=== PATIENT | female | born 1950 | race Caucasian/White ===

== ENCOUNTER → 2018-01-15 | Outpatient (CLI) | payer OTHER ==
[~2018-01-15] MED LIST: ADVIN25050 INH; ASPCH81X PO; CITA20TA9 PO; CONJ0.453 PO; DICY20TA35 PO; IMD2X PO; KLN/5 PO; OXYC5TAB PO; PANT40TA PO; PREG150C PO; PRM625 PO
--- NOTE | 2018-01-16 05:52 | PAP/PSG TECHNICIAN REPORT ---
[facility] [employer] Machine [employer] Helper Polysomnogram Report Study name: None Report date: 01/16/2018 Study date: 01/15/2018 Referring Physician: Dr. Violet Marquez M.D. Name: SAMUEL GARRISON Interpreting Physician: Violet Marquez M.D. 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 Sex: Female Age: 68 StudyType: PSG Weight: 148 lbs Height: 68 years, Height 5' 2" Neck Circum: 13 inches BMI: 27.07 Medications: Advair Diskus, Albuterol 108 (90 Base), Dicylomine 20 mg, Diphenoxylate-Atropine 2.5-0.025 mg, Doxepin, Dulexetine 30 mg, Fluticasone 50 MCG/ACT, Gualfenesin-Codeine 100-10, Loperamide2 mg, Loratadine 10 mg, Montelukast 10 mg, Ondansetron 8 mg, Pantoprazole 40 mg, Prednisone 10 mg, Pregabalin 150 mg, Premarin, Probiotic Patient History 68 yr. old female here for a diagnostic sleep study in room 5 Patient complains of EDS and insomnia. ESS 08/25 Parameters Monitored NPSG: E1-M2, E2-M1, Fp1-M2, Fp2-M1, F3-M2, F4-M2, F4-M1, C3-M2, C4-M2, C4-M1, O1-M2, O2-M2, O2-M1, T3-M2, T4-M1, P3-M2, P4-M1, CHIN1, CHIN2, HR, EKG, Legs, PFLOW, SNOR, FLOW, CFLOW, Tidal Volume, THOR, ABDO, SpO2, PLTH, CPRESS, ETCO2 Wave, ETCO2, pH Sleep Architecture Sleep Stages Time at Lights Off 10:20:36 PM STAGES Time (min.) TST (%) Time at Lights On 5:31:36 AM Wake 85.0 -- Total Recording Time (TRT) 431.50 min. N1 15.0 4 Total Sleep Period (TSP) 395.0 min. N2 162.0 47 Total Sleep Time (TST) 346.0min. N3 89.5 26 Awake Time 85.0 min. REM 79.5 23 Wake after Sleep Onset 49.0 min. Sleep Efficiency (SE) 80 % Sleep Onset Latency (SELMA) 36.0 min. Number of Stage 1 Shifts None Awakenings 11 Stage Changes 48 Number of REM periods 4 REM 79.5 23 REM Latency 211.5 min. NREM 266.5 77 Body Position Analysis Supine Right Left Side Prone Vertical Total Sleep Time (min.) 249.2 150.0 0.0 149.97 0.0 3.0 Total Sleep Time (%) 57% 43% 0% 43 0% N/A% Total Sleep Time REM (min.) 36.0 43.5 0.0 None 0.0 0.0 Total Sleep Time NREM (min.) 160.0 106.5 0.0 None 0.0 0.0 Intermittent Wake (min.) 53.1 3.0 25.9 None 0.0 3.0 Total Sleep Period (%) 61% None None None None None Arousals Myoclonus (PLM) * Events Count Index Events Count Index Spontaneous 3 1 Events Awake (PLMW) 125 88.2 Respiratory 0 0.0 Events Asleep w/ Arousal (PLMA) 14 2.4 PLM 13 2 Events Asleep w/o Arousal (PLMS) 309 53.6 Snoring 5 1 Total Asleep 323 56.0 Total 20 3 Total 448 62 Respiratory Analysis * CA OA MA CH H RERA Total Count 1 32 1 0 47 0 81 Index 0.2 5.5 0.2 0 8.2 0 14.0 Mean Duration 14.7 27.9 16.7 0.00 22.6 0.0 24.5 Longest Duration 14.7 43.9 16.7 0.00 16.7 0.0 65.4 Respiratory Event Summary Total Supine ~Supine Right Left Prone REM NREM Apneas Count 34 34 0 0 N/A N/A 27 7 Index 5.9 10 0 0.0 N/A N/A 20 2 Hypopneas (4% Desat) Count 47 25 22 22 N/A N/A 31 16 Index 8.2 7.7 9 8.8 N/A N/A 23.4 3.6 Apneas & All Hypopneas Count 81 59 22 22 N/A N/A 58 23 Index 14.0 18 9 9 N/A N/A 43.8 5.2 Respiratory Events (Computer Aided Design Designer+All Hyp+RERA) Count 81 59 22 22 N/A N/A 58 23 Index 14.0 18 9 8.8 N/A N/A 43.8 5.2 Respiratory Related Arousal Count 0 59 0 0 N/A N/A 0 0 Index 0.0 0 0 0 N/A N/A 0 0 Snoring Analysis Supine Right Left Prone REM NREM Total Snore duration 127.6 min Snores count 1,615 1,560 N/A N/A 535 2,640 3,175 Snore mean duration 2.4 Sec Snores index 494 624 N/A N/A 403.8 594.4 550.6 TST with snoring (%) 36.9% SpO2 Analysis Total REM NREM Awake <50% 0.0 min. 0.0 min. 0.0 min. 0.0 min. 51 - 60% 0.0 min. 0.0 min. 0.0 min. 0.0 min. 61 - 70% 0.0 min. 0.0 min. 0.0 min. 0.0 min. 71 - 80% 0.9 min. 0.9 min. 0.0 min. 0.0 min. 81 - 90% 273.1 min. 34.4 min. 201.4 min. 37.3 min. 91 - 100% 139.6 min. 44.2 min. 65.1 min. 30.3 min. Average 90 90 89 90 Minimum SpO2 79 79 81 82 Desaturation Event Index 11.4 37.7 3.8 10.6 # Desat. 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 Garrison slept in the right, left, and supine positions. No cardiac arrhythmia. Frequent PLMs noted. No bruxism noted. Snoring was noted and scored as a 4 on a scale of 0 through 5. (0=no snoring, 5=snoring loud enough to be heard through a closed door or down the [address] way) Mrs. Garrison awoke to use the restroom two times during the night. Mrs. Garrison stated, "(Example) I did not sleep as well as I do when I am in my own bed. The final report will be interpreted and signed by a sleep physician. The completed physician report will then be placed in the patient medical record. Therapy (cm H2O) 0 TIB (min.) 431.0 TST (min.) 346.0 Sleep Onset (min.) 36.0 REM Onset From Sleep (min.) 211.5 Sleep Efficiency % 80 Wakefulness (%) 20 Wakefulness (min.) 85.0 NREM 1 (%) 4 NREM 1 (min.) 15.0 NREM 2 (%) 47 NREM 2 (min.) 162.0 NREM 3 (%) 26 NREM 3 (min.) 89.5 REM (%) 23 REM (min.) 79.5 # Arousals 20 Arousal Index 3 # Snore 3,175 Snore Index 550.6 AHI 14.0 AHI Supine 18 AHI Non-Supine 9 NREM AHI 5.2 REM AHI 43.8 RDI 14.0 # Obstructive Apnea 32 # Central Apnea 1 # Mixed Apnea 1 # Hypopneas 47 RERAs 0 Total Respiratory Events 82 Time Below SpO2 89% (min.) 97.6 Mean NREM SpO2 (%) 89 Mean REM SpO2 (%) 90 Mean Sleep SpO2 (%) 90 Min NREM SpO2 (%) 81 Min REM SpO2 (%) 79 Position Supine (min.) 249.2 Position Non-supine (min.) 150.0 LM Index Sleep 56.0 LM Index NREM 68.0 LM Index REM 15.8 Mean Heart Rate (bpm) 86 Min Heart Rate (bpm) 70
--- NOTE | 2018-01-31 14:36 | Sleep Study ---
Sleep Study Report Date of Service: 01/31/18 Sleep Study Report [facility] Diagnostic Polysomnogram Interp Report Study name: None Report date: 01/31/2018 Study date: 01/15/2018 Referring Physician: Dr. Violet Marquez M.D. Name: SAMUEL GARRISON Interpreting Physician: Violet Marquez M.D. Date of : 1950 Geriatric Personal Care Aide: Becka Rivera [facility]. Sex: Female Age: 68 Study Type: PSG Weight: 148 lbs Height: 68 years, Height 5' 2" BMI: 27.07 DIAGNOSTIC POLYSOMNOGRAPHY REPORT This patient was referred by Dr. Violet Marquez M.D. SAMUEL GARRISON, tested at 7:22:36 PM on 01/15/2018, is a 68 year old female, date of 1950 who is 5' 2" and 148 lbs, with a BMI of 27.07, which is elevated. This patient has an [place] Sleepiness Score of 2, which is normal. Study scored by: Violet Marquez M.D. IMPRESSION: 1-Mild obstructive sleep apnea syndrome exacerbated to the severe degree during REM sleep. These respiratory events were associated with oxygen desaturations ( darius of 79 %). 2-Abnormal sleep architecture likely due to respiratory events and first night effect. RECOMMENDATIONS: 1-CPAP titration study. 2-Avoidance of alcohol and sedatives. Past medical history: Insomnia Medications: Advair Diskus, Albuterol Dicylomine, Diphenoxylate-Atropine, Doxepin, Dulexetine , Fluticasone, Gualfenesin-Codeine, Loperamide, Loratadine, Montelukast, Ondansetron, Pantoprazole, Prednisone, Pregabalin, Premarin, Probiotic Sleep Study Summary Procedure: The study was attended continuously by a electrophysiology technologist. The monitored parameters included: left (E1-M2) and right (E2-M1) EOG, frontal (F3- M2 & F4-M1), central (C3-M2 & C4-M1) and occipital (O1-M2 & O2-M1) EEG, mental and submental EMG, left and right anterior tibialis EMG, left and right extensor digitorum EMG, single ECG waveform, snoring, continuous airflow with thermistor and nasal pressure transducer, chest and abdominal effort, oxygen saturation, EtCO2, and body position via video monitoring. Hypopnea definition: The nasal pressure signal excursions (or those of the alternative hypopnea sensor) drop by 30% of baseline. The duration of this drop occurs for a period lasting at least 10 seconds. There is a 4% desaturation from pre-event baseline or the event is associated with an arousal. At least 90 % of the event's duration must meet the amplitude reduction criteria for hypopnea. Sleep Data: This patient displayed normal latency to sleep onset of 36.0 min., with disrupted sleep architecture with sleep stage percentages of 4% N1, 41% N2, 23% N3, and 20% REM, with normal sleep efficiency of 80% and with Total Sleep Time of 346.0 minutes. Respiratory Data: 81 respiratory events were observed. The apnea-hypopnea index was 14.0 which is mild. The amounts of apneas/hypopneas are not evenly distributed throughout the study, with a non-REM RDI of 5.2 and a REM RDI of 43.8. Respiratory events were more frequent in the supine position. The longest respiratory event duration was 65.4 sec. Minimum NREM oxygen saturation was 81%; minimum REM oxygen saturation was 79%. Time spent below SaO2 of 90% was 3.2 min. The time spent with SaO2 of 80-89% was 97 min. Snoring was noted to be present. Limb Movement: 323 limb movements were observed for an index of 56.0. Arousal: 20 arousals were observed, with a total index of 3. There were 3 spontaneous arousals, 0 respiratory arousals (respiratory arousal index of 0.0) , and 13 limb movement arousals (limb movement arousal index of 2). Cardiac: The average heart rate during sleep was 86 beats per minute, with a range of 70 to 107. During wake, the heart rate ranged from 73 to 106 beats per minute. There were no arrhythmias noted. Pierce-Vasquez breathing was absent. EEG: There were no epileptic form features reported. Behavioral Observation: The patient reported that their sleep for this study was shorter in duration and of poorer quality than usual. The patient did not display unusual behaviors. Thank you for the courtesy of this referral. Dr Violet Marquez Board Certified in Internal/ Sleep Medicine
== END | disposition home or self-care (01) ==
LOC: C.NEUR 21:00
PROVIDERS: ATTEND Internal Medicine
DX: G47.33 Obstructive sleep apnea (adult) (pediatric) (principal)

== ENCOUNTER 2020-10-11 11:38 | Observation (INO) ==
--- OUTSIDE RECORDS SUMMARY | 2020-10-11 11:41 | External Medical Summary | Continuity of Care Document ---
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) Sudden hearing loss (388.2) (H91.20) Carpal tunnel syndrome (354.0) (G56.00) Neck pain (723.1) (M54.2) Arm pain (729.5) (M79.603) Allergies and Adverse Reactions No Known Allergies (Allergy) Medications Lyrica 75 MG Oral Capsule Refills: 0 CeleXA 10 MG Oral Tablet; TAKE 3 TABLETS DAILY Refills: 0 Prempro 0.625-2.5 MG Oral Tablet Refills: 0 KlonoPIN 0.5 MG Oral Tablet Refills: 0 Protonix 40 MG Oral Packet Refills: 0 Procedures History of Hysterectomy Status: Complete d History of Tonsillectomy With Adenoidectomy Status: Completed Immunizations Immunizations not documented Family History Father Family history of diabetes mellitus (V18.0) (Z83.3) Status: Active Family history of cardiovascular disease (V17.49) (Z82.49) S tatus: Active Sister FHx: cancer (V16.9) (Z80.9) Status: Active Brother Family history of cardiovascular disease (V17.49) (Z82.49) S tatus: Active Social History - Smoking Status Smokes tobacco daily Plan of Treatment Planned Observations Planned Goals not documented Results No Known Results Results not documented
[2020-10-11] MEDS ORDERED: KETOROLAC TROMETHAMINE 15 MG/ML VIAL IV ONE (12:40)
[2020-10-11] MEDS ORDERED: ONDANSETRON INJ 2 MG/ML 2 ML VIAL IV STA (12:40)
[2020-10-11] MEDS ORDERED: HYDROmorphone INJ 0.5 MG/0.5 ML SYR IV STA (12:40)
[2020-10-11] MEDS ORDERED: SODIUM CHLORIDE 0.9% 1000ML 1,000 ML IV ONE (12:40)
--- NOTE | 2020-10-11 12:44 | Emergency Department Note ---
Impression & Plan Acute leg pain, Acute hip pain, Back pain ED Provider Note NAME: SAMUEL GARRISON AGE: 70 SEX: F : 1950 ARRIVES VIA: Walk-In INFORMANT: Patient ED PROVIDER(S): Mason Ulloa DO CHIEF COMPLAINT: Right hip and back pain HPI: Patient is a 70-year-old female who presents the ER for initially right hip pain which started a week ago. Patient was moving 10 pound bags and started having severe pain. And now radiates from the right lower back down the right leg. Over the past 3 to 4 days she has been having trouble moving the leg as it is significantly painful. The pain runs down the leg. Patient denies any headache or change in vision. No chest pain or shortness of breath. No belly pain. Denies any dysuria, urgency, or frequency. No other exacerbating or remitting factors. Pain is a 10 out of 10 with movement. Denies any tingling or numbness. ROS: See above HPI for pertinent positives & negatives. A total of 10 systems reviewed and were otherwise negative. PAST MEDICAL HISTORY:See Below PAST SURGICAL HISTORY:See Below FAMILY HISTORY:See Below SOCIAL HISTORY:See Below HOME MEDICATIONS:See Below ALLERGIES:See Below VITALS:See Below PHYSICAL EXAMINATION: GENERAL: Sitting up in bed, alert, well appearing, well nourished, no distress, non-toxic EYE EXAM: normal conjunctiva. OROPHARYNX: no exudate, no erythema, lips, buccal mucosa, and tongue normal and mucous membranes are moist NECK: supple, no nuchal rigidity, no adenopathy, non-tender LUNGS: Clear to auscultation. Normal chest wall mechanics HEART: no murmurs, S1 normal and S2 normal ABDOMEN: abdomen soft, non-tender, normo-active bowel sounds, no masses, no rebound or guarding. BACK: Back is symmetrical on inspection and there is no deformity, no midline tenderness, no CVA tenderness. SKIN: no rashes and no bruising UPPER EXTREMITIES: upper extremities are grossly normal. LOWER EXTREMITIES: Flexion and extension of the hips, knees, ankles, and EHL 5/5 on the left. Flexion extension of the ankle and EHL 5 out of 5 on the right. Severe pain with any movement of the right hip. Flexion of the right hip about 5 degrees and supports against resistance. Gross sensation is intact. DPs are 2/4 bilateral. Patellar and Achilles reflexes are 2/4 bilateral NEURO EXAM: Normal sensorium, cranial nerves II-XII grossly intact, normal speech, no gross weakness of arms. MEDICAL DECISION MAKING: Patient is a 70-year-old female who presents the ER for severe right leg pain in the hip radiating down the leg with pain in the back. She notes that she is having trouble walking and cannot walk secondary to the pain. Denies any trauma falls or fevers. Able to urinate move her bowels. No numbness in the legs. IV was established blood work was obtained. Labs show leukocytosis of 10,000. No significant anemia. BMP with LFTs bilirubin and lipase was unremarkable. MR of the lumbar spine was performed initially secondary to severe pain and showed no culprit lesion. CT head was performed as well this ultrasound leg which was unremarkable. Patient was given IV morphine following which she did desat. and note she is having difficulty and can get around at home. Unable to place secondary to insurance. Discussed with patient and will observe overnight. She remained on oxygen while in the ER after the morphine. She was not hypoxic prior to this. Triage Nursing notes reviewed. Limited review of prior medical records performed Vital Signs: reviewed and remarkable for tachy and hypotensive Differential diagnosis: Fracture, subluxation, dislocation, contusion, ligamentous injury, neurovascular, compartment syndrome, rhabdomyolysis, as well as other pathologie s. ER treatment provided: See below Diagnostics interpreted by me: ECG: none Cardiac Monitoring: An order was placed for continuous cardiac monitoring. The monitor shows a rate of 74 with sinus rhythm. Laboratory studies: As stated above and show below. Imaging studies: MR as discussed above Duplex of the right lower extremity was negative CT head was negative Consultation(s): Discussed with the hospitalist for further evaluation Procedures: none Critical Care: None Past Med/Surg History Medical History (Updated 10/11/20 @ 17:17 by Marii Sloan PA-C) Anxiety Asthma COPD (chronic obstructive pulmonary disease) Depression GERD (gastroesophageal reflux disease) History of left heart catheterization IBS (irritable bowel syndrome) VIRGIL (obstructive sleep apnea) Restless leg syndrome Tobacco abuse Surgical History (Updated 10/11/20 @ 17:17 by Marii Sloan PA-C) H/O abdominoplasty "03/08/07" H/O: hysterectomy History of carpal tunnel surgery of right wrist History of cervical spinal arthrodesis Family History (Updated 10/11/20 @ 17:18 by Marii Sloan PA-C) Sister Breast cancer Father Diabetes Brother Prostate cancer Mother Kidney disease Social History (System 12/31/19 @ 12:36 by Ngozi Jaeger) Smoking Status: Current every day smoker Preferred Language: Azeri Feels Safe at Home: Yes Allergies Allergies Allergy/AdvReac Type Severity Reaction Status Date / Time morphine Allergy Mild rash Unverified 10/11/20 14:41 cat dander Allergy Unknown Unknown Verified 10/11/20 14:41 strawberry Allergy Unknown Unknown Verified 10/11/20 14:41 Home Meds Home Medications Medication Instructions Recorded Confirmed albuterol sulfate 2 puff INHALATION Q4H PRN 10/11/20 10/11/20 aspirin [Aspir-81] 81 mg PO DAILY 10/11/20 10/11/20 atorvastatin 20 mg PO DAILY 10/11/20 10/11/20 bupropion HCl 150 mg PO DAILY 10/11/20 10/11/20 duloxetine 60 mg PO DAILY 10/11/20 10/11/20 fluticasone propionate 2 spray INTRANASAL BID 10/11/20 10/11/20 meclizine 25 mg PO TID PRN 10/11/20 10/11/20 meloxicam 7.5 mg PO DAILY 10/11/20 10/11/20 pantoprazole 40 mg PO DAILY 10/11/20 10/11/20 pregabalin 75 mg PO BID 10/11/20 10/11/20 pregabalin 150 mg PO HS 10/11/20 10/11/20 solifenacin 5 mg PO DAILY 10/11/20 10/11/20 trazodone 150 mg PO HS 10/11/20 10/11/20 umeclidinium [Incruse Ellipta] 1 inh INHALATION DAILY 10/11/20 10/11/20 Results & Data (ED) Vital Signs Vital Signs - 24 hr 10/11/20 11:46 10/11/20 14:00 10/11/20 14:07 Temperature 37.3 C Temperature Source Temporal Artery Scan Pulse Rate 110 H Pulse Rate [Finger] 90 Pulse Rate from SpO2 Sensor Pulse Rhythm [Finger] Regular Respiratory Rate 20 16 Respiratory Effort / Characteristics Non-Labored Spontaneous Non-Labored Spontaneous Respiratory Depth Normal Normal Respiratory Pattern Regular Blood Pressure 91/55 L Blood Pressure [Left Arm] 101/49 L Blood Pressure Mean 67 Blood Pressure Mean [Left Arm] 66 Blood Pressure Position [Left Arm] Sitting Pulse Oximetry 98 91 91 Oxygen Delivery Method Room Air Room Air Room Air Oxygen Flow Rate Sepsis Recent Fever Within 48 Hours No Sepsis New/Unexplained Change in Mental Status N/A Sepsis Action Taken by Nursing No Action Required 10/11/20 15:00 10/11/20 16:21 10/11/20 16:24 Temperature Temperature Source Pulse Rate 88 Pulse Rate [Finger] 78 Pulse Rate from SpO2 Sensor 83 Pulse Rhythm [Finger] Respiratory Rate 25 H 20 Respiratory Effort / Characteristics Respiratory Depth Respiratory Pattern Blood Pressure 96/49 L 90/50 L Blood Pressure [Left Arm] 90/50 L Blood Pressure Mean 64 63 Blood Pressure Mean [Left Arm] 63 Blood Pressure Position [Left Arm] Pulse Oximetry 88 L 93 93 Oxygen Delivery Method Room Air Nasal Cannula Oxygen Flow Rate 2 2 Sepsis Recent Fever Within 48 Hours Sepsis New/Unexplained Change in Mental Status Sepsis Action Taken by Nursing 10/11/20 16:30 10/11/20 17:00 10/11/20 17:30 Temperature Temperature Source Pulse Rate Pulse Rate [Finger] Pulse Rate from SpO2 Sensor 77 78 80 Pulse Rhythm [Finger] Respiratory Rate Respiratory Effort / Characteristics Respiratory Depth Respiratory Pattern Blood Pressure 96/55 L 95/47 L 102/56 L Blood Pressure [Left Arm] Blood Pressure Mean 68 63 71 Blood Pressure Mean [Left Arm] Blood Pressure Position [Left Arm] Pulse Oximetry 96 87 L 92 Oxygen Delivery Method Room Air Oxygen Flow Rate 2 2 Sepsis Recent Fever Within 48 Hours Sepsis New/Unexplained Change in Mental Status Sepsis Action Taken by Nursing Laboratory Data Result diagrams: 10/11/20 13:25 10/11/20 13:25 Lab Results 10/11/20 10/11/20 10/11/20 Range/Units 13:25 13:25 17:37 WBC 10.00 (4.8-10.8) K/uL RBC 4.51 (4.2-5.4) M/uL Hgb 13.8 (12.0-16.0) g/dL Hct 40.7 (37-47) % MCV 90.2 (80-100) fL MCH 30.6 (25-34) pg MCHC 33.9 (32-36) g/dL RDW Std Deviation 46.7 H (36.4-46.3) fL RDW Coeff of Ira 13.9 (11.5-14.5) % Plt Count 287 (130-400) K/uL MPV 9.0 (7.4-10.4) fL Immature Gran % (Auto) 0.1 % Neut % (Auto) 75.8 % Lymph % (Auto) 15.1 % [place] % (Auto) 6.5 % Eos % (Auto) 2.1 % Baso % (Auto) 0.4 % Neut # (Auto) 7.58 H (1.4-6.5) K/uL Lymph # (Auto) 1.51 (1.2-3.4) K/uL [place] # (Auto) 0.65 H (0.11-0.59) K/uL Eos # (Auto) 0.21 (0-0.5) K/uL Baso # (Auto) 0.04 (0-0.2) K/uL Immature Gran # (Auto) 0.01 (0.00-0.02) K/uL Sodium 137 (136-145) mmol/L Potassium 4.4 (3.5-5.1) mmol/L Chloride 103 (98-107) mmol/L Carbon Dioxide 29 (21-32) mmol/L Anion Gap 5.0 (3-11) BUN 13 (7-18) mg/dl Creatinine 0.77 (0.6-1.2) mg/dl Est Cr Clr Drug Dosing 55.3 ml/min Est GFR ( Amer) 92.0 Est GFR (Non-Af Amer) 79.3 BUN/Creatinine Ratio 16.8 (10-20) Glucose 89 (70-99) mg/dl Calcium 9.5 (8.5-10.1) mg/dl Total Bilirubin 0.7 (0.2-1) mg/dl AST 8 L (15-37) U/L ALT 13 (12-78) U/L Alkaline Phosphatase 115 (45-117) U/L Total Protein 6.9 (6.4-8.2) gm/dl Albumin 3.2 L (3.4-5.0) gm/dl Globulin 3.7 (2.5-4.0) gm/dl Albumin/Globulin Ratio 0.9 (0.9-2) Lipase 45 L (73-393) U/L COVID-19 Eval Order CovFluRsv at [facility] Administered Medications Discontinued Medications Hydromorphone HCl (Hydromorphone Inj 0.5 Mg/0.5 Ml Syr) 0.25 mg IV NOW STA Stop: 10/11/20 12:41 Last Admin: 10/11/20 14:04 Dose: 0.25 mg Documented by: [id number] Sodium Chloride (Nss 1000ml) 1,000 mls @ 999 mls/hr IV .Q1H1M ONE Stop: 10/11/20 13:40 Last Infusion: 10/11/20 14:32 Dose: 0 mls/hr Documented by: [id number] Admin: 10/11/20 13:31 Dose: 999 mls/hr Documented by: [id number] Ketorolac Tromethamine (Ketorolac Tromethamine 15 Mg/Ml Vial) 10 mg IV NOW ONE Stop: 10/11/20 12:41 Last Admin: 10/11/20 14:03 Dose: 10 mg Documented by: [id number] Ondansetron HCl (Ondansetron Inj 2 Mg/Ml 2 Ml Vial) 4 mg IV NOW STA Stop: 10/11/20 12:41 Last Admin: 10/11/20 14:03 Dose: 4 mg Documented by: [id number] Imaging Data Radiologist's Impression: Hip/Pelvis X-Ray 10/11/20 12:40 XR hip RT 2V w pelvis CLINICAL HISTORY: Right hip pain. COMPARISON STUDY: Pelvis 08/25/2018. FINDINGS: No fracture or dislocation within the pelvis or hips. The sacrum is intact. Soft tissues are unremarkable. There is mild osteoarthritis within the bilateral hips, unchanged. There is also mild chondrocalcinosis within the hips. IMPRESSION: 1. No fracture or dislocation within the pelvis or hips. 2. No change in the mild osteoarthritis and chondrocalcinosis of the hips. ACT 112: Negative or not required by law. Electronically signed by: Anshul Cardona M.D. 10/11/2020 2:03 PM Lumbar Spine MRI 10/11/20 12:40 MRI OF LUMBAR SPINE WITHOUT IV CONTRAST CLINICAL HISTORY: Right lower extremity weakness. Low back pain. COMPARISON STUDY: Abdominal CT dated 12/29/2015. TECHNIQUE: MRI of the lumbar spine is performed utilizing various T1 and T2- weighted sequences in the axial and sagittal planes. IV contrast was not administered for this examination. FINDINGS: Lumbar spine: Marrow signal intensity is heterogeneous. Vertebral body height and alignment are maintained throughout the lumbar spine. Small anterior osteophytes are seen throughout. A large Schmorl's node is present within the superior endplate of T12. The transverse and spinous processes appear intact. There is no evidence of spondylolysis. Mild chronic degenerative endplate change is seen at all lumbar levels from L2 to L3 through L4-L5. No significant endpl ate edema is identified in the lumbar region. Minimal endplate edema is seen at T10-T11. Intervertebral discs: Degenerative disc desiccation is seen throughout the lumbar spine. There is only minimal loss of height. Spinal cord: The visualized spinal cord is normal in morphology and signal intensity. The conus medullaris terminates at the level of L1. The nerve roots of the cauda equina are normal in morphology and signal intensity. L1-L2: Unremarkable. L2-L3: Unremarkable. L3-L4: Bilateral disc bulge causes mild bilateral subarticular stenosis. The central canal is clear. There is mild bilateral neural foraminal narrowing. L4-L5: There is mild bilateral disc bulge. There is left greater than right- sided subarticular stenosis. This may impinge on the exiting left L4 nerve root. The central canal is clear. In conjunction with facet arthropathy, there is moderate to severe left and moderate right neural foraminal stenosis. L5-S1: There is broad-based posterior disc bulge with annular fissure. This causes bilateral subarticular stenosis and may abut the exiting bilateral L5 nerve roots. In conjunction with facet arthropathy there is mild bilateral neural foraminal narrowing. Bilateral facet joint effusions are noted. Sacrum: The visualized sacrum is normal in morphology and signal intensity. Tarlov cysts measure up to 1.5 cm. Soft tissues: There is mild fatty atrophy of the paraspinous musculature. The retroperitoneal structures are grossly unremarkable but incompletely evaluated. IMPRESSION: 1. Mild multilevel spondylosis as above. See discussion for detailed level by level analysis. 2. There is no central canal stenosis. 3. No destructive bony process is identified. Dictated: 10/11/2020 3:52 PM Transcribed: 10/11/2020 4:25 PM [facility] [id number] Electronically signed by: Chip Lam M.D. 10/11/2020 4:[address] 10/11/20 14:49 CT SCAN OF THE BRAIN WITHOUT IV CONTRAST CLINICAL HISTORY: Left lower extremity weakness. COMPARISON STUDY: CT of the brain dated 11/23/2015. TECHNIQUE: Unenhanced axial CT scan of the brain is performed from the vertex to the skull base. A dose lowering technique was utilized adhering to the principles of ALARA. CT DOSE: 638.56 mGycm FINDINGS: Brain parenchyma: There are age-related involutional changes noting minimal m icroangiopathic change. There is no hemorrhage, mass effect, or evidence of acute territorial ischemia by CT criteria. Bowles-white matter differentiation is preserved. No extra-axial fluid collection is seen. Ventricles, sulci, cisterns: Prominent secondary to involutional change. Intracranial vasculature: There is atherosclerotic calcification of the cavernous carotid arteries. Calvarium: Unremarkable. Sinuses and mastoids: There is mild mucosal thickening in the right maxillary antrum. Trace mucosal thickening is noted in the ethmoid sinuses. The mastoid air cells are well pneumatized. Orbits: The bony orbits are grossly intact. IMPRESSION: There is no hemorrhage, mass effect, or evidence of acute territorial ischemia by CT criteria. ACT 112: Negative or not required by law. Electronically signed by: Chip Lam M.D. 10/11/2020 4:14 PM Venous Doppler Study 10/11/20 16:31 ULTRASOUND RIGHT LOWER EXTREMITY VENOUS CLINICAL HISTORY: Right leg pain. COMPARISON STUDY: Bilateral lower extremity venous ultrasound dated 03/20/2007. TECHNIQUE: Real-time, grayscale, and color Doppler sonography of the deep veins of the right lower extremity was performed from the inguinal crease to the calf. Compression and augmentation were utilized. FINDINGS: There is no sonographic evidence of deep venous thrombosis identified in the right lower extremity. The common femoral, superficial femoral, and popliteal veins are patent and normally compressible. The greater saphenous vein and the profunda femoris vein at the junction with the common femoral vein are clear. The visualized calf veins are patent. IMPRESSION: There is no sonographic evidence of deep venous thrombosis identified in the right lower extremity. ACT 112: Negative or not required by law. Electronically signed by: Chip Lam M.D. 10/11/2020 4:54 PM Discharge Plan Visit Data Chief Complaint: Hip Pain Stated Complaint: PAIN RT HIP/LEG ED Provider: Mason Ulloa Discharge Problem: Acute leg pain, Acute hip pain, Back pain Discharge Instructions Krames/Other Patient Handouts: ED Back Sprain/Strain, ED Hip Strain, ED Sciatica Activity Restrictions/Additional Instructions: Please follow up with your primary care doctor with in the next 24 hours. Any worsening of your symptoms, please return to the ED immediately. This includes any fevers greater than 100.4, worsening pain, chest pain, shortness breath, persistent nausea, vomiting, unable to eat or drink, weakness or numbness in the legs, numbness in the groin, unable to ambulate, or any other concerning signs or symptoms from your standpoint. You were given medications during this visit that will inhibit your ability to drive, operate machinery and work. Please do NOT drive, operate machinery, drink alcohol or work for the next 12hrs. Please do not take your Ultram/tramadol or any other narcotics or benzodiazepines in combination with oxycodone. Please take Tylenol or Motrin as needed for pain in combination with this as well. Please follow-up with one of the orthopedic groups as listed below within the next 48 hours ORTHOPEDIC INSTRUCTIONS: DO NOT drive, drink alcohol, operate machinery, or perform dangerous activities today. You were given medications in the ER that can affect your ability to safely function or operate a vehicle. Oxycodone (OxyIR) 5mg: Take 1-2 pills every four hours as needed for breakt hrough pain. Avoid alcohol, operating machinery or dangerous equipment, working on ladders or roofs, DRIVING, or situations where being under the influence may be dangerous. It is recommended to use an efrb-ncn-mtrrtuk stool softener such as Colace, 100mg twice daily while taking this medication to avoid constipation. Rest and elevate your injury. Return to the ER immediately for any numbness, tingling, severe pain, extreme swelling in the extremity or as needed. Call [facility], [phone], [] to arrange follow up for your injury. Call [facility], [phone], [] to arrange follow up for your injury. Call [facility], [phone], [] to arrange follow up for your injury. Follow-up with your primary care physician in 2 to 3 days for a recheck of your current condition. Forms Stand Alone Forms: [facility] Prescriptions Prescriptions: No Action atorvastatin 20 mg tablet 20 mg PO DAILY RF: 0 meloxicam 7.5 mg tablet 7.5 mg PO DAILY RF: 0 trazodone 100 mg tablet 150 mg PO HS RF: 0 meclizine 25 mg tablet 25 mg PO TID PRN (Reason: Dizziness) RF: 0 pantoprazole 40 mg tablet,delayed release (DR/EC) 40 mg PO DAILY RF: 0 albuterol sulfate 90 mcg/actuation HFA aerosol inhaler 2 puff INHALATION Q4H PRN (Reason: Shortness Of Breath) RF: 0 fluticasone propionate 50 mcg/actuation spray,suspension 2 spray INTRANASAL BID RF: 0 bupropion HCl 150 mg tablet extended release 24 hr 150 mg PO DAILY RF: 0 duloxetine 60 mg capsule,delayed release(DR/EC) 60 mg PO DAILY RF: 0 solifenacin 5 mg tablet 5 mg PO DAILY RF: 0 pregabalin 75 mg capsule 75 mg PO BID RF: 0 pregabalin 150 mg capsule 150 mg PO HS RF: 0 Incruse Ellipta 62.5 mcg/actuation blister with device 1 inh INHALATION DAILY RF: 0 aspirin [Aspir-81] 81 mg Tablet,Delayed Release (Dr/Ec) 81 mg PO DAILY RF: 0 Referrals Referrals: Nataly Kelly, [Primary Care Provider] - Discharge Problem: Acute leg pain Qualifiers: Laterality: right Qualified Code(s): M79.604 - Pain in right leg Acute hip pain Qualifiers: Laterality: right Qualified Code(s): M25.551 - Pain in right hip Back pain Qualifiers: Back pain location: low back pain Chronicity: acute Back pain laterality: unsp ecified Sciatica presence: with sciatica Sciatica laterality: sciatica of right side Qualified Code(s): M54.41 - Lumbago with sciatica, right side
[2020-10-11 13:42] LABS: Basophils # (auto) 0.04 K/uL (0-0.2); Basophils % (auto) 0.4 %; Eosinophils # (auto) 0.21 K/uL (0-0.5); Eosinophils % (auto) 2.1 %; Hematocrit (blood only) 40.7 % (37-47); Hemoglobin 13.8 g/dL (12.0-16.0); Immature Granulocytes # (auto) 0.01 K/uL (0.00-0.02); Immature Granulocytes % (auto) 0.1 %; Lymphocytes # (auto) 1.51 K/uL (1.2-3.4); Lymphocytes % (auto) 15.1 %; Mean Corpuscular Hemoglobin 30.6 pg (25-34); Mean Corpuscular Hgb Conc 33.9 g/dL (32-36); Mean Corpuscular Volume 90.2 fL (80-100); Monocytes # (auto) 0.65 K/uL (0.11-0.59); Monocytes % (auto) 6.5 %; Neutrophils # (auto) 7.58 K/uL (1.4-6.5); Neutrophils % (auto) 75.8 %; Platelet Count 287 K/uL (130-400); RDW Coefficient of Variation 13.9 % (11.5-14.5); RDW Standard Deviation 46.7 fL (36.4-46.3); Red Blood Count 4.51 M/uL (4.2-5.4)
[2020-10-11 14:00] LABS: Albumin Level 3.2 gm/dl (3.4-5.0); BUN Creatinine Ratio 16.8 (10-20); Calcium 9.5 mg/dl (8.5-10.1); Creatinine Clr Calc Pharmacy 55.3 ml/min; Est GFR (Non-African American) 79.3; Potassium 4.4 mmol/L (3.5-5.1)
[2020-10-11 14:03] LABS: Albumin Globulin Ratio 0.9 (0.9-2); Bilirubin,Total 0.7 mg/dl (0.2-1); Globulin 3.7 gm/dl (2.5-4.0); Total Protein 6.9 gm/dl (6.4-8.2)
--- NOTE | 2020-10-11 14:04 | XRay Report ---
XR hip RT 2V w pelvis CLINICAL HISTORY: Right hip pain. COMPARISON STUDY: Pelvis 08/25/2018. FINDINGS: No fracture or dislocation within the pelvis or hips. The sacrum is intact. Soft tissues ar e unremarkable. There is mild osteoarthritis within the bilateral hips, unchanged. There is also mild chondrocalcinosis within the hips. IMPRESSION: 1. No fracture or dislocation within the pelvis or hips. 2. No change in the mild osteoarthritis and chondrocalcinosis of the hips. ACT 112: Negative or not required by law. Electronically signed by: Anshul Cardona M.D. 10/11/2020 2:03 PM
--- NOTE | 2020-10-11 16:15 | CT Scan Report ---
CT SCAN OF THE BRAIN WITHOUT IV CONTRAST CLINICAL HISTORY: Left lower extremity weakness. COMPARISON STUDY: CT of the brain dated 11/23/2015. TECHNIQUE: Unenhanced axial CT scan of the brain is performed from the vertex to the skull base. A do se lowering technique was utilized adhering to the principles of ALARA. CT DOSE: 638.56 mGycm FINDINGS: Brain parenchyma: There are age-related involutional changes noting minimal microangiopathic change. There is no hemorrhage, mass effect, or evidence of acute territorial ischemia by CT criteria. Bowles- white matter differentiation is preserved. No extra-axial fluid collection is seen. Ventricles, sulci, cisterns: Prominent secondary to involutional change. Intracranial vasculature: There is atherosclerotic calcification of the cavernous carotid arteries. Calvarium: Unremarkable. Sinuses and mastoids: There is mild mucosal thickening in the right maxillary antrum. Trace mucosal t hickening is noted in the ethmoid sinuses. The mastoid air cells are well pneumatized. Orbits: The bony orbits are grossly intact. IMPRESSION: There is no hemorrhage, mass effect, or evidence of acute territorial ischemia by CT ovidio mondragon. ACT 112: Negative or not required by law. Electronically signed by: Chip Lam M.D. 10/11/2020 4:14 PM
--- NOTE | 2020-10-11 16:28 | Magnetic Resonance Report ---
MRI OF LUMBAR SPINE WITHOUT IV CONTRAST CLINICAL HISTORY: Right lower extremity weakness. Low back pain. COMPARISON STUDY: Abdominal CT dated 12/29/2015. TECHNIQUE: MRI of the lumbar spine is performed utilizing various T1 and T2-weighted sequences in the axial and sagittal planes. IV contrast was not administered for this examination. FINDINGS: Lumbar spine: Marrow signal intensity is heterogeneous. Vertebral body height and alignment are maint ained throughout the lumbar spine. Small anterior osteophytes are seen throughout. A large Schmorl's node is present within the superior endplate of T12. The transverse and spinous processes appear inta ct. There is no evidence of spondylolysis. Mild chronic degenerative endplate change is seen at all l umbar levels from L2 to L3 through L4-L5. No significant endplate edema is identified in the lumbar r egion. Minimal endplate edema is seen at T10-T11. Intervertebral discs: Degenerative disc desiccation is seen throughout the lumbar spine. There is onl y minimal loss of height. Spinal cord: The visualized spinal cord is normal in morphology and signal intensity. The conus medul yvonne terminates at the level of L1. The nerve roots of the cauda equina are normal in morphology and signal intensity. L1-L2: Unremarkable. L2-L3: Unremarkable. L3-L4: Bilateral disc bulge causes mild bilateral subarticular stenosis. The central canal is clear. There is mild bilateral neural foraminal narrowing. L4-L5: There is mild bilateral disc bulge. There is left greater than right-sided subarticular stenos is. This may impinge on the exiting left L4 nerve root. The central canal is clear. In conjunction wi th facet arthropathy, there is moderate to severe left and moderate right neural foraminal stenosis. L5-S1: There is broad-based posterior disc bulge with annular fissure. This causes bilateral subartic ular stenosis and may abut the exiting bilateral L5 nerve roots. In conjunction with facet arthropath y there is mild bilateral neural foraminal narrowing. Bilateral facet joint effusions are noted. Sacrum: The visualized sacrum is normal in morphology and signal intensity. Tarlov cysts measure up t o 1.5 cm. Soft tissues: There is mild fatty atrophy of the paraspinous musculature. The retroperitoneal structu res are grossly unremarkable but incompletely evaluated. IMPRESSION: 1. Mild multilevel spondylosis as above. See discussion for detailed level by level analysis. 2. There is no central canal stenosis. 3. No destructive bony process is identified. Dictated: 10/11/2020 3:52 PM Transcribed: 10/11/2020 4:25 PM [place] [id number] ROBERT_Maurone Electronically signed by: Chip Lam M.D. 10/11/2020 4:27 PM
--- NOTE | 2020-10-11 16:55 | Ultrasound Report ---
ULTRASOUND RIGHT LOWER EXTREMITY VENOUS CLINICAL HISTORY: Right leg pain. COMPARISON STUDY: Bilateral lower extremity venous ultrasound dated 03/20/2007. TECHNIQUE: Real-time, grayscale, and color Doppler sonography of the deep veins of the right lower ex tremity was performed from the inguinal crease to the calf. Compression and augmentation were utilize d. FINDINGS: There is no sonographic evidence of deep venous thrombosis identified in the right lower ex tremity. The common femoral, superficial femoral, and popliteal veins are patent and normally tomasz sible. The greater saphenous vein and the profunda femoris vein at the junction with the common femor al vein are clear. The visualized calf veins are patent. IMPRESSION: There is no sonographic evidence of deep venous thrombosis identified in the right lower extremity. ACT 112: Negative or not required by law. Electronically signed by: Chip Lam M.D. 10/11/2020 4:54 PM
--- NOTE | 2020-10-11 17:35 | Pharmacy Report ---
ED Pharmacist Progress Note - ED Pharmacist Progress Note Date of Service:: October 11, 2020 Notes:: Contacted [facility] [place] to have Rx's for oxycodone and prednisone cancelled per the request of Dr Ulloa.
[2020-10-11 18:49] LABS: Influenza A virus by PCR Negative (Neg); Influenza B virus by PCR Negative (Neg); RSV by PCR Negative (Neg); SARS CoV2 RNA(COVID-19) InHosp NEGATIVE (Negative)
--- NOTE | 2020-10-11 18:54 | History and Physical Report ---
DATE OF ADMISSION: 10/11/2020 CHIEF COMPLAINT: Back pain. HISTORY OF PRESENT ILLNESS: This is a 70-year-old female with past medical history significant for COPD, history of lung nodules, history of obstructive sleep apnea, irritable bowel syndrome, GERD, urge incontinence of urine, history of carpal tunnel syndrome, radiculomyelopathy who lives with her , comes with severe back pain, hip pain on the right side, radiating to the right lower leg. The patient is hard of hearing. The patient has back pain for some time, but in the last couple of weeks, it got worse. She recently saw her cardiology and because of a question of peripheral vascular disease, an arterial ultrasound was done, which was unremarkable. The patient says in the last few days, she could not even put weight on the right leg and she could not ambulate, so she came to the ER. The pain is more in the right back and right hip region radiating down the right leg. MRI scan done in the ER was showing mild multilevel spondylosis. The patient is somewhat constipated. She says she moves bowels every once in a couple of weeks that is normal for her. Denies any blood in the stool or black stools. Normal bladder movements. No hematuria or black stools or blood in the stools, no abdominal pain, no chest pain, no shortness of breath. She is not ambulating much. She is coughing a little bit in the nighttime. Denies any fever or chills, no headache, no blurred vision, no runny nose, no sore throat, no dysphagia. Appetite is okay. She had her first COVID shot done and second COVID shot is on 10/27. Currently resting comfortably and hemodynamically stable, says the pain medication given in the ER worked for her. ALLERGIES: MORPHINE, CAT DANDER, STRAWBERRY. PAST MEDICAL HISTORY: As mentioned above. PAST SURGICAL HISTORY: Carpal tunnel surgery, colonoscopies, EGDs, excision of excessive skin of the abdomen, cervical spine surgery, total abdominal hysterectomy with removal of tubes. MEDICATIONS: The patient is on albuterol 2 puffs q.4 hours p.r.n., aspirin 81 mg p.o. daily, atorvastatin 20 mg p.o. daily, bupropion 150 mg p.o. daily, duloxetine 60 mg p.o. daily, Flonase 2 sprays intranasally b.i.d., meclizine 25 mg p.o. t.i.d. p.r.n., meloxicam 7.5 mg p.o. daily, Protonix 40 mg p.o. daily, pregabalin 75 mg p.o. b.i.d., pregabalin 150 mg at bedtime, solifenacin 5 mg p.o. daily, trazodone 150 mg p.o. at bedtime, Incruse Ellipta 1 inhalation daily. FAMILY HISTORY: Significant for sister has breast cancer, rectum and pelvic cancer. Brother has cancer. Father has diabetes and heart disorder. Mother has Paget disease, kidney disease. SOCIAL HISTORY: . Smokes on an average 1 pack a day for 48 years. No alcohol use, no drug use. REVIEW OF SYMPTOMS: As per HPI. Rest of the review of systems is negative. PHYSICAL EXAMINATION: GENERAL: The patient is of moderate build, not in acute distress. VITAL SIGNS: Temperature 37.3, pulse 72, respiratory rate 20, blood pressure 102/56, oxygen 92% on room air. HEENT: Pupils equal, round, reactive to light. Oral mucosa moist. NECK: No JVD. No neck masses seen. CARDIOVASCULAR: S1, S2 heard, regular rate and rhythm, no murmur, no gallop. RESPIRATORY SYSTEM: Normal AP diameter. No accessory muscle use. No wheezing, no crackles. ABDOMEN: Soft, bowel sounds present, nontender. No distention. CENTRAL NERVOUS SYSTEM: Cranial nerves II-XII grossly intact, nonfocal. EXTREMITIES: No edema, no erythema seen. MUSCULOSKELETAL: No spinal tenderness present. Right straight leg test positive. LABORATORY DATA: WBC 10, hemoglobin 13.8, hematocrit 40.7, platelets 287. Sodium 137, potassium 4.4, chloride 103, bicarbonate 29, BUN 13, creatinine 0.7, serum glucose 89, calcium 9.5, total bilirubin 0.7, AST 8, ALT 13, alkaline phosphatase 115. Lipase 48. Venous Doppler study negative for DVT in the right lower extremity. CT of the head; no acute findings. Lumbar spine MRI; mild multilevel spondylosis. No central canal stenosis. No destructive bony process identified. Hip and pelvic x-ray; no fracture or dislocation within the pelvis or hips. No change in the mild osteoarthritis and chondrocalcinosis of the hips. ASSESSMENT AND PLAN: This is a 70-year-old female who presents with severe back pain. 1. Severe back pain and also right hip pain radiating down the right leg, getting worse since last 2 weeks. Currently not able to ambulate, not able to put weight on the leg. Outpatient right lower extremity arterial ultrasound is unremarkable. In ER MRI showing mild spondylosis. We will observe in medical/surgical. Pain control with Dilaudid p.r.n., oxycodone p.r.n. Consult orthopedics. Physical therapy/occupational therapy when stable. Observe in medical floor. 2. History of chronic obstructive pulmonary disease. Continue home inhalers, currently stable. 3. History of obstructive sleep apnea, currently seems to not be on CPAP. 4. Gastroesophageal reflux disease, on Protonix. 5. History of urge incontinence, on VESIcare. 6. History of depression, on bupropion and duloxetine. 7. Hyperlipidemia, on statin. 8. Deep vein thrombosis prophylaxis, Lovenox. DISPOSITION: Observe in the medical floor. Expect to discharge home and follow up with family doctor. Level 1 full code. MTDD
[2020-10-11] MEDS ORDERED: ALUMINUM/MAGNESIUM SUSP 30 ML UDC PO PRN (21:02)
[2020-10-11] MEDS ORDERED: ACETAMINOPHEN 325 MG TAB PO PRN (21:02)
[2020-10-11] MEDS ORDERED: ALBUTEROL HFA 8 GM INHALER INH PRN (21:02)
[2020-10-11] MEDS ORDERED: ONDANSETRON INJ 2 MG/ML 2 ML VIAL IV PRN (21:02)
[2020-10-11] MEDS ORDERED: HYDROmorphone INJ 0.5 MG/0.5 ML SYR IV PRN (21:02)
[2020-10-11] MEDS ORDERED: POLYETHYLENE (MIRALAX) 17 GM PACK PO PRN (21:02)
[2020-10-11] MEDS ORDERED: MAGNESIUM HYDROXIDE SUSP 30 ML UDC PO PRN (21:02)
[2020-10-11] MEDS ORDERED: MECLIZINE HCL 25 MG TAB PO PRN (21:06)
[2020-10-11] MEDS: PREGABALIN 75 MG CAP PO SCH (22:29)
[2020-10-11] MEDS: traZODone HCL 50 MG TAB PO SCH (22:29)
[2020-10-11] MEDS: ENOXAPARIN INJ 40 MG/0.4 ML SYR SQ SCH (22:29)
[2020-10-11] MEDS: FLUTICASONE PROPIONATE NA SPR 16 GM BTL SCH (22:29)
[2020-10-11] MEDS: PREGABALIN 150 MG CAP PO SCH (22:29)
[2020-10-11 22:56] LABS: Appearance Urine Clear (Clear); Bilirubin Urine Negative (Negative); Blood Urine Negative (Negative); Color Urine Yellow; Glucose Urine UA Negative (Negative); Ketones Urine Negative (Negative); Leukocyte Esterase Urine Negative (Negative); Nitrite Urine Negative (Negative); Protein Urine Negative (Negative); Specific Gravity Urine 1.013 (1.000-1.030); Urobilinogen Urine Negative (Negative)
[2020-10-12] MEDS: oxyCODONE HCL IR 5 MG TAB (IMMEDIATE RELEASE) PO PRN ×3 (00:52→20:42)
[2020-10-12 06:30] LABS: Basophils # (auto) 0.03 K/uL (0-0.2); Basophils % (auto) 0.4 %; Eosinophils # (auto) 0.39 K/uL (0-0.5); Eosinophils % (auto) 5.6 %; Hematocrit (blood only) 36.7 % (37-47); Lymphocytes # (auto) 2.46 K/uL (1.2-3.4); Lymphocytes % (auto) 35.5 %; Mean Corpuscular Hemoglobin 29.9 pg (25-34); Mean Corpuscular Hgb Conc 32.7 g/dL (32-36); Mean Corpuscular Volume 91.5 fL (80-100); Mean Platelet Volume 9.3 fL (7.4-10.4); Monocytes # (auto) 0.74 K/uL (0.11-0.59); Monocytes % (auto) 10.7 %; Neutrophils # (auto) 3.31 K/uL (1.4-6.5); Neutrophils % (auto) 47.8 %; Platelet Count 264 K/uL (130-400); RDW Coefficient of Variation 13.5 % (11.5-14.5); RDW Standard Deviation 45.3 fL (36.4-46.3); Red Blood Count 4.01 M/uL (4.2-5.4); White Blood Count 6.93 K/uL (4.8-10.8)
[2020-10-12 07:05] LABS: BUN Creatinine Ratio 17.3 (10-20); Calcium 8.8 mg/dl (8.5-10.1); Creatinine Clr Calc Pharmacy 60.3 ml/min; Est GFR (Non-African American) 79.3; Magnesium 2.1 mg/dl (1.8-2.4); Potassium 4.8 mmol/L (3.5-5.1)
[2020-10-12] MEDS: ASPIRIN 81 MG ECTAB PO SCH (08:18)
[2020-10-12] MEDS: ATORVASTATIN 20 MG TAB PO SCH (08:19)
[2020-10-12] MEDS: buPROPion XL 150 MG TABCR PO SCH (08:19)
[2020-10-12] MEDS: PANTOprazole 40 MG TAB PO SCH (08:20)
[2020-10-12] MEDS: FLUTICASONE PROPIONATE NA SPR 16 GM BTL SCH ×2 (08:20→20:43)
[2020-10-12] MEDS: DULoxetine HCL 60 MG CAP PO SCH (08:20)
[2020-10-12] MEDS: UMECLIDINIUM BROMIDE 62.5MCG/BLISTER 7 PUFFS/INHALER INH SCH (08:21)
--- NOTE | 2020-10-12 08:54 | Orthopedic Consultation ---
Date of Consultation October 12, 2020 Assessment & Plan (1) Spinal stenosis of lumbar region with radiculopathy: In review of her MRI I suspect she has evidence of facet cyst at L5-S1 on the right with neuroforaminal encroachment affecting the exiting L5 nerve root. I like to obtain standing flexion-extension views lumbar spine to rule out further instability at the L5-S1 level. Pending these results we may consider consultation with interventional pain management for a transforaminal injection. Ultimately if she fails to improve she may require surgical decompression. Present on Admission?: Yes History of Present Illness Reason for Consultation: Right leg pain Attending Physician: Val Hardy MD History of Present Illness This is a very pleasant 62-year-old female who presents with 3 weeks of severe right-sided leg pain. Describes as involving the right hip buttock posterior thigh extending to the dorsum of her foot. Is markedly exacerbated with weightbearing. Left lower extremity is essentially asymptomatic. She denies any specific trauma fall or event. She does find this to be incapacitating in nature and associated to the hospital for work-up. Allergies Allergy/AdvReac Type Severity Reaction Status Date / Time morphine Allergy Mild rash Unverified 10/11/20 14:41 cat dander Allergy Unknown Unknown Verified 10/11/20 14:41 strawberry Allergy Unknown Unknown Verified 10/11/20 14:41 Home Medications Medication Instructions Recorded Confirmed Type albuterol sulfate 2 puff INHALATION Q4H PRN 10/11/20 10/11/20 History aspirin [Aspir-81] 81 mg PO DAILY 10/11/20 10/11/20 History atorvastatin 20 mg PO DAILY 10/11/20 10/11/20 History bupropion HCl 150 mg PO DAILY 10/11/20 10/11/20 History duloxetine 60 mg PO DAILY 10/11/20 10/11/20 History fluticasone propionate 2 spray INTRANASAL BID 10/11/20 10/11/20 History meclizine 25 mg PO TID PRN 10/11/20 10/11/20 History meloxicam 7.5 mg PO DAILY 10/11/20 10/11/20 History pantoprazole 40 mg PO DAILY 10/11/20 10/11/20 History pregabalin 75 mg PO BID 10/11/20 10/11/20 History pregabalin 150 mg PO HS 10/11/20 10/11/20 History solifenacin 5 mg PO DAILY 10/11/20 10/11/20 History trazodone 150 mg PO HS 10/11/20 10/11/20 History umeclidinium [Incruse Ellipta] 1 inh INHALATION DAILY 10/11/20 10/11/20 History Patient History Medical History (Updated 10/12/20 @ 08:54 by Evens Fine DO) Anxiety Asthma COPD (chronic obstructive pulmonary disease) Depression GERD (gastroesophageal reflux disease) History of left heart catheterization IBS (irritable bowel syndrome) VIRGIL (obstructive sleep apnea) Restless leg syndrome Tobacco abuse Surgical History (Updated 10/11/20 @ 17:17 by Marii Sloan PA-C) H/O abdominoplasty "03/08/07" H/O: hysterectomy History of carpal tunnel surgery of right wrist History of cervical spinal arthrodesis Family History (Updated 10/11/20 @ 17:18 by Marii Sloan PA-C) Sister Breast cancer Father Diabetes Brother Prostate cancer Mother Kidney disease Social History (System 12/31/19 @ 12:36 by Ngozi Jaeger) Smoking Status: Current every day smoker Cigarettes Per Day: 2 cigarettes/ a day; Second Hand Exposure: No; Do You Dip or Chew Tobacco: No; Tobacco Cessation Education Requested by Patient: No Hx Alcohol Use: No Hx Substance Use: No Preferred Language: [place] Communication Ability: Impaired Communication Ability Comment: hears And readsd lips Head Butler Required: No Beliefs That Will Affect Care: None Current Living Situation: Spouse Other Information That Helps Us Care for You: No Feels Safe at Home: Yes Safety Concerns: Feels Safe At This Time Assistive Devices: Oxygen - Continuous and Walker Physical Exam Physical Exam: On exam she is in bed. She exhibits reasonable +5 or 5 plantar flexion dorsiflexion centralizes longus bilaterally. Negative logroll. Sensory intact. Results & Data ([facility]) Vital Signs (Past 12 Hours) Vital Signs Temp Pulse Resp BP Pulse Ox 10/12/20 08:08 36.8 C 78 16 87/47 L 92 10/12/20 00:54 93 10/11/20 22:19 36.8 C 82 18 94/55 L 93 10/11/20 21:42 36.6 C 85 20 106/57 L 93
--- NOTE | 2020-10-12 10:20 | XRay Report ---
XR lumbar spine flex/ext only CLINICAL HISTORY: standing films COMPARISON STUDY: Lumbar spine MRI October 11, 2020. FINDINGS: Vertebral body heights are maintained. There is slight anterolisthesis of L5 on S1 which do es not significantly change with flexion or extension. Severe facet arthrosis is noted at the L5-S1 l evel with moderate to severe facet arthrosis at the L4-L5 level. There is slight disc space narrowing at L5-S1. IMPRESSION: 1. Slight anterolisthesis of L5 on S1 which does not significantly change during flexion or extension . 2. Severe lower lumbar spine facet arthrosis. ACT 112: Negative or not required by law. Electronically signed by: Terry Holcomb M.D. 10/12/2020 10:19 AM
[2020-10-12] MEDS: PREGABALIN 75 MG CAP PO SCH ×2 (11:03→20:47)
--- NOTE | 2020-10-12 18:17 | Hospitalist Progress Note ---
Date of Service October 12, 2020 Assessment & Plan (1) Spinal stenosis of lumbar region with radiculopathy: Present on admission with worsening back pain associated with ambulatory dysfunction Lumbar MRI showed mild bilateral disc bulge. There is left greater than right- sided subarticular stenosis. This may impinge on the exiting left L4 nerve root. Lumbar spine flex/ext showed Slight anterolisthesis of L5 on S1 which does not significantly change during flexion or extension. Severe lower lumbar spine facet arthrosis. Doppler of LE showed slight anterolisthesis of L5 on S1 which does not significantly change during flexion or extension. Continue pain control ortho on board Will consult interventional pain management for possible transforaminal injection. If no improve she may require surgical decompression as per ortho Will consult PT/OT fall precaution Hypotension BP in the low side might be contributed due to narcotic will start on gentle hydration Continue monitor BP Chronic obstructive pulmonary disease. Continue home inhalers She was placed on oxygen early today, but I believe it was because the oximetry did not sense it due to the long nails currently stable. Constipation will add Miralax prn GERD Continue on Protonix. History of urge incontinence on VESIcare. Depression continue bupropion and duloxetine. stable Hyperlipidemia Continue statin. DVT px on Lovenox Admission and Anticipated Discharge Date Admission Date: October 11, 2020 Subjective Pt was seen and examined for follow up low back pain radiating to right LE. Lying in bed with no distress Pt said that she continues to have alot of pain in the RLE. She said that the pain med help She was placed on oxygen early, but she denies any SOB. I think her long nails cause the oximetry could not get her oxygen level Denies any chest pain, palpitation, dizziness and SOB Review of Systems Review of Systems: All systems reviewed & are unremarkable except as noted in Subjective Physical Exam Physical Exam: General- No acute distress Head- atraumatic Eyes- PERRL, EOMI, ENT- oropharynx clear Neck- supple, no JVD Lungs- clear to auscultation Heart- regular rhythm; no murmur Abdomen- normal bowel sounds, soft, nontender Extremities- no calf tenderness, +RLE pain movement, +unable to elevate RLE due to the pain Neuro- alert, oriented x 3; PERRL, EOMI; no facial palsy; no dysarthria Skin- warm & dry Results & Data Results & Data ([facility]) Vital Signs (Past 12 Hours) Vital Signs Temp Pulse Resp BP Pulse Ox 10/12/20 17:34 72 89/51 L 10/12/20 17:29 37.1 C 73 16 83/44 L 92 10/12/20 12:37 92 10/12/20 08:58 83 18 90/48 L 89 L 10/12/20 08:08 36.8 C 78 16 87/47 L 92
[2020-10-12] MEDS ORDERED: POLYETHYLENE (MIRALAX) 17 GM PACK PO PRN (18:21)
[2020-10-12] MEDS ORDERED: SODIUM CHLORIDE 0.9% 1000ML 1,000 ML IV SCH (18:30)
[2020-10-12] MEDS: traZODone HCL 50 MG TAB PO SCH (20:48)
[2020-10-12] MEDS: PREGABALIN 150 MG CAP PO SCH (20:49)
[2020-10-12] MEDS: ENOXAPARIN INJ 40 MG/0.4 ML SYR SQ SCH (20:50)
--- NOTE | 2020-10-13 08:30 | Orthopedic Progress Note ---
Date of Service October 13, 2020 Assessment & Plan (1) Spinal stenosis of lumbar region with radiculopathy: Admission and Anticipated Discharge Date Admission Date: October 11, 2020 X-rays lumbar spine confirm spondylolisthesis L5-S1. I suspect she has severe neuroforaminal stenosis contributing to L5 radiculopathy on the right. She is going undergoing assessment from interventional pain management. If this fails to provide any significant relief she may be a surgical candidate. Subjective Patient continues to have right leg radiculopathy in an L5 pattern. Physical Exam Physical Exam: On exam she is in bed. Is was instructed testing. Results & Data ([facility]) Vital Signs (Past 12 Hours) Vital Signs Temp Pulse Resp BP BP Pulse Ox 10/13/20 07:44 36.8 C 72 16 85/52 L 91 10/12/20 22:56 37.1 C 83 18 95/59 L 90
[2020-10-13] MEDS ORDERED: SODIUM CHLORIDE 0.9% 1000ML 500 ML IV ONE (08:32)
[2020-10-13] MEDS ORDERED: methylPREDNISolone 4 MG TAB, 6 DAY TAPER PO SCH (09:00)
--- NOTE | 2020-10-13 09:03 | Pain Management Consultation ---
Date of Consultation October 13, 2020 Assessment & Plan (1) Lumbar radiculopathy, acute: * Patient will be initiated on Medrol Dose Tyler * Will plan for outpatient epidural steroid injection on 10/18/20 * Recommend PT/OT * Continue Cymbalta 60mg daily, Lyrica 75mg BID, Lyrica 150mg HS, Oxycodone 5mg x 6 hrs. * We did discuss limiting the use of IV Dilaudid in preparation for discharge. History of Present Illness Attending Physician: Haider Gomez MD History of Present Illness Mrs. Ryan is a 70 year old female that has been seen at the [facility] for acute back pain. Two weeks ago the pain started in the low back and hips. After a few days the pain settled in the low back and right hip. There is an aching pain along the right leg in an L5 distribution to the ankle. The pain has significantly worsened over the past several day to where she is requiring the use of a walker to help with ambulation. She is currently Ordered Oxycodone PO and Dilaudid IV which is controlling the pain. No bowel/bladder incontinence, saddle anesthesia, foot drop, leg weakness, or falls. Case discussed with Dr. More Andrade Allergies Allergy/AdvReac Type Severity Reaction Status Date / Time morphine Allergy Mild rash Unverified 10/11/20 14:41 cat dander Allergy Unknown Unknown Verified 10/11/20 14:41 strawberry Allergy Unknown Unknown Verified 10/11/20 14:41 Home Medications Medication Instructions Recorded Confirmed Type albuterol sulfate 2 puff INHALATION Q4H PRN 10/11/20 10/11/20 History aspirin [Aspir-81] 81 mg PO DAILY 10/11/20 10/11/20 History atorvastatin 20 mg PO DAILY 10/11/20 10/11/20 History bupropion HCl 150 mg PO DAILY 10/11/20 10/11/20 History duloxetine 60 mg PO DAILY 10/11/20 10/11/20 History fluticasone propionate 2 spray INTRANASAL BID 10/11/20 10/11/20 History meclizine 25 mg PO TID PRN 10/11/20 10/11/20 History meloxicam 7.5 mg PO DAILY 10/11/20 10/11/20 History pantoprazole 40 mg PO DAILY 10/11/20 10/11/20 History pregabalin 75 mg PO BID 10/11/20 10/11/20 History pregabalin 150 mg PO HS 10/11/20 10/11/20 History solifenacin 5 mg PO DAILY 10/11/20 10/11/20 History trazodone 150 mg PO HS 10/11/20 10/11/20 History umeclidinium [Incruse Ellipta] 1 inh INHALATION DAILY 10/11/20 10/11/20 History Pain History Pain Location Full Body Front + Back: 1. 2. Patient History Medical History Anxiety Asthma COPD (chronic obstructive pulmonary disease) Depression GERD (gastroesophageal reflux disease) History of left heart catheterization IBS (irritable bowel syndrome) VIRGIL (obstructive sleep apnea) Restless leg syndrome Tobacco abuse Surgical History H/O abdominoplasty "03/08/07" H/O: hysterectomy History of carpal tunnel surgery of right wrist History of cervical spinal arthrodesis Family History Sister Breast cancer Father Diabetes Brother Prostate cancer Mother Kidney disease Social History Smoking Status: Current every day smoker Cigarettes Per Day: 2 cigarettes/ a day; Second Hand Exposure: No; Do You Dip or Chew Tobacco: No; Tobacco Cessation Education Requested by Patient: No Hx Alcohol Use: No Hx Substance Use: No Preferred Language: Nigerian Communication Ability: Effective Communication Ability Comment: hears And readsd lips Administrative Secretary Required: No Beliefs That Will Affect Care: None Current Living Situation: Spouse Other Information That Helps Us Care for You: No Feels Safe at Home: Yes Safety Concerns: Feels Safe At This Time Assistive Devices: Denture - Upper, Denture - Lower, Glasses and Hearing Aid - Left Physical Exam Physical Exam: GENERAL: This is a 70 year old female. In moderate pain when going from supine to sitting position. HEAD/FACE: Normocephalic and atraumatic. EYES: No drainage or conjunctival injection. ENT: Nose without bleeding or discharge. Oral mucosa moist. NECK: Full ROM without apparent pain. No swelling or masses noted. RESPIRATORY: Patient with unlabored breathing. No signs of respiratory distress. CHEST/AXILLA: Chest movement symmetrical. No deformities noted. ABDOMEN/GI: No distension BACK: Moves with moderate difficulty. Mild diffuse lumbosacral tenderness. Moderate spasm along the right superior gluteus without trigger point. SKIN: [place], warm and dry. No rash noted. MS/EXTREMITY: No swelling, no deformities. Positive SLR on the right, negative on the left. No tenderness of the greater trochanteric bursa. NEURO: Alert and appears oriented. Speech is fluent. Cranial Nerves are grossly intact. PSYCH: Alert, pleasant, affect is calm Results (Pain [facility]) Diagnostic Review MRI Findings: MRI OF LUMBAR SPINE WITHOUT IV CONTRAST CLINICAL HISTORY: Right lower extremity weakness. Low back pain. COMPARISON STUDY: Abdominal CT dated 12/29/2015. TECHNIQUE: MRI of the lumbar spine is performed utilizing various T1 and T2- weighted sequences in the axial and sagittal planes. IV contrast was not administered for this examination. FINDINGS: Lumbar spine: Marrow signal intensity is heterogeneous. Vertebral body height and alignment are maintained throughout the lumbar spine. Small anterior osteophytes are seen throughout. A large Schmorl's node is present within the superior endplate of T12. The transverse and spinous processes appear intact. There is no evidence of spondylolysis. Mild chronic degenerative endplate change is seen at all lumbar levels from L2 to L3 through L4-L5. No significant endplate edema is identified in the lumbar region. Minimal endplate edema is seen at T10-T11. Intervertebral discs: Degenerative disc desiccation is seen throughout the lum bar spine. There is only minimal loss of height. Spinal cord: The visualized spinal cord is normal in morphology and signal intensity. The conus medullaris terminates at the level of L1. The nerve roots of the cauda equina are normal in morphology and signal intensity. L1-L2: Unremarkable. L2-L3: Unremarkable. L3-L4: Bilateral disc bulge causes mild bilateral subarticular stenosis. The central canal is clear. There is mild bilateral neural foraminal narrowing. L4-L5: There is mild bilateral disc bulge. There is left greater than right- sided subarticular stenosis. This may impinge on the exiting left L4 nerve root. The central canal is clear. In conjunction with facet arthropathy, there is moderate to severe left and moderate right neural foraminal stenosis. L5-S1: There is broad-based posterior disc bulge with annular fissure. This causes bilateral subarticular stenosis and may abut the exiting bilateral L5 nerve roots. In conjunction with facet arthropathy there is mild bilateral neural foraminal narrowing. Bilateral facet joint effusions are noted. Sacrum: The visualized sacrum is normal in morphology and signal intensity. Tarlov cysts measure up to 1.5 cm. Soft tissues: There is mild fatty atrophy of the paraspinous musculature. The retroperitoneal structures are grossly unremarkable but incompletely evaluated. IMPRESSION: 1. Mild multilevel spondylosis as above. See discussion for detailed level by level analysis. 2. There is no central canal stenosis. 3. No destructive bony process is identified. Dictated: 10/11/2020 3:52 PM Transcribed: 10/11/2020 4:25 PM [place] [id number] [email or web address] Electronically signed by: Chip Lam M.D. 10/11/2020 4:27 PM Radiology Findings: XR lumbar spine flex/ext only CLINICAL HISTORY: standing films COMPARISON STUDY: Lumbar spine MRI October 11, 2020. FINDINGS: Vertebral body heights are maintained. There is slight anterolisthesis of L5 on S1 which does not significantly change with flexion or extension. Severe facet arthrosis is noted at the L5-S1 level with moderate to severe facet arthrosis at the L4-L5 level. There is slight disc space narrowing at L5-S1. IMPRESSION: 1. Slight anterolisthesis of L5 on S1 which does not significantly change during flexion or extension. 2. Severe lower lumbar spine facet arthrosis. ACT 112: Negative or not required by law. Electronically signed by: Terry Holcomb M.D. 10/12/2020 10:19 AM
[2020-10-13] MEDS: buPROPion XL 150 MG TABCR PO SCH (09:05)
[2020-10-13] MEDS: DULoxetine HCL 60 MG CAP PO SCH (09:05)
[2020-10-13] MEDS: ASPIRIN 81 MG ECTAB PO SCH (09:05)
[2020-10-13] MEDS: ATORVASTATIN 20 MG TAB PO SCH (09:05)
[2020-10-13] MEDS: PANTOprazole 40 MG TAB PO SCH (09:05)
[2020-10-13] MEDS: PREGABALIN 75 MG CAP PO SCH ×3 (09:05→23:12)
[2020-10-13] MEDS: FLUTICASONE PROPIONATE NA SPR 16 GM BTL SCH ×2 (09:06→21:37)
[2020-10-13] MEDS: UMECLIDINIUM BROMIDE 62.5MCG/BLISTER 7 PUFFS/INHALER INH SCH (09:06)
--- NOTE | 2020-10-13 10:21 | Hospitalist Progress Note ---
Date of Service October 13, 2020 Assessment & Plan (1) Spinal stenosis of lumbar region with radiculopathy: AchesPresent on admission with worsening back pain associated with ambulatory dysfunction Lumbar MRI showed mild bilateral disc bulge. There is left greater than right- sided subarticular stenosis. This may impinge on the exiting left L4 nerve root. Lumbar spine flex/ext showed Slight anterolisthesis of L5 on S1 which does not significantly change during flexion or extension. Severe lower lumbar spine facet arthrosis. Doppler of LE negative for DVT Continue pain control Ortho on board Interventional pain management for possible transforaminal injection. Plan for injection as outpt 10/18/20. Started on Medrol dose pack now. Recommend PT/OT Continue Cymbalta 60mg daily, Lyrica 75mg BID, Lyrica 150mg HS, Oxycodone 5mg x 6 hrs. We did discuss limiting the use of IV Dilaudid in preparation for discharge. If no improve she may require surgical decompression as per ortho Will consult PT/OT fall precaution Hypotension BP in the low side might be contributed due to narcotic will start on gentle hydration Continue monitor BP Chronic obstructive pulmonary disease. Continue home inhalers Constipation will add Miralax and senna Reports she takes stool softeners daily, however does not remember which ones GERD Continue on Protonix. History of urge incontinence on VESIcare. Depression continue bupropion and duloxetine. stable Hyperlipidemia Continue statin. DVT px on Lovenox Admission and Anticipated Discharge Date Admission Date: October 11, 2020 Subjective Patient seen in follow-up of back pain, radiating to right leg Pt see by pain management today, started on medrol pack. Currently she sitting on commode, says that she has history of constipation PT OT ordered Patient did not seem to be clear on the plan, says that she is still in pain for her to leave and go home Was not aware about outpatient plan with pain management Review of Systems Review of Systems: All systems reviewed & are unremarkable except as noted in HPI & below Constitutional: no fever and no chills Respiratory: no cough and no dyspnea Cardiovascular: no chest pain and no palpitations Gastrointestinal: + constipation; no abdominal pain, no nausea and no vomiting Musculoskeletal: + back pain (radiating to R leg) Physical Exam Physical Exam: General- No acute distress Head- normocephalic, atraumatic Eyes- PERRL, EOMI, ENT- oropharynx clear Neck- supple, no JVD Lungs- clear to auscultation, no wheezing Heart- regular rhythm; no murmur Abdomen- normal bowel sounds, soft, nontender Extremities- no calf tenderness, +RLE pain movement, +unable to elevate RLE due to the pain Neuro- alert, oriented x 3; PERRL, EOMI; no facial palsy; no dysarthria Skin- warm & dry Results & Data Results & Data ([facility]) Vital Signs (Past 12 Hours) Vital Signs Temp Pulse Resp BP BP Pulse Ox 10/13/20 07:44 36.8 C 72 16 85/52 L 91 10/12/20 22:56 37.1 C 83 18 95/59 L 90 Medications Administered Current Inpatient Medications Acetaminophen (Acetaminophen 325 Mg Tab) 650 mg PO Q4H PRN PRN Reason: pain/fever Stop: 11/10/20 21:01 Al Hydrox/Mg Hydrox/Simethicone (Aluminum/Magnesium Susp 30 Ml Udc) 30 ml PO Q6H PRN PRN Reason: Dyspepsia Stop: 11/10/20 21:01 Albuterol (Albuterol Hfa 8 Gm Inhaler) 2 puffs INH Q4R PRN PRN Reason: Shortness Of Breath Stop: 11/10/20 21:01 Aspirin (Aspirin 81 Mg Ectab) 81 mg PO DAILY [facility] Stop: 11/11/20 08:59 Last Admin: 10/13/20 09:05 Dose: 81 mg Documented by: Atorvastatin Calcium (Atorvastatin 20 Mg Tab) 20 mg PO DAILY [facility] Stop: 11/11/20 08:59 Last Admin: 10/13/20 09:05 Dose: 20 mg Documented by: Bupropion HCl (Bupropion Xl 150 Mg Tabcr) 150 mg PO DAILY [facility] Stop: 11/11/20 08:59 Last Admin: 10/13/20 09:05 Dose: 150 mg Documented by: Duloxetine HCl (Duloxetine Hcl 60 Mg Cap) 60 mg PO DAILY [facility] Stop: 11/11/20 08:59 Last Admin: 10/13/20 09:05 Dose: 60 mg Documented by: Enoxaparin Sodium (Enoxaparin Inj 40 Mg/0.4 Ml Syr) 40 mg SQ Q24H [facility] Stop: 11/10/20 21:59 Last Admin: 10/12/20 20:50 Dose: 40 mg Documented by: Fluticasone Propionate (Fluticasone Propionate Na Spr 16 Gm Btl) 2 sprays NA BID [facility] Stop: 11/10/20 21:29 Last Admin: 10/13/20 09:06 Dose: 2 sprays Documented by: Hydromorphone HCl (Hydromorphone Inj 0.5 Mg/0.5 Ml Syr) 0.5 mg IV Q4H PRN PRN Reason: Pain Stop: 10/25/20 21:01 Magnesium Hydroxide (Magnesium Hydroxide Susp 30 Ml Udc) 30 ml PO Q6H PRN PRN Reason: Constipation Stop: 11/10/20 21:01 Last Admin: 10/12/20 18:44 Dose: 30 ml Documented by: Meclizine HCl (Meclizine Hcl 25 Mg Tab) 25 mg PO TID PRN PRN Reason: Dizziness Stop: 11/10/20 21:05 Methylprednisolone (Methylprednisolone 4 Mg Tab) 8 mg PO 0700,2100 [facility] Stop: 10/13/20 21:01 Methylprednisolone (Methylprednisolone 4 Mg Tab) 4 mg PO 1300,1800 [facility] Stop: 10/13/20 18:01 Methylprednisolone (Methylprednisolone 4 Mg Tab) 4 mg PO 0700,1300,1800 [facility] Stop: 10/14/20 18:01 Methylprednisolone (Methylprednisolone 4 Mg Tab) 8 mg PO HS [facility] Stop: 10/14/20 21:01 Methylprednisolone (Methylprednisolone 4 Mg Tab) 4 mg PO 0700,1300,1800,2100 [facility] Stop: 10/15/20 21:01 Methylprednisolone (Methylprednisolone 4 Mg Tab) 4 mg PO 0700,1300,2100 [facility] Stop: 10/16/20 21:01 Methylprednisolone (Methylprednisolone 4 Mg Tab) 4 mg PO 0700,2100 [facility] Stop: 10/17/20 21:01 Methylprednisolone (Methylprednisolone 4 Mg Tab) 4 mg PO 0700 [facility] Stop: 10/18/20 07:01 Miscellaneous (*Vesicare*Order Awaiting Action) 1 ea N/A QS [facility] Stop: 11/11/20 00:00 Last Admin: 10/13/20 07:21 Dose: Not Given Documented by: Ondansetron HCl (Ondansetron Inj 2 Mg/Ml 2 Ml Vial) 4 mg IV Q6H PRN PRN Reason: Nausea Stop: 11/10/20 21:01 Oxycodone HCl (Oxycodone Hcl Ir 5 Mg Tab (Immediate Release)) 5 mg PO Q6H PRN PRN Reason: Pain Stop: 10/25/20 21:01 Last Admin: 10/12/20 20:42 Dose: 5 mg Documented by: Pantoprazole Sodium (Pantoprazole 40 Mg Tab) 40 mg PO DAILY [facility] Stop: 11/11/20 08:59 Last Admin: 10/13/20 09:05 Dose: 40 mg Documented by: Polyethylene Glycol (Polyethylene (Miralax) 17 Gm Pack) 17 gm PO DAILY PRN PRN Reason: Constipation Stop: 11/10/20 21:01 Polyethylene Glycol (Polyethylene (Miralax) 17 Gm Pack) 17 gm PO DAILY PRN PRN Reason: Constipation Stop: 11/11/20 18:20 Pregabalin (Pregabalin 75 Mg Cap) 75 mg PO BID [facility] Stop: 11/10/20 21:14 Last Admin: 10/13/20 09:05 Dose: 75 mg Documented by: Pregabalin (Pregabalin 150 Mg Cap) 150 mg PO HS [facility] Stop: 11/10/20 21:14 Last Admin: 10/12/20 20:49 Dose: 150 mg Documented by: Trazodone HCl (Trazodone Hcl 50 Mg Tab) 150 mg PO HS [facility] Stop: 11/10/20 21:14 Last Admin: 10/12/20 20:48 Dose: 150 mg Documented by: Umeclidinium [place] (Umeclidinium [place] 62.5mcg/Blister 7 Puffs/Inhaler) 1 puffs INH DAILY [facility] Stop: 11/11/20 08:59 Last Admin: 10/13/20 09:06 Dose: 1 puffs Documented by:
[2020-10-13] MEDS: methylPREDNISolone 4 MG TAB PO SCH ×4 (10:46→21:37)
[2020-10-13] MEDS: POLYETHYLENE (MIRALAX) 17 GM PACK PO SCH (12:31)
[2020-10-13] MEDS: oxyCODONE HCL IR 5 MG TAB (IMMEDIATE RELEASE) PO PRN (13:51)
[2020-10-13] MEDS: ENOXAPARIN INJ 40 MG/0.4 ML SYR SQ SCH (21:35)
[2020-10-13] MEDS: SENNA 8.6 MG TAB PO SCH (21:37)
[2020-10-13] MEDS: traZODone HCL 50 MG TAB PO SCH (21:37)
[2020-10-13] MEDS: PREGABALIN 150 MG CAP PO SCH (21:37)
[2020-10-14] MEDS: methylPREDNISolone 4 MG TAB PO SCH ×3 (06:21→17:44)
[2020-10-14 07:05] LABS: BUN Creatinine Ratio 15.1 (10-20); Calcium 9.1 mg/dl (8.5-10.1); Creatinine Clr Calc Pharmacy 77.3 ml/min; Est GFR (African American) 108.5; Est GFR (Non-African American) 93.7; Magnesium 2.3 mg/dl (1.8-2.4); Potassium 4.4 mmol/L (3.5-5.1)
[2020-10-14] MEDS: ASPIRIN 81 MG ECTAB PO SCH (08:11)
[2020-10-14] MEDS: DULoxetine HCL 60 MG CAP PO SCH (08:11)
[2020-10-14] MEDS: FLUTICASONE PROPIONATE NA SPR 16 GM BTL SCH ×2 (08:11→20:41)
[2020-10-14] MEDS: UMECLIDINIUM BROMIDE 62.5MCG/BLISTER 7 PUFFS/INHALER INH SCH (08:12)
[2020-10-14] MEDS: ATORVASTATIN 20 MG TAB PO SCH (08:12)
[2020-10-14] MEDS: POLYETHYLENE (MIRALAX) 17 GM PACK PO SCH (08:13)
[2020-10-14] MEDS: PANTOprazole 40 MG TAB PO SCH (08:14)
[2020-10-14] MEDS: buPROPion XL 150 MG TABCR PO SCH (08:14)
[2020-10-14] MEDS: SENNA 8.6 MG TAB PO SCH ×2 (08:14→20:43)
--- NOTE | 2020-10-14 08:54 | Pain Management Progress Note ---
Date of Service October 14, 2020 Assessment & Plan (1) Lumbar radiculopathy, acute: Patient reports a resolution of pain this morning. She will continue Medrol Dose Tyler. Recommend that she come into the office as a new patient to be established with our office should the pain recur. Injection will be cancelled. She is due for her second COVID vaccine on 10/19 and we do recommend steroid injections at least two weeks out from vaccines due to immunosuppression. Admission and Anticipated Discharge Date Admission Date: October 13, 2020 Norberto May reports a resolution of pain. She denies any back or right leg pain since she was initiated on a Medrol Dose [place]. Pain is 0/10 currently. She has been out of bed and walking around without difficulty. She has not required any Oxycodone since yesterday afternoon. No constitutional complaints or neurological symptoms. Case discussed with Dr. More Andrade Physical Exam Physical Exam: GENERAL: This is a 70 year old female that does not appear in acute distress. HEAD/FACE: Normocephalic and atraumatic. EYES: No drainage or conjunctival injection. ENT: Nose without bleeding or discharge. Oral mucosa moist. NECK: Full ROM without apparent pain. RESPIRATORY: Patient with unlabored breathing. No signs of respiratory distress. CHEST/AXILLA: Chest movement symmetrical. No deformities noted. ABDOMEN/GI: No distension BACK: Moves without difficulty SKIN: [place], warm and dry. No rash noted. MS/EXTREMITY: No swelling, no deformities. Moving extremities appropriately. NEURO: Alert and appears oriented. Speech is fluent. Cranial Nerves are grossly intact. PSYCH: Alert, pleasant, affect is calm
[2020-10-14] MEDS: PREGABALIN 75 MG CAP PO SCH ×2 (09:17→20:41)
--- NOTE | 2020-10-14 10:02 | Hospitalist Progress Note ---
Date of Service October 14, 2020 Assessment & Plan (1) Spinal stenosis of lumbar region with radiculopathy: Present on admission with worsening back pain associated with ambulatory dysfunction Lumbar MRI showed mild bilateral disc bulge. There is left greater than right- sided subarticular stenosis. This may impinge on the exiting left L4 nerve root. Lumbar spine flex/ext showed Slight anterolisthesis of L5 on S1 which does not significantly change during flexion or extension. Severe lower lumbar spine facet arthrosis. Doppler of LE negative for DVT Continue pain control Ortho on board Interventional pain management for possible transforaminal injection. Plan for injection as outpt 10/18/20. Started on Medrol dose pack now. Patient may need to postpone her outpatient injection as she also plans for Covid vaccine. For now continue Medrol pack. Recommend PT/OT Continue Cymbalta 60mg daily, Lyrica 75mg BID, Lyrica 150mg HS, Oxycodone 5mg x 6 hrs. We did discuss limiting the use of IV Dilaudid in preparation for discharge. If no improve she may require surgical decompression as per ortho Will consult PT/OT fall precaution Hypotension BP in the low side might be contributed due to narcotic will start on gentle hydration Continue monitor BP Chronic obstructive pulmonary disease. Continue home inhalers Constipation will add Miralax and senna Reports she takes stool softeners daily, however does not remember which ones GERD Continue on Protonix. History of urge incontinence on VESIcare. Depression continue bupropion and duloxetine. stable Hyperlipidemia Continue statin. DVT px on Lovenox Admission and Anticipated Discharge Date Admission Date: October 13, 2020 Subjective Patient seen in follow-up of back pain, radiating to right leg Pt see by pain management, started on Medrol pack yesterday Currently working w/ PT Says her pain is better but still bothering her and when I talk to her about going home she says she is not ready yet She may need home PT, will further discuss with CM Review of Systems Review of Systems: All systems reviewed & are unremarkable except as noted in HPI & below Constitutional: no fever and no chills Respiratory: no cough and no dyspnea Cardiovascular: no chest pain and no palpitations Gastrointestinal: no abdominal pain, no nausea and no vomiting Musculoskeletal: + back pain (radiating to R leg) Physical Exam Physical Exam: General- No acute distress Head- normocephalic, atraumatic Eyes- PERRL, EOMI, ENT- oropharynx clear Neck- supple, no JVD Lungs- clear to auscultation, no wheezing Heart- regular rhythm; no murmur Abdomen- normal bowel sounds, soft, nontender Extremities- no calf tenderness, +RLE pain movement, +unable to elevate RLE due to the pain Neuro- alert, oriented x 3; PERRL, EOMI; no facial palsy; no dysarthria Skin- warm & dry Results & Data Results & Data ([facility]) Vital Signs (Past 12 Hours) Vital Signs Temp Pulse Resp BP Pulse Ox 10/14/20 08:01 36.8 C 80 16 115/68 92 10/13/20 22:34 36.7 C 69 18 103/58 L 90 Laboratory Results 10/14/20 Range/Units 06:15 Sodium 142 (136-145) mmol/L Potassium 4.4 (3.5-5.1) mmol/L Chloride 111 H (98-107) mmol/L Carbon Dioxide 29 (21-32) mmol/L Anion Gap 2.0 L (3-11) BUN 9 (7-18) mg/dl Creatinine 0.60 (0.6-1.2) mg/dl Est Cr Clr Drug Dosing 77.3 ml/min Est GFR ( Amer) 108.5 Est GFR (Non-Af Amer) 93.7 BUN/Creatinine Ratio 15.1 (10-20) Glucose 113 H (70-99) mg/dl Calcium 9.1 (8.5-10.1) mg/dl Magnesium 2.3 (1.8-2.4) mg/dl Medications Administered Current Inpatient Medications Acetaminophen (Acetaminophen 325 Mg Tab) 650 mg PO Q4H PRN PRN Reason: pain/fever Stop: 11/10/20 21:01 Last Admin: 10/13/20 13:51 Dose: 650 mg Documented by: Al Hydrox/Mg Hydrox/Simethicone (Aluminum/Magnesium Susp 30 Ml Udc) 30 ml PO Q6H PRN PRN Reason: Dyspepsia Stop: 11/10/20 21:01 Albuterol (Albuterol Hfa 8 Gm Inhaler) 2 puffs INH Q4R PRN PRN Reason: Shortness Of Breath Stop: 11/10/20 21:01 Aspirin (Aspirin 81 Mg Ectab) 81 mg PO DAILY MAYE Stop: 11/11/20 08:59 Last Admin: 10/14/20 08:11 Dose: 81 mg Documented by: Atorvastatin Calcium (Atorvastatin 20 Mg Tab) 20 mg PO DAILY MAYE Stop: 11/11/20 08:59 Last Admin: 10/14/20 08:12 Dose: 20 mg Documented by: Bupropion HCl (Bupropion Xl 150 Mg Tabcr) 150 mg PO DAILY MAYE Stop: 11/11/20 08:59 Last Admin: 10/14/20 08:14 Dose: 150 mg Documented by: Duloxetine HCl (Duloxetine Hcl 60 Mg Cap) 60 mg PO DAILY MAYE Stop: 11/11/20 08:59 Last Admin: 10/14/20 08:11 Dose: 60 mg Documented by: Enoxaparin Sodium (Enoxaparin Inj 40 Mg/0.4 Ml Syr) 40 mg SQ Q24H MAYE Stop: 11/10/20 21:59 Last Admin: 10/13/20 21:35 Dose: 40 mg Documented by: Fluticasone Propionate (Fluticasone Propionate Na Spr 16 Gm Btl) 2 sprays NA BID MAYE Stop: 11/10/20 21:29 Last Admin: 10/14/20 08:11 Dose: 2 sprays Documented by: Hydromorphone HCl (Hydromorphone Inj 0.5 Mg/0.5 Ml Syr) 0.5 mg IV Q4H PRN PRN Reason: Pain Stop: 10/25/20 21:01 Magnesium Hydroxide (Magnesium Hydroxide Susp 30 Ml Udc) 30 ml PO Q6H PRN PRN Reason: Constipation Stop: 11/10/20 21:01 Last Admin: 10/12/20 18:44 Dose: 30 ml Documented by: Meclizine HCl (Meclizine Hcl 25 Mg Tab) 25 mg PO TID PRN PRN Reason: Dizziness Stop: 11/10/20 21:05 Methylprednisolone (Methylprednisolone 4 Mg Tab) 4 mg PO 0700,1300,1800 MAYE Stop: 10/14/20 18:01 Last Admin: 10/14/20 06:21 Dose: 4 mg Documented by: Methylprednisolone (Methylprednisolone 4 Mg Tab) 8 mg PO HS MAYE Stop: 10/14/20 21:01 Methylprednisolone (Methylprednisolone 4 Mg Tab) 4 mg PO 0700,1300,1800,2100 MAYE Stop: 10/15/20 21:01 Methylprednisolone (Methylprednisolone 4 Mg Tab) 4 mg PO 0700,1300,2100 [facility] Stop: 10/16/20 21:01 Methylprednisolone (Methylprednisolone 4 Mg Tab) 4 mg PO 0700,2100 [facility] Stop: 10/17/20 21:01 Methylprednisolone (Methylprednisolone 4 Mg Tab) 4 mg PO 0700 [facility] Stop: 10/18/20 07:01 Miscellaneous (*Vesicare*Order Awaiting Action) 1 ea N/A QS [facility] Stop: 11/11/20 00:00 Last Admin: 10/14/20 08:10 Dose: Not Given Documented by: Ondansetron HCl (Ondansetron Inj 2 Mg/Ml 2 Ml Vial) 4 mg IV Q6H PRN PRN Reason: Nausea Stop: 11/10/20 21:01 Oxycodone HCl (Oxycodone Hcl Ir 5 Mg Tab (Immediate Release)) 5 mg PO Q6H PRN PRN Reason: Pain Stop: 10/25/20 21:01 Last Admin: 10/13/20 13:51 Dose: 5 mg Documented by: Pantoprazole Sodium (Pantoprazole 40 Mg Tab) 40 mg PO DAILY MAYE Stop: 11/11/20 08:59 Last Admin: 10/14/20 08:14 Dose: 40 mg Documented by: Polyethylene Glycol (Polyethylene (Miralax) 17 Gm Pack) 17 gm PO DAILY PRN PRN Reason: Constipation Stop: 11/11/20 18:20 Last Admin: 10/13/20 20:14 Dose: 17 gm Documented by: Polyethylene Glycol (Polyethylene (Miralax) 17 Gm Pack) 17 gm PO DAILY [facility] Stop: 11/12/20 11:29 Last Admin: 10/14/20 08:13 Dose: 17 gm Documented by: Pregabalin (Pregabalin 75 Mg Cap) 75 mg PO BID [facility] Stop: 11/10/20 21:14 Last Admin: 10/14/20 09:17 Dose: 75 mg Documented by: Pregabalin (Pregabalin 150 Mg Cap) 150 mg PO HS [facility] Stop: 11/10/20 21:14 Last Admin: 10/13/20 21:37 Dose: 150 mg Documented by: Sennosides (Senna 8.6 Mg Tab) 8.6 mg PO BID [facility] Stop: 11/12/20 20:59 Last Admin: 10/14/20 08:14 Dose: 8.6 mg Documented by: Trazodone HCl (Trazodone Hcl 50 Mg Tab) 150 mg PO [facility] Stop: 11/10/20 21:14 Last Admin: 10/13/20 21:37 Dose: 150 mg Documented by: Umeclidinium [place] (Umeclidinium [place] 62.5mcg/Blister 7 Puffs/Inhaler) 1 puffs INH DAILY [facility] Stop: 11/11/20 08:59 Last Admin: 10/14/20 08:12 Dose: 1 puffs Documented by:
[2020-10-14] MEDS: PREGABALIN 150 MG CAP PO SCH (20:41)
[2020-10-14] MEDS: traZODone HCL 50 MG TAB PO SCH (20:45)
[2020-10-14] MEDS: ENOXAPARIN INJ 40 MG/0.4 ML SYR SQ SCH (20:45)
[2020-10-14] MEDS ORDERED: methylPREDNISolone 4 MG TAB PO SCH (21:00)
[2020-10-15] MEDS ORDERED: methylPREDNISolone 4 MG TAB PO SCH (07:00)
[2020-10-15] MEDS: ASPIRIN 81 MG ECTAB PO SCH (09:09)
[2020-10-15] MEDS: FLUTICASONE PROPIONATE NA SPR 16 GM BTL SCH (09:09)
[2020-10-15] MEDS: DULoxetine HCL 60 MG CAP PO SCH (09:09)
[2020-10-15] MEDS: ATORVASTATIN 20 MG TAB PO SCH (09:10)
[2020-10-15] MEDS: UMECLIDINIUM BROMIDE 62.5MCG/BLISTER 7 PUFFS/INHALER INH SCH (09:11)
[2020-10-15] MEDS: SENNA 8.6 MG TAB PO SCH ×2 (09:11→09:15)
[2020-10-15] MEDS: PANTOprazole 40 MG TAB PO SCH (09:11)
[2020-10-15] MEDS: POLYETHYLENE (MIRALAX) 17 GM PACK PO SCH ×2 (09:11→09:15)
[2020-10-15] MEDS: buPROPion XL 150 MG TABCR PO SCH (09:12)
--- NOTE | 2020-10-15 09:13 | Hospitalist Progress Note ---
Date of Service October 15, 2020 Assessment & Plan (1) Spinal stenosis of lumbar region with radiculopathy: Present on admission with worsening back pain associated with ambulatory dysfunction Lumbar MRI showed mild bilateral disc bulge. There is left greater than right- sided subarticular stenosis. This may impinge on the exiting left L4 nerve root. Lumbar spine flex/ext showed Slight anterolisthesis of L5 on S1 which does not significantly change during flexion or extension. Severe lower lumbar spine facet arthrosis. Doppler of LE negative for DVT Continue pain control Ortho on board Interventional pain management for possible transforaminal injection. Plan for injection as outpt 10/18/20. Started on Medrol dose pack now. Patient may need to postpone her outpatient injection as she also plans for Covid vaccine. For now continue Medrol pack. Recommend PT/OT Continue Cymbalta 60mg daily, Lyrica 75mg BID, Lyrica 150mg HS Home PT If no improve she may require surgical decompression as per ortho fall precaution Hypotension BP in the low side might be contributed due to narcotic gentle hydration BP at goal now Chronic obstructive pulmonary disease. Continue home inhalers Constipation will add Miralax and senna Reports she takes stool softeners daily, however does not remember which ones GERD Continue on Protonix. History of urge incontinence on VESIcare. Depression continue bupropion and duloxetine. stable Hyperlipidemia Continue statin. DVT px on Lovenox Admission and Anticipated Discharge Date Admission Date: October 13, 2020 Subjective Patient seen in follow-up of back pain, radiating to right leg Pt see by pain management, started on Medrol pack Pain is now better controlled, there is also plan for injection with pain management on Sunday in place Home health/home PT Review of Systems Review of Systems: All systems reviewed & are unremarkable except as noted in HPI & below Constitutional: no fever and no chills Respiratory: no cough and no dyspnea Cardiovascular: no chest pain and no palpitations Gastrointestinal: no abdominal pain, no nausea and no vomiting Musculoskeletal: + back pain (radiating to R leg) Physical Exam Physical Exam: General- No acute distress Head- normocephalic, atraumatic Eyes- PERRL, EOMI, ENT- oropharynx clear Neck- supple, no JVD Lungs- clear to auscultation, no wheezing Heart- regular rhythm; no murmur Abdomen- normal bowel sounds, soft, nontender Extremities- no calf tenderness, +RLE pain movement (improved) Neuro- alert, oriented x 3; PERRL, EOMI; no facial palsy; no dysarthria Skin- warm & dry Results & Data Results & Data ([facility]) Vital Signs (Past 12 Hours) Vital Signs Temp Pulse Resp BP BP Pulse Ox 10/15/20 07:36 36.7 C 74 16 108/70 95 10/14/20 22:50 36.8 C 70 18 116/67 93 Medications Administered Current Inpatient Medications Acetaminophen (Acetaminophen 325 Mg Tab) 650 mg PO Q4H PRN PRN Reason: pain/fever Stop: 11/10/20 21:01 Last Admin: 10/13/20 13:51 Dose: 650 mg Documented by: Al Hydrox/Mg Hydrox/Simethicone (Aluminum/Magnesium Susp 30 Ml Udc) 30 ml PO Q6H PRN PRN Reason: Dyspepsia Stop: 11/10/20 21:01 Albuterol (Albuterol Hfa 8 Gm Inhaler) 2 puffs INH Q4R PRN PRN Reason: Shortness Of Breath Stop: 11/10/20 21:01 Aspirin (Aspirin 81 Mg Ectab) 81 mg PO DAILY MAYE Stop: 11/11/20 08:59 Last Admin: 10/14/20 08:11 Dose: 81 mg Documented by: Atorvastatin Calcium (Atorvastatin 20 Mg Tab) 20 mg PO DAILY MAYE Stop: 11/11/20 08:59 Last Admin: 10/14/20 08:12 Dose: 20 mg Documented by: Bupropion HCl (Bupropion Xl 150 Mg Tabcr) 150 mg PO DAILY MAYE Stop: 11/11/20 08:59 Last Admin: 10/14/20 08:14 Dose: 150 mg Documented by: Duloxetine HCl (Duloxetine Hcl 60 Mg Cap) 60 mg PO DAILY MAYE Stop: 11/11/20 08:59 Last Admin: 10/14/20 08:11 Dose: 60 mg Documented by: Enoxaparin Sodium (Enoxaparin Inj 40 Mg/0.4 Ml Syr) 40 mg SQ Q24H MAYE Stop: 11/10/20 21:59 Last Admin: 10/14/20 20:45 Dose: 40 mg Documented by: Fluticasone Propionate (Fluticasone Propionate Na Spr 16 Gm Btl) 2 sprays NA BID MAYE Stop: 11/10/20 21:29 Last Admin: 10/14/20 20:41 Dose: 2 sprays Documented by: Hydromorphone HCl (Hydromorphone Inj 0.5 Mg/0.5 Ml Syr) 0.5 mg IV Q4H PRN PRN Reason: Pain Stop: 10/25/20 21:01 Magnesium Hydroxide (Magnesium Hydroxide Susp 30 Ml Udc) 30 ml PO Q6H PRN PRN Reason: Constipation Stop: 11/10/20 21:01 Last Admin: 10/12/20 18:44 Dose: 30 ml Documented by: Meclizine HCl (Meclizine Hcl 25 Mg Tab) 25 mg PO TID PRN PRN Reason: Dizziness Stop: 11/10/20 21:05 Last Admin: 10/14/20 20:43 Dose: 25 mg Documented by: Methylprednisolone (Methylprednisolone 4 Mg Tab) 4 mg PO 0700,1300,1800,2100 [facility] Stop: 10/15/20 21:01 Last Admin: 10/15/20 08:04 Dose: 4 mg Documented by: Methylprednisolone (Methylprednisolone 4 Mg Tab) 4 mg PO 0700,1300,2100 [facility] Stop: 10/16/20 21:01 Methylprednisolone (Methylprednisolone 4 Mg Tab) 4 mg PO 0700,2100 [facility] Stop: 10/17/20 21:01 Methylprednisolone (Methylprednisolone 4 Mg Tab) 4 mg PO 0700 [facility] Stop: 10/18/20 07:01 Miscellaneous (*[facility]*Order Awaiting Action) 1 ea N/A QS [facility] Stop: 11/11/20 00:00 Last Admin: 10/15/20 08:05 Dose: Not Given Documented by: Ondansetron HCl (Ondansetron Inj 2 Mg/Ml 2 Ml Vial) 4 mg IV Q6H PRN PRN Reason: Nausea Stop: 11/10/20 21:01 Oxycodone HCl (Oxycodone Hcl Ir 5 Mg Tab (Immediate Release)) 5 mg PO Q6H PRN PRN Reason: Pain Stop: 10/25/20 21:01 Last Admin: 10/13/20 13:51 Dose: 5 mg Documented by: Pantoprazole Sodium (Pantoprazole 40 Mg Tab) 40 mg PO DAILY [facility] Stop: 11/11/20 08:59 Last Admin: 10/14/20 08:14 Dose: 40 mg Documented by: Polyethylene Glycol (Polyethylene (Miralax) 17 Gm Pack) 17 gm PO DAILY PRN PRN Reason: Constipation Stop: 11/11/20 18:20 Last Admin: 10/13/20 20:14 Dose: 17 gm Documented by: Polyethylene Glycol (Polyethylene (Miralax) 17 Gm Pack) 17 gm PO DAILY MAYE Stop: 11/12/20 11:29 Last Admin: 10/14/20 08:13 Dose: 17 gm Documented by: Pregabalin (Pregabalin 75 Mg Cap) 75 mg PO BID MAYE Stop: 11/10/20 21:14 Last Admin: 10/14/20 20:41 Dose: 75 mg Documented by: Pregabalin (Pregabalin 150 Mg Cap) 150 mg PO HS [facility] Stop: 11/10/20 21:14 Last Admin: 10/14/20 20:41 Dose: 150 mg Documented by: Sennosides (Senna 8.6 Mg Tab) 8.6 mg PO BID MAYE Stop: 11/12/20 20:59 Last Admin: 10/14/20 20:43 Dose: 8.6 mg Documented by: Trazodone HCl (Trazodone Hcl 50 Mg Tab) 150 mg PO HS [facility]YE Stop: 11/10/20 21:14 Last Admin: 10/14/20 20:45 Dose: 150 mg Documented by: Umeclidinium [place] (Umeclidinium [place] 62.5mcg/Blister 7 Puffs/Inhaler) 1 puffs INH DAILY MAYE Stop: 11/11/20 08:59 Last Admin: 10/14/20 08:12 Dose: 1 puffs Documented by:
[2020-10-15] MEDS: PREGABALIN 75 MG CAP PO SCH (09:17)
--- NOTE | 2020-10-15 09:50 | Discharge Summary ---
Date of Service October 15, 2020 Admission HPI Per Admitting Provider This is a 70-year-old female with past medical history significant for COPD, history of lung nodules, history of obstructive sleep apnea, irritable bowel syndrome, GERD, urge incontinence of urine, history of carpal tunnel syndrome, radiculomyelopathy who lives with her , comes with severe back pain, hip pain on the right side, radiating to the right lower leg. The patient is hard of hearing. The patient has back pain for some time, but in the last couple of weeks, it got worse. She recently saw her cardiology and because of a question of peripheral vascular disease, an arterial ultrasound was done, which was unremarkable. The patient says in the last few days, she could not even put weight on the right leg and she could not ambulate, so she came to the ER. The pain is more in the right back and right hip region radiating down the right leg. MRI scan done in the ER was showing mild multilevel spondylosis. The patient is somewhat constipated. She says she moves bowels every once in a couple of weeks that is normal for her. Denies any blood in the stool or black stools. Normal bladder movements. No hematuria or black stools or blood in the stools, no abdominal pain, no chest pain, no shortness of breath. She is not ambulating much. She is coughing a little bit in the nighttime. Denies any fever or chills, no headache, no blurred vision, no runny nose, no sore throat, no dysphagia. Appetite is okay. She had her first COVID shot done and second COVID shot is on 10/27. Currently resting comfortably and hemodynamically stable, says the pain medication given in the ER worked for her. Admission Exam Per Admitting Provider GENERAL: The patient is of moderate build, not in acute distress. VITAL SIGNS: Temperature 37.3, pulse 72, respiratory rate 20, blood pressure 102/56, oxygen 92% on room air. HEENT: Pupils equal, round, reactive to light. Oral mucosa moist. NECK: No JVD. No neck masses seen. CARDIOVASCULAR: S1, S2 heard, regular rate and rhythm, no murmur, no gallop. RESPIRATORY SYSTEM: Normal AP diameter. No accessory muscle use. No wheezing, no crackles. ABDOMEN: Soft, bowel sounds present, nontender. No distention. CENTRAL NERVOUS SYSTEM: Cranial nerves II-XII grossly intact, nonfocal. EXTREMITIES: No edema, no erythema seen. MUSCULOSKELETAL: No spinal tenderness present. Right straight leg test positive. Principal Diagnosis Spinal stenosis of lumbar region with radiculopathy Discharge Exam General- No acute distress Head- normocephalic, atraumatic Eyes- PERRL, EOMI, ENT- oropharynx clear Neck- supple, no JVD Lungs- clear to auscultation, no wheezing Heart- regular rhythm; no murmur Abdomen- normal bowel sounds, soft, nontender Extremities- no calf tenderness, +RLE pain movement (improved) Neuro- alert, oriented x 3; PERRL, EOMI; no facial palsy; no dysarthria Skin- warm & dry Discharge Data Allergies Allergy/AdvReac Type Severity Reaction Status Date / Time morphine Allergy Mild rash Unverified 10/11/20 14:41 cat dander Allergy Unknown Unknown Verified 10/11/20 14:41 strawberry Allergy Unknown Unknown Verified 10/11/20 14:41 Consultations 10/11/20 17:09 ED Decision to Admit Stat 10/11/20 21:02 Consult Orthopedic Surgery Routine 10/12/20 18:17 Consult Pain Management Routine Ordered Studies 10/11/20 12:40 MR lumbar spine wo con Stat IMPRESSION: 1. Mild multilevel spondylosis as above. See discussion for detailed level by level analysis. 2. There is no central canal stenosis. 3. No destructive bony process is identified. ADDENDUM ADDENDUM: In addition to the above findings, there is a 5 mm synovial cyst arising from the right facet at L5-S1. This is best seen on axial T2-weighted image #26. This may impinge on the exiting right L5 nerve root. There may be additional punctate facet joint cyst at this level on the left seen on the same image. Additional findings are unchanged. XR lumbar spine flex/ext only CLINICAL HISTORY: standing films COMPARISON STUDY: Lumbar spine MRI October 11, 2020. FINDINGS: Vertebral body heights are maintained. There is slight anterolisthesis of L5 on S1 which does not significantly change with flexion or extension. Severe facet arthrosis is noted at the L5-S1 level with moderate to severe facet arthrosis at the L4-L5 level. There is slight disc space narrowing at L5-S1. IMPRESSION: 1. Slight anterolisthesis of L5 on S1 which does not significantly change during flexion or extension. 2. Severe lower lumbar spine facet arthrosis. 10/11/20 14:49 CT head/brain wo con Stat IMPRESSION: There is no hemorrhage, mass effect, or evidence of acute territorial ischemia by CT criteria. 10/11/20 16:31 US venous doppler LE RT Stat IMPRESSION: There is no sonographic evidence of deep venous thrombosis identified in the right lower extremity. Hospital Course (1) Spinal stenosis of lumbar region with radiculopathy: Present on admission with worsening back pain associated with ambulatory dysfunction Lumbar MRI showed mild bilateral disc bulge. There is left greater than right- sided subarticular stenosis. This may impinge on the exiting left L4 nerve root. Lumbar spine flex/ext showed Slight anterolisthesis of L5 on S1 which does not significantly change during flexion or extension. Severe lower lumbar spine facet arthrosis. Doppler of LE negative for DVT Continue pain control Ortho on board Interventional pain management for possible transforaminal injection. Plan for injection as outpt 10/18/20. Started on Medrol dose pack now. Patient may need to postpone her outpatient injection as she also plans for Covid vaccine. For now continue Medrol pack. Recommend PT/OT Continue Cymbalta 60mg daily, Lyrica 75mg BID, Lyrica 150mg HS Home PT If no improve she may require surgical decompression as per ortho fall precaution Hypotension BP in the low side might be contributed due to narcotic gentle hydration BP at goal now Chronic obstructive pulmonary disease. Continue home inhalers Constipation will add Miralax and senna Reports she takes stool softeners daily, however does not remember which ones GERD Continue on Protonix. History of urge incontinence on VESIcare. Depression continue bupropion and duloxetine. stable Hyperlipidemia Continue statin. DVT px on Lovenox Disposition : home with home health/ home PT ([facility]) Total Time Total Time Spent Total Time Spent (In Minutes): 35 Total Time Includes: Examination of the Patient, Discharge Planning, Medication Reconciliation and Communication With Other Providers Discharge Plan Discharge Items Patient Disposition: Home - Home Health Services Reason For Visit: r hip pain, back pain Discharge Diagnosis: Spinal stenosis of lumbar region with radiculopathy Activity: Per Instructions section Non-emergency contact: Primary Care Provider and Specialist Call non-emergency contact if: you have any medication questions and your symptoms worsen Follow-up/Referrals: Nataly Kelly DO [Primary Care Provider] - (Date & Time 10/19/2020 3:00 PM Provider Nataly Kelly DO Department [facility] ) Diet: Regular Addtl Attending Provider Instructions: You have appointment scheduled with pain management, on Sunday, October 18. In the meantime continue Medrol pack - take 4 mg of methylprednisolone today for next 3 doses, tomorrow for 3 doses, then next day for 2 doses, and 1 dose on October 18. This will be your last dose. Continue your home duloxetine and Lyrica. Follow-up with your primary care doctor, the appointment was scheduled for you for October 19. Pending Studies at Discharge: No Stand-Alone Forms: My [facility] [place], Smoking Cessation Medications and DC Order Prescriptions: New methylprednisolone 4 mg Tablet 4 mg PO UD Qty: 9 RF: 0 Continued atorvastatin 20 mg tablet 20 mg PO DAILY RF: 0 meloxicam 7.5 mg tablet 7.5 mg PO DAILY RF: 0 trazodone 100 mg tablet 150 mg PO HS RF: 0 meclizine 25 mg tablet 25 mg PO TID PRN (Reason: Dizziness) RF: 0 pantoprazole 40 mg tablet,delayed release (DR/EC) 40 mg PO DAILY RF: 0 albuterol sulfate 90 mcg/actuation HFA aerosol inhaler 2 puff INHALATION Q4H PRN (Reason: Shortness Of Breath) RF: 0 fluticasone propionate 50 mcg/actuation spray,suspension 2 spray INTRANASAL BID RF: 0 bupropion HCl 150 mg tablet extended release 24 hr 150 mg PO DAILY RF: 0 duloxetine 60 mg capsule,delayed release(DR/EC) 60 mg PO DAILY RF: 0 solifenacin 5 mg tablet 5 mg PO DAILY RF: 0 pregabalin 75 mg capsule 75 mg PO BID RF: 0 pregabalin 150 mg capsule 150 mg PO HS RF: 0 Incruse Ellipta 62.5 mcg/actuation blister with device 1 inh INHALATION DAILY RF: 0 aspirin [Aspir-81] 81 mg Tablet,Delayed Release (Dr/Ec) 81 mg PO DAILY RF: 0 Discharge Orders: Discharge Order (Routine); Ordered 10/15/20 Ordered By: Haider Gomez Admission Data Admit Date/Time: 10/13/20 11:45 Attending Provider: Haider Gomez Admit Provider: Nolan Justice Primary Care Provider: Nataly Kelly Other Providers: Nolan Justice ; Evens Fine ; Val Hardy ; James Ludwig ; [facility]
[2020-10-16] MEDS ORDERED: methylPREDNISolone 4 MG TAB PO SCH (07:00)
[2020-10-17] MEDS ORDERED: methylPREDNISolone 4 MG TAB PO SCH (07:00)
[2020-10-18] MEDS ORDERED: methylPREDNISolone 4 MG TAB PO SCH (07:00)
== END 2020-10-15 12:02 | disposition home health service (06) ==
LOC: ED 11:38 → 3W 11:38 → SUATTDRO 17:23 → 3W 20:37

== ENCOUNTER 2022-12-29 15:58 | Inpatient (IN) ==
[2022-12-29] MEDS ORDERED: ALBUT/IPRATROP 3MG/0.5MG NEB 3 ML VIAL NEB STA (16:29)
[2022-12-29] MEDS ORDERED: methylPREDNISolone 125 MG/2 ML VIAL IV STA (16:29)
[2022-12-29] MEDS ORDERED: ALBUT/IPRATROP 3MG/0.5MG NEB 3 ML VIAL NEB ONE (16:29)
[2022-12-29] MEDS ORDERED: ALBUT/IPRATROP 3MG/0.5MG NEB 3 ML VIAL ONE (16:30)
[2022-12-29 16:47] LABS: Anion Gap 3 (3-11); BUN Creatinine Ratio 11.9 (10-20); Blood Urea Nitrogen 10 mg/dl (6-23); Calcium 9.1 mg/dl (8.6-10.3); Carbon Dioxide 30 mmol/L (21-32); Chloride 105 mmol/L (98-107); Est GFR (African American) 81.6 ml/min; Est GFR (Non-African American) 70.4 ml/min; Glucose 88 mg/dl (70-99(Fasting)); Potassium 4.2 mmol/L (3.5-5.1); Sodium 138 mmol/L (136-145)
[2022-12-29 16:50] LABS: Basophils # (auto) 0.05 K/uL (0-0.2); Basophils % (auto) 0.6 %; Eosinophils # (auto) 0.61 K/uL (0-0.50); Hematocrit (blood only) 38.5 % (37.0-47.0); Hemoglobin 12.6 g/dl (12.0-16.0); Immature Granulocytes # (auto) 0.03 K/uL (0.01-0.20); Immature Granulocytes % (auto) 0.3 %; Lymphocytes % (auto) 20.7 %; Mean Corpuscular Hgb Conc 32.7 g/dL (32.0-36.0); Mean Corpuscular Volume 91.7 fL (80.0-100.0); Mean Platelet Volume 9.4 fL (9.4-12.4); Monocytes # (auto) 0.72 K/uL (0.11-0.59); Monocytes % (auto) 8.3 %; Neutrophils % (auto) 63.1 %; Platelet Count 323 K/uL (130-400); RDW Coefficient of Variation 14.6 % (11.5-14.5); RDW Standard Deviation 49.1 fL (36.4-46.3); White Blood Count 8.71 K/ul (4.8-10.8)
[2022-12-29 16:53] LABS: Troponin I High Sensitivity < 2.3 pg/ml (0-14)
--- NOTE | 2022-12-29 17:02 | Emergency Department Note ---
Impression & Plan Hypoxia, SOB (shortness of breath), Bilateral wheezing ED Provider Note INFORMANT: Patient ED PROVIDER(S): Go Feng MD CHIEF COMPLAINT: Shortness of breath PLAN: Disposition: Admitted Condition: Guarded Outpatient prescription management: none Referral: None MEDICAL DECISION MAKING: Patient presented with acute shortness of breath. She was wheezing significantly. Patient was requiring supplemental oxygen. She was given a nebulizer treatment and an hour-long treatment ordered. She was given IV steroids. Patient underwent a work-up and chest x-ray was negative. Patient had a nonischemic ECG. Patient's CBC and chemistry panels were unremarkable. BNP and troponin negative. Patient was reassessed and was starting to feel somewhat better but still requiring supplemental oxygen. Bio fire testing was performed and negative. Blood cultures performed. Patient will need further management in the hospital. She does have a history of COPD and this seems to be an exacerbation. PatientP feels comfortable. Consultation was made with the [facility] service. Case was discussed and diagnostics were reviewed with Dr Duncan. He did asked for an ABG to be ordered and this was done. Patient was evaluated in the ER admitted for further management Discussed with manufacturing operations manager After review of the information above and other included data, I feel the patient requires admission. Triage Nursing notes reviewed and agree them. Vital Signs: reviewed and remarkable for hypoxia Prior /Outside records reviewed: none Differential diagnosis: Reactive airway disease, pneumonia, pneumothorax, COPD, CHF, infections, cardiac ischemia, pulmonary embolism, musculoskeletal, gastrointestinal, as well as other pathologies. Diagnostics, as interpreted by me: ECG: Twelve-lead ECG reveals normal sinus rhythm at 94 bpm. There is a nonspecific ST abnormality. No ST elevation. Cardiac Monitoring: Cardiac monitoring ordered by me: The patient was placed on continuous cardiac monitoring and observed. It revealed a normal sinus rhythm at 81 beats per minute without ectopy or evidence of dysrhythmia. Medical decision rules: none Imaging studies: Chest x-ray. Findings: A chest x-ray was performed and revealed no pneumothorax, effusion, infiltrate, pulmonary edema, free air under the diap hragm, or wide mediastinum. Impression: No acute disease. HPI: The patient is a 72 year old for who presents to the Emergency Room with complaints of shortness of breath. This started about a week ago and is worsening. The patient also notes the following associated symptoms, productive cough, hoarse voice, feeling feverish. The patient has tried an inhaler and was given a DuoNeb at urgent care for relieving factors. Current pain is rated as 0/10. Patient has a history of COPD. Former smoker. Pt denies LOC, headache, fevers, chills, diaphoresis, visual changes, neck pain, chest pain, nausea, vomiting, abdominal pain, back pain, numbness, weakness, lymphade nopathy, rash, or other complaints. PAST MEDICAL HISTORY: See Below, COPD PAST SURGICAL HISTORY: See Below, SOCIAL HISTORY: See Below, former smoker HOME MEDICATIONS: See Below ALLERGIES: See Below VITALS: See Below PHYSICAL EXAMINATION: GENERAL: Awake, alert, well-appearing, in no distress HENT: Normocephalic, atraumatic. Oropharynx unremarkable. EYES: Normal conjunctiva. Sclera non-icteric. NECK: Inspection normal. Non-tender. Supple. No nuchal rigidity. FROM. No masses. RESPIRATORY: Clear to auscultation. No wheezes. No rales. Normal respiratory effort. CARDIAC: Normal rate. Normal rhythm. No murmurs. No rubs. Extremities warm and well perfused. Pulses equal. No JVD. GI: Soft, non-distended. No tenderness to palpation. No rebound or guarding. No masses. RECTAL: Deferred. MUSCULOSKELETAL: Atraumatic. Chest examination reveals no tenderness. The back is symmetrical on inspection without obvious abnormality. There is no CVA tenderness to palpation. No joint edema. LOWER EXTREMITIES: Calves are equal size bilaterally and non-tender. No edema. No discoloration. NEURO: Normal sensorium. No sensory or motor deficits noted. SKIN: No rash or jaundice noted. CRITICAL CARE: I have personally spent greater than 35 minutes of critical care time in the direct management of this patient. This includes bedside care, interpretation of diagnostic studies, and testing, discussion with consultants, patient, and family members, and other required patient management activities. These minutes are in excess of all separately billable procedures. Past Med/Surg History Medical History Anxiety Asthma COPD (chronic obstructive pulmonary disease) Depression GERD (gastroesophageal reflux disease) History of left heart catheterization IBS (irritable bowel syndrome) VIRGIL (obstructive sleep apnea) Restless leg syndrome Tobacco abuse Surgical History H/O abdominoplasty "03/08/07" H/O: hysterectomy History of carpal tunnel surgery of right wrist History of cervical spinal arthrodesis Family History Sister Breast cancer Father Diabetes Brother Prostate cancer Mother Kidney disease Social History Smoking Status: Former smoker Cigarettes Per Day: 2 cigarettes/ a day; Second Hand Exposure: No; Do You Dip or Chew Tobacco: No; Hx Alcohol Use: No Hx Substance Use: No Preferred Language: Maori Communication Ability: Effective Communication Ability Comment: hears And readsd lips Kiln Maintenance Required: No Beliefs That Will Affect Care: None Current Living Situation: Spouse Feels Safe at Home: Yes Safety Concerns: Feels Safe At This Time Assistive Devices: Denture - Upper, Denture - Lower, Glasses and Hearing Aid - Right Allergies Allergies Allergy/AdvReac Type Severity Reaction Status Date / Time morphine Allergy Intermediate rash Verified 12/29/22 18:09 strawberry Allergy Intermediate Hives Verified 12/29/22 18:09 Home Meds Home Medications Medication Instructions Recorded Confirmed albuterol sulfate 90 mcg/actuation 2 puff inhalation Q4H PRN 10/11/20 12/29/22 aerosol inhaler Shortness Of Breath aspirin 81 mg tablet,delayed 81 mg PO DAILY 10/11/20 12/29/22 release atorvastatin 20 mg tablet 20 mg PO DAILY 10/11/20 12/29/22 bupropion HCl 150 mg 24 hr tablet, 150 mg PO DAILY 10/11/20 12/29/22 extended release duloxetine 60 mg capsule,delayed 60 mg PO DAILY 10/11/20 12/29/22 release fluticasone propionate 50 2 spray intranasal BID 10/11/20 12/29/22 mcg/actuation nasal spray,suspension meclizine 25 mg tablet 25 mg PO TID PRN Dizziness 10/11/20 12/29/22 meloxicam 7.5 mg tablet 7.5 mg PO DAILY 10/11/20 12/29/22 pantoprazole 40 mg tablet,delayed 40 mg PO DAILY 10/11/20 12/29/22 release pregabalin 150 mg capsule 150 mg PO HS 10/11/20 12/29/22 pregabalin 75 mg capsule 75 mg PO BID 10/11/20 12/29/22 solifenacin 5 mg tablet 5 mg PO DAILY 10/11/20 12/29/22 trazodone 100 mg tablet 150 mg PO HS 10/11/20 12/29/22 umeclidinium 62.5 mcg/actuation 1 inh inhalation DAILY 10/11/20 12/29/22 blister powder for inhalation (Incruse Ellipta) Results & Data (ED) Vital Signs Vital Signs - 24 hr 12/29/22 16:15 12/29/22 16:00 12/29/22 16:00 Temperature 36.8 C 36.8 C Temperature Source Oral Oral Pulse Rate 99 H 94 H Pulse Rate [Apical] Pulse Rate from SpO2 Sensor Pulse Rhythm Regular Pulse Strength Normal Respiratory Rate 26 H 26 H Respiratory Effort / Characteristics Labored Labored Respiratory Depth Retractive Retractive Blood Pressure 113/64 Blood Pressure [Right Arm] 113/64 Blood Pressure Mean 80 Blood Pressure Mean [Right Arm] 80 Blood Pressure Position Semi-fowlers Blood Pressure Position [Right Arm] Semi-fowlers Pulse Oximetry 95 95 Oxygen Delivery Method Nasal Cannula Nasal Cannula Oxygen Flow Rate 2 2 Sepsis Recent Fever Within 48 Hours Yes Sepsis New/Unexplained Change in Mental Status No Sepsis Action Taken by Nursing No Action Required Oxygen Flow Rate - Titration Pulse Oximetry Post Tiitration 12/29/22 16:00 12/29/22 16:00 12/29/22 16:00 Temperature Temperature Source Pulse Rate Pulse Rate [Apical] Pulse Rate from SpO2 Sensor Pulse Rhythm Pulse Strength Respiratory Rate Respiratory Effort / Characteristics Labored Respiratory Depth Blood Pressure Blood Pressure [Right Arm] Blood Pressure Mean Blood Pressure Mean [Right Arm] Blood Pressure Position Blood Pressure Position [Right Arm] Pulse Oximetry 95 82 L Oxygen Delivery Method Nasal Cannula Nasal Cannula Room Air Oxygen Flow Rate 2 2 0 Sepsis Recent Fever Within 48 Hours Sepsis New/Unexplained Change in Mental Status Sepsis Action Taken by Nursing Oxygen Flow Rate - Titration 2 Pulse Oximetry Post Tiitration 93 12/29/22 16:45 12/29/22 16:11 12/29/22 16:30 Temperature Temperature Source Pulse Rate 91 H 103 H Pulse Rate [Apical] 91 H Pulse Rate from SpO2 Sensor 91 H 101 H Pulse Rhythm Pulse Strength Respiratory Rate 26 H 21 29 H Respiratory Effort / Characteristics Spontaneous Short of Breath Respiratory Depth Blood Pressure Blood Pressure [Right Arm] Blood Pressure Mean Blood Pressure Mean [Right Arm] Blood Pressure Position Blood Pressure Position [Right Arm] Pulse Oximetry 96 96 93 Oxygen Delivery Method Nasal Cannula Oxygen Flow Rate Sepsis Recent Fever Within 48 Hours Sepsis New/Unexplained Change in Mental Status Sepsis Action Taken by Nursing Oxygen Flow Rate - Titration Pulse Oximetry Post Tiitration 12/29/22 17:00 12/29/22 17:30 12/29/22 18:00 Temperature Temperature Source Pulse Rate 95 H 90 93 H Pulse Rate [Apical] Pulse Rate from SpO2 Sensor 90 93 H Pulse Rhythm Pulse Strength Respiratory Rate 24 22 21 Respiratory Effort / Characteristics Respiratory Depth Blood Pressure Blood Pressure [Right Arm] Blood Pressure Mean Blood Pressure Mean [Right Arm] Blood Pressure Position Blood Pressure Position [Right Arm] Pulse Oximetry 100 95 Oxygen Delivery Method Oxygen Flow Rate Sepsis Recent Fever Within 48 Hours Sepsis New/Unexplained Change in Mental Status Sepsis Action Taken by Nursing Oxygen Flow Rate - Titration Pulse Oximetry Post Tiitration Laboratory Data 12/29/22 16:10 12/29/22 16:10 Lab Results 12/29/22 12/29/22 12/29/22 Range/Units 16:10 16:10 16:10 WBC 8.71 (4.8-10.8) K/ul RBC 4.20 (4.20-5.40) M/uL Hgb 12.6 (12.0-16.0) g/dl Hct 38.5 (37.0-47.0) % MCV 91.7 (80.0-100.0) fL MCH 30.0 (25.0-34.0) pg MCHC 32.7 (32.0-36.0) g/dL RDW Std Deviation 49.1 H (36.4-46.3) fL RDW Coeff of Ira 14.6 H (11.5-14.5) % Plt Count 323 (130-400) K/uL MPV 9.4 (9.4-12.4) fL Immature Gran % (Auto) 0.3 % Neut % (Auto) 63.1 % Lymph % (Auto) 20.7 % Rabun % (Auto) 8.3 % Eos % (Auto) 7.0 % Baso % (Auto) 0.6 % Neut # (Auto) 5.50 (1.40-6.50) K/uL Lymph # (Auto) 1.80 (1.2-3.4) K/uL Rabun # (Auto) 0.72 H (0.11-0.59) K/uL Eos # (Auto) 0.61 H (0-0.50) K/uL Baso # (Auto) 0.05 (0-0.2) K/uL Immature Gran # (Auto) 0.03 (0.01-0.20) K/uL Sodium 138 (136-145) mmol/L Potassium 4.2 (3.5-5.1) mmol/L Chloride 105 (98-107) mmol/L Carbon Dioxide 30 (21-32) mmol/L Anion Gap 3 (3-11) BUN 10 (6-23) mg/dl Creatinine 0.84 (0.6-1.2) mg/dl Est Cr Clr Drug Dosing Not Reportable Est GFR ( Amer) 81.6 ml/min Est GFR (Non-Af Amer) 70.4 ml/min BUN/Creatinine Ratio 11.9 (10-20) Glucose 88 (70-99(Fasting)) mg/dl Lactate (0.4-2.0) mmol/L Calcium 9.1 (8.6-10.3) mg/dl Magnesium 2.0 (1.7-2.4) mg/dl Total Bilirubin 0.4 (0.2-1.0) mg/dl AST 9 L (13-39) U/L ALT < 3 L (7-52) U/L Alkaline Phosphatase 84 (34-104) U/L Troponin I High Sens < 2.3 (0-14) pg/ml B-Natriuretic Peptide 18 (0-100) pg/ml Total Protein 6.7 (6.0-8.3) gm/dl Albumin 3.9 (3.4-5.0) gm/dl Globulin 2.8 (2.5-4.0) gm/dl Albumin/Globulin Ratio 1.4 (0.9-2) Adenovirus (PCR) (NotDetected) B. pertussis DNA (PCR) (NotDetected) B.parapertussis DNA PCR (NotDetected) C. pneumoniae DNA (PCR) (NotDetected) Coronavirus OC43 (PCR) (NotDetected) Coronavirus HKU1 (PCR) (NotDetected) Coronavirus 229E (PCR) (NotDetected) SARS-CoV-2 (PCR) (NotDetected) Coronavirus NL63 (PCR) (NotDetected) Human Metapneumovir PCR (NotDetected) Influenza Type A (PCR) (NotDetected) Influenza Type B (PCR) (NotDetected) M. pneumoniae (PCR) (NotDetected) Parainfluenza 1 (PCR) (NotDetected) Parainfluenza 2 (PCR) (NotDetected) Parainfluenza 3 (PCR) (NotDetected) Parainfluenza 4 (PCR) (NotDetected) RSV (PCR) (NotDetected) Entero/Rhino (PCR) (NotDetected) 12/29/22 12/29/22 Range/Units 16:10 16:39 WBC (4.8-10.8) K/ul RBC (4.20-5.40) M/uL Hgb (12.0-16.0) g/dl Hct (37.0-47.0) % MCV (80.0-100.0) fL MCH (25.0-34.0) pg MCHC (32.0-36.0) g/dL RDW Std Deviation (36.4-46.3) fL RDW Coeff of Ira (11.5-14.5) % Plt Count (130-400) K/uL MPV (9.4-12.4) fL Immature Gran % (Auto) % Neut % (Auto) % Lymph % (Auto) % Rabun % (Auto) % Eos % (Auto) % Baso % (Auto) % Neut # (Auto) (1.40-6.50) K/uL Lymph # (Auto) (1.2-3.4) K/uL Rabun # (Auto) (0.11-0.59) K/uL Eos # (Auto) (0-0.50) K/uL Baso # (Auto) (0-0.2) K/uL Immature Gran # (Auto) (0.01-0.20) K/uL Sodium (136-145) mmol/L Potassium (3.5-5.1) mmol/L Chloride (98-107) mmol/L Carbon Dioxide (21-32) mmol/L Anion Gap (3-11) BUN (6-23) mg/dl Creatinine (0.6-1.2) mg/dl Est Cr Clr Drug Dosing Est GFR ( Amer) ml/min Est GFR (Non-Af Amer) ml/min BUN/Creatinine Ratio (10-20) Glucose (70-99(Fasting)) mg/dl Lactate 0.6 (0.4-2.0) mmol/L Calcium (8.6-10.3) mg/dl Magnesium (1.7-2.4) mg/dl Total Bilirubin (0.2-1.0) mg/dl AST (13-39) U/L ALT (7-52) U/L Alkaline Phosphatase (34-104) U/L Troponin I High Sens (0-14) pg/ml B-Natriuretic Peptide (0-100) pg/ml Total Protein (6.0-8.3) gm/dl Albumin (3.4-5.0) gm/dl Globulin (2.5-4.0) gm/dl Albumin/Globulin Ratio (0.9-2) Adenovirus (PCR) Not Detected (NotDetected) B. pertussis DNA (PCR) Not Detected (NotDetected) B.parapertussis DNA PCR Not Detected (NotDetected) C. pneumoniae DNA (PCR) Not Detected (NotDetected) Coronavirus OC43 (PCR) Not Detected (NotDetected) Coronavirus HKU1 (PCR) Not Detected (NotDetected) Coronavirus 229E (PCR) Not Detected (NotDetected) SARS-CoV-2 (PCR) Not Detected (NotDetected) Coronavirus NL63 (PCR) Not Detected (NotDetected) Human Metapneumovir PCR Not Detected (NotDetected) Influenza Type A (PCR) Not Detected (NotDetected) Influenza Type B (PCR) Not Detected (NotDetected) M. pneumoniae (PCR) Not Detected (NotDetected) Parainfluenza 1 (PCR) Not Detected (NotDetected) Parainfluenza 2 (PCR) Not Detected (NotDetected) Parainfluenza 3 (PCR) Not Detected (NotDetected) Parainfluenza 4 (PCR) Not Detected (NotDetected) RSV (PCR) Not Detected (NotDetected) Entero/Rhino (PCR) Not Detected (NotDetected) Administered Medications Fluticasone Propionate (Fluticasone Propionate Na Spr 16 Gm Btl) 2 sprays NA BID MAYE Stop: 01/28/23 20:59 Last Admin: 12/29/22 21:49 Dose: 2 sprays Documented By: TRACE Doxycycline Hyclate 100 mg/ (Dextrose) 110 mls @ 50 mls/hr IV Q12H MAYE Stop: 01/05/23 20:59 Last Infusion: 12/30/22 00:03 Dose: 0 mls/hr Documented By: Admin: 12/29/22 21:51 Dose: 50 mls/hr Documented By: TRACE Methylprednisolone 40 mg/ (Syringe) 0.64 mls @ 1.5 mls/min IV Q6H MAYE Stop: 01/28/23 21:59 Last Admin: 12/29/22 21:50 Dose: 1.5 mls/min Documented By: TRACE Ipratropium [place] (Ipratropium [place] Neb Soln 0.02% 2.5 Ml Vial) 0.5 mg INH Q6R MAYE Stop: 01/28/23 19:49 Last Admin: 12/30/22 00:07 Dose: 0.5 mg Documented By: Admin: 12/29/22 20:58 Dose: 0.5 mg Documented By: ETHEL Levalbuterol HCl (Levalbuterol 1.25 Mg/3 Ml Neb) 1.25 mg NEB Q6R MAYE Stop: 01/28/23 19:49 Last Admin: 12/30/22 00:07 Dose: 1.25 mg Documented By: Admin: 12/29/22 20:58 Dose: 1.25 mg Documented By: ETHEL Menthol (Cough Drop (Sugar Free) Jesse 24 Jesse/1 Box) 1 jesse BUCCAL UD PRN PRN Reason: Sore Throat Stop: 01/28/23 22:10 Last Admin: 12/29/22 22:58 Dose: 1 jesse Documented By: TRACE Pregabalin (Pregabalin 150 Mg Cap) 150 mg PO HS MAYE Stop: 01/28/23 20:59 Last Admin: 12/29/22 21:50 Dose: 150 mg Documented By: TRACE Trazodone HCl (Trazodone Hcl 50 Mg Tab) 150 mg PO HS MAYE Stop: 01/28/23 20:59 Last Admin: 12/29/22 21:50 Dose: 150 mg Documented By: TRACE Discontinued Medications Albuterol (Albut/Ipratrop 3mg/0.5mg Neb 3 Ml Vial) 3 ml NEB NOW STA; Protocol Stop: 12/29/22 16:30 Last Admin: 12/29/22 16:36 Dose: 3 ml Documented By: Albuterol (Albut/Ipratrop 3mg/0.5mg Neb 3 Ml Vial) Confirm Administered Dose 3 ml .ROUTE .STK-MED ONE Stop: 12/29/22 16:31 Last Admin: 12/29/22 18:13 Dose: Not Given Documented By: Albuterol (Albut/Ipratrop 3mg/0.5mg Neb 3 Ml Vial) 12 ml NEB ONE ONE; Protocol Stop: 12/29/22 16:30 Last Admin: 12/29/22 16:42 Dose: 12 ml Documented By: MAREK Methylprednisolone (Methylprednisolone 125 Mg/2 Ml Vial) 125 mg IV NOW STA Stop: 12/29/22 16:30 Last Admin: 12/29/22 17:54 Dose: 125 mg Documented By: Imaging Data Radiologist's Impression: Chest X-Ray 12/29/22 16:06 XR chest 1V portable CLINICAL HISTORY: Dyspnea TECHNIQUE: Single frontal radiograph of the chest was obtained. Comparison: Comparison is made to chest radiograph 08/25/2018 FINDINGS: ACDF is seen. The cardiomediastinal silhouette is normal. The lungs are clear. No evidence of pleural effusion or pneumothorax. IMPRESSION: No acute chest disease. ACT 112: Negative or not required by law. Electronically signed by: Lyle Colby M.D. 12/29/2022 5:17 PM Discharge Plan Visit Data Chief Complaint: Shortness of Breath/Dyspnea ED Provider: Go Feng Discharge Problem: Hypoxia, SOB (shortness of breath), Bilateral wheezing Patient Disposition: Admitted As Inpatient Discharge Instructions Interventions: ED Discharge Assessment Last Done: 12/29/22 20:08
[2022-12-29 17:05] LABS: Alanine Aminotransferase < 3 U/L (7-52); Albumin Globulin Ratio 1.4 (0.9-2); Albumin Level 3.9 gm/dl (3.4-5.0); Alkaline Phosphatase 84 U/L (34-104); Aspartate Aminotransferase 9 U/L (13-39); Bilirubin,Total 0.4 mg/dl (0.2-1.0); Globulin 2.8 gm/dl (2.5-4.0); Total Protein 6.7 gm/dl (6.0-8.3)
--- NOTE | 2022-12-29 17:18 | XRay Report ---
XR chest 1V portable CLINICAL HISTORY: Dyspnea TECHNIQUE: Single frontal radiograph of the chest was obtained. Comparison: Comparison is made to chest radiograph 08/25/2018 FINDINGS: ACDF is seen. The cardiomediastinal silhouette is normal. The lungs are clear. No evidence of pleural effusion or pneumothorax. IMPRESSION: No acute chest disease. ACT 112: Negative or not required by law. Electronically signed by: Lyle Colby M.D. 12/29/2022 5:17 PM
[2022-12-29 17:47] LABS: Adenovirus PCR Not Detected (NotDetected); Bordetella parapertussis PCR Not Detected (NotDetected); Bordetella pertussis PCR Not Detected (NotDetected); Chlamydia pneumoniae PCR Not Detected (NotDetected); Coronavirus 229E PCR Not Detected (NotDetected); Coronavirus CoV-2 (COVID19)PCR Not Detected (NotDetected); Coronavirus HKU1 PCR Not Detected (NotDetected); Coronavirus NL63 PCR Not Detected (NotDetected); Coronavirus OC43PCR Not Detected (NotDetected); Human Metapneumovirus PCR Not Detected (NotDetected); Influenza A PCR Not Detected (NotDetected); Influenza B PCR Not Detected (NotDetected); Mycoplasma pneumoniae PCR Not Detected (NotDetected); Parainfluenza Virus 1 PCR Not Detected (NotDetected); Parainfluenza Virus 2 PCR Not Detected (NotDetected); Parainfluenza Virus 3 PCR Not Detected (NotDetected); Parainfluenza Virus 4 PCR Not Detected (NotDetected); Respiratory Syncytial VirusPCR Not Detected (NotDetected); Rhinovirus/Enterovirus PCR Not Detected (NotDetected)
--- NOTE | 2022-12-29 18:46 | History & Physical Report ---
Date of Service December 29, 2022 Assessment & Plan (1) COPD exacerbation: Plan: Likely secondary to acute bronchitis Chest x-ray: No pneumonia BioFire: Negative Solu-Medrol 40 mg every 6 hours Doxycycline 1 mg IV every 12 hours Xopenex/Atrovent every 6 hours Mucinex, hypertonic saline every 12 hours, flutter valve, desat spirometry Continue usual Incruse Ellipta Obstructive sleep apnea Spinal stenosis Continue Lyrica Major depressive disorder Continue Cymbalta, trazodone, bupropion DVT prophylaxis Lovenox subcutaneous daily History of Present Illness Primary Care Provider: Nataly Kelly DO Patient is a 72-year-old female with history of COPD, obstructive sleep apnea, GERD, spinal stenosis, major depression, presenting with progressive cough and shortness of breath x1 week. Patient reports starting to have productive cough, subjective fevers and mild sore throat since last week. Symptoms worsening despite use of inhaler at home. She presented to urgent care and was given DuoNeb treatment with no improvement Patient then presented to the ER for further evaluation management. At the ER, patient was noted to be hypoxic in the mid 80s. She was also noted to have bilateral wheezing, and was given hour-long DuoNeb and Solu-Medrol 125 mg IV Hospital service consulted for admission Allergies Allergy/AdvReac Type Severity Reaction Status Date / Time morphine Allergy Intermediate rash Verified 12/29/22 18:09 strawberry Allergy Intermediate Hives Verified 12/29/22 18:09 Home Medications Medication Instructions Recorded Confirmed Type albuterol sulfate 90 mcg/actuation 2 puff inhalation Q4H PRN 10/11/20 12/29/22 History aerosol inhaler Shortness Of Breath aspirin 81 mg tablet,delayed 81 mg PO DAILY 10/11/20 12/29/22 History release atorvastatin 20 mg tablet 20 mg PO DAILY 10/11/20 12/29/22 History bupropion HCl 150 mg 24 hr tablet, 150 mg PO DAILY 10/11/20 12/29/22 History extended release duloxetine 60 mg capsule,delayed 60 mg PO DAILY 10/11/20 12/29/22 History release fluticasone propionate 50 2 spray intranasal BID 10/11/20 12/29/22 History mcg/actuation nasal spray,suspension meclizine 25 mg tablet 25 mg PO TID PRN Dizziness 10/11/20 12/29/22 History meloxicam 7.5 mg tablet 7.5 mg PO DAILY 10/11/20 12/29/22 History pantoprazole 40 mg tablet,delayed 40 mg PO DAILY 10/11/20 12/29/22 History release pregabalin 150 mg capsule 150 mg PO HS 10/11/20 12/29/22 History pregabalin 75 mg capsule 75 mg PO BID 10/11/20 12/29/22 History solifenacin 5 mg tablet 5 mg PO DAILY 10/11/20 12/29/22 History trazodone 100 mg tablet 150 mg PO HS 10/11/20 12/29/22 History umeclidinium 62.5 mcg/actuation 1 inh inhalation DAILY 10/11/20 12/29/22 History blister powder for inhalation (Incruse Ellipta) Past Med/Surg History Medical History Anxiety Asthma COPD (chronic obstructive pulmonary disease) Depression GERD (gastroesophageal reflux disease) History of left heart catheterization IBS (irritable bowel syndrome) VIRGIL (obstructive sleep apnea) Restless leg syndrome Tobacco abuse Surgical History H/O abdominoplasty "03/08/07" H/O: hysterectomy History of carpal tunnel surgery of right wrist History of cervical spinal arthrodesis Family History Sister Breast cancer Father Diabetes Brother Prostate cancer Mother Kidney disease Social History Smoking Status: Former smoker Cigarettes Per Day: 2 cigarettes/ a day; Second Hand Exposure: No; Do You Dip or Chew Tobacco: No; Hx Alcohol Use: No Hx Substance Use: No Preferred Language: [place] Communication Ability: Effective Communication Ability Comment: hears And readsd lips Lead Slot Technician Required: No Beliefs That Will Affect Care: None Current Living Situation: Spouse Feels Safe at Home: Yes Safety Concerns: Feels Safe At This Time Assistive Devices: Denture - Upper, Denture - Lower, Glasses and Hearing Aid - Right Review of Systems Review of Systems: all noted and negative except for above Physical Exam Physical Exam: General- oriented x 3, not in distress, speaks in sentences with no effort or accessory muscle use Head- atraumatic Eyes- PERRL, EOMI, anicteric ENT- oropharynx clear Neck- supple, no JVD, no adenopathy, no thyromegaly; carotids +2/2, no bruits appreciated Lungs-positive scattered wheezing bilaterally Heart- normal rate, regular rhythm; no murmur, no gallop, no rub appreciated Abdomen- normal bowel sounds, nondistended, soft, nontender, no masses or hepatosplenomegaly Extremities- no pretibial edema, no calf tenderness; peripheral pulses intact Neuro- alert, oriented x 3; CN 2-12 grossly intact; motor 5/5 bilaterally;sensation 100% on all extremities; no other gross focal neurologic deficits Skin- warm & dry Results & Data Results & Data Vital Signs (Past 12 Hours) Vital Signs Temp Pulse Pulse Resp BP BP Pulse Ox 12/29/22 18:00 93 H 21 95 12/29/22 17:30 90 22 100 12/29/22 17:00 95 H 24 12/29/22 16:30 103 H 29 H 93 12/29/22 16:11 91 H 21 96 12/29/22 16:45 91 H 26 H 96 12/29/22 16:00 82 L 12/29/22 16:00 12/29/22 16:00 95 12/29/22 16:00 36.8 C 26 H 113/64 95 12/29/22 16:00 36.8 C 94 H 26 H 113/64 95 12/29/22 16:15 99 H O2 Del Method O2 Flow Rate 12/29/22 18:00 12/29/22 17:30 12/29/22 17:00 12/29/22 16:30 12/29/22 16:11 12/29/22 16:45 Nasal Cannula 12/29/22 16:00 Room Air 0 12/29/22 16:00 Nasal Cannula 2 12/29/22 16:00 Nasal Cannula 2 12/29/22 16:00 Nasal Cannula 2 12/29/22 16:00 Nasal Cannula 2 12/29/22 16:15 all noted and reviewed including below Code Status & VTE Plan VTE Prophylaxis Plan VTE Prophylaxis will be ordered: Yes
[2022-12-29 19:06] LABS: Base Excess ABG -0.4 mEq/L (-9-1.8); HCO3 ABG 26 mmol/L (19-24); Oxygen Saturation ABG 95.2 % (90-95); PCO2 ABG 48 mmHg (35-46); PO2 ABG 74 mmHg (80-95); pH ABG 7.34 (7.35-7.45)
[2022-12-29 19:09] LABS: Allen Test Pos (Pos)
[2022-12-29] MEDS ORDERED: ACETAMINOPHEN 325 MG TAB PO PRN (19:50)
[2022-12-29] MEDS ORDERED: MECLIZINE HCL 25 MG TAB PO PRN (19:50)
[2022-12-29] MEDS: IPRATROPIUM BROMIDE NEB SOLN 0.02% 2.5 ML VIAL INH SCH (20:58)
[2022-12-29] MEDS: LEVALBUTEROL 1.25 MG/3 ML NEB NEB SCH (20:58)
[2022-12-29] MEDS ORDERED: XOPENEX/ATROVENT 1.25mg/0.5MG NEB COMBO NEB SCH (21:00)
[2022-12-29] MEDS: FLUTICASONE PROPIONATE NA SPR 16 GM BTL SCH (21:49)
[2022-12-29] MEDS: methylPREDNISolone 40 MG in SYRINGE 0 ML IV SCH (21:50)
[2022-12-29] MEDS: PREGABALIN 150 MG CAP PO SCH (21:50)
[2022-12-29] MEDS: traZODone HCL 50 MG TAB PO SCH (21:50)
[2022-12-29] MEDS: DOXYCYCLINE HYCLATE 100 MG in DEXTROSE 5% 100 ML IV SCH (21:51)
[2022-12-29] MEDS ORDERED: COUGH DROP (SUGAR FREE) LOZ 24 LOZ/1 BOX BUCCAL PRN (22:11)
[2022-12-29 22:59] LABS: Base Excess ABG -1.3 mEq/L (-9-1.8); HCO3 ABG 24 mmol/L (19-24); Oxygen Saturation ABG 97.7 % (90-95); PCO2 ABG 40 mmHg (35-46); PO2 ABG 76 mmHg (80-95); pH ABG 7.38 (7.35-7.45)
[2022-12-29 23:11] LABS: Allen Test Pos (Pos)
[2022-12-30] MEDS: IPRATROPIUM BROMIDE NEB SOLN 0.02% 2.5 ML VIAL INH SCH ×4 (00:07→19:33)
[2022-12-30] MEDS: LEVALBUTEROL 1.25 MG/3 ML NEB NEB SCH ×4 (00:07→19:33)
[2022-12-30] MEDS: methylPREDNISolone 40 MG in SYRINGE 0 ML IV SCH ×4 (04:39→22:10)
[2022-12-30 07:58] LABS: Hematocrit (blood only) 37.2 % (37.0-47.0); Hemoglobin 12.2 g/dl (12.0-16.0); Mean Corpuscular Hgb Conc 32.8 g/dL (32.0-36.0); Mean Corpuscular Volume 91.4 fL (80.0-100.0); Mean Platelet Volume 9.1 fL (9.4-12.4); Platelet Count 319 K/uL (130-400); RDW Coefficient of Variation 14.8 % (11.5-14.5); RDW Standard Deviation 49.8 fL (36.4-46.3); Red Blood Count 4.07 M/uL (4.20-5.40); White Blood Count 7.46 K/ul (4.8-10.8)
[2022-12-30 08:07] LABS: BUN Creatinine Ratio 13.4 (10-20); Calcium 9.5 mg/dl (8.6-10.3); Creatinine Clr Calc Pharmacy 56.1 ml/min; Est GFR (African American) 103.2 ml/min; Est GFR (Non-African American) 89.1 ml/min; Potassium 4.4 mmol/L (3.5-5.1)
[2022-12-30 08:26] LABS: Basophils # (auto) 0.02 K/uL (0-0.2); Basophils % (auto) 0.3 %; Immature Granulocytes # (auto) 0.04 K/uL (0.01-0.20); Immature Granulocytes % (auto) 0.5 %; Lymphocytes # (auto) 0.53 K/uL (1.2-3.4); Lymphocytes % (auto) 7.1 %; Monocytes # (auto) 0.08 K/uL (0.11-0.59); Monocytes % (auto) 1.1 %; Neutrophils # (auto) 6.79 K/uL (1.40-6.50)
[2022-12-30] MEDS: OXYBUTYNIN CHLORIDE XL 5 MG TABCR PO SCH (09:44)
[2022-12-30] MEDS: DULoxetine HCL 60 MG CAP PO SCH (09:44)
[2022-12-30] MEDS: PREGABALIN 75 MG CAP PO SCH ×2 (09:44→15:36)
[2022-12-30] MEDS: buPROPion XL 150 MG TABCR PO SCH (09:44)
[2022-12-30] MEDS: PANTOprazole 40 MG TAB PO SCH (09:45)
[2022-12-30] MEDS: UMECLIDINIUM BROMIDE 62.5MCG/BLISTER 7 PUFFS/INHALER INH SCH (09:45)
[2022-12-30] MEDS: FLUTICASONE PROPIONATE NA SPR 16 GM BTL SCH ×2 (09:45→21:24)
[2022-12-30] MEDS: ATORVASTATIN 20 MG TAB PO SCH (09:45)
[2022-12-30] MEDS: DOXYCYCLINE HYCLATE 100 MG in DEXTROSE 5% 100 ML IV SCH ×2 (09:48→21:24)
--- NOTE | 2022-12-30 15:57 | Hospitalist Progress Note ---
Date of Service December 30, 2022 Assessment & Plan (1) COPD exacerbation: Plan: 1) COPD exacerbation: Plan: Likely secondary to acute bronchitis Chest x-ray: No pneumonia BioFire: Negative Gradually improving Hypercapnia resolved Solu-Medrol 40 mg every 6 hours Doxycycline 1 mg IV every 12 hours Xopenex/Atrovent every 6 hours Mucinex, hypertonic saline every 12 hours, flutter valve, desat spirometry Continue usual Incruse Ellipta Obstructive sleep apnea Does not use BiPAP at home Spinal stenosis Continue Lyrica Major depressive disorder Continue Cymbalta, trazodone, bupropion DVT prophylaxis Lovenox subcutaneous daily Admission and Anticipated Discharge Date Admission Date: December 29, 2022 Subjective Follow-up for COPD, etc. Seen resting in bed, sleeping but easily awakened Not in distress On 2 L States she feels somewhat improved compared to yesterday Breathing is easier today Less cough No fever chills chills No chest pain no other symptoms Review of Systems Review of Systems: all noted and negative except for above Physical Exam Physical Exam: General- oriented x 3, not in distress, speaks in sentences with no effort or accessory muscle use Eyes- anicteric Neck- no JVD Lungs-mild scattered wheezing bilaterally Heart- normal rate, regular rhythm; no murmurs Abdomen- normal bowel sounds, nondistended, soft, nontender Extremities- no pretibial edema, no calf tenderness Neuro- alert, oriented x 3; no gross focal neurologic deficits Skin- warm & dry Results & Data Results & Data Vital Signs (Past 12 Hours) Vital Signs Temp Pulse Pulse Resp BP Pulse Ox O2 Del Method 12/30/22 15:07 84 16 98 Nasal Cannula 12/30/22 14:52 36.7 C 84 21 122/55 L 93 Nasal Cannula 12/30/22 12:01 36.7 C 87 20 112/66 97 Nasal Cannula 12/30/22 11:32 79 12/30/22 11:32 Nasal Cannula 12/30/22 07:57 36.5 C 84 17 100/57 L 94 Room Air 12/30/22 07:26 84 14 91 Nasal Cannula O2 Flow Rate 12/30/22 15:07 2 12/30/22 14:52 1.5 12/30/22 12:01 1.5 12/30/22 11:32 12/30/22 11:32 2 12/30/22 07:57 12/30/22 07:26 2 all noted and reviewed including below
[2022-12-30 21:15] LABS: Appearance Urine Clear (Clear); Bilirubin Urine Negative (Negative); Blood Urine Negative (Negative); Color Urine Yellow; Glucose Urine UA Negative (Negative); Ketones Urine Negative (Negative); Leukocyte Esterase Urine Negative (Negative); Nitrite Urine Negative (Negative); Protein Urine Negative (Negative); Specific Gravity Urine 1.011 (1.000-1.030); Urobilinogen Urine Negative (Negative)
[2022-12-30] MEDS: PREGABALIN 150 MG CAP PO SCH (21:24)
[2022-12-30] MEDS: traZODone HCL 50 MG TAB PO SCH (21:24)
[2022-12-31] MEDS: IPRATROPIUM BROMIDE NEB SOLN 0.02% 2.5 ML VIAL INH SCH ×4 (00:07→19:38)
[2022-12-31] MEDS: LEVALBUTEROL 1.25 MG/3 ML NEB NEB SCH ×4 (00:07→19:38)
[2022-12-31] MEDS: methylPREDNISolone 40 MG in SYRINGE 0 ML IV SCH ×3 (05:04→20:50)
[2022-12-31] MEDS: buPROPion XL 150 MG TABCR PO SCH (09:11)
[2022-12-31] MEDS: OXYBUTYNIN CHLORIDE XL 5 MG TABCR PO SCH (09:11)
[2022-12-31] MEDS: DULoxetine HCL 60 MG CAP PO SCH (09:11)
[2022-12-31] MEDS: PANTOprazole 40 MG TAB PO SCH (09:11)
[2022-12-31] MEDS: ATORVASTATIN 20 MG TAB PO SCH (09:11)
[2022-12-31] MEDS: UMECLIDINIUM BROMIDE 62.5MCG/BLISTER 7 PUFFS/INHALER INH SCH (09:12)
[2022-12-31] MEDS: FLUTICASONE PROPIONATE NA SPR 16 GM BTL SCH ×2 (09:12→20:51)
[2022-12-31] MEDS: DOXYCYCLINE HYCLATE 100 MG in DEXTROSE 5% 100 ML IV SCH ×2 (09:18→21:07)
[2022-12-31] MEDS: PREGABALIN 75 MG CAP PO SCH ×2 (09:18→15:42)
[2022-12-31] MEDS: BENZONATATE 100 MG CAPSULE PO PRN ×2 (09:46→21:00)
--- NOTE | 2022-12-31 15:34 | Hospitalist Progress Note ---
Date of Service December 31, 2022 Assessment & Plan (1) COPD exacerbation: Plan: 1) COPD exacerbation: Plan: Likely secondary to acute bronchitis Chest x-ray: No pneumonia BioFire: Negative Patient continues to improve gradually Hypercapnia resolved Solu-Medrol 40 mg taper to 8 hours Doxycycline 100 mg IV every 12 hours Xopenex/Atrovent every 6 hours Mucinex, hypertonic saline every 12 hours, flutter valve, incentive spirometry Continue usual Incruse Ellipta Obstructive sleep apnea Does not use BiPAP at home Spinal stenosis Continue Lyrica Major depressive disorder Continue Cymbalta, trazodone, bupropion DVT prophylaxis Lovenox subcutaneous daily Disposition Lives at home Anticipate discharge to home medically stable Admission and Anticipated Discharge Date Admission Date: December 29, 2022 Subjective Follow-up for CPE exacerbation, acute bronchitis, etc. Seen resting in bed, not in distress, on 2 L of oxygen States she feels somewhat improved compared to yesterday Still having episodes of cough, occasional dyspnea Denies chest pain, palpitations, dizziness No other new symptom Review of Systems Review of Systems: all noted and negative except for above Physical Exam Physical Exam: General- oriented x 3, not in distress, speaks in sentences with no effort or accessory muscle use Eyes- anicteric Neck- no JVD Lungs-positive faint bilateral wheezing No crackles Heart- normal rate, regular rhythm; no murmurs Abdomen- normal bowel sounds, nondistended, soft, no tenderness Extremities- no pretibial edema, no calf tenderness Neuro- alert, oriented x 3; no gross focal neurologic deficits Skin- warm & dry Results & Data Results & Data Vital Signs (Past 12 Hours) Vital Signs Temp Pulse Pulse Resp BP Pulse Ox O2 Del Method 12/31/22 14:59 36.7 C 89 19 116/63 95 Nasal Cannula 12/31/22 13:33 91 H 15 96 Nasal Cannula 12/31/22 09:30 82 12/31/22 09:30 Nasal Cannula 12/31/22 12:13 36.4 C L 90 21 102/56 L 91 Nasal Cannula 12/31/22 07:34 36.7 C 85 19 111/64 96 Nasal Cannula 12/31/22 07:18 74 14 90 Nasal Cannula O2 Flow Rate 12/31/22 14:59 2.0 12/31/22 13:33 2 12/31/22 09:30 12/31/22 09:30 2 12/31/22 12:13 2.0 12/31/22 07:34 1.5 12/31/22 07:18 2 all noted and reviewed including below
[2022-12-31] MEDS: traZODone HCL 50 MG TAB PO SCH (20:51)
[2022-12-31] MEDS: PREGABALIN 150 MG CAP PO SCH (21:00)
[2022-12-31] MEDS ORDERED: rOPINIRole HCL 0.25 MG TABLET PO STA (23:50)
[2023-01-01] MEDS: LEVALBUTEROL 1.25 MG/3 ML NEB NEB SCH ×4 (00:23→19:53)
[2023-01-01] MEDS: IPRATROPIUM BROMIDE NEB SOLN 0.02% 2.5 ML VIAL INH SCH ×4 (00:24→19:52)
[2023-01-01] MEDS: methylPREDNISolone 40 MG in SYRINGE 0 ML IV SCH ×3 (04:36→20:11)
--- NOTE | 2023-01-01 05:39 | Electrocardiogram Report ---
Test Reason : Blood Pressure : / mmHG Vent. Rate : 094 BPM Atrial Rate : 094 BPM P-R Int : 132 ms QRS Dur : 076 ms QT Int : 350 ms P-R-T Axes : 083 011 053 degrees QTc Int : 437 ms Normal sinus rhythm RSR' or QR pattern in V1 suggests right ventricular conduction delay Nonspecific ST and T wave abnormality Abnormal ECG When compared with ECG of 23-NOV-2015 14:00, No significant change was found Confirmed by Zhang Fields ([id number]) on 01/01/2023 5:39:15 AM Referred By: REFERRED SELF Confirmed By:Zhang Fields
[2023-01-01] MEDS: PREGABALIN 75 MG CAP PO SCH ×2 (09:44→14:23)
[2023-01-01] MEDS: DOXYCYCLINE HYCLATE 100 MG in DEXTROSE 5% 100 ML IV SCH ×2 (09:44→21:32)
[2023-01-01] MEDS: OXYBUTYNIN CHLORIDE XL 5 MG TABCR PO SCH (09:45)
[2023-01-01] MEDS: PANTOprazole 40 MG TAB PO SCH (09:45)
[2023-01-01] MEDS: UMECLIDINIUM BROMIDE 62.5MCG/BLISTER 7 PUFFS/INHALER INH SCH (09:45)
[2023-01-01] MEDS: DULoxetine HCL 60 MG CAP PO SCH (09:46)
[2023-01-01] MEDS: ATORVASTATIN 20 MG TAB PO SCH (09:46)
[2023-01-01] MEDS: FLUTICASONE PROPIONATE NA SPR 16 GM BTL SCH ×2 (09:46→20:11)
[2023-01-01] MEDS: buPROPion XL 150 MG TABCR PO SCH (09:46)
[2023-01-01] MEDS: BENZONATATE 100 MG CAPSULE PO PRN (13:38)
--- NOTE | 2023-01-01 16:32 | Hospitalist Progress Note ---
Date of Service January 01, 2023 Assessment & Plan (1) COPD exacerbation: Plan: 1) COPD exacerbation: Plan: Likely secondary to acute bronchitis Acute hypoxic respiratory failure Chest x-ray: No pneumonia BioFire: Negative Improving gradually Still on oxygen supplement, having productive cough Solu-Medrol 40 mg taper to every 12 hours Doxycycline 100 mg IV every 12 hours Xopenex/Atrovent every 6 hours Mucinex, hypertonic saline every 12 hours, flutter valve, incentive spirometry Continue usual Incruse Ellipta will consult pulmonary service Obstructive sleep apnea Does not use BiPAP at home Spinal stenosis Continue Lyrica Major depressive disorder Continue Cymbalta, trazodone, bupropion Restless legs IV steroids likely contributing Requip 0.25 mg at bedtime neck DVT prophylaxis Lovenox subcutaneous daily Disposition Lives at home Anticipate discharge to home medically stable Admission and Anticipated Discharge Date Admission Date: December 29, 2022 Subjective Follow-up for COPD exacerbation, etc. Seen resting in bed, comfortable, not in distress On 2 L of oxygen States she feels improving gradually every day Still having some cough, now bringing up yellow sputum No fevers or chills, chest pain Patient had restless leg leg syndrome overnight, resolved with Requip Review of Systems Review of Systems: all noted and negative except for above Physical Exam Physical Exam: General- oriented x 3, not in distress, speaks in sentences with no effort or accessory muscle use Eyes- anicteric Neck- no JVD Lungs-positive faint wheezing bilaterally, good air entry Heart- normal rate, regular rhythm; no murmurs Abdomen- normal bowel sounds, nondistended, soft, nontender Extremities- no pretibial edema, no calf tenderness Neuro- alert, oriented x 3; no gross focal neurologic deficits Skin- warm & dry Results & Data Results & Data Vital Signs (Past 12 Hours) Vital Signs Temp Pulse Resp BP Pulse Ox O2 Del Method O2 Flow Rate 01/01/23 15:55 36.7 C 89 21 124/69 92 Room Air 01/01/23 13:09 87 15 91 Room Air 01/01/23 12:26 37.0 C 95 H 22 142/71 H 94 Room Air 01/01/23 08:00 Nasal Cannula 2 01/01/23 07:48 36.5 C 82 19 117/67 95 Nasal Cannula 2.0 01/01/23 07:15 87 15 86 L Nasal Cannula 2 FiO2 01/01/23 15:55 01/01/23 13:09 21 01/01/23 12:26 01/01/23 08:00 01/01/23 07:48 01/01/23 07:15 all noted and reviewed including below
[2023-01-01] MEDS: ENOXAPARIN INJ 40 MG/0.4 ML SYR SQ SCH (19:26)
[2023-01-01] MEDS: PREGABALIN 150 MG CAP PO SCH (20:11)
[2023-01-01] MEDS: traZODone HCL 50 MG TAB PO SCH (20:11)
[2023-01-01] MEDS ORDERED: rOPINIRole HCL 0.25 MG TABLET PO SCH (21:00)
[2023-01-02] MEDS: LEVALBUTEROL 1.25 MG/3 ML NEB NEB SCH ×4 (01:32→20:14)
[2023-01-02] MEDS: IPRATROPIUM BROMIDE NEB SOLN 0.02% 2.5 ML VIAL INH SCH ×4 (01:33→20:14)
[2023-01-02] MEDS: PANTOprazole 40 MG TAB PO SCH (08:43)
[2023-01-02] MEDS: OXYBUTYNIN CHLORIDE XL 5 MG TABCR PO SCH (08:43)
[2023-01-02] MEDS: DULoxetine HCL 60 MG CAP PO SCH (08:43)
[2023-01-02] MEDS: ATORVASTATIN 20 MG TAB PO SCH (08:43)
[2023-01-02] MEDS: DOXYCYCLINE HYCLATE 100 MG in DEXTROSE 5% 100 ML IV SCH (08:43)
[2023-01-02] MEDS: FLUTICASONE PROPIONATE NA SPR 16 GM BTL SCH ×2 (08:43→20:33)
[2023-01-02] MEDS: methylPREDNISolone 40 MG in SYRINGE 0 ML IV SCH (08:43)
[2023-01-02] MEDS: buPROPion XL 150 MG TABCR PO SCH (08:43)
[2023-01-02] MEDS: UMECLIDINIUM BROMIDE 62.5MCG/BLISTER 7 PUFFS/INHALER INH SCH (08:44)
[2023-01-02] MEDS: PREGABALIN 75 MG CAP PO SCH ×2 (08:48→13:44)
--- NOTE | 2023-01-02 08:54 | Pulmonary Consultation ---
Date of Consultation January 02, 2023 Assessment & Plan (1) COPD exacerbation: (2) SOB (shortness of breath): (3) COPD (chronic obstructive pulmonary disease): (4) Current smoker: Plan CT chest 01/02/2023 personally reviewed: Centrilobular emphysema appreciated bilaterally upper and lower lobes Linear atelectasis bilateral lower lobes more on the left No significant mediastinal lymphadenopathy -- COPD with emphysema On Incruse inhaler at home along with albuterol Patient will follow in to [facility] given the recent exacerbation Recommend to change Incruse to Trelegy 100 on discharge --Current smoker Greater than [id number] smoking history Importance of quitting explained to the patient in depth Plan: Decrease Solu-Medrol to 40 mg once a day. Can transition to p.o. prednisone 40 mg for 3 days followed by 20 mg for 2 days as of tomorrow On discharge would recommend the patient Trelegy 100 inhaler to be used in place of Incruse along with as needed albuterol Add Breo to the current regimen of Incruse in the hospital Smoking cessation PFT as an outpatient and pulmonary follow-up Would recommend to check for oxygen requirement on exertion prior to discharge Was discussed with Dr. Duncan Please note the above document was generated using voice recognition software. It may contain grammatical, syntax or spelling errors.Any formal questions or concerns about the content, text or information contained within the body of this dictation should be directly addressed to the provider for clarification. History of Present Illness Attending Physician: Steve Duncan MD History of Present Illness 72-year-old female present to the hospital with complaints of generalized lethargy Past medical history: COPD, anxiety/depression Pulmonary consulted for management of underlying COPD At the time of examination patient was saturating 96% on 1 L nasal cannula. She was not in any respiratory distress. Heart rate in the 80s. She stated that she was not feeling well for the last couple of days with generalized lethargy. She does cough but does not bring up any phlegm. Occasional chest congestion Denies any hemoptysis No headache, no blurry vision Did have some subjective fever. 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 No birds or poultry nearby No history of lung cancer in the family Allergies Allergy/AdvReac Type Severity Reaction Status Date / Time morphine Allergy Intermediate rash Verified 12/29/22 18:09 strawberry Allergy Intermediate Hives Verified 12/29/22 18:09 Home Medications Medication Instructions Recorded Confirmed Type albuterol sulfate 90 mcg/actuation 2 puff inhalation Q4H PRN 10/11/20 12/29/22 History aerosol inhaler Shortness Of Breath aspirin 81 mg tablet,delayed 81 mg PO DAILY 10/11/20 12/29/22 History release atorvastatin 20 mg tablet 20 mg PO DAILY 10/11/20 12/29/22 History bupropion HCl 150 mg 24 hr tablet, 150 mg PO DAILY 10/11/20 12/29/22 History extended release duloxetine 60 mg capsule,delayed 60 mg PO DAILY 10/11/20 12/29/22 History release fluticasone propionate 50 2 spray intranasal BID 10/11/20 12/29/22 History mcg/actuation nasal spray,suspension meclizine 25 mg tablet 25 mg PO TID PRN Dizziness 10/11/20 12/29/22 History meloxicam 7.5 mg tablet 7.5 mg PO DAILY 10/11/20 12/29/22 History pantoprazole 40 mg tablet,delayed 40 mg PO DAILY 10/11/20 12/29/22 History release pregabalin 150 mg capsule 150 mg PO HS 10/11/20 12/29/22 History pregabalin 75 mg capsule 75 mg PO BID 10/11/20 12/29/22 History solifenacin 5 mg tablet 5 mg PO DAILY 10/11/20 12/29/22 History trazodone 100 mg tablet 150 mg PO HS 10/11/20 12/29/22 History umeclidinium 62.5 mcg/actuation 1 inh inhalation DAILY 10/11/20 12/29/22 History blister powder for inhalation (Incruse Ellipta) Patient History Medical History Anxiety Asthma COPD (chronic obstructive pulmonary disease) Depression GERD (gastroesophageal reflux disease) History of left heart catheterization IBS (irritable bowel syndrome) VIRGIL (obstructive sleep apnea) Restless leg syndrome Tobacco abuse Surgical History H/O abdominoplasty "03/08/07" H/O: hysterectomy History of carpal tunnel surgery of right wrist History of cervical spinal arthrodesis Family History Sister Breast cancer Father Diabetes Brother Prostate cancer Mother Kidney disease Social History Smoking Status: Former smoker Cigarettes Per Day: 2 cigarettes/ a day; Second Hand Exposure: No; Do You Dip or Chew Tobacco: No; Hx Alcohol Use: No Hx Substance Use: No Preferred Language: Grenadian Communication Ability: Effective Communication Ability Comment: hears And readsd lips 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 Beliefs That Will Affect Care: None Current Living Situation: Spouse Feels Safe at Home: Yes Safety Concerns: Feels Safe At This Time Assistive Devices: None Review of Systems Review of Systems: All systems reviewed & are unremarkable except as noted in HPI & below Physical Exam Physical Exam: Constitutional: No acute distress, frail-appearing HEENT: EOMI, PERRLA, hard to hear Respiratory system: Recent entry bilaterally, no wheeze, rhonchi, mild crackles bilaterally CVS: S1-S2 positive, no murmurs or gallops distant heart sounds Abdomen: Soft, nontender, nondistended, positive bowel sounds x4 Extremities: +2 pulses bilaterally radialis/ dorsalis pedis, no cyanosis, no edema Neuro: Awake alert oriented x3 Psych: Normal mood and affect G/U: No Taylor Skin: no rashes, warm and dry Lymphatic: no cervical or axillary lymphadenopathy Results & Data Results & Data Vital Signs (Past 12 Hours) Vital Signs Temp Pulse Pulse Resp BP Pulse Ox O2 Del Method 01/02/23 07:23 73 16 97 Nasal Cannula 01/02/23 07:07 36.8 C 74 18 127/63 91 Nasal Cannula 01/02/23 02:33 36.6 C 85 20 120/67 93 Room Air 01/02/23 01:33 80 16 90 Room Air 01/01/23 23:22 80 01/01/23 22:07 36.6 C 76 20 112/59 L 93 Room Air O2 Flow Rate 01/02/23 07:23 1 01/02/23 07:07 1 01/02/23 02:33 07/04/23 01:33 01/01/23 23:22 01/01/23 22:07 Laboratory Results 12/30/22 07:19 12/30/22 07:19 PG Care Time/CCT Total # of Minutes Spent Total Time Spent with Patient: Total time spent is greater than 50% in coordination of care (as documented) at patient's floor/unit and/or counseling patient: Coding Level of Care Code 55345 INT INP/OBS CARE 3/75MIN Diagnoses COPD exacerbation J44.1 SOB (shortness of breath) R06.02 COPD (chronic obstructive pulmonary disease) J44.9 Current smoker F17.200
[2023-01-02] MEDS: FLUTICASONE/VILANTEROL 100/25MCG 14 PUFFS/INHALER INH SCH (12:55)
--- NOTE | 2023-01-02 13:57 | CT Scan Report ---
CT SCAN OF THE CHEST WITHOUT IV CONTRAST CLINICAL HISTORY: Dyspnea COMPARISON STUDY: Chest x-ray dated 12/29/2022. Chest CT dated 11/23/2015. TECHNIQUE: CT scan of the thorax was performed from the thoracic inlet to the upper abdomen. Images are reviewed in the axial, sagittal, and coronal planes. IV contrast was not administered for this ex amination as per the referring clinician. A dose lowering technique was utilized adhering to the [facility]. CT DOSE: 202.64 mGy.cm FINDINGS: Thyroid: Atrophic. Thoracic aorta: The thoracic aorta is normal in caliber and demonstrates standard 3-vessel arch anato my. Heart: The heart is top normal in size and without pericardial effusion. There are scattered coronary artery calcifications Lungs and pleural spaces: There is moderate to advanced emphysema. No airspace consolidation is seen typical for pneumonia. There are trace pleural effusions with bibasilar scarring/atelectasis. There a re scattered calcified granulomas. Minimal secretions are noted in the trachea and right mainstem bro nchus. Foci of mucous plugging are present in the lower lobes bilaterally, left greater than right. Mediastinum: There is no mediastinal lymphadenopathy. Mayra: Not well assessed without IV contrast. Axillae: There is no axillary lymphadenopathy. Upper abdomen: There is a small hiatal hernia. Partially visualized upper abdominal viscera is otherw ise within normal limits. Skeletal structures: The skeletal structures are osteopenic. No lytic or blastic bony lesions are see n. Fusion hardware is noted in the lower cervical spine. IMPRESSION: 1. Emphysema. 2. Trace pleural effusions. ACT 112: Negative or not required by law. Electronically signed by: Chip Lam M.D. 01/02/2023 1:54 PM
--- NOTE | 2023-01-02 17:10 | Hospitalist Progress Note ---
Date of Service January 02, 2023 Assessment & Plan (1) COPD exacerbation: Plan: 1) COPD exacerbation: Plan: Likely secondary to Acute bronchitis Acute hypoxic respiratory failure Chest x-ray: No pneumonia BioFire: Negative Improving gradually Weaned off oxygen supplement today Wheezing mostly resolved Solu-Medrol 40 mg changed to daily today Doxycycline 100 mg p.o. twice daily day number 5 out of 7 Xopenex/Atrovent every 6 hours Mucinex, hypertonic saline every 12 hours, flutter valve, incentive spirometry Continue usual Incruse Ellipta, Breo added today by pulmonary service Pulmonary service consulted: Recommending CT chest without contrast Transition to prednisone 40 mg p.o. x3 days starting tomorrow, 20 mg x 2 days Upon discharge recommend to discontinue usual Incruse and change to Trelegy 100 inhaler PFTs and pulmonology follow-up Two-step exercise test upon discharge Obstructive sleep apnea Does not use BiPAP at home Spinal stenosis Continue Lyrica Major depressive disorder Continue Cymbalta, trazodone, bupropion Restless legs IV steroids likely contributing Requip 0.25 mg at 6 PM ordered DVT prophylaxis Lovenox subcutaneous daily Disposition Lives at home Anticipate discharge to home tomorrow Two-step exercise test upon discharge Admission and Anticipated Discharge Date Admission Date: December 29, 2022 Subjective Follow-up for COPD exacerbation, acute bronchitis, etc. Seen sitting up in bed, comfortable, not in distress On room air In good spirits States she feels improved today overall Breathing is improving Still having some cough, mostly dry No fevers or chills No chest pain No other symptoms Review of Systems Review of Systems: all noted and negative except for above Physical Exam Physical Exam: General- oriented x 3, not in distress, speaks in sentences with no effort or accessory muscle use Eyes- anicteric Neck- no JVD Lungs-diminished breath sounds bilaterally but clear No wheezing noted Heart- normal rate, regular rhythm; no murmurs Abdomen- normal bowel sounds, nondistended, soft, nontender Extremities- no pretibial edema, no calf tenderness Neuro- alert, oriented x 3; no gross focal neurologic deficits Skin- warm & dry Results & Data Results & Data Vital Signs (Past 12 Hours) Vital Signs Temp Pulse Pulse Resp BP Pulse Ox O2 Del Method 01/02/23 15:38 36.8 C 90 19 120/68 91 Room Air 01/02/23 15:28 87 01/02/23 13:51 86 18 94 Room Air 01/02/23 11:14 36.7 C 78 19 138/72 92 Nasal Cannula 01/02/23 09:00 74 01/02/23 07:23 73 16 97 Nasal Cannula 01/02/23 07:07 36.8 C 74 18 127/63 91 Nasal Cannula O2 Flow Rate 01/02/23 15:38 01/02/23 15:28 01/02/23 13:51 01/02/23 11:14 1 01/02/23 09:00 01/02/23 07:23 1 01/02/23 07:07 1 all noted and reviewed including below
[2023-01-02] MEDS ORDERED: rOPINIRole HCL 0.25 MG TABLET PO SCH (17:30)
[2023-01-02] MEDS: ENOXAPARIN INJ 40 MG/0.4 ML SYR SQ SCH (17:51)
[2023-01-02] MEDS: traZODone HCL 50 MG TAB PO SCH (20:33)
[2023-01-02] MEDS: PREGABALIN 150 MG CAP PO SCH (20:33)
[2023-01-02] MEDS: DOXYCYCLINE HYCLATE 100 MG CAP PO SCH (20:33)
[2023-01-02] MEDS: BENZONATATE 100 MG CAPSULE PO PRN (22:27)
[2023-01-03] MEDS: IPRATROPIUM BROMIDE NEB SOLN 0.02% 2.5 ML VIAL INH SCH ×3 (00:03→13:04)
[2023-01-03] MEDS: LEVALBUTEROL 1.25 MG/3 ML NEB NEB SCH ×3 (00:03→13:04)
[2023-01-03] MEDS: DULoxetine HCL 60 MG CAP PO SCH (08:12)
[2023-01-03] MEDS: OXYBUTYNIN CHLORIDE XL 5 MG TABCR PO SCH (08:12)
[2023-01-03] MEDS: PANTOprazole 40 MG TAB PO SCH (08:12)
[2023-01-03] MEDS: ATORVASTATIN 20 MG TAB PO SCH (08:12)
[2023-01-03] MEDS: buPROPion XL 150 MG TABCR PO SCH (08:12)
[2023-01-03] MEDS: DOXYCYCLINE HYCLATE 100 MG CAP PO SCH (08:12)
[2023-01-03] MEDS: FLUTICASONE PROPIONATE NA SPR 16 GM BTL SCH (08:13)
[2023-01-03] MEDS: UMECLIDINIUM BROMIDE 62.5MCG/BLISTER 7 PUFFS/INHALER INH SCH (08:13)
[2023-01-03] MEDS: FLUTICASONE/VILANTEROL 100/25MCG 14 PUFFS/INHALER INH SCH (08:13)
[2023-01-03] MEDS: PREGABALIN 75 MG CAP PO SCH (08:19)
--- NOTE | 2023-01-03 08:24 | Pulmonology Progress Note ---
Date of Service January 03, 2023 Assessment & Plan (1) COPD exacerbation: (2) SOB (shortness of breath): (3) COPD (chronic obstructive pulmonary disease): (4) Current smoker: Plan CT chest 01/02/2023 personally reviewed: Centrilobular emphysema appreciated bilaterally upper and lower lobes Linear atelectasis bilateral lower lobes more on the left No significant mediastinal lymphadenopathy -- COPD with emphysema On Incruse inhaler at home along with albuterol Patient will follow in to [facility] given the recent exacerbation Recommend to change Incruse to Trelegy 100 on discharge --Current smoker Greater than [id number] smoking history Importance of quitting explained to the patient in depth Plan: Recommend Prednisone 40 mg for 3 days followed by 20 mg for 2 days as of tomorrow Complete the course of antibiotics for 5 days On discharge would recommend the patient Trelegy 100 inhaler to be used in place of Incruse along with as needed albuterol or add Breo 100 to patient's Incruse. Smoking cessation PFT as an outpatient and pulmonary follow-up Case discussed with Dr Lino Please note the above document was generated using voice recognition software. It may contain grammatical, syntax or spelling errors.Any formal questions or concerns about the content, text or information contained within the body of this dictation should be directly addressed to the provider for clarification. Admission and Anticipated Discharge Date Admission Date: December 29, 2022 Subjective Patient seen and examined at bedside. No acute distress, no adverse events overnight She was saturating 97% on room air. Shortness of breath is improved Denies any headache, no nausea, no vomiting Has been afebrile. Fair appetite Review of Systems Review of Systems: All systems reviewed & are unremarkable except as noted in Subjective Physical Exam Physical Exam: Constitutional: No acute distress, frail-appearing HEENT: EOMI, PERRLA, hard to hear Respiratory system: Decreased air entry bilaterally, no wheeze, rhonchi, mild crackles bilaterally CVS: S1-S2 positive, no murmurs or gallops distant heart sounds Abdomen: Soft, nontender, nondistended, positive bowel sounds x4 Extremities: +2 pulses bilaterally radialis/ dorsalis pedis, no cyanosis, no edema Neuro: Awake alert oriented x3 Psych: Normal mood and affect G/U: No Taylor Skin: no rashes, warm and dry Lymphatic: no cervical or axillary lymphadenopathy Results & Data Results & Data Vital Signs (Past 12 Hours) Vital Signs Temp Pulse Pulse Resp BP Pulse Ox O2 Del Method 01/03/23 07:50 72 01/03/23 07:14 73 18 92 Room Air 01/03/23 07:00 36.8 C 81 19 109/66 90 Room Air 01/03/23 04:05 37.1 C 81 18 109/64 93 Room Air 01/03/23 00:09 36.8 C 79 16 114/68 95 Room Air 01/03/23 00:04 79 18 95 Room Air 01/02/23 22:18 107 H Laboratory Results 12/30/22 07:19 12/30/22 07:19 PG Care Time/CCT Total # of Minutes Spent Total Time Spent with Patient: Total time spent is greater than 50% in coordination of care (as documented) at patient's floor/unit and/or counseling patient: Coding Level of Care Code 80866 SUB INP/OBS CARE 2/35MIN Diagnoses COPD exacerbation J44.1 SOB (shortness of breath) R06.02 COPD (chronic obstructive pulmonary disease) J44.9 Current smoker F17.200
[2023-01-03] MEDS ORDERED: methylPREDNISolone 40 MG in SYRINGE 0 ML IV SCH (09:00)
[2023-01-03] MEDS ORDERED: predniSONE 20 MG TAB PO SCH (09:00)
--- NOTE | 2023-01-03 15:54 | Discharge Summary ---
Date of Service January 03, 2023 Admission HPI Per Admitting Provider Patient is a 72-year-old female with history of COPD, obstructive sleep apnea, GERD, spinal stenosis, major depression, presenting with progressive cough and shortness of breath x1 week. Patient reports starting to have productive cough, subjective fevers and mild sore throat since last week. Symptoms worsening despite use of inhaler at home. She presented to urgent care and was given DuoNeb treatment with no improvement Patient then presented to the ER for further evaluation management. At the ER, patient was noted to be hypoxic in the mid 80s. She was also noted to have bilateral wheezing, and was given hour-long DuoNeb and Solu-Medrol 125 mg IV Hospital service consulted for admission Admission Exam Per Admitting Provider General- oriented x 3, not in distress, speaks in sentences with no effort or accessory muscle use Head- atraumatic Eyes- PERRL, EOMI, anicteric ENT- oropharynx clear Neck- supple, no JVD, no adenopathy, no thyromegaly; carotids +2/2, no bruits appreciated Lungs-positive scattered wheezing bilaterally Heart- normal rate, regular rhythm; no murmur, no gallop, no rub appreciated Abdomen- normal bowel sounds, nondistended, soft, nontender, no masses or hepatosplenomegaly Extremities- no pretibial edema, no calf tenderness; peripheral pulses intact Neuro- alert, oriented x 3; CN 2-12 grossly intact; motor 5/5 bilaterally;sensation 100% on all extremities; no other gross focal neurologic deficits Skin- warm & dry Principal Diagnosis COPD exacerbation Discharge Exam Constitutional: WD/WN, vitals as above, NAD, sitting up in bed, pleasant, conversing easily Respiratory: bilateral clear breath sounds Cardiovascular: RRR, no murmur, no edema Vessels: no JVD or carotid bruit Chest: normal inspection of chest Abdomen: normal bowel sounds, soft, nontender, no hepatosplenomegaly Musculoskeletal: no cyanosis or clubbing, extremities motor strength 5/5 Skin: no rashes, warm and dry normal turgor Neurologic: PERRL, EOMI, accommodation nl, no face palsy, no dysarthria CN's II- XI intact bilaterally and moves all extremities Psychiatric: A+Ox3, euthymic affect Discharge Data Allergies Allergy/AdvReac Type Severity Reaction Status Date / Time morphine Allergy Intermediate rash Verified 12/29/22 18:09 strawberry Allergy Intermediate Hives Verified 12/29/22 18:09 Consultations 12/29/22 19:21 ED Decision to Admit Stat 01/02/23 08:41 Consult Pulmonology Routine Ordered Studies 01/02/23 11:44 CT chest diagnostic wo con Routine Hospital Course (1) COPD exacerbation: Patient is a 72-year-old female with history of COPD, obstructive sleep apnea, GERD, spinal stenosis, major depression, presenting with progressive cough and shortness of breath x1 week. At the ER, patient was noted to be hypoxic in the mid 80s. She was also noted to have bilateral wheezing, and was given hour-long DuoNeb and Solu-Medrol 125 mg IV Chest x-ray was done which was negative for any infiltrate. Patient was admitted to medical floor. He was placed on DuoNebs, IV steroids and antibiotic. Pulmonology was consulted. Patient was recommended to be discharged on course of steroid and Trelegy. Two-step oxygen evaluation was negative at discharge. Patient was saturating well in room air Outpatient PCP follow-up scheduled. Patient will need pulmonary referral. Total Time Total Time Spent Total Time Spent (In Minutes): 45 Total Time Includes: Examination of the Patient, Discharge Planning, Medication Reconciliation, Communication With Other Providers and Other Discharge Plan Discharge Items Patient Disposition: Home - Self-Care Reason For Visit: COPD EXACERBATION, HYPOXIA Discharge Diagnosis: COPD exacerbation Activity: Resume your previous activity Non-emergency contact: Primary Care Provider Call non-emergency contact if: you have any medication questions and your symptoms worsen Follow-up/Referrals: Nataly Kelly DO [Primary Care Provider] - (Date & Time 01/10/2023 1:40 PM Provider Nataly Kelly DO Department Family [facility] ) Diet: Regular Addtl Attending Provider Instructions: You were admitted to the hospital with COPD exacerbation. You are seen by pulmonology during the hospitalization. You are prescribed following medication: 1) Trelegy inhaler once a day. Stop Incruse inhaler. 2) take prednisone 40 mg(4 tablets) once a day for next 2 days and then take 20 mg (2 tablets) once a day for 2 more days. 3) take azithromycin 500 mg once a day for 3 days. You were also prescribed Requip 0.25 mg to be taken at night for restless leg syndrome. Please follow-up with your primary care doctor as scheduled. You will need pulmonology referral for long-term care of emphysema/COPD. Pending Studies at Discharge: No Stand-Alone Forms: [facility], Smoking Cessation Medications and DC Order Prescriptions: New Trelegy Ellipta 100-62.5-25 mcg blister with device 1 inh inhalation DAILY Qty: 60 0RF prednisone 10 mg tablet See Taper PO DAILY Qty: 12 0RF Taper: Taper, Blank 40 mg DAILY for 3 Days 20 mg DAILY for 3 Days azithromycin 500 mg tablet 500 mg PO DAILY 3 Days Qty: 3 0RF ropinirole 0.25 mg tablet 0.25 mg PO HS Qty: 30 0RF Rx Instructions: administer 1-3 hours before bedtime Continued atorvastatin 20 mg tablet 20 mg PO DAILY meloxicam 7.5 mg tablet 7.5 mg PO DAILY trazodone 100 mg tablet 150 mg PO HS meclizine 25 mg tablet 25 mg PO TID PRN (Reason: Dizziness) pantoprazole 40 mg tablet,delayed release (DR/EC) 40 mg PO DAILY albuterol sulfate 90 mcg/actuation HFA aerosol inhaler 2 puff INHALATION Q4H PRN (Reason: Shortness Of Breath) fluticasone propionate 50 mcg/actuation spray,suspension 2 spray INTRANASAL BID bupropion HCl 150 mg tablet extended release 24 hr 150 mg PO DAILY duloxetine 60 mg capsule,delayed release(DR/EC) 60 mg PO DAILY solifenacin 5 mg tablet 5 mg PO DAILY pregabalin 75 mg capsule 75 mg PO BID Rx Instructions: TAKES QAM & AFTERNOON. pregabalin 150 mg capsule 150 mg PO HS aspirin 81 mg Tablet,Delayed Release (Dr/Ec) 81 mg PO DAILY Discontinued Incruse Ellipta 62.5 mcg/actuation blister with device 1 inh INHALATION DAILY Discharge Orders: Discharge Order (Routine); Ordered 01/03/23 Ordered By: Artemio Lino Admission Data Admit Date/Time: 12/29/22 18:05 Attending Provider: Artemio Lino Admit Provider: Steve Duncan Primary Care Provider: Nataly Kelly Other Providers: Steve Duncan ; Hazel Ortiz Other Interventions: Discharge Summary Assessment (RN) Last Done: 01/03/23 13:26
== END 2023-01-03 14:22 | disposition home or self-care (01) | DRG 190 ==
LOC: ED 15:58 → 2S 18:05 → SUATTDRO 18:05 → 2S 20:08

== ENCOUNTER 2024-05-14 11:46 | Inpatient (IN) ==
[2024-05-14] MEDS: DIPHTHER/TETAN/PERTUS Vaccine (Tdap, Adol/Adult) 0.5mL IM ONE (12:19)
--- NOTE | 2024-05-14 12:24 | Emergency Department Note ---
Impression & Plan Non-ST elevation UT (NSTEMI), SOB (shortness of breath), COPD exacerbation, Head injury, Fall, Laceration of scalp ED Provider Note NAME: SAMUEL GARRISON AGE: 74 SEX: F : 1950 ARRIVES VIA: Walk-In INFORMANT: Patient, ED PROVIDER(S): Agustin Aleman DO CHIEF COMPLAINT: Difficulty breathing HPI: The patient is a 74-year-old female who presented to the emergency department with her for an evaluation of shortness of breath. The patient has been experiencing shortness of breath and coughing over the course the last 2 months. The patient was seen in our facility in April for similar complaints. No definite diagnosis was found. The patient is yet to follow-up with her family doctor. She is unable to get an appointment. She denies having any lower extremity swelling or pain. She did fall today and struck the back of her head. She denies having any neck or back pain. She does have a small laceration. The patient states he is unsure if she is up-to-date with her vaccinations including tetanus. ROS: See above HPI for pertinent positives & negatives. A total of 10 systems reviewed and were otherwise negative. PAST MEDICAL HISTORY: See Below PAST SURGICAL HISTORY: See Below FAMILY HISTORY: See Below SOCIAL HISTORY: See Below HOME MEDICATIONS: See Below ALLERGIES: See Below VITALS: See Below PHYSICAL EXAMINATION: GENERAL: Patient is awake alert in no acute distress patient is resting comfortably and showing no signs of anxiety EYES: The conjunctivae are clear. The pupils are round and reactive. EARS, NOSE, MOUTH AND THROAT: The nose is without any evidence of any deformity. NECK: The neck is nontender and supple. Cervical spine was clinically cleared in the emergency department. RESPIRATORY: Breath sounds are noted throughout with expiratory wheezing. There is no tachypnea or conversational dyspnea. CARDIOVASCULAR: Regular rate and rhythm noted there no murmurs rubs or gallops normal S1 normal S2. GASTROINTESTINAL: The abdomen is soft. Abdomen is nontender. MUSCULOSKELETAL/EXTREMITIES: There is no evidence of gross deformity full range of motion is noted in the hips and shoulders. SKIN: There is no obvious evidence of any rash. There are no petechiae, pallor or cyanosis noted. There was a laceration in the left occipital scalp. No active bleeding was noted. NEUROLOGIC: Patient is awake alert and oriented x3 strength is symmetric patellar reflexes are 2+ bilaterally MEDICAL DECISION MAKING: Patient is a 74-year-old female who presented to the emergency department for an evaluation of difficulty breathing. The patient's had cough and difficulty breathing especially with exertion over the course the last several weeks. She was seen in our facility initially. No definite cause was found and the patient did not require inpatient management at that time. She returns today because of ongoing symptoms. The patient was found to have an EKG that did show some abnormal findings. Compared to the previous there were only slight changes and the patient has no chest pain or shortness of breath at this time. She was treated with a DuoNeb therapy. She was also treated with aspirin in the emergency department. She also had a fall this morning where she struck the back of her head. She has a laceration to the scalp. Because of the possibility of anticoagulation a CT of the head was obtained although initial evaluation did not lead me to believe she needed a trauma workup. She also had a CT of the chest because of the elevated troponin and the shortness of breath. I discussed the patient's laboratory and radiographic studies with her. I discussed her condition with the on-call [facility] hospitalist group. They have agreed to evaluate the patient in the emergency department for further management and disposition. Triage Nursing notes reviewed. Prior medical records reviewed Vital Signs: reviewed and remarkable for no significant abnormalities Differential diagnosis: Reactive airway disease, pneumonia, pneumothorax, COPD, CHF, infections, cardiac ischemia, pulmonary embolism, musculoskeletal, gastrointestinal, as well as other pathologies. ER treatment provided: See below Diagnostics interpreted by me: ECG: EKG was obtained in the emergency department. My interpretation is normal sinus rhythm at 78 bpm. There was no ectopy. Inferior and low lateral ST depressions were noted. Anterior Q waves were noted. This was compared to a tracing from April 03, 2024. No specific changes were noted. Cardiac Monitoring: An order was placed for continuous cardiac monitoring. The monitor shows a rate of 82 bpm with sinus rhythm. Laboratory studies: As stated above and show below. Imaging studies: See below. Radiographic imaging was reviewed by myself Consultation(s): I discussed this case with the on-call [facility] hospitalist group. They have agreed to evaluate the patient in the emergency department for further management and disposition. I discussed this case with Dr. Montana who is on-call for the [facility] cardiology group. ED COURSE: Procedures: Location: Scalp Total length: 2.5 centimeters Complexity: Simple Verbal consent was obtained after the risks and benefits were explained, including but not limited to bleeding, scarring, infection, pain, and bone/nerve damage. At this time, the risks of the procedure are less than the risks of NOT performing the procedure. A time out was taken and the correct patient and site identified. The scalp was prepped with betadine. The target area was anesthetized with 8 ml of 1% lidocaine without epinephrine. Copious irrigation was performed using saline. The skin was re-prepped with betadine, the hair cleared from the wound, and a sterile field set. The wound was explored for foreign bodies and none found. Debridement was not performed. The wound edges were approximated using 9 surgical ayse in the standard fashion. Hemostasis and excellent approximation was achieved. Antibacterial ointment and a sterile dressing applied. Detailed wound care instructions and signs and symptoms of infection reviewed with the patient. No complications and the patient tolerated the procedure well. Critical Care: I have personally spent greater than 45 minutes of critical care time in the direct management of this patient. This includes bedside care, interpretation of diagnostic studies, and testing, discussion with consultants, patient, and family members, and other required patient management activities. This 45 minutes is in excess of all separately billable procedures. Past Med/Surg History Problem List (Updated 05/14/24 @ 13:54 by Agustin Aleman DO) Laceration of scalp (Acute) Fall (Acute) Head injury (Acute) SOB (shortness of breath) (Acute) Non-ST elevation UT (NSTEMI) (Acute) COPD exacerbation (Acute) Hypoxia (Acute) SOB (shortness of breath) (Acute) Bilateral wheezing (Acute) Greater trochanteric bursitis IBS (irritable bowel syndrome) VIRGIL (obstructive sleep apnea) COPD (chronic obstructive pulmonary disease) Asthma (Chronic) GERD (gastroesophageal reflux disease) (Chronic) Restless leg syndrome (Chronic) Depression (Chronic) Tobacco abuse (Chronic) Anxiety (Chronic) Acute diverticulitis (Acute) PNA (pneumonia) Medical History Current smoker History of left heart catheterization Surgical History History of cervical spinal arthrodesis History of carpal tunnel surgery of right wrist Family History Sister Breast cancer Father Diabetes Brother Prostate cancer Mother Kidney disease Social History Smoking Status: Former smoker Tobacco Type: Cigarettes Cigarettes Per Day: 2 cigarettes/ a day; Second Hand Exposure: No; Do You Dip or Chew Tobacco: No; Hx Alcohol Use: No Hx Substance Use: No Preferred Language: Moldovan Communication Ability: Effective Communication Ability Comment: hears And readsd lips Gun Synchronizer Required: No Beliefs That Will Affect Care: None Current Living Situation: Spouse Feels Safe at Home: Yes Assistive Devices: None Allergies Allergies Allergy/AdvReac Type Severity Reaction Status Date / Time morphine Allergy Intermediate rash Verified 12/29/22 18:09 strawberry Allergy Intermediate Hives Verified 12/29/22 18:09 Home Meds Home Medications Medication Instructions Recorded Confirmed albuterol sulfate 90 mcg/actuation 2 puff inhalation Q4H PRN 10/11/20 04/03/24 aerosol inhaler Shortness Of Breath aspirin 81 mg tablet,delayed 81 mg PO DAILY 10/11/20 04/03/24 release atorvastatin 20 mg tablet 20 mg PO DAILY 10/11/20 04/03/24 bupropion HCl 150 mg 24 hr tablet, 150 mg PO DAILY 10/11/20 04/03/24 extended release duloxetine 60 mg capsule,delayed 60 mg PO DAILY 10/11/20 04/03/24 release meclizine 25 mg tablet 25 mg PO TID PRN Dizziness 10/11/20 04/03/24 meloxicam 7.5 mg tablet 7.5 mg PO DAILY 10/11/20 04/03/24 pantoprazole 40 mg tablet,delayed 40 mg PO DAILY 10/11/20 04/03/24 release pregabalin 150 mg capsule 150 mg PO HS 10/11/20 04/03/24 pregabalin 75 mg capsule 75 mg PO BID 10/11/20 04/03/24 solifenacin 5 mg tablet 5 mg PO DAILY 10/11/20 04/03/24 trazodone 100 mg tablet 150 mg PO HS 10/11/20 04/03/24 Previous Rx's Medication Instructions Recorded fluticasone fur. 100 mcg-umeclid 1 inh inhalation DAILY #60 ea 01/03/23 62.5 mcg-vilant 25 mcg inhalat.powder (Trelegy Ellipta) prednisone 10 mg tablet See Taper PO DAILY #12 tabs 01/03/23 ropinirole 0.25 mg tablet 0.25 mg PO HS #30 tabs 01/03/23 prednisone 5 mg tablet See Rx Instructions PO .COMPLEX 04/03/24 #36 tabs Results & Data (ED) Vital Signs Vital Signs - 24 hr 05/14/24 11:57 05/14/24 12:23 05/14/24 12:29 Temperature 36.8 C Temperature Source Temporal Artery Scan Pulse Rate 66 87 Pulse Rate [Apical] 92 H Respiratory Rate 14 22 Respiratory Effort / Characteristics Non-Labored Non-Labored Spontaneous Respiratory Depth Normal Normal Blood Pressure 104/67 Blood Pressure [Right Arm] 127/66 Blood Pressure Mean 79 Blood Pressure Mean [Right Arm] 86 Pulse Oximetry 98 97 Oxygen Delivery Method Room Air Room Air Sepsis Recent Fever Within 48 Hours No Sepsis New/Unexplained Change in Mental Status N/A Sepsis Action Taken by Nursing No Action Required 05/14/24 12:32 Temperature Temperature Source Pulse Rate Pulse Rate [Apical] Respiratory Rate Respiratory Effort / Characteristics Respiratory Depth Blood Pressure Blood Pressure [Right Arm] Blood Pressure Mean Blood Pressure Mean [Right Arm] Pulse Oximetry 100 Oxygen Delivery Method Nebulizer Sepsis Recent Fever Within 48 Hours Sepsis New/Unexplained Change in Mental Status Sepsis Action Taken by Retirement Medications Current Medication List: was personally reviewed by me Laboratory Data Attestation: I reviewed the patient's lab results. 05/14/24 12:23 05/14/24 12:23 Lab Results 05/14/24 Range/Units 12:23 WBC 7.64 (4.8-10.8) K/ul RBC 4.39 (4.20-5.40) M/uL Hgb 13.0 (12.0-16.0) g/dl Hct 40.1 (37.0-47.0) % MCV 91.3 (80.0-100.0) fL MCH 29.6 (25.0-34.0) pg MCHC 32.4 (32.0-36.0) g/dL RDW Std Deviation 47.8 H (36.4-46.3) fL RDW Coeff of Ira 14.1 (11.5-14.5) % Plt Count 332 (130-400) K/uL MPV 8.8 L (9.4-12.4) fL Immature Gran % (Auto) 0.3 % Neut % (Auto) 60.2 % Lymph % (Auto) 20.9 % [place] % (Auto) 8.1 % Eos % (Auto) 9.3 % Baso % (Auto) 1.2 % Neut # (Auto) 4.60 (1.40-6.50) K/uL Lymph # (Auto) 1.60 (1.20-3.40) K/uL [place] # (Auto) 0.62 H (0.11-0.59) K/uL Eos # (Auto) 0.71 H (0.00-0.50) K/uL Baso # (Auto) 0.09 (0.00-0.20) K/uL Immature Gran # (Auto) 0.02 (0.01-0.20) K/uL PT 10.6 (9.0-12.0) Seconds INR 1.0 (0.9-1.1) APTT 27 (21-31) Seconds PTT Ratio 1.0 D-Dimer 310 (0-500) ug/L FEU Sodium 142 (136-145) mmol/L Potassium 4.0 (3.5-5.1) mmol/L Chloride 107 (98-107) mmol/L Carbon Dioxide 31 (21-32) mmol/L Anion Gap 4 (3-11) BUN 13 (6-23) mg/dl Creatinine 0.98 (0.6-1.2) mg/dl Est Cr Clr Drug Dosing 46.7 ml/min eGFR 61.33 BUN/Creatinine Ratio 13.3 (10-20) Glucose 95 (70-99(Fasting)) mg/dl Calcium 9.3 (8.6-10.3) mg/dl Total Bilirubin 0.5 (0.2-1.0) mg/dl AST 13 (13-39) U/L ALT 11 (7-52) U/L Alkaline Phosphatase 72 (34-104) U/L Troponin I High Sens 119.1 H* (0-14) pg/ml Total Protein 5.9 L (6.0-8.3) gm/dl Albumin 3.9 (3.4-5.0) gm/dl Globulin 2.0 L (2.5-4.0) gm/dl Albumin/Globulin Ratio 2.0 (0.9-2) Lipase 8 L (11-82) U/L Administered Medications Discontinued Medications Albuterol (Albut/Ipratrop 3mg/0.5mg Neb 3 Ml Vial) 3 ml NEB NOW STA; Protocol Stop: 05/14/24 12:10 Last Admin: 05/14/24 12:27 Dose: 3 ml Documented By: CHRISTOS Diphtheria/Pertussis/Tetanus Vacc (Diphther/Tetan/Pertus Vaccine (Tdap, Adol/Adult) 0.5ml) 0.5 ml IM .ONCE ONE Stop: 05/14/24 12:10 Last Admin: 05/14/24 12:19 Dose: 0.5 ml Documented By: FRANCES Ioversol (Optiray 320 100ml) 93 ml IV ONCE ONE Stop: 05/14/24 13:28 Last Admin: 05/14/24 13:27 Dose: 93 ml Documented By: RANCHO Lidocaine HCl (Lidocaine 1% Local 20 Ml Vial) 10 ml INJ NOW ONE Stop: 05/14/24 12:10 Last Admin: 05/14/24 12:28 Dose: 10 ml Documented By: CHRISTOS Imaging Data Attestation: I personally reviewed and interpreted this imaging study as follows: My Impression: CT of the head was obtained in the emergency department. My interpretation is no intracranial hemorrhage or mass effect, final report below. 1 view chest x-ray was obtained in the emergency department. My interpretation is no free air or definite infiltrate, final report below. Radiologist's Impression: Chest X-Ray 05/14/24 12:09 XR chest 1V portable CLINICAL HISTORY: Chest pain, nonspecific COMPARISON STUDY: Chest CT January 02, 2023. Chest radiograph April 03, 2024. FINDINGS: Lung volumes are normal. There is no consolidation. There is an equivocal 8 mm right upper lung nodule. There is no pneumothorax or pleural effusion. Cardiac size is normal. Mediastinal contours are normal. There is no evidence for pulmonary edema. Postoperative findings within the cervical spine are incidentally noted. IMPRESSION: 1. No acute cardiopulmonary findings. 2. Possible 8 mm right upper lung nodule. Nonemergent chest CT is recommended. ACT 112: Positive. There are findings on this exam that require communication between the performing entity and the patient following Patient Test Result Information Act ([place] Act 112) guidelines. Electronically signed by: Terry Holcomb M.D. 05/14/2024 12:45 PM Discharge Plan Visit Data Chief Complaint: GI Bleed Stated Complaint: COUGHING UP BLOOD, SOB, COPD ED Provider: Agustin Aleman Discharge Problem: Non-ST elevation UT (NSTEMI), SOB (shortness of breath), COPD exacerbation, Head injury, Fall, Laceration of scalp Patient Disposition: Being Evaluated by Hospitalist Forms Stand Alone Forms: [facility] Prescriptions Prescriptions: No Action Trelegy Ellipta 100-62.5-25 mcg blister with device 1 inh inhalation DAILY Qty: 60 0RF prednisone 10 mg tablet See Taper PO DAILY Qty: 12 0RF Taper: Taper, Blank 40 mg DAILY for 3 Days 20 mg DAILY for 3 Days ropinirole 0.25 mg tablet 0.25 mg PO HS Qty: 30 0RF Rx Instructions: administer 1-3 hours before bedtime atorvastatin 20 mg tablet 20 mg PO DAILY meloxicam 7.5 mg tablet 7.5 mg PO DAILY trazodone 100 mg tablet 150 mg PO HS meclizine 25 mg tablet 25 mg PO TID PRN (Reason: Dizziness) pantoprazole 40 mg tablet,delayed release (DR/EC) 40 mg PO DAILY albuterol sulfate 90 mcg/actuation HFA aerosol inhaler 2 puff INHALATION Q4H PRN (Reason: Shortness Of Breath) bupropion HCl 150 mg tablet extended release 24 hr 150 mg PO DAILY duloxetine 60 mg capsule,delayed release(DR/EC) 60 mg PO DAILY solifenacin 5 mg tablet 5 mg PO DAILY pregabalin 75 mg capsule 75 mg PO BID Rx Instructions: TAKES QAM & AFTERNOON. pregabalin 150 mg capsule 150 mg PO HS aspirin 81 mg Tablet,Delayed Release (Dr/Ec) 81 mg PO DAILY prednisone 5 mg tablet See Rx Instructions PO .COMPLEX Qty: 36 0RF Rx Instructions: prednisone 5 mg: take 8 tablets (40 mg) on Day 1; 7 tablets (35 mg) on Day 2; then decrease by 1 tablet every day until finished Referrals Referrals: Nataly Kelly DO [Primary Care Provider] - Discharge Problem: Head injury Qualifiers: Encounter type: initial encounter Qualified Code(s): S09.90XA - Unspecified injury of head, initial encounter Fall Qualifiers: Encounter type: initial encounter Qualified Code(s): W19.XXXA - Unspecified fall, initial encounter Laceration of scalp Qualifiers: Encounter type: initial encounter Qualified Code(s): S01.01XA - Laceration without foreign body of scalp, initial encounter
[2024-05-14] MEDS: ALBUT/IPRATROP 3MG/0.5MG NEB 3 ML VIAL NEB STA (12:27)
[2024-05-14] MEDS: LIDOCAINE 1% LOCAL 20 ML VIAL INJ ONE (12:28)
--- NOTE | 2024-05-14 12:48 | XRay Report ---
XR chest 1V portable CLINICAL HISTORY: Chest pain, nonspecific COMPARISON STUDY: Chest CT January 02, 2023. Chest radiograph April 03, 2024. FINDINGS: Lung volumes are normal. There is no consolidation. There is an equivocal 8 mm right upper lung nodule. There is no pneumothorax or pleural effusion. Cardiac size is normal. Mediastinal contou rs are normal. There is no evidence for pulmonary edema. Postoperative findings within the cervical s pine are incidentally noted. IMPRESSION: 1. No acute cardiopulmonary findings. 2. Possible 8 mm right upper lung nodule. Nonemergent chest CT is recommended. ACT 112: Positive. There are findings on this exam that require communication between the performing entity and the patient following Patient Test Result Information Act ([place] Act 112) guidelines. Electronically signed by: Terry Holcomb M.D. 05/14/2024 12:45 PM
[2024-05-14 12:52] LABS: Basophils # (auto) 0.09 K/uL (0.00-0.20); Basophils % (auto) 1.2 %; Eosinophils # (auto) 0.71 K/uL (0.00-0.50); Eosinophils % (auto) 9.3 %; Hematocrit (blood only) 40.1 % (37.0-47.0); Immature Granulocytes # (auto) 0.02 K/uL (0.01-0.20); Immature Granulocytes % (auto) 0.3 %; Lymphocytes % (auto) 20.9 %; Mean Corpuscular Hemoglobin 29.6 pg (25.0-34.0); Mean Corpuscular Hgb Conc 32.4 g/dL (32.0-36.0); Mean Corpuscular Volume 91.3 fL (80.0-100.0); Mean Platelet Volume 8.8 fL (9.4-12.4); Monocytes # (auto) 0.62 K/uL (0.11-0.59); Monocytes % (auto) 8.1 %; Neutrophils % (auto) 60.2 %; Platelet Count 332 K/uL (130-400); RDW Coefficient of Variation 14.1 % (11.5-14.5); RDW Standard Deviation 47.8 fL (36.4-46.3); Red Blood Count 4.39 M/uL (4.20-5.40); White Blood Count 7.64 K/ul (4.8-10.8)
[2024-05-14 13:09] LABS: Albumin Level 3.9 gm/dl (3.4-5.0); BUN Creatinine Ratio 13.3 (10-20); Bilirubin,Total 0.5 mg/dl (0.2-1.0); Calcium 9.3 mg/dl (8.6-10.3); Creatinine Clr Calc Pharmacy 46.7 ml/min; Total Protein 5.9 gm/dl (6.0-8.3)
[2024-05-14 13:14] LABS: Troponin I High Sensitivity 119.1 pg/ml (0-14)
[2024-05-14 13:23] LABS: D Dimer 310 ug/L FEU (0-500); Partial Thromboplastin Time 27 Seconds (21-31); Prothrombin Time 10.6 Seconds (9.0-12.0)
[2024-05-14] MEDS: OPTIRAY 320 100ml IV ONE (13:27)
[2024-05-14 13:57] LABS: Adenovirus PCR Not Detected (NotDetected); Bordetella parapertussis PCR Not Detected (NotDetected); Bordetella pertussis PCR Not Detected (NotDetected); Chlamydia pneumoniae PCR Not Detected (NotDetected); Coronavirus 229E PCR Not Detected (NotDetected); Coronavirus CoV-2 (COVID19)PCR Not Detected (NotDetected); Coronavirus HKU1 PCR Not Detected (NotDetected); Coronavirus NL63 PCR Not Detected (NotDetected); Coronavirus OC43PCR Not Detected (NotDetected); Human Metapneumovirus PCR Not Detected (NotDetected); Influenza A PCR Not Detected (NotDetected); Influenza B PCR Not Detected (NotDetected); Mycoplasma pneumoniae PCR Not Detected (NotDetected); Parainfluenza Virus 1 PCR Not Detected (NotDetected); Parainfluenza Virus 2 PCR Not Detected (NotDetected); Parainfluenza Virus 3 PCR Not Detected (NotDetected); Parainfluenza Virus 4 PCR Not Detected (NotDetected); Respiratory Syncytial VirusPCR Not Detected (NotDetected); Rhinovirus/Enterovirus PCR Not Detected (NotDetected)
[2024-05-14] MEDS: ASPIRIN CHEW 324 MG PO STA (14:02)
--- NOTE | 2024-05-14 14:02 | CT Scan Report ---
CT head/brain wo con CLINICAL HISTORY: 74 years-old Female with fall. Acute head trauma status post fall TECHNIQUE: Multiple axial CT images of the head were obtained without contrast. A dose lowering tech nique was utilized adhering to the principles of ALARA. COMPARISON: 10/11/2020 FINDINGS: No acute intracranial hemorrhage, midline shift, intracranial mass, hydrocephalus, territorial ischem ia or abnormal extra-axial collection. Involutional changes with white matter hypodensities suggestiv e of chronic microvascular ischemic disease. The calvarium is intact. Cervical spinal fusion hardware. The paranasal sinuses, mastoid air cells, a nd middle ear cavities are clear. IMPRESSION: No acute intracranial abnormality or calvarial fracture. ACT 112: Negative or not required by law. The above report was generated using voice recognition software. It may contain grammatical, syntax o r spelling errors. Electronically signed by: Bennie Kahn M.D. 05/14/2024 1:59 PM
--- NOTE | 2024-05-14 14:09 | CT Scan Report ---
CT angio chest PE protocol CT DOSE: 1060.23 mGy.cm HISTORY: 74 years-old Female with PE. Acute chest pain with cough. Trauma status post fall TECHNIQUE: Multiple CTA images of the chest were obtained after the intravenous administration of 93 ml Optiray. Coronal and sagittal MIPS were obtained from the axial data set and were submitted for r [email or web address]. All measurements were obtained according to NASCET criteria. A dose lowering technique was ut ilized adhering to the principles of ALARA. COMPARISON: Chest radiograph of same day, chest CT 01/02/2023 FINDINGS: CTA: Heart size is normal. No pericardial effusion. Mild coronary artery calcifications. No thoracic aorti c aneurysm or dissection. No pulmonary emboli identified. CT CHEST: Unremarkable thyroid. No lymphadenopathy. Emphysema with bronchial wall thickening and multifocal muc us plugging. Ill-defined nodular foci within the right lung apex measuring up to 5 mm, new from prior . 4 mm subpleural solid nodule lateral basal segment left lower lobe on image 93, also not definitive ly seen on prior. Mild distal esophageal wall thickening with tiny hiatal hernia. Unremarkable soft tissues. Partially imaged subcutaneous emphysema posterior to the right acromion. Subcentimeter rotator cuff calcific te ndinosis. No acute displaced rib fracture identified. IMPRESSION: 1. No pulmonary emboli identified. 2. Emphysema with bronchitis and multifocal mucus plugging. 3. There are a few scattered new pulmonary nodules measuring up to 4 mm which are likely infectious o r inflammatory. A precautionary six-month follow-up chest CT may be considered. 4. Partially imaged subcutaneous emphysema posterior to the right acromion. Correlate with physical e xam findings to exclude penetrating trauma. ACT 112: Negative or not required by law. The above report was generated using voice recognition software. It may contain grammatical, syntax o r spelling errors. Electronically signed by: Bennie Kahn M.D. 05/14/2024 2:07 PM
--- NOTE | 2024-05-14 15:11 | Communication Note ---
Date of Service: May 14, 2024 74-year-old lady with PMH of COPD, VIRGIL, GERD, spinal stenosis, major depression presents to the ED with complaint of shortness of breath and wheezing for about 8 weeks time. She reports occasional sputum with the cough varying in color from yellow to green to white. She denies fever but reports feeling warm, denies sore throat, denies chest pain. She reports sometimes feeling palpitations with exertion. Denies pain and burning while passing urine. Reports eating okay, denies nausea and vomiting. Reports bowel movement as her usual. Labs and imagings reviewed: CBC and BMP fairly WNL. Lipase WNL. Troponin 119, trend troponin. BNP pending. Respiratory pathogen panel negative. CXR: 8 mm right upper lobe nodule, CT chest recommended. CTA chest: No PE. Emphysema with bronchitis and multifocal mucous plugging. Few scattered new pulmonary nodules measuring up to 4 mm. 6-month follow-up CT chest recommended. Send sputum culture. Active problems: Elevated troponin, rule out ACS: Patient with no chest pain, troponin elevated as above. EKG with ST elevation in V1 and V2. Echo with EF of 55 to 60%, grade 1 diastolic dysfunction, mild hypokinesis of mid and apical septum. Discussed with cardiology, will start heparin drip. N.p.o. midnight. Trend troponin and continue telemetry monitoring. COPD exacerbation: Solu-Medrol 40 Mg IV twice daily, DuoNebs every 6 hours, budesonide/formoterol/Mucomyst and hypertonic saline nebulizations. Hold trelegy while on budesonide and formotrerol nebs. Azithromycin course. Pulmonary nodule: As above, follow-up CT scan in 6 months time. c/w other home meds otherwise mentioned above. On exam: GENERAL: Alert and oriented x3. NAD, on RA. [place]. HEENT: No pallor, no icterus. Pupils equal, round and reactive to light. Oral mucosa moist. NECK: No JVD, no neck masses. HEART: S1 and S2 heard. Regular rate and rhythm. No murmur, no gallop. RESPIRATORY SYSTEM: Normal AP diameter. No accessory muscle use. b/l wheezing, no crackles. ABDOMEN: Soft, bowel sounds present, nontender, no distention. CENTRAL NERVOUS SYSTEM: No facial droop. Speech is clear. Obeys simple commands. Moves extremities. EXTREMITIES: No edema, no erythema seen. I have seen and examined the patient and have discussed the case with the provider above. I agree with the assessment and plan as stated. Time spent: 35 min
--- NOTE | 2024-05-14 15:21 | Cardiology Consultation ---
Date of Consultation May 14, 2024 Assessment & Plan (1) COPD exacerbation: (2) Bilateral wheezing: (3) Non-ST elevation OR (NSTEMI): (4) Fall: (5) Laceration of scalp: Plan 74-year-old female presents with worsening wheezing and cough times several weeks in duration. Clinical presentation suggestive of COPD exacerbation with diffuse wheezing on auscultation and shortness of breath. EKG however demonstrates Q waves and ST changes suggestive of septal evolving infarct of uncertain duration. New since April 03, 2024. Echocardiogram with mild hypokinesis of the mid and apical septum with otherwise normal LV function Impression 1. Elevated troponin echocardiographic wall motion abnormality consistent with non-ST segment elevation myocardial infarction possible evolving septal infarct of recent duration. Agree with anticoagulation with IV heparin until better discerned. Serial troponins ordered Discontinue heparin with any acute neurologic complaints or worsening bleeding Continue aspirin Hold beta-miguel ángel given diffuse wheezing and asthmatic exacerbation Further investigation of cardiac disease depending on clinical course. Prior normal coronary angiography 2. Fall of uncertain etiology no distinct syncope. Would maintain telemetry check carotid duplex if not recently performed 3. Diffuse wheezing and COPD/emphysematous exacerbation per primary service Cardiology will continue to follow History of Present Illness Reason for Consultation: Abnormal EKG, elevated troponin Requesting Physician: Dr. España History of Present Illness Patient is a 74-year-old female without prior known cardiac disease. Underlying medical concerns include 1. Past tobacco use now in cessation, COPD, Obstructive sleep apnea with nocturnal hypoxia 2. Dyslipidemia on therapy 3. Normal coronary angiography December 2018 after equivocal stress testing 4. Hearing impairment 5. Mild cognitive impairment Patient is referred now via ER consultation. History notable for prior evaluation for cough and wheezing approximately 6 weeks prior. Treated with improvement with initially with corticosteroids, bronchodilators, antibiotics with doxycycline. Sought ER evaluation today after a fall in bathroom. Had been more short of breath in the past week with worsening cough and wheeze. Today fell in bathroom. Patient rather vague historian but does not note syncope or near syncope but did manage to strike the back of her head and wedge between the tub and toilet. Required aid to be removed per patient. Suffered scalp laceration On ER presentation notable cough and wheeze. EKG however with evolving ST changes septal infarct V1 V2 Troponin elevated Patient denies chest pain but does feel short of breath chronically. No sense of tachypalpitations. Always "dizzy" but no acute syncope in the past. No worsening fevers or chills. No bleeding issues. Complains of frequent urination Appetite and weight are generally stable No edema Denies prior history of hypertension. Borderline glucoses in the past. Lipids under control. CTA of chest no pulmonary embolus with emphysematous changes Allergies Allergy/AdvReac Type Severity Reaction Status Date / Time morphine Allergy Intermediate rash Verified 12/29/22 18:09 strawberry Allergy Intermediate Hives Verified 12/29/22 18:09 Home Medications Medication Instructions Recorded Confirmed Type albuterol sulfate 90 mcg/actuation 2 puff inhalation Q4H PRN 10/11/20 05/14/24 History aerosol inhaler Shortness Of Breath aspirin 81 mg tablet,delayed 81 mg PO DAILY 10/11/20 05/14/24 History release atorvastatin 20 mg tablet 20 mg PO DAILY 10/11/20 05/14/24 History bupropion HCl 150 mg 24 hr tablet, 150 mg PO DAILY 10/11/20 05/14/24 History extended release duloxetine 60 mg capsule,delayed 60 mg PO DAILY 10/11/20 05/14/24 History release meclizine 25 mg tablet 25 mg PO TID PRN Dizziness 10/11/20 05/14/24 History pantoprazole 40 mg tablet,delayed 40 mg PO DAILY 10/11/20 05/14/24 History release pregabalin 150 mg capsule 150 mg PO HS 10/11/20 05/14/24 History pregabalin 75 mg capsule 75 mg PO BID 10/11/20 05/14/24 History solifenacin 5 mg tablet 5 mg PO DAILY 10/11/20 05/14/24 History fluticasone fur. 100 mcg-umeclid 1 inh inhalation DAILY #60 ea 01/03/23 05/14/24 Rx 62.5 mcg-vilant 25 mcg inhalat.powder (Trelegy Ellipta) ropinirole 0.25 mg tablet 0.25 mg PO HS #30 tabs 01/03/23 05/14/24 Rx Patient History Medical History Current smoker History of left heart catheterization Surgical History History of cervical spinal arthrodesis History of carpal tunnel surgery of right wrist Family History Sister Breast cancer Father Diabetes Brother Prostate cancer Mother Kidney disease Social History Smoking Status: Former smoker Tobacco Type: Cigarettes Cigarettes Per Day: 2 cigarettes/ a day; Second Hand Exposure: No; Do You Dip or Chew Tobacco: No; Hx Alcohol Use: No Hx Substance Use: No Preferred Language: Marshallese Communication Ability: Effective Communication Ability Comment: hears And readsd lips Clinical Office Technician Required: No Beliefs That Will Affect Care: None Current Living Situation: Spouse Feels Safe at Home: Yes Assistive Devices: None Review of Systems Review of Systems: All systems reviewed & are unremarkable except as noted in Subjective Physical Exam Constitutional: well developed and well nourished; no acute distress Eyes: PERRL, conjunctivae normal, anicteric sclerae ENMT: Ears: + hearing impairment Neck: trachea midline, no thyromegaly Respiratory: normal respiratory effort, + cough and + audible wheezes Cardiovascular: Rate/Rhythm: regular rate and regular rhythm Heart Sounds: normal S1 and normal S2 Vessels: normal carotid upstroke, femoral pulses present and radial pulses present; no JVD Extremities: no edema Gastrointestinal (Abdomen): normal bowel sounds, soft, nontender, no hepatosplenomegaly Musculoskeletal: no cyanosis or clubbing, extremities motor strength 5/5 Neurologic: Motor/Sensory: + tremor Psychiatric: Mildly impulsive Results & Data Vital Signs (Past 12 Hours) Vital Signs Temp Pulse Pulse Resp BP BP Pulse Ox 05/14/24 14:00 97 H 20 124/47 L 95 05/14/24 12:32 100 05/14/24 12:29 87 05/14/24 12:23 92 H 22 127/66 97 05/14/24 11:57 36.8 C 66 14 104/67 98 O2 Del Method 05/14/24 14:00 Room Air 05/14/24 12:32 Nebulizer 05/14/24 12:29 05/14/24 12:23 Room Air 05/14/24 11:57 Room Air Laboratory Results Laboratory Results - last 24 hr 05/14/24 05/14/24 12:23 14:45 WBC 7.64 RBC 4.39 Hgb 13.0 Hct 40.1 MCV 91.3 MCH 29.6 MCHC 32.4 RDW Std Deviation 47.8 H RDW Coeff of Ira 14.1 Plt Count 332 MPV 8.8 L Immature Gran % (Auto) 0.3 Neut % (Auto) 60.2 Lymph % (Auto) 20.9 [place] % (Auto) 8.1 Eos % (Auto) 9.3 Baso % (Auto) 1.2 Neut # (Auto) 4.60 Lymph # (Auto) 1.60 [place] # (Auto) 0.62 H Eos # (Auto) 0.71 H Baso # (Auto) 0.09 Immature Gran # (Auto) 0.02 PT 10.6 INR 1.0 APTT 27 PTT Ratio 1.0 D-Dimer 310 Sodium 142 Potassium 4.0 Chloride 107 Carbon Dioxide 31 Anion Gap 4 BUN 13 Creatinine 0.98 Est Cr Clr Drug Dosing 46.7 eGFR 61.33 BUN/Creatinine Ratio 13.3 Glucose 95 Calcium 9.3 Total Bilirubin 0.5 AST 13 ALT 11 Alkaline Phosphatase 72 Troponin I High Sens 119.1 H* 102.6 H* B-Natriuretic Peptide 144 H Total Protein 5.9 L Albumin 3.9 Globulin 2.0 L Albumin/Globulin Ratio 2.0 Lipase 8 L Adenovirus (PCR) Not Detected B. pertussis DNA (PCR) Not Detected B.parapertussis DNA PCR Not Detected C. pneumoniae DNA (PCR) Not Detected Coronavirus OC43 (PCR) Not Detected Coronavirus HKU1 (PCR) Not Detected Coronavirus 229E (PCR) Not Detected SARS-CoV-2 (PCR) Not Detected Coronavirus NL63 (PCR) Not Detected Human Metapneumovir PCR Not Detected Influenza Type A (PCR) Not Detected Influenza Type B (PCR) Not Detected M. pneumoniae (PCR) Not Detected Parainfluenza 1 (PCR) Not Detected Parainfluenza 2 (PCR) Not Detected Parainfluenza 3 (PCR) Not Detected Parainfluenza 4 (PCR) Not Detected RSV (PCR) Not Detected Entero/Rhino (PCR) Not Detected ECG Additional Comments: EKG 05/14/2024 Normal sinus rhythm at 78 bpm with Q waves V1 V2 consistent with septal infarct with evolving ST elevation new from prior study 04/03/2024 Echocardiogram 05/14/2024, bedside in ER Normal left ventricular size with mild left hypertrophy. There is hypokinesis of the mid and apical septum with otherwise preserved ejection fraction EF 55 to 60% (4) Fall Encounter type: initial encounter Qualified Code(s): W19.XXXA - Unspecified fall, initial encounter (5) Laceration of scalp Encounter type: initial encounter Qualified Code(s): S01.01XA - Laceration without foreign body of scalp, initial encounter
[2024-05-14] MEDS ORDERED: HEPARIN SODIUM/DEXTROSE 25,000 UNITS/500 ML BAG IV SCH (15:30)
[2024-05-14] MEDS: Heparin IV Adult Wt-Based Standard *NO* INITIAL Bolus Protocol IV STA (16:23)
[2024-05-14] MEDS: HEPARIN SODIUM/DEXTROSE 25,000 UNITS/500 ML BAG IV SCH (16:28)
[2024-05-14] MEDS: Heparin IV Adult Wt-Based Low-Dose *NO* INITIAL Bolus Protocol IV STA (16:34)
--- NOTE | 2024-05-14 17:03 | History & Physical Report ---
Date of Service May 14, 2024 Assessment & Plan (1) Laceration of scalp: (2) Fall: (3) COPD exacerbation: (4) Non-ST elevation TN (NSTEMI): (5) VIRGIL (obstructive sleep apnea): (6) COPD (chronic obstructive pulmonary disease): (7) Asthma: (8) GERD (gastroesophageal reflux disease): (9) Restless leg syndrome: Plan Assessment and plan: Acute COPD exacerbation: Chest imaging negative for anything acute, no white count to indicate pneumonia IV Solu-Medrol twice a day 40 mg, DuoNebs, Zithromax x 3 days Managed at home on Trelegy and albuterol NSTEMI: EKG with Q waves and ST changes suggestive of septal infarct Echo fairly unremarkable with normal LV function, trend troponin, manager monitoring Initial troponin elevated at 119, continue aspirin, low-dose heparin drip initiated Mechanical fall Posterior scalp laceration Head CT negative for bleed, scalp sutured by ER physician Monitor mental status, hold hep drip with any changes Hx depression: Continue duloxetine/Wellbutrin Pulmonary nodules: Scattered noted on chest imaging, follow-up CT in 6 months A total of 60 minutes was spent on chart review/reviewing diagnostic data/facilitating plan of care/discussion with consultants Full code DVT prophylaxis: Heparin drip History of Present Illness Chief Complaint: Shortness of breath Primary Care Provider: Nataly Kelly DO The patient is a 74-year-old female with a past medical history of COPD, obstructive sleep apnea, depression, HLD, GERD who presents to the ED on 05/14/2024 with complaints of worsening shortness of breath. The patient also reports some associated wheezing that has been worsening over the past 2 months. She also reports some occasional sputum that is sometimes yellow. Patient reports feeling warm sometimes at night. She is unsure if she has a fever. She denies any chest pain. Reports some intermittent palpitations with exertion. Denies any nausea/vomiting/diarrhea/abdominal pain. Denies any personal heart history but does report a family heart history. The patient was seen in April for similar complaints and had no diagnosis of anything acute at that time. The patient also admits to falling today prior to coming in and hitting the back of her head. She had a small laceration that was sutured in the ER by the ER physician. She was also given a tetanus shot. Denies any pain at this time. On arrival to the ED, labs are remarkable for troponin [id number] BNP 144, respiratory panel was negative EKG showed ST elevation in anterior leads suspicious for septal infarct Echo showed grade 1 diastolic dysfunction with an EF of 60-65% Chest x-ray negative for acute findings but did show 8 mm right upper lung nodule Head CT was negative Chest CTA was negative for PE but did show scattered new pulmonary nodules measuring up to 4 mm The patient will be admitted for further workup for ACS and COPD exacerbation Allergies Allergy/AdvReac Type Severity Reaction Status Date / Time morphine Allergy Intermediate rash Verified 12/29/22 18:09 strawberry Allergy Intermediate Hives Verified 12/29/22 18:09 Home Medications Medication Instructions Recorded Confirmed Type albuterol sulfate 90 mcg/actuation 2 puff inhalation Q4H PRN 10/11/20 05/14/24 History aerosol inhaler Shortness Of Breath aspirin 81 mg tablet,delayed 81 mg PO DAILY 10/11/20 05/14/24 History release atorvastatin 20 mg tablet 20 mg PO DAILY 10/11/20 05/14/24 History bupropion HCl 150 mg 24 hr tablet, 150 mg PO DAILY 10/11/20 05/14/24 History extended release duloxetine 60 mg capsule,delayed 60 mg PO DAILY 10/11/20 05/14/24 History release meclizine 25 mg tablet 25 mg PO TID PRN Dizziness 10/11/20 05/14/24 History pantoprazole 40 mg tablet,delayed 40 mg PO DAILY 10/11/20 05/14/24 History release pregabalin 150 mg capsule 150 mg PO HS 10/11/20 05/14/24 History pregabalin 75 mg capsule 75 mg PO BID 10/11/20 05/14/24 History solifenacin 5 mg tablet 5 mg PO DAILY 10/11/20 05/14/24 History fluticasone fur. 100 mcg-umeclid 1 inh inhalation DAILY #60 ea 01/03/23 05/14/24 Rx 62.5 mcg-vilant 25 mcg inhalat.powder (Trelegy Ellipta) ropinirole 0.25 mg tablet 0.25 mg PO HS #30 tabs 01/03/23 05/14/24 Rx Past Med/Surg History Problem List Laceration of scalp (Acute) Fall (Acute) Head injury (Acute) SOB (shortness of breath) (Acute) Non-ST elevation TN (NSTEMI) (Acute) COPD exacerbation (Acute) Hypoxia (Acute) SOB (shortness of breath) (Acute) Bilateral wheezing (Acute) Greater trochanteric bursitis IBS (irritable bowel syndrome) VIRGIL (obstructive sleep apnea) COPD (chronic obstructive pulmonary disease) Asthma (Chronic) GERD (gastroesophageal reflux disease) (Chronic) Restless leg syndrome (Chronic) Depression (Chronic) Tobacco abuse (Chronic) Anxiety (Chronic) Acute diverticulitis (Acute) PNA (pneumonia) Medical History Current smoker History of left heart catheterization Surgical History History of cervical spinal arthrodesis History of carpal tunnel surgery of right wrist Family History Sister Breast cancer Father Diabetes Brother Prostate cancer Mother Kidney disease Social History Smoking Status: Former smoker Tobacco Type: Cigarettes Cigarettes Per Day: 2 cigarettes/ a day; Second Hand Exposure: No; Do You Dip or Chew Tobacco: No; Hx Alcohol Use: No Hx Substance Use: No Preferred Language: [place] Communication Ability: Effective Communication Ability Comment: hears And readsd lips Improvement Specialist Required: No Beliefs That Will Affect Care: None Current Living Situation: Spouse Feels Safe at Home: Yes Assistive Devices: None Review of Systems Review of Systems: All systems reviewed & are unremarkable except as noted in HPI & below Physical Exam Constitutional: WD/WN, vitals as above Eyes: PERRL, conjunctivae normal, anicteric sclerae ENMT: external ear and nose normal, oropharynx normal Neck: trachea midline, no thyromegaly Respiratory: normal respiratory effort, lungs clear to auscultation (Chest tightness/wheezing/bilateral lobes) Cardiovascular: RRR, no murmur, no edema Gastrointestinal (Abdomen): normal bowel sounds, soft, nontender, no hepatosplenomegaly Musculoskeletal: no cyanosis or clubbing, extremities motor strength 5/5 Skin: no rashes, warm and dry Neurologic: PERRL, EOMI, accommodation nl, no face palsy, no dysarthria Lymphatic: no cervical or axillary lymphadenopathy Results & Data Results & Data Vital Signs (Past 12 Hours) Vital Signs Temp Pulse Pulse Resp BP BP Pulse Ox 05/14/24 16:30 79 05/14/24 16:00 84 23 125/68 94 05/14/24 14:00 97 H 20 124/47 L 95 05/14/24 12:32 100 05/14/24 12:29 87 05/14/24 12:23 92 H 22 127/66 97 05/14/24 11:57 36.8 C 66 14 104/67 98 O2 Del Method 05/14/24 16:30 05/14/24 16:00 Room Air 05/14/24 14:00 Room Air 05/14/24 12:32 Nebulizer 05/14/24 12:29 05/14/24 12:23 Room Air 05/14/24 11:57 Room Air Diagnostic Findings Laboratory Results WBC 7.64 K/ul (4.8-10.8) 05/14/24 12:23 RBC 4.39 M/uL (4.20-5.40) 05/14/24 12:23 Hgb 13.0 g/dl (12.0-16.0) 05/14/24 12:23 Hct 40.1 % (37.0-47.0) 05/14/24 12:23 MCV 91.3 fL (80.0-100.0) 05/14/24 12:23 MCH 29.6 pg (25.0-34.0) 05/14/24 12:23 MCHC 32.4 g/dL (32.0-36.0) 05/14/24 12:23 RDW Std Deviation 47.8 fL (36.4-46.3) H 05/14/24 12:23 RDW Coeff of Ira 14.1 % (11.5-14.5) 05/14/24 12:23 Plt Count 332 K/uL (130-400) 05/14/24 12:23 MPV 8.8 fL (9.4-12.4) L 05/14/24 12:23 Immature Gran % (Auto) 0.3 % 05/14/24 12:23 Neut % (Auto) 60.2 % 05/14/24 12:23 Lymph % (Auto) 20.9 % 05/14/24 12:23 [place] % (Auto) 8.1 % 05/14/24 12:23 Eos % (Auto) 9.3 % 05/14/24 12:23 Baso % (Auto) 1.2 % 05/14/24 12:23 Neut # (Auto) 4.60 K/uL (1.40-6.50) 05/14/24 12:23 Lymph # (Auto) 1.60 K/uL (1.20-3.40) 05/14/24 12:23 [place] # (Auto) 0.62 K/uL (0.11-0.59) H 05/14/24 12:23 Eos # (Auto) 0.71 K/uL (0.00-0.50) H 05/14/24 12:23 Baso # (Auto) 0.09 K/uL (0.00-0.20) 05/14/24 12: Immature Gran # (Auto) 0.02 K/uL (0.01-0.20) 05/14/24 12:23 PT 10.6 Seconds (9.0-12.0) 05/14/24 12: INR 1.0 (0.9-1.1) 05/14/24 12:23 APTT 27 Seconds (21-31) 05/14/24 12: PTT Ratio 1.0 05/14/24 12:23 D-Dimer 310 ug/L FEU (0-500) 05/14/24 12:23 Sodium 142 mmol/L (136-145) 05/14/24 12:23 Potassium 4.0 mmol/L (3.5-5.1) 05/14/24 12:23 Chloride 107 mmol/L (98-107) 05/14/24 12:23 Carbon Dioxide 31 mmol/L (21-32) 05/14/24 12:23 Anion Gap 4 (3-11) 05/14/24 12:23 BUN 13 mg/dl (6-23) 05/14/24 12:23 Creatinine 0.98 mg/dl (0.6-1.2) 05/14/24 12:23 Est Cr Clr Drug Dosing 46.7 ml/min 05/14/24 12:23 eGFR 61.33 05/14/24 12:23 BUN/Creatinine Ratio 13.3 (10-20) 05/14/24 12:23 Glucose 95 mg/dl (70-99(Fasting)) 05/14/24 12:23 Calcium 9.3 mg/dl (8.6-10.3) 05/14/24 12:23 Total Bilirubin 0.5 mg/dl (0.2-1.0) 05/14/24 12:23 AST 13 U/L (13-39) 05/14/24 12:23 ALT 11 U/L (7-52) 05/14/24 12:23 Alkaline Phosphatase 72 U/L (34-104) 05/14/24 12:23 Troponin I High Sens 102.6 pg/ml (0-14) H* 05/14/24 14:45 B-Natriuretic Peptide 144 pg/ml (0-100) H 05/14/24 14:45 Total Protein 5.9 gm/dl (6.0-8.3) L 05/14/24 12:23 Albumin 3.9 gm/dl (3.4-5.0) 05/14/24 12:23 Globulin 2.0 gm/dl (2.5-4.0) L 05/14/24 12:23 Albumin/Globulin Ratio 2.0 (0.9-2) 05/14/24 12:23 Lipase 8 U/L (11-82) L 05/14/24 12:23 Adenovirus (PCR) Not Detected (NotDetected) 05/14/24 12:23 B. pertussis DNA (PCR) Not Detected (NotDetected) 05/14/24 12:23 B.parapertussis DNA PCR Not Detected (NotDetected) 05/14/24 12:23 C. pneumoniae DNA (PCR) Not Detected (NotDetected) 05/14/24 12:23 Coronavirus OC43 (PCR) Not Detected (NotDetected) 05/14/24 12:23 Coronavirus HKU1 (PCR) Not Detected (NotDetected) 05/14/24 12:23 Coronavirus 229E (PCR) Not Detected (NotDetected) 05/14/24 12:23 SARS-CoV-2 (PCR) Not Detected (NotDetected) 05/14/24 12:23 Coronavirus NL63 (PCR) Not Detected (NotDetected) 05/14/24 12:23 Human Metapneumovir PCR Not Detected (NotDetected) 05/14/24 12:23 Influenza Type A (PCR) Not Detected (NotDetected) 05/14/24 12:23 Influenza Type B (PCR) Not Detected (NotDetected) 05/14/24 12:23 M. pneumoniae (PCR) Not Detected (NotDetected) 05/14/24 12:23 Parainfluenza 1 (PCR) Not Detected (NotDetected) 05/14/24 12:23 Parainfluenza 2 (PCR) Not Detected (NotDetected) 05/14/24 12:23 Parainfluenza 3 (PCR) Not Detected (NotDetected) 05/14/24 12:23 Parainfluenza 4 (PCR) Not Detected (NotDetected) 05/14/24 12:23 RSV (PCR) Not Detected (NotDetected) 05/14/24 12:23 Entero/Rhino (PCR) Not Detected (NotDetected) 05/14/24 12:23 Impressions Chest X-Ray 05/14/24 12:09 XR chest 1V portable CLINICAL HISTORY: Chest pain, nonspecific COMPARISON STUDY: Chest CT January 02, 2023. Chest radiograph April 03, 2024. FINDINGS: Lung volumes are normal. There is no consolidation. There is an equivocal 8 mm right upper lung nodule. There is no pneumothorax or pleural effu reinaldo. Cardiac size is normal. Mediastinal contours are normal. There is no evidence for pulmonary edema. Postoperative findings within the cervical spine are incidentally noted. IMPRESSION: 1. No acute cardiopulmonary findings. 2. Possible 8 mm right upper lung nodule. Nonemergent chest CT is recommended. ACT 112: Positive. There are findings on this exam that require communication between the performing entity and the patient following Patient Test Result Information Act ([place] Act 112) guidelines. Electronically signed by: Terry Holcomb M.D. 05/14/2024 12:45 PM Chest CTA 05/14/24 13:17 CT angio chest PE protocol CT DOSE: 1060.23 mGy.cm HISTORY: 74 years-old Female with PE. Acute chest pain with cough. Trauma status post fall TECHNIQUE: Multiple CTA images of the chest were obtained after the intravenous administration of 93 ml Optiray. Coronal and sagittal MIPS were obtained from the axial data set and were submitted for review. All measurements were obtained according to NASCET criteria. A dose lowering technique was utilized adhering to the principles of ALARA. COMPARISON: Chest radiograph of same day, chest CT 01/02/2023 FINDINGS: CTA: Heart size is normal. No pericardial effusion. Mild coronary artery calcifications. No thoracic aortic aneurysm or dissection. No pulmonary emboli identified. CT CHEST: Unremarkable thyroid. No lymphadenopathy. Emphysema with bronchial wall thickening and multifocal mucus plugging. Ill-defined nodular foci within the right lung apex measuring up to 5 mm, new from prior. 4 mm subpleural solid nodule lateral basal segment left lower lobe on image 93, also not definitively seen on prior. Mild distal esophageal wall thickening with tiny hiatal hernia. Unremarkable soft tissues. Partially imaged subcutaneous emphysema posterior to the right acromion. Subcentimeter rotator cuff calcific tendinosis. No acute displaced rib fracture identified. IMPRESSION: 1. No pulmonary emboli identified. 2. Emphysema with bronchitis and multifocal mucus plugging. 3. There are a few scattered new pulmonary nodules measuring up to 4 mm which are likely infectious or inflammatory. A precautionary six-month follow-up chest CT may be considered. 4. Partially imaged subcutaneous emphysema posterior to the right acromion. Correlate with physical exam findings to exclude penetrating trauma. ACT 112: Negative or not required by law. The above report was generated using voice recognition software. It may contain grammatical, syntax or spelling errors. Electronically signed by: Bennie Kahn M.D. 05/14/2024 2:[address] 05/14/24 13:17 CT head/brain wo con CLINICAL HISTORY: 74 years-old Female with fall. Acute head trauma status post fall TECHNIQUE: Multiple axial CT images of the head were obtained without contrast. A dose lowering technique was utilized adhering to the principles of ALARA. COMPARISON: 10/11/2020 FINDINGS: No acute intracranial hemorrhage, midline shift, intracranial mass, hydrocephalus, territorial ischemia or abnormal extra-axial collection. Involutional changes with white matter hypodensities suggestive of chronic microvascular ischemic disease. The calvarium is intact. Cervical spinal fusion hardware. The paranasal sinuses, mastoid air cells, and middle ear cavities are clear. IMPRESSION: No acute intracranial abnormality or calvarial fracture. ACT 112: Negative or not required by law. The above report was generated using voice recognition software. It may contain grammatical, syntax or spelling errors. Electronically signed by: Bennie Kahn M.D. 05/14/2024 1:59 PM Supervising Physician Co-Signing Physician Notes See communication note. (1) Laceration of scalp Encounter type: initial encounter Qualified Code(s): S01.01XA - Laceration without foreign body of scalp, initial encounter (2) Fall Encounter type: initial encounter Qualified Code(s): W19.XXXA - Unspecified fall, initial encounter
[2024-05-14] MEDS: BUDESONIDE 0.5 MG/2 ML VIAL (PULMICORT) NEB SCH (21:48)
[2024-05-14] MEDS: FORMOTEROL 20 MCG/2 ML VIAL NEB SCH (21:48)
[2024-05-14] MEDS: SODIUM CHLOR 7% 4 ML NEB NEB SCH (21:48)
[2024-05-14] MEDS: ACETYLCYSTEINE 20% INHAL SOLN 4ML ***DISPENSED BY RESP. INH SCH (21:48)
[2024-05-14 23:30] LABS: ANTI-Xa, UFH(UnfractionatedHep 0.24 IU/ml (0.3-0.7)
--- OUTSIDE RECORDS SUMMARY | 2024-05-15 00:28 | External Medical Summary | Summary of Care ---
Author Name Unknown Organization [facility] Address [address] [place] [address] Phone [phone] Care Team Providers Care Tool Carrier Name Role Phone Nataly Kelly DO Primary Care Provider [phone] Reason for Visit * Reason Onset Date Comments Medication Refill 05/01/2024 Encounter Details Date Type Department Care Team (Late st Contact Info) Description 05/01/2024 Telephone Family Practice [facility] [address] [place] [address] Nataly Kelly DO [address] [place] [address] Medication Refill Allergies Active Allergy Reactions Criticality Noted Date Comments Sulfamethoxazole-Tri methoprim Hives 12/11/2018 Was also taking keflex at the time for cellulitis but no previous rxn to cephalosporins Morphine Other (Please comment) 11/09/2015 Per pt caused pain [place] Extract Hives High 11/02/2015 documented as of this encounter (statuses as of 05/01/2024) Medications Medication Sig Dispensed Refills Start Date End Date Status traMADol HCl 50 MG Oral Tablet (Ultram)Indications: Radiculomyelopathy Take 1 Tablet by mouth every 6 hours as needed for Pain, Severe. take 1-2 tablets by mouth every 6 hours if needed for pain 60 Tablet 02/12/2023 Active Atorvastatin Calcium 20 MG Oral Tablet (Lipitor)Indications :Dyslipidemia, goal LDL below 100 Take 1 Tablet by mouth in the morning. In the morning.. 90 Tablet 3 05/30/2023 Active DULoxetine HCl 30 MG Oral Capsule Delayed Release Particles (Cymbalta)Indication s:Recurrent major depressive disorder, in full remission (HCC) Take 1 Capsule by mouth in the morning. Do not cut, crush or chew. Take with 60mg capsule for total daily dose of 90mg.. 90 Capsule 3 05/30/2023 Active Ondansetron 8 MG Oral Tablet Disintegrating (Zofran) Place 1 Tablet on tongue every 8 hours as needed for Nausea. dissolve on tongue. 30 Tablet 1 05/30/2023 Active Pantoprazole Sodium 40 MG Oral Tablet Delayed Release (Protonix)Indication s:Gastroesophageal reflux disease without esophagitis Take 1 Tablet by mouth in the morning and 1 Tablet before bedtime. 180 Tablet 3 05/30/2023 Active Meclizine HCl 25 MG Oral Tablet (Antivert)Indication s:Vertigo Take 1 Tablet by mouth 3 times a day as needed for Dizziness. 30 Tablet 5 12/11/2023 Active Solifenacin Succinate 5 MG Oral Tablet (VESIcare)Indication s:Urge incontinence of urine Take 1 Tablet by mouth in the morning. 90 Tablet 3 12/11/2023 Active Fluticasone Propionate 50 MCG/ACT Nasal Suspension (Flonase)Indications :Post-nasal drip Administer 2 Sprays into each nostril in the morning. 48 g 1 12/11/2023 Active Desonide 0.05 % External OintmentIndications: Flexural eczema Apply topically to affected area 2 times a day. 15 g 2 01/04/2024 Active Docusate Sodium 100 MG Oral Capsule (Colace)Indications: Chronic constipation Take 1 Capsule by mouth in the morning and 1 Capsule before bedtime. 60 Capsule 5 01/29/2024 Active Dicyclomine HCl 20 MG Oral Tablet (Bentyl)Indications: Chronic diarrhea Take 1 Tablet by mouth 2 times a day as needed (abd pain, cramping). 180 Tablet 3 01/29/2024 Active Pregabalin 150 MG Oral Capsule (Lyrica)Indications: Osteoarthritis of spine with radiculopathy, cervical region take 1 capsule by mouth at bedtime IN ADDITION TO 75MG TWICE DAILY 30 Capsule 03/19/2024 Active Pregabalin 75 MG Oral Capsule (Lyrica)Indications: Osteoarthritis of spine with radiculopathy, cervical region take 1 capsule by mouth twice a day every morning and at bedtime 60 Capsule 03/19/2024 Active Trelegy Ellipta 100-62.5-25 MCG/ACT Aerosol Powder Breath Activated inhale 1 puff by mouth and INTO THE LUNGS once daily 90 Blister Dosing Unit 3 03/18/2024 Active Premarin 0.625 MG/GM Vaginal Cream ADMINISTER 0.5 grams vaginally SUNDAY AND SUNDAY ONLY at bedtime 30 g 6 03/19/2024 Active Proventil HFA 108 (90 Base) MCG/ACT Inhalation Aerosol SolutionIndications: COPD, group C, by GOLD 2017 classification ([facility]) Inhale 2 Puffs by mouth in the morning and 2 Puffs at noon and 2 Puffs in the evening and 2 Puffs before bedtime. 18 g 5 03/18/2024 Active guaiFENesin-Codeine 100-10 MG/5ML Oral Solution (Robitussin AC)Indications:Chron ic cough Take 5 mL by mouth 4 times a day as needed for Congestion or Cough. 180 mL 03/19/2024 Active Desoximetasone 0.05 % External OintmentIndications: Dyshidrotic eczema Apply topically to affected area daily as needed (itchiness). Apply to left palm 60 g 03/18/2024 Active buPROPion HCl ER (XL) 300 MG Oral Tablet Extended Release 24 Hour (Wellbutrin XL)Indications:Recur rent major depressive disorder, in full remission (HCC) Take 1 Tablet by mouth in the morning. In the morning.. 90 Tablet 1 03/18/2024 Active DULoxetine HCl 60 MG Oral Capsule Delayed Release Particles (Cymbalta)Indication s:Recurrent major depressive disorder, in full remission (HCC) take 1 capsule by mouth daily -DO NOT CUT,CRUSH OR CHEW 90 Capsule 1 03/18/2024 Active traZODone HCl 100 MG Oral Tablet (Desyrel) TAKE 1 & 1/2 (ONE & ONE-HALF) TABLETS BY MOUTH ONCE DAILY AT BEDTIME 135 Tablet 1 04/29/2024 Active Hospital, Clinic, or Other Facility Administered Medication Ordered Dose Route Frequency Start Date End Date Status albuterol sulfate (PROVENTIL) (2.5 MG/3ML) 0.083% inhalation solution 2.5 mgIndications:COPD, moderate (HCC) 2.5 mg NEBULIZER Q4H PRN 01/13/2019 Active documented as of this encounter (statuses as of 05/01/2024) Active Problems Problem Noted Date Diagnosed Date Prediabetes 12/31/2023 COPD, group C, by GOLD 2017 classification 09/09 Overview: Per COPD GOLD Classification 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 Recurrent major depressive disorder, in full rem ission 09/28/2021 Advanced directives, counseling/discussion 05/20 Spinal stenosis of lumbar re gion without neurogenic claudication 12/22/2020 Carpal tunnel syndrome of left wrist 07/16/2019 Carpal tunnel syndrome on right 07/16/2019 Bilateral carpal tunnel syndrome 03/24/2019 Urge incontinence of urine 01/31/2019 VIRGIL (obstructive sleep apnea) 06/04/2018 Lung nodule 08/04/2017 Overview: Stable chest CT 09/15, recc 1 year FU Radiculomyelopathy 10/13/2016 Overview: cervical Irritable bowel syndrome with diarrhea 6 GERD (gastroesophageal reflux disease) 6 documented as of this encounter (statuses as of 05/01/2024) Resolved Problems Problem Noted Date Diagnosed Date Resolved Date COPD, moderate 08/17/2023 09/13/2023 Overview: Per COPD GOLD Classification COPD, group A, by GOLD 2017 classification 02/06/2022 2023 Overview: Per COPD GOLD Classification Encounter for examination fo r normal comparison and control in clinical research program 01/16/2019 02/02/2020 Overview: DO NOT DELETE [facility] DETECT Study: Project # [id number], Rn Acls: Lanre Adames, PhD. SUMMARY: Goal: Establish test characteristics (sensitivity, specificity, PPV, NPV) of a circulating tumor DNA (ctDNA)-based test for cancer. Hypothesis: Circulating tumor DNA (ctDNA) and elevated protein biomarkers (together, the marker panel) can be detected in asymptomatic individuals with early cancer. Specific Aim 1: Determine the prevalence of a positive marker panel test in a prospective clinical cohort of 10,000 asymptomatic women ages 65 to 75 years. Specific Aim 2: Determine the sensitivity, specificity, positive predictive value (PPV) and negative predictive value (NPV) of a marker panel test to identify histologically proven cancers that develop within 5-years of the marker panel evaluation. CONTACTS: During normal business hours, contact study staff at ; after hours Rn Acls via the [facility] hospital yarn bleaching machine operator . Please contact study team before resolving/deleting from patients problem list. Study phone number: [phone]. Diagnosis changed due to Research Module. Go to Snapshot for study details. Encounter for examination fo r normal comparison and control in clinical research program 01/16/2019 03/02/2022 Overview: DO NOT DELETE - [facility] Study: Project # [id number], Rn Acls: Rodo Alvarez, MS, MPH. SUMMARY: Goal: Establish test characteristics (sensitivity, specificity, PPV, NPV) of a circulating tumor DNA (ctDNA)-based test for cancer. - Hypothesis: Circulating tumor DNA (ctDNA) and elevated protein biomarkers (together, the marker panel) can be detected in asymptomatic individuals with early cancer. - Specific Aim 1: Determine the prevalence of a positive marker panel test in a prospective clinical cohort of 10,000 asymptomatic women ages 65 to 75 years. - Specific Aim 2: Determine the sensitivity, specificity, positive predictive value (PPV) and negative predictive value (NPV) of a marker panel test to identify histologically proven cancers that develop within 5-years of the marker panel evaluation. - CONTACTS: During normal business hours, contact study staff at ; after hours Rn Acls via the [facility] yarn bleaching machine operator . - Please contact study team before resolving/deleting from patients problem list. Study phone number: [phone]. Diagnosis changed due to Research Module. Go to Snapshot for study details. COPD, severity to be determined 08/04/2017 02/09/2022 Overview: emphysema on chest CT 09/15 Melena 11/12/2015 11/12/2015 Abdominal abscess 11/09/2015 03/09/2017 Tobacco abuse 11/09/2015 10/23/2017 documented as of this encounter (statuses as of 05/01/2024) Immunizations Name Administration Dates Next Due COVID-19 mRNA, LNP-s, No Pre serve, 2-Dose Series (Pfizer) 11/21/2020,09/28/2020 Pneumococcal Conjugate Vacc, 13 Valent (Prevnar) 03/09/2017 Pneumococcal Polysaccharide PPV23 (Pneumovax) 09/28/2021,03/30/2016 Season Influenza, Quad, PF, Adjuvanted, 65+ Yrs, IM (FLUAD) 05/25/2020 Seasonal Influenza, PF, 6 M & above, IM , (FluLaval or Fluzone) 05/31/2018 Seasonal Influenza, Quadriva lent Hd (Fluzone Hd) 05/30/2023,03/14/2022,06/28/2021 Seasonal Influenza, Quadriva lent, No Preserve, IM 03/09/2017,03/30/2016 Seasonal Influenza, Trivalen t, Adjuvanted, 65+ YRS, PF, (Fluad) 08/07/2019 TDAP (age 10 and older)(Boostrix) 03/09/2017 Zoster Vaccine Recombinant (Shingrix) 09/28/2021 ,02/13/2020 documented as of this encounter Social History Tobacco Use Types Packs/Day Years Used Date Smoking Tobacco: Some Days Cigarettes 1 48 Smokeless Tobacco: Former Quit: 01/08/2023 Comments:5 cpd per day smoke r. 12/21/23 Alcohol Use Standard Drinks/Week Comments No 0 (1 standard drink = 0.6 oz pur e alcohol) PHQ-2 Answer Date Recorded PHQ Adult Total Score 2 10/19/2020 Hunger Vital Sign Answer Date Recorded Within the past 12 months, y ou worried that your food would run out before you got the money to buy more. Never true 10/11/19 Within the past 12 months, t he food you bought just didn't last and you didn't have money to get more. Never true 10/11/2023 Childcare Answer Date Recorded Do you feel overwhelmed with taking care of a child, family member or friend? Yes 10/11/2023 Does your family need help f inding childcare? (Household - for ages 0-17 years) Not on file 10/11/2023 Clothing Answer Date Recorded Have you been unable to get clothing when it was really needed? No 10/11/2023 Is your family able to get c lothes or diapers when needed? (Household - for ages 0-17 years) Not on file 10/11/2023 Personal Safety Answer Date Recorded Do you feel unsafe or have concerns for your saf ety? No 10/11/2023 Do you have concerns for you r family's safety? (Household - for ages 0-17 years) Not on file 10/11/2023 Utilities Answer Date Recorded Do you have trouble paying y our heating, water, or electric bill? No 10/11/2023 Is your family able to pay t he heat, water, or electric bill? (Household - for ages 0-17 years) Not on file 10/11/2023 Does your family have access to good internet? (Household - for ages 0-17 years) Not on file 10/11/2023 Employment Status Answer Date Recorded Are you unemployed or without regular income? No 10/11/2023 Does the household have a [facility] source of income? (Household - for ages 0-17 years) Not on file 10/11/2023 Social Connections Answer Date Recorded How often do you feel lonely or isolated from th ose around you? Never 10/11/2023 Financial Resource Strain Answer Date R ecorded Do you have any trouble payi ng for your medications, or do you think you might in the future? No 10/11/2023 Does your family have troubl e paying for medicine? (Household - for ages 0-17 years) Not on file 10/11/2023 Transportation Needs Answer Date Record ed READ ONLY Do you have troubl e getting a ride to medical visits or work? Sometimes True 10/11/2023 Does your family have a hard time getting a ride to doctors visits? (Household - for ages 0-17 years) Not on file 10/11/2023 Has lack of transportation k ept you from medical appointments, meetings, work, or from getting things needed for daily living? Check all that apply. (Adult - for ages 18 years and over) Not on file 10/11/2023 Do you (or your family) have trouble finding or paying for a ride (transportation)? (Household - for ages 0-17 years) Not on file 10/11/2023 Housing Stability Answer Date Recorded Do you currently live in a s helter or have no steady place to sleep at night? No 10/11/2023 READ ONLY Do you think you a re at risk of becoming homeless? No 10/11/2023 Does your family worry about paying for your home or becoming homeless? (Household - for ages 0-17 years) Not on file 0 10/11/2023 Are you homeless or worried that you might be in the future? (Adult - for ages 18 years and over) Not on file Are you (or your family) martin eless or worried that you might be in the future? (Household - for ages 0-17 years) Not on file Food Insecurity Answer Date Recorded Do you need food for this week? No 10/11/2023 Are you able to get enough f ood for your family? (Household - for ages 0-17 years) Not on file 10/11/2023 Does your family need food t his week? (Household - for ages 0-17 years) Not on file 10/11/2023 Do you always have enough fo od for your family? (Household - for ages 0-17 years) Not on file 10/11/2023 Sex and Gender Information Value Date Recorded Sex Assigned at Female 01/25/2022 5:44 PM EDT Gender Identity Female 01/25/2022 5:44 PM EDT Sexual Orientation Straight 01/25/2022 5: 44 PM EDT Job Start Date Occupation Industry Not on file Not on file Not on file documented as of this encounter Functional Status Functional Status Response Date of Assess ment Are you deaf or do you have serious difficulty h earing? No 09/21/2016 Are you blind or do you have serious difficulty seeing, even when wearing glasses? No 09/21/2016 Do you have serious difficul ty walking or climbing stairs? (5 years old or older) No 09/21/2016 Do you have difficulty dress ing or bathing? (5 years old or older) No 09/21/2016 Because of a physical, menta l, or emotional condition, do you have difficulty doing errands alone such as visiting a doctor s office or shopping? (15 years old or older) No 09/22/19 17 Cognitive Status Response Date of Assessm ent Because of a physical, menta l, or emotional condition, do you have serious difficulty concentrating, remembering, or making decisions? (5 years old or older) No 09/21/2016 documented as of this encounter Miscellaneous Notes * Telephone Encounter - Sapna Alves green marketer - 05/01/2024 12:31 PM EDT Patient requesting refills for Albuterol Sulfate HFA 108 (90 Base) MCG/ACT Inhalation Aerosol Solution . Upon chart review, medication is listed as discontinued, with discontinuation reason as "medication list clean up". Please advise if you wish to continue this therapy for the patient. Requesting high priority as she does NOT have inhalers. Thank you, Sapna Alves [facility] Printing Sales Representative II, Certified [facility] ([facility]) 05/01/2024,12:31 PM documented in this encounter Plan of Treatment Upcoming Encounters Date Type Department Care Team (Late st Contact Info) Description 05/01/2024 7:30 PM EDT PulmDiagnostic Sleep Lab, [facility] [address] [facility] [address] [facility], Sleep Med Night Sleep [address] [place] [address] 05/12/2024 12:00 PM EST Imaging Radiology [facility] [address]st [facility] [address] [place] [address] 07/16/2024 4:20 PM EST Office Visit Family Practice [facility] [address] [address] Nataly Kelly, [address] [place] [address] 08/26/2024 1:30 PM EST Office Visit [facility] [address] [facility] [place] [phone] Jami Mccormack CRNP [address] [facility] [place] [address] 12/03/2024 4:00 PM EDT Imaging Radiology [facility] 1st [facility] [place] [address] [facility] [place] [address] Scheduled Procedures Name Priority Associated Diagnoses Date/Ti me COLONOSCOPY FLEXIBLE PROXIMA L DIAGNOSTIC Recall Encounter for screening colonoscopy Health Maintenance Due Date Last Done Comments DISCUSS TOBACCO CESSATION (REFER TO SMARTSET #6479) 1950 Alpha-1 Antitrypsin 01/09/1970 Cologuard 01/09/1997 Fecal Occult Blood Test 01/09/1997 Sigmoidoscopy 01/09/1997 Adult Wellness Visit 01/09/2018 Depression Monitoring 10/19/2021 10/19/2020 DXA Scan 08/16/2023 08/16/2021, 08/02, 03/20/2017 COVID-19 Vaccine ( season) 2024 11/21/2020, 09/28/2020 Influenza Vaccine (FLU shot) (#1) 2024 05/30/2023, 03/14/2022, 06/28/2021, Additional history exists Mammogram 12/02/2024 12/03/2023, 08/30, 07/11/2021, Additional history exists HbA1c 12/11/2024 12/12/2023 O2 ASSESSMENT COMPLETED IN PAST YEAR FOR COPD 12/20/2024 12/21/2023 Colonoscopy 10/18/2025 10/19/2015, 10/19/2015 Colorectal Cancer Screening 10/18/2025 DTap/Tdap Vaccines (2 - Td or Tdap) 03/09/2027 03/09/2017 Lipid Panel 10/18/2028 10/19/2023, 05/07/2020, 08/25/2019, Additional history exists Pneumococcal Vaccine: 65+ Years Completed 09/28/2021, 03/09/2017, 03/30/2016 Zoster Vaccines Completed 09/28/2021, 02/13/2020 HPV (Gardasil) Vaccine Aged Out No lo nger eligible based on patient's age to complete this topic Hepatitis B Vaccine Aged Out No longe r eligible based on patient's age to complete this topic MENINGOCOCCAL (MENACTRA/MENVEO) Aged Out No longer eligible based on patient's age to complete this topic documented as of this encounter Medical Devices Implanted Type Area Contracts Officer Device Identifier Shelf Expiration Date Model / Serial / Lot Dbx 2.5cc [id number] - [id number] - [id number] Implanted:Qty : 1 on 10/12/2016 by Isaac Moe MD at OR [facility] N/A: Spine Cervical MUSCULOSKELETAL TRANSPLANT FND 01/21/2018 [id number] / [id number] / Spacer Avs [id number] - [id number] Implanted:Qty : 2 on 10/12/2016 by Isaac Moe MD at OR [facility] N/A: Spine Cervical JOSÉ MIGUEL : SPINE [id number] / / Spacer Avs [id number] - [id number] Implanted:Qty : 1 on 10/12/2016 by Isaac Moe MD at OR [facility] N/A: Spine Cervical JOSÉ MIGUEL : SPINE [id number] / / Diamond Dynaplate 48mm Implanted:Qty : 1 on 10/12/2016 by Isaac Moe MD at OR [facility] N/A: Spine Cervical JOSÉ MIGUEL : SPINE [id number] / / Screw Variable 14mm - [id number] Implanted:Qty : 8 on 10/12/2016 by Isaac Moe MD at OR [facility] N/A: Spine Cervical JOSÉ MIGUEL : SPINE [id number] / / Lens Intraoc 25.0 - [id number] - [id number] Implanted:Qty : 1 on 02/14/2022 by Blayne Whitmore MD at OR [facility] Left: Eye [employer]CH [employer]OMB 07/01/2026 [id number] / [id number] / [id number] Lens Intraoc 25.5 - [id number] - [id number] Implanted:Qty : 1 on 02/28/2022 by Blayne Whitmore MD at [facility] Right: Eye [employer]OM[employer] 05/01/2026 [id number] / [id number] / [id number] documented as of this encounter Advance Directives * No Code (Latest Code Status on File) Date Activated Date Inactivated Comments 02/28/2022 3:22 PM 02/28/2022 9:36 PM This order r eflects the patients wishes and were consensually agreed upon. Question Answer Comments Discussion of Advance Directives occurred with: Patient Does the patient have a Living Will? No Does the patient have Health Care Power of Attor andrea? No * No Code Date Activated Date Inactivated Comments 02/14/2022 1:52 PM 02/14/2022 8:51 PM This order r eflects the patients wishes and were consensually agreed upon. Question Answer Comments Discussion of Advance Directives occurred with: Patient Does the patient have a Living Will? No Does the patient have Health Care Power of Attor andrea? No * Full Code Date Activated Date Inactivated Comments 10/12/2016 6:49 AM 10/13/2016 9:36 PM This order r eflects the patients wishes and were consensually agreed upon. * Full Code Date Activated Date Inactivated Comments 11/09/2015 8:17 PM 11/12/2015 10:45 PM This order reflects the patients wishes and were consensually agreed upon. Question Answer Comments Discussion of Advance Directives occurred with: Patient Does the patient have a Living Will? No Does the patient have Health Care Power of Attor andrea? No Care Teams Tool Carrier Relationship Specialty Start Date End Date Nataly Kelly DO [address] [place] [address] PCP - General Family Medicine 11/04/15 documented as of this encounter
--- OUTSIDE RECORDS SUMMARY | 2024-05-15 00:28 | External Medical Summary | Summary of Care ---
Author Name Unknown Organization [facility] Address [address] [place] [address] Phone [phone] Care Team Providers Care Glass Cutting Machine Feeder Name Role Phone Nataly Kelly DO Primary Care Provider [phone] Reason for Visit * Reason Comments Sleep Apnea * Precert (Within 10 days (routine)) - Authorized Specialty Diagnoses / Procedures Referred By Contac t Referred To Contact Sleep Disorders Diagnoses VIRGIL (obstructive sleep apnea) Procedures SLEEP STUDY, W/O CPAP Jami Mccormack CRNP [address] [place] [address] Referral ID Status Reason Start Date Expiration Date V isits Requested Visits Authorized [id number] Authorized Precert 12/21/2023 999 999 Encounter Details Date Type Department Care Team (Late st Contact Info) Description 05/01/2024 7:30 PM EDT PulmDiagnostic Sleep Lab, [facility] [address] [place] [address] [facility], Sleep [facility] [address] [facility] [address] Hypersomnolence* Allergies Active Allergy Reactions Criticality Noted Date Comments Sulfamethoxazole-Tri methoprim Hives 12/11/2018 Was also taking keflex at the time for cellulitis but no previous rxn to cephalosporins Morphine Other (Please comment) 11/09/2015 Per pt caused pain Carmi Extract Hives High 11/02/2015 documented as of this encounter (statuses as of 05/07/2024) Medications Medication Sig Dispensed Refills Start Date End Date Status traMADol HCl 50 MG Oral Tablet (Ultram)Indications :Radiculomyelopathy Take 1 Tablet by mouth every 6 hours as needed for Pain, Severe. take 1-2 tablets by mouth every 6 hours if needed for pain 60 Tablet 02/12/2023 Active Atorvastatin Calcium 20 MG Oral Tablet (Lipitor)Indication s:Dyslipidemia, goal LDL below 100 Take 1 Tablet by mouth in the morning. In the morning.. 90 Tablet 3 05/30/2023 Active Pantoprazole Sodium 40 MG Oral Tablet Delayed Release (Protonix)Indicatio ns:Gastroesophageal reflux disease without esophagitis Take 1 Tablet by mouth in the morning and 1 Tablet before bedtime. 180 Tablet 3 05/30/2023 Active Meclizine HCl 25 MG Oral Tablet (Antivert)Indicatio ns:Vertigo Take 1 Tablet by mouth 3 times a day as needed for Dizziness. 30 Tablet 5 12/11/2023 Active Solifenacin Succinate 5 MG Oral Tablet (VESIcare)Indicatio ns:Urge incontinence of urine Take 1 Tablet by mouth in the morning. 90 Tablet 3 12/11/2023 Active Fluticasone Propionate 50 MCG/ACT Nasal Suspension (Flonase)Indication s:Post-nasal drip Administer 2 Sprays into each nostril in the morning. 48 g 1 12/11/2023 Active Desonide 0.05 % External OintmentIndications :Flexural eczema Apply topically to affected area 2 times a day. 15 g 2 01/04/2024 Active Pregabalin 150 MG Oral Capsule (Lyrica)Indications :Osteoarthritis of spine with radiculopathy, cervical region take 1 capsule by mouth at bedtime IN ADDITION TO 75MG TWICE DAILY 30 Capsule 03/19/2024 Active Pregabalin 75 MG Oral Capsule (Lyrica)Indications :Osteoarthritis of spine with radiculopathy, cervical region take [...] HFA 108 (90 Base) MCG/ACT Inhalation Aerosol SolutionIndications :COPD, group C, by GOLD 2017 classification ([facility]) Inhale 2 Puffs by mouth in the morning and 2 Puffs at noon and 2 Puffs in the evening and 2 Puffs before bedtime. 18 g 5 03/18/2024 Active Desoximetasone 0.05 % External OintmentIndications :Dyshidrotic eczema Apply topically to affected area daily as needed (itchiness). Apply to left palm 60 g 03/18/2024 Active buPROPion HCl ER (XL) 300 MG Oral Tablet Extended Release 24 Hour (Wellbutrin XL)Indications:Recu rrent major depressive disorder, in full remission (HCC) Take 1 Tablet by mouth in the morning. In the morning.. 90 Tablet 1 03/18/2024 Active traZODone HCl 100 MG Oral Tablet (Desyrel) TAKE 1 & 1/2 (ONE & ONE-HALF) TABLETS BY MOUTH ONCE DAILY AT BEDTIME 135 Tablet 1 04/29/2024 Active DULoxetine HCl 30 MG Oral Capsule Delayed Release Particles (Cymbalta)Indicatio ns:Recurrent major depressive disorder, in full remission (HCC) Take 1 Capsule by mouth in the morning. Do not cut, crush or chew. Take with 60mg capsule for total daily dose of 90mg.. 90 Capsule 3 05/30/2023 4 Discontinu ed(Refill) Ondansetron 8 MG Oral Tablet Disintegrating (Zofran) Place 1 Tablet on tongue every 8 hours as needed for Nausea. dissolve on tongue. 30 Tablet 1 05/30/2023 4 Discontinu ed(Refill) Docusate Sodium 100 MG Oral Capsule (Colace)Indications :Chronic constipation Take 1 Capsule by mouth in the morning and 1 Capsule before bedtime. 60 Capsule 5 01/29/2024 4 Discontinu ed(Refill) Dicyclomine HCl 20 MG Oral Tablet (Bentyl)Indications :Chronic diarrhea Take 1 Tablet by mouth 2 times a day as needed (abd pain, cramping). 180 Tablet 3 01/29/2024 4 Discontinu ed(Refill) guaiFENesin-Codeine 100-10 MG/5ML Oral Solution (Robitussin AC)Indications:Faculty Physician consuelo cough Take 5 mL by mouth 4 times a day as needed for Congestion or Cough. 180 mL 03/19/2024 4 Discontinu ed(Refill) DULoxetine HCl 60 MG Oral Capsule Delayed Release Particles (Cymbalta)Indicatio ns:Recurrent major depressive disorder, in full remission (HCC) take 1 capsule by mouth daily -DO NOT CUT,CRUSH OR CHEW 90 Capsule 1 03/18/2024 4 Discontinu ed(Refill) Hospital, Clinic, or Other Facility Administered Medication Ordered Dose Route Frequency Start Date End Date Status albuterol sulfate (PROVENTIL) (2.5 MG/3ML) 0.083% inhalation solution 2.5 mgIndications:COPD, moderate (HCC) 2.5 mg NEBULIZER Q4H PRN 01/13/2019 Active documented as of this encounter (statuses as of 05/07/2024) Active Problems Problem Noted Date Diagnosed Date [...] as of this encounter (statuses as of 05/07/2024) Resolved Problems Problem Noted Date Diagnosed Date Resolved Date COPD, moderate 08/17/2023 09/13/2023 Overview: Per COPD GOLD Classification COPD, group A, by GOLD 2017 classification 02/06/2022 2023 Overview: Per COPD GOLD Classification Encounter for examination fo r normal comparison and control in clinical research program 01/16/2019 02/02/2020 Overview: DO NOT DELETE [facility] DETECT Study: Project # [id number], Cane Weigher Helper: Lanre Adames, PhD. SUMMARY: Goal: Establish test [...] contact study staff at ; after hours Cane Weigher Helper via the [facility] hospital coal drier operator . Please contact study team before resolving/deleting from patients problem list. Study phone number: [phone]. Diagnosis changed due to Research Module. Go to Snapshot for study details. Encounter for examination fo r normal comparison and control in clinical research program 01/16/2019 03/02/2022 Overview: DO NOT DELETE [facility] DETECT Study: Project # [id number], Cane Weigher Helper: Rodo Alvarez, MS, MPH. SUMMARY: Goal: Establish [...] contact study staff at ; after hours Cane Weigher Helper via the [facility] hospital coal drier operator . - Please contact study team before resolving/deleting from patients problem list. Study phone number: [phone]. Diagnosis changed due to Research Module. Go to Snapshot for study details. COPD, severity to be determined 08/04/2017 02/09/2022 Overview: emphysema on chest CT 09/15 Melena 11/12/2015 11/12/2015 Abdominal abscess 11/09/2015 03/09/2017 Tobacco abuse 11/09/2015 10/23/2017 documented as of this encounter (statuses as of 05/07/2024) Immunizations Name Administration Dates Next Due COVID-19 mRNA, LNP-s, No Pre serve, 2-Dose Series ([employer]) 11/21/2020,09/28/2020 Pneumococcal Conjugate Vacc, 13 Valent (Prevnar) [...] No 10/11/2023 Does the household have a re gular source of income? (Household - for ages [...] No 09/21/2016 documented as of this encounter Progress Notes * Violet Marquez MD - 05/07/2024 1:41 PM EST Images from the original note were not included. [facility] Polysomnogram - Physician Report Name: Yadira Ryan MR#: [id number] Date of : 1950 Study date: 05/01/2024 Report date: 05/02/2024 Study name: Adult Acquisition ID: [id number] Referring Physician: Jami Mccormack Ordering Physician: Jami Mccormack Interpreting Sleep Physician: Violet Marquez Signature: Electronically Signed Testing Location: [facility] Impression: Primary snoring. If sleep apnea is strongly suspected, a repeat PSG may be indicated given night tonight variability in sleep apnea and the possibility of a false negative study. Abnormal sleep architecture likely due to first night effect. Recommendations: Extreme caution with driving or operating heavy machinery if feeling sleepy, drowsy or otherwise impaired is advised. Clinical Background: 74 year old Female with suspected sleep disordered breathing. Weight 128.0 lbs & BMI 23.4 lb/in [place] Sleepiness Scale 24 Neck Size 12.8 inches Comorbidities: COPD, IBS, GERD, Lung nodule, Urge incontinence, Bilateral carpal tunnel syndrome, Spinal stenosis, Prediabetes, Secondary Parkinsonism Lights Off: 10:52:07 PM Lights On: 5:26:37 AM Sleep Architecture: Minutes TRT - Total recording time 394.5 Sleep latency 101.7 SPT - Sleep Period Time 291.0 WASO - Wake time after sleep onset 64.3 TST - Total Sleep Time 228.5 R Sleep latency minus wake Sleep efficiency 57.9% TST Stage N1 11.5 5.0% Stage N2 213.5 93.4% Stage N3 3.5 1.5% Stage R 0.0 0.00% Respiratory Event Summary * TST NREM REM ~Supine Supine Prone Left Right Apneas Count 0 0 0.00 0 0 0 Index 0.0 0.0 0.00 0.0 0.0 0.0 Hypopneas (3%) Count 18 18 18.00 0 18 0 Index 4.7 4.7 4.73 0.0 5.1 0.0 Hypopneas (4%) Count 4 4 Index 1.1 1.1 AHI (3%) Count 18 18 18.00 0 18 0 Index 4.7 4.7 4.73 0.0 5.1 0.0 AHI (4%) Count 4 4 Index 1.1 1.1 RDI (3%) (Ammonia Technician+All Hyp+RERA) Count 18 18 18.00 0 18 0 Index 4.7 4.7 4.73 0.0 5.1 0.0 RDI (4%) (Ammonia Technician+All Hyp+RERA) Count 4 4 Index 1.1 1.1 Respiratory Related Arousal Count 0 0 0.00 0 0 0 Index 0.0 0.0 0.00 0.0 0.0 0.0 Oxygen Desaturation Count 44 34 0 Index 11.6 8.9 Arousals: Index Respiratory related 3 0.8/hr PLM related 6 1.6/hr Spontaneous 29 7.6/hr Total 38 10.0/hr Movement Events: Index Total PLMs 59 15.5/hr PLMs associated with arousals 6 1.6/hr Respiratory Events: Index Central 0 0.0/hr Obstructive 0 0.0/hr Mixed 0 0.0/hr Hypopneas 18 4.7/hr RERA's 0 0.0/hr AHI = Apneas + Hypopneas 18 4.7/hr RDI = Apneas + Hypopneas +RERA's 18 4.7/hr No episodes of periodic breathing were found. Snoring was recorded. Oxygenation: Min. Sat. Avg. Sat. Awake - 93% N sleep - 90% REM - % Overall 84% 91% Time spent <=88%: 18.50 minutes. Supplemental O2 was not utilized. Body Position Analysis Supine Right Left Side Prone Vertical Total Sleep Time (min.) 0.0 17.0 211.5 228.50 0.0 Total Sleep Time (%) 0.00 7.44 92.56 100.00 0.00 0.00 Total Sleep Time REM (min.) 0.0 0.0 0.0 0.00 0.0 Total Sleep Time NREM (min.) 0.0 17.0 211.5 228.50 0.0 Total Sleep Period (min.) 1.6 18.9 262.2 281.10 1.2 Oximetry Data Min SpO2 value TST: 84% Average SpO2 (TIB): 91% Min SpO2 w/ Respiratory Event: 85% Average SpO2 (TST): 90% Desaturations #: 44 Desaturation Index: 11.6 /hr Oximetry Distribution WK NREM REM TIB TST Min % Min % Min % Min % Min % >90% 115.60 69.64 173.60 75.97 0.00 0.00 289.20 73.31 173.60 75.97 80 - 89% 24.90 15.00 54.60 23.89 0.00 0.00 79.50 20.15 54.60 23.89 70 - 79% 0.00 0.00 0.00 0.00 0.00 0.00 0.00 0.00 0.00 0.00 60 - 69% 0.00 0.00 0.00 0.00 0.00 0.00 0.00 0.00 0.00 0.00 50 - 59% 0.00 0.00 0.00 0.00 0.00 0.00 0.00 0.00 0.00 0.00 <=88%* 17.4 4.4 18.5 4.7 0.0 0.0 35.9 9.1 18.50 8.10 Fail (min) 25.5 15.36 0.3 0.13 0.0 0.00 25.8 6.54 0.30 0.13 EtCO2 SUMMARY EtCO2 Trend EtCO2 distribution (all durations are in minutes) WAKE REM NREM Total >=75 0.0 0.0 0.0 0.0 >=65 0.0 0.0 0.0 0.0 >=55 0.0 0.0 0.0 0.0 >=50 0.0 0.0 0.0 0.0 >=47 0.0 0.0 0.0 0.0 >=40 0.0 0.0 0.0 0.0 >=30 0.0 0.0 0.0 0.0 >0 Rejected 166.0 0.0 228.5 394.5 Average Highest EtCO2 during TIB :0 Total number of Hypercapnia events during TIB :0 Cardiac Events: Min bpm Average Pulse Rate During Sleep (TST): 70.3 bpm Highest Pulse Rate During Sleep (TST): 80 bpm Highest Pulse Rate During Recording (TIB): 93 bpm Comments / Artifact / Quality of the Study The polysomnographic recording quality was satisfactory for interpretation. No significant artifacts were found. Technical & Digital Specifications for the Recording and Scoring of Sleep and Associated Events: A standard polysomnogram with and/or without positive airway pressure (PAP) was performed monitoring EEG, EOG, EMG (chin and leg derivations), oxygen saturation, body position, digital video, respiratory effort and airflow. The Sleep Stage and Event scoring was based on the AASM Manual for the Scoring of Sleep and Associated Events, Version 2.5. Apnea in adults is scored when there is a drop in the peak signal excursion by >= 90% of pre-event baseline using an oronasal thermal sensor (diagnostic study), PAP device flow (titration study), or an alternative apnea sensor, for >= 10 seconds. Hypopnea in an AHI-4% in adults is scored when the peak signal excursions drop by >= 30% of pre-event baseline using nasal pressure (diagnostic study), PAP device flow (titration study), or an alternative hypopnea sensor, for >= 10 seconds in association with a >4% arterial oxygen desaturation from pre-event baseline. Hypopnea in an AHI- 3% in adults is scored when the peak signal excursions drop by >= 30% of pre- event baseline using nasal pressure (diagnostic study), PAP device flow (titration study), or an alternative hypopnea sensor, for >= 10 seconds in association with a >3% arterial oxygen desaturation from pre-event baseline or in association with an arousal. Respiratory effort-related arousals (RERA's) are defined as a sequence of breaths lasting at least 10 seconds characterized by increasing respiratory effort or flattening of the nasal pressure waveform leading to an arousal from sleep when the sequence of breaths which does not meet criteria for an apnea or hypopnea. Apnea Hypopnea Index (AHI) is defined as the number of apneas and hypopneas occurring in an hour of sleep. Respiratory Disturbance Index (RDI) is defined as the number of apneas, hypopneas, and RERA's occurring in an hour of sleep. MD STEFANO MorrisA Board Certified Internal/Sleep Medicine [facility] (phone) (fax) documented in this encounter Nursing Notes * Micaela Harkins, [facility] - 05/01/2024 8:17 PM EDT No new cough, SOB, flu like symptoms, loss of taste, or loss of smell. No exposure to COVID-19 or flu in the last [address] [facility]. Sleep position - Sides PSG 2017 with AHI of 14. Started CPAP but wasn't compliant and machine was pulled. She will taking Trazodone prior to bedtime. Patient has no defibrillator, pacemaker, cochlear implant, or any devices affected by a magnet. Test: Completed Nocturnal Polysomnogram/NPSG without CPAP [place] total score: 11/22 Neck Circumference: 12.75 inches Patient received Drowsy Driving Information: No-Patient is not driving currently. The patient requested to have a snack at bedtime. She ate a snack and scrolled on her cell phone after lights off. She is used to going to bed later and even after taking her Trazodone, she wasn't sleepy. Delayed sleep onset of 102 minutes. Sleep stages 1, 2 and 3 were noted. Sleep was observed in the left sleep posture only. A few respiratory events were noted. Moderate snoring rated 2-3 was noted occasionally. Some leg movement was noted. No unusual behaviors were noted. Two bathroom breaks were taken during the study. The study did not meet criteria for a split night PSG for AHI>15 as ordered. documented in this encounter Plan of Treatment Upcoming Encounters Date Type Department Care Team (Late st Contact Info) Description 05/12/2024 12:00 PM EST Imaging Radiology [address] [facility] [place] [address] 07/16/2024 4:20 PM EST Office Visit Family Practice [facility] [address] [facility] [place] [address] Nataly Kelly DO [address] [place] [address] 08/26/2024 1:30 PM EST Office Visit [facility] [address] [facility] [place] [phone] Jami Mccormack CRNP [address] [place] [address] 12/03/2024 4:00 PM EDT Imaging Radiology [address] [place] [address] Scheduled Orders Name Type Priority Associated Diagnoses Orde r Schedule SLEEP STUDY, W/O CPAP Procedures Routine VIRGIL (obstructive sleep apnea) Ordered: 12/21/2023 SLEEP STUDY, W/ CPAP (TREATMENT SETTINGS) Procedures Routine VIRGIL (obstructive sleep apnea) Ordered: 12/21/2023 Scheduled Procedures Name Priority Associated Diagnoses Date/Ti me COLONOSCOPY FLEXIBLE PROXIMA L DIAGNOSTIC Recall Encounter for screening colonoscopy Health Maintenance Due Date Last Done Comments DISCUSS TOBACCO CESSATION (REFER TO SMARTSET #8202) 1950 Alpha-1 Antitrypsin 01/09/1970 Cologuard 01/09/1997 Fecal [...] this encounter Medical Devices Implanted Type Area Art Psychotherapist Device Identifier Shelf Expiration Date Model / Serial / Lot Dbx 2.5cc [id number] - [id number] - [id number] Implanted:Qty : 1 on 10/12/2016 by Isaac Moe MD at [facility] N/A: Spine Cervical MUSCULOSKELETAL TRANSPLANT FND 01/21/2018 [id number] / [id number] / Spacer Avs [id number] - [id number] Implanted:Qty : 2 on 10/12/2016 by Isaac Moe MD at [facility] N/A: Spine Cervical JOSÉ MIGUEL : SPINE [id number] / / Spacer Avs [id number] - [id number] Implanted:Qty : 1 on 10/12/2016 by Isaac Moe MD at [facility] N/A: Spine Cervical JOSÉ MIGUEL : SPINE [id number] / / [place] Dynaplate 48mm Implanted:Qty : 1 on 10/12/2016 by Isaac Moe MD at [facility] N/A: Spine Cervical JOSÉ MIGUEL : SPINE [id number] / / Screw Variable 14mm - [id number] Implanted:Qty : 8 on 10/12/2016 by Isaac Moe MD at [facility] N/A: Spine Cervical JOSÉ MIGUEL : SPINE [id number] / / Lens Intraoc 25.0 - [id number] - [id number] Implanted:Qty : 1 on 02/14/2022 by Blayne Whitmore MD at OR [facility] Left: Eye BAUSCH & LOMB 07/01/2026 [id number] / [id number] / [id number] Lens Intraoc 25.5 - [id number] - [id number] Implanted:Qty : 1 on 02/28/2022 by Blayne Whitmore MD at OR [facility] Right: Eye BAUSCH & LOMB 05/01/2026 [id number] / [id number] / [id number] documented as of this encounter Visit Diagnoses Diagnosis Hypersomnolence- Primary Hypersomnia, unspecified documented in this encounter Advance Directives * No Code [...] Power of Attor andrea? No Care Teams Glass Cutting Machine Feeder Relationship Specialty Start Date End Date Natayl Kelly DO [address] [place] [address] PCP - General Family Medicine 11/04/15 documented as of this encounter
--- OUTSIDE RECORDS SUMMARY | 2024-05-15 00:28 | External Medical Summary | Summary of Care ---
Author Name Unknown Organization [facility] Address [address] [place] [address] Phone [phone] Care Team Providers Care Tugboat Engineer Name Role Phone Nataly Kelly DO Primary Care Provider [phone] Reason for Visit * Reason Onset Date Comments Medication Refill 05/01/2024 Encounter Details Date Type Department Care Team (Late st Contact Info) Description 05/01/[address] [facility] [address] [place] [address] Nataly Kelly DO [address] [place] [address] Medication Refill Allergies Active Allergy Reactions Criticality Noted Date Comments Sulfamethoxazole-Tri methoprim Hives 12/11/2018 Was also taking keflex at the time for cellulitis but no previous rxn to cephalosporins Morphine Other (Please comment) 11/09/2015 Per pt caused pain [place] Extract Hives High 11/02/2015 documented as of this encounter (statuses as of 05/06/2024) Medications Medication Sig Dispensed Refills Start Date [...] :COPD, group C, by GOLD 2017 classification ([facility]) Inhale 2 Puffs by mouth [...] ed(Refill) guaiFENesin-Codeine 100-10 MG/5ML Oral Solution (Robitussin AC)Indications: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 consuelo cough Take 5 mL by mouth [...] as of this encounter (statuses as of 05/06/2024) Active Problems Problem Noted Date Diagnosed Date [...] as of this encounter (statuses as of 05/06/2024) Resolved Problems Problem Noted Date Diagnosed Date Resolved Date COPD, moderate 08/17/2023 09/13/2023 Overview: Per COPD GOLD Classification COPD, group A, by GOLD 2017 classification 02/06/2022 2023 Overview: Per COPD GOLD Classification Encounter for examination fo r normal comparison and control in clinical research program 01/16/2019 02/02/2020 Overview: DO NOT DELETE [facility] DETECT Study: Project # [id number], Program Aide Group Work: Lanre Adames, PhD. SUMMARY: Goal: Establish test [...] contact study staff at ; after hours Program Aide Group Work via the [facility] hospital live truck operator . Please contact study team before resolving/deleting from patients problem list. Study phone number: [phone]. Diagnosis changed due to Research Module. Go to Snapshot for study details. Encounter for examination fo r normal comparison and control in clinical research program 01/16/2019 03/02/2022 Overview: DO NOT DELETE - [facility] DETECT Study: Project # [id number], Program Aide Group Work: Rodo Alvarez, MS, MPH. SUMMARY: Goal: Establish [...] contact study staff at ; after hours Program Aide Group Work via the [facility] hospital live truck operator . - Please contact study team before resolving/deleting from patients problem list. Study phone number: [phone]. Diagnosis changed due to Research Module. Go to Snapshot for study details. COPD, severity to be determined 08/04/2017 02/09/2022 Overview: emphysema on chest CT 09/15 Melena 11/12/2015 11/12/2015 Abdominal abscess 11/09/2015 03/09/2017 Tobacco abuse 11/09/2015 10/23/2017 documented as of this encounter (statuses as of 05/06/2024) Immunizations Name Administration Dates Next Due COVID-19 mRNA, LNP-s, No Pre serve, 2-Dose Series (Functional Neuromodulation) 11/21/2020,09/28/2020 Pneumococcal Conjugate Vacc, 13 Valent (Prevnar) [...] money to buy more. Never true 10/11/19 24 Within the past 12 months, t he [...] encounter Miscellaneous Notes * Telephone Encounter - Monique Spaulding LPN - 05/06/2024 9:59 AM EST This was sent to pharmacy for patient on 03/18/24. Called patient to inform her that she should be able to get this refilled through [facility] pharmacy. No answer-unable to leave message. VM box is full. * Telephone Encounter - Sapna Alves PHARM Tech - 05/01/2024 12:31 PM EDT Patient requesting refills for Albuterol Sulfate HFA 108 (90 Base) MCG/ACT Inhalation Aerosol Solution . Upon chart review, medication is listed as discontinued, with discontinuation reason as "medication list clean up". Please advise if you wish to continue this therapy for the patient. Requesting high priority as she does NOT have inhalers. Thank you, Sapna Alves CPhT Chair Finisher II, Certified [facility]ized [facility] Services ([facility]PS) 05/01/2024,12:31 PM documented in this encounter Plan of Treatment Upcoming Encounters Date Type Department Care Team (Late st Contact Info) Description 05/12/2024 12:00 PM EST Imaging Radiology [address] [facility] [place] [address] 07/16/2024 4:20 PM EST Office Visit Family Practice [facility] [address] [facility] [place] [address] Nataly Kelly DO [address] [place] [address] 08/26/2024 1:30 PM EST Office Visit Sleep Disorders Ctr [facility] [address] [facility] [place] [phone] Jami Mccormack CRNP [address] [place] [address] 12/03/2024 4:00 PM EDT Imaging Radiology [address] [facility] [place] [address] Scheduled Procedures Name Priority Associated Diagnoses Date/Ti me COLONOSCOPY FLEXIBLE PROXIMA L DIAGNOSTIC Recall Encounter for screening colonoscopy Health Maintenance Due Date Last Done Comments DISCUSS TOBACCO CESSATION (REFER TO SMARTSET #3534) 1950 Alpha-1 Antitrypsin 01/09/1970 Cologuard 01/09/1997 Fecal [...] Tdap) 03/09/2027 03/09/2017 Lipid Panel 10/18/2028 10/19/2023, 05/2 07/2020, 08/25/2019, Additional history exists Pneumococcal Vaccine: 65+ [...] this encounter Medical Devices Implanted Type Area Varitypist Device Identifier Shelf Expiration Date Model / Serial / Lot Dbx 2.5cc [id number] - [id number] - [id number] Implanted:Qty : 1 on 10/12/2016 by Isaac Moe MD at [place] [facility] N/A: Spine Cervical MUSCULOSKELETAL TRANSPLANT FND 01/21/2018 [id number] / [id number] / Spacer Avs [id number] - [id number] Implanted:Qty : 2 on 10/12/2016 by Isaac Moe MD at OR [facility] N/A: Spine Cervical JOSÉ MIGUEL : SPINE [id number] / / Spacer Avs [id number] - [id number] Implanted:Qty : 1 on 10/12/2016 by Isaac Moe MD at [place] [facility] N/A: Spine Cervical JOSÉ MIGUEL : SPINE [id number] / / [place] Dynaplate 48mm Implanted:Qty : 1 on 10/12/2016 by Isaac Moe MD at [place] [facility] N/A: Spine Cervical JOSÉ MIGUEL : SPINE [id number] / / Screw Variable 14mm - [id number] Implanted:Qty : 8 on 10/12/2016 by Isaac Moe MD at [place] [facility] N/A: Spine Cervical JOSÉ MIGUEL : SPINE [id number] / / Lens Intraoc 25.0 - [id number] - [id number] Implanted:Qty : 1 on 02/14/2022 by Blayne Whitmore MD at OR [facility] Left: Eye [employer]CH [employer] LOMB 07/01/2026 [id number] / [id number] / [id number] Lens Intraoc 25.5 - [id number] - [id number] Implanted:Qty : 1 on 02/28/2022 by Blayne Whitmore MD at OR [facility] Right: Eye BAUSCH [employer] LOMB 05/01/2026 [id number] / [id number] / [id number] documented as of this encounter Visit Diagnoses Diagnosis COPD, group C, by GOLD 2017 classification (HCC) documented in this encounter Advance Directives * [...] Power of Attor andrea? No Care Teams Tugboat Engineer Relationship Specialty Start Date End Date Nataly Kelly DO [address] [place] [address] PCP - General Family Medicine 11/04/15 documented as of this encounter
--- OUTSIDE RECORDS SUMMARY | 2024-05-15 00:28 | External Medical Summary | Summary of Care ---
Author Name Unknown Organization [facility] Address [address] [place] [address] Phone [phone] Care Team Providers Care Varnishing Unit Tool Setter Name Role Phone Dot Lund DO Primary Care Provider [phone] Reason for Visit * Reason Comments eRx-Medication Refill Encounter Details Date Type Department Care Team (Late st Contact Info) Description 04/28/[address] [facility] [address] [place] [address] Dot Lund DO [address] [place] [address] Allergies Active Allergy Reactions Criticality Noted Date Comments Sulfamethoxazole-Tri methoprim Hives 12/11/2018 Was also taking keflex at the time for cellulitis but no previous rxn to cephalosporins Morphine Other (Please comment) 11/09/2015 Per pt caused pain [place] Extract Hives High 11/02/2015 documented as of this encounter (statuses as of 04/29/2024) Medications Medication Sig Dispensed Refills Start Date End Date Status traMADol HCl 50 MG Oral Tablet (Ultram)Indications :Radiculomyelopathy Take 1 Tablet by mouth every 6 hours as needed for Pain, Severe. take 1-2 tablets by mouth every 6 hours if needed for pain 60 Tablet 3 Active Atorvastatin Calcium 20 MG Oral Tablet (Lipitor)Indication s:Dyslipidemia, goal LDL below 100 Take 1 Tablet by mouth in the morning. In the morning.. 90 Tablet 3 3 Active DULoxetine HCl 30 MG Oral Capsule Delayed Release Particles (Cymbalta)Indicatio ns:Recurrent major depressive disorder, in full remission (HCC) Take 1 Capsule by mouth in the morning. Do not cut, crush or chew. Take with 60mg capsule for total daily dose of 90mg.. 90 Capsule 3 3 Active Ondansetron 8 MG Oral Tablet Disintegrating (Zofran) Place 1 Tablet on tongue every 8 hours as needed for Nausea. dissolve on tongue. 30 Tablet 1 3 Active Pantoprazole Sodium 40 MG Oral Tablet Delayed Release (Protonix)Indicatio ns:Gastroesophageal reflux disease without esophagitis Take 1 Tablet by mouth in the morning and 1 Tablet before bedtime. 180 Tablet 3 3 Active Meclizine HCl 25 MG Oral Tablet (Antivert)Indicatio ns:Vertigo Take 1 Tablet by mouth 3 times a day as needed for Dizziness. 30 Tablet 5 4 Active Solifenacin Succinate 5 MG Oral Tablet (VESIcare)Indicatio ns:Urge incontinence of urine Take 1 Tablet by mouth in the morning. 90 Tablet 3 4 Active Fluticasone Propionate 50 MCG/ACT Nasal Suspension (Flonase)Indication s:Post-nasal drip Administer 2 Sprays into each nostril in the morning. 48 g 1 4 Active Desonide 0.05 % External OintmentIndications :Flexural eczema Apply topically to affected area 2 times a day. 15 g 2 4 Active Docusate Sodium 100 MG Oral Capsule (Colace)Indications :Chronic constipation Take 1 Capsule by mouth in the morning and 1 Capsule before bedtime. 60 Capsule 5 4 Active Dicyclomine HCl 20 MG Oral Tablet (Bentyl)Indications :Chronic diarrhea Take 1 Tablet by mouth 2 times a day as needed (abd pain, cramping). 180 Tablet 3 4 Active Pregabalin 150 MG Oral Capsule (Lyrica)Indications :Osteoarthritis of spine with radiculopathy, cervical region take 1 capsule by mouth at bedtime IN ADDITION TO 75MG TWICE DAILY 30 Capsule 4 Active Pregabalin 75 MG Oral Capsule (Lyrica)Indications :Osteoarthritis of spine with radiculopathy, cervical region take 1 capsule by mouth twice a day every morning and at bedtime 60 Capsule 4 Active Trelegy Ellipta 100-62.5-25 MCG/ACT Aerosol Powder Breath Activated inhale 1 puff by mouth and INTO THE LUNGS once daily 90 Blister Dosing Unit 3 4 Active Premarin 0.625 MG/GM Vaginal Cream ADMINISTER 0.5 grams vaginally SUNDAY AND SUNDAY ONLY at bedtime 30 g 6 4 Active Proventil HFA 108 (90 Base) MCG/ACT Inhalation Aerosol SolutionIndications :COPD, group C, by GOLD 2017 classification ([facility]) Inhale 2 Puffs by mouth in the morning and 2 Puffs at noon and 2 Puffs in the evening and 2 Puffs before bedtime. 18 g 5 4 Active guaiFENesin-Codeine 100-10 MG/5ML Oral Solution (Robitussin AC)Indications:Radio Personality consuelo cough Take 5 mL by mouth 4 times a day as needed for Congestion or Cough. 180 mL 4 Active Desoximetasone 0.05 % External OintmentIndications :Dyshidrotic eczema Apply topically to affected area daily as needed (itchiness). Apply to left palm 60 g 4 Active buPROPion HCl ER (XL) 300 MG Oral Tablet Extended Release 24 Hour (Wellbutrin XL)Indications:Recu rrent major depressive disorder, in full remission (HCC) Take 1 Tablet by mouth in the morning. In the morning.. 90 Tablet 1 4 Active DULoxetine HCl 60 MG Oral Capsule Delayed Release Particles (Cymbalta)Indicatio ns:Recurrent major depressive disorder, in full remission (HCC) take 1 capsule by mouth daily -DO NOT CUT,CRUSH OR CHEW 90 Capsule 1 4 Active traZODone HCl 100 MG Oral Tablet (Desyrel) TAKE 1 & 1/2 (ONE & ONE-HALF) TABLETS BY MOUTH ONCE DAILY AT BEDTIME 135 Tablet 1 4 Active traZODone HCl 100 MG Oral Tablet (Desyrel) TAKE 1 AND 1/2 TABLETS BY MOUTH DAILY AT BEDTIME. 135 Tablet 1 4 04/29/20 24 Discontinued Hospital, Clinic, or Other Facility Administered Medication Ordered Dose Route Frequency Start Date End Date Status albuterol sulfate (PROVENTIL) (2.5 MG/3ML) 0.083% inhalation solution 2.5 mgIndications:COPD, moderate (HCC) 2.5 mg NEBULIZER Q4H PRN 01/13/2019 Active documented as of this encounter (statuses as of 04/29/2024) Active Problems Problem Noted Date Diagnosed Date [...] as of this encounter (statuses as of 04/29/2024) Resolved Problems Problem Noted Date Diagnosed Date Resolved Date COPD, moderate 08/17/2023 09/13/2023 Overview: Per COPD GOLD Classification COPD, group A, by GOLD 2017 classification 02/06/2022 2023 Overview: Per COPD GOLD Classification Encounter for examination fo r normal comparison and control in clinical research program 01/16/2019 02/02/2020 Overview: DO NOT DELETE [facility] DETECT Study: Project # [id number], Director Consumer Affairs: Lanre Adames, PhD. SUMMARY: Goal: Establish test [...] contact study staff at ; after hours Director Consumer Affairs via the [facility] special warfare operator . Please contact study team before resolving/deleting from patients problem list. Study phone number: [phone]. Diagnosis changed due to Research Module. Go to Snapshot for study details. Encounter for examination fo r normal comparison and control in clinical research program 01/16/2019 03/02/2022 Overview: DO NOT DELETE - [facility] DETECT Study: Project # [id number], Director Consumer Affairs: Rodo Alvarez, MS, MPH. SUMMARY: Goal: Establish [...] contact study staff at ; after hours Director Consumer Affairs via the [facility] special warfare operator . - Please contact study team before resolving/deleting from patients problem list. Study phone number: [phone]. Diagnosis changed due to Research Module. Go to Snapshot for study details. COPD, severity to be determined 08/04/2017 02/09/2022 Overview: emphysema on chest CT 09/15 Melena 11/12/2015 11/12/2015 Abdominal abscess 11/09/2015 03/09/2017 Tobacco abuse 11/09/2015 10/23/2017 documented as of this encounter (statuses as of 04/29/2024) Immunizations Name Administration Dates Next Due COVID-19 mRNA, LNP-s, No Pre serve, 2-Dose Series ([employer] 11/21/2020,09/28/2020 Pneumococcal Conjugate Vacc, 13 Valent (Prevnar) [...] encounter Miscellaneous Notes * Telephone Encounter - Josesito Rodriguez [facility] - 04/29/2024 10:55 AM EDT Signed Prescriptions: Disp Refills traZODone HCl 100 MG Oral Tablet (Desyrel) 135 Ta*1 Sig: TAKE 1 & 1/2 (ONE & ONE-HALF) TABLETS BY MOUTH ONCE DAILY AT BEDTIMEAuthorizing Provider: DOT LUND User: JOSESITO RODRIGUEZ documented in this encounter Plan of Treatment Upcoming Encounters Date Type Department Care Team (Late st Contact Info) Description 05/01/2024 7:30 PM EDT PulmDiagnostic Sleep Lab, [facility] [address] [place] [address] [facility], Sleep Med Night Sleep [address] [place] [address] 05/12/2024 12:00 PM EST Imaging Radiology [address], [place] [address] [facility] [place] [address] 07/16/2024 4:20 PM EST Office Visit Family Practice [facility] [address] [place] [address] Dot Lund DO [address] [place] [address] 08/26/2024 1:30 PM EST Office Visit Sleep Disorders Ctr [facility] [address] [place] [phone] Jami Mccormack CRNP [address] [place] [address] 12/03/2024 4:00 PM EDT Imaging Radiology [address] [facility] [place] [address] Scheduled Procedures Name Priority Associated Diagnoses Date/Ti me COLONOSCOPY FLEXIBLE PROXIMA L DIAGNOSTIC Recall Encounter for screening colonoscopy Health Maintenance Due Date Last Done Comments DISCUSS TOBACCO CESSATION (REFER TO SMARTSET #6256) 1950 Alpha-1 Antitrypsin 01/09/1970 Cologuard 01/09/1997 Fecal [...] Tdap) 03/09/2027 03/09/2017 Lipid Panel 10/18/2028 10/19/2023, 10/31, 08/25/2019, Additional history exists Pneumococcal Vaccine: 65+ [...] this encounter Medical Devices Implanted Type Area National Account Executive Device Identifier Shelf Expiration Date Model / Serial / Lot Dbx 2.5cc [id number] - [id number] - [id number] Implanted:Qty : 1 on 10/12/2016 by Isaac Moe MD [place] [facility] N/A: Spine Cervical MUSCULOSKELETAL TRANSPLANT FND 01/21/2018 [id number] / [id number] / Spacer Avs [id number] - [id number] Implanted:Qty : 2 on 10/12/2016 by Isaac Moe MD [place] [facility] N/A: Spine Cervical JOSÉ MIGUEL : SPINE [id number] / / Spacer Avs [id number] - [id number] Implanted:Qty : 1 on 10/12/2016 by Isaac Moe MD [place] [facility] N/A: Spine Cervical JOSÉ MIGUEL : SPINE [id number] / / [employer] Dynaplate 48mm Implanted:Qty : 1 on 10/12/2016 by Isaac Moe MD at [place] [facility] N/A: Spine Cervical JOSÉ MIGUEL : SPINE [id number] / / Screw Variable 14mm - [id number] Implanted:Qty : 8 on 10/12/2016 by Isaac Moe MD at [place] [facility] N/A: Spine Cervical JOSÉ MIGUEL : SPINE [id number] / / Lens Intraoc 25.0 - [id number] - [id number] Implanted:Qty : 1 on 02/14/2022 by Blayne Whitmore MD at OR [facility] Left: Eye [employer]CH [employer]OMB 07/01/2026 [id number] / [id number] / [id number] Lens Intraoc 25.5 - [id number] - [id number] Implanted:Qty : 1 on 02/28/2022 by Blayne Whitmore MD at OR [facility] Right: Eye [employer]CH [employer] LOMB 05/01/2026 [id number] / [id number] / [id number] documented as of this encounter Advance Directives [...] Power of Attor andrea? No Care Teams Varnishing Unit Tool Setter Relationship Specialty Start Date End Date Dot Lund DO [address] [place] [address] PCP - General Family Medicine 11/04/15 documented as of this encounter
--- OUTSIDE RECORDS SUMMARY | 2024-05-15 00:28 | External Medical Summary | Summary of Care ---
Author Name Unknown Organization [facility] Address [address] [place] [address] Phone [phone] Care Team Providers Care Sfdc Consultant Name Role Phone Jose LNataly quinn Grace ROJAS Primary Care Provider [phone] Reason for Visit * Reason Onset Date Comments Appointment 04/30/2024 Encounter Details Date Type Department Care Team (Late st Contact Info) Description 04/30/2024 Telephone Sleep Lab, [facility] [address] [place] [address] [facility], Sleep Med Night Sleep [address] [place] [address] Appointment Allergies Active Allergy Reactions Criticality Noted Date Comments Sulfamethoxazole-Tri methoprim Hives 12/11/2018 Was also taking keflex at the time for cellulitis but no previous rxn to cephalosporins Morphine Other (Please comment) 11/09/2015 Per pt caused pain [place] Extract Hives High 11/02/2015 documented as of this encounter (statuses as of 04/30/2024) Medications Medication Sig Dispensed Refills Start Date [...] COPD, group C, by GOLD 2017 classification ([facility]) Inhale 2 Puffs by mouth in [...] as of this encounter (statuses as of 04/30/2024) Active Problems Problem Noted Date Diagnosed Date [...] as of this encounter (statuses as of 04/30/2024) Resolved Problems Problem Noted Date Diagnosed Date Resolved Date COPD, moderate 08/17/2023 09/13/2023 Overview: Per COPD GOLD Classification COPD, group A, by GOLD 2017 classification 02/06/2022 2023 Overview: Per COPD GOLD Classification Encounter for examination fo r normal comparison and control in clinical research program 01/16/2019 02/02/2020 Overview: DO NOT DELETE [facility] DETECT Study: Project # [id number], Science Technician: Lanre Adames, PhD. SUMMARY: Goal: Establish test [...] contact study staff at ; after hours Science Technician via the [facility] hospital gear coding machine operator . Please contact study team before resolving/deleting from patients problem list. Study phone number: [phone]. Diagnosis changed due to Research Module. Go to Snapshot for study details. Encounter for examination fo r normal comparison and control in clinical research program 01/16/2019 03/02/2022 Overview: DO NOT DELETE - [facility] Study: Project # [id number], Science Technician: Rodo Alvarez, MS, MPH. SUMMARY: Goal: Establish [...] contact study staff at ; after hours Science Technician via the [facility] gear coding machine operator . - Please contact study team before resolving/deleting from patients problem list. Study phone number: [phone]. Diagnosis changed due to Research Module. Go to Snapshot for study details. COPD, severity to be determined 08/04/2017 02/09/2022 Overview: emphysema on chest CT 09/15 Melena 11/12/2015 11/12/2015 Abdominal abscess 11/09/2015 03/09/2017 Tobacco abuse 11/09/2015 10/23/2017 documented as of this encounter (statuses as of 04/30/2024) Immunizations Name Administration Dates Next Due COVID-19 [...] 10/11/2023 Does the household have a re lar source of income? (Household - for ages [...] No 09/21/2016 documented as of this encounter Plan of Treatment Upcoming Encounters Date Type Department Care Team (Late st Contact Info) Description 05/01/2024 7:30 PM EDT PulmDiagnostic Sleep Lab, [facility] [address] [place] [address] [place], Sleep Med Night Sleep [address] [place] [address] 05/12/2024 12:00 PM EST Imaging Radiology [address] [place] [phone] 07/16/2024 4:20 PM EST Office Visit Family Practice [facility] [address] [place] [phone] Nataly Kelly DO [address] [place] [address] 08/26/2024 1:30 PM EST Office Visit [facility] Disorders Ctr [facility] [address] [place] [phone] Jami Mccormack CRNP [address] [place] [address] 12/03/2024 4:00 PM EDT Imaging Radiology [address] [place] [phone] Scheduled Procedures Name Priority Associated Diagnoses Date/Ti me COLONOSCOPY FLEXIBLE PROXIMA L DIAGNOSTIC Recall Encounter for screening colonoscopy Health Maintenance Due Date Last Done Comments DISCUSS TOBACCO CESSATION (REFER TO SMARTSET #8926) 1950 Alpha-1 Antitrypsin 01/09/1970 Cologuard 01/09/1997 Fecal [...] this encounter Medical Devices Implanted Type Area Fibre Technologist Device Identifier Shelf Expiration Date Model / Serial / Lot Dbx 2.5cc [id number] - [id number] - [id number] Implanted:Qty : 1 on 10/12/2016 by Isaac Moe MD at [place] [facility] N/A: Spine Cervical MUSCULOSKELETAL TRANSPLANT FND 01/21/2018 [id number] / [id number] / Spacer Avs [id number] - [id number] Implanted:Qty : 2 on 10/12/2016 by Isaac Moe MD at OR [facility] N/A: Spine Cervical JOSÉ MIGUEL : SPINE [id number] / / Spacer Avs [id number] - [id number] Implanted:Qty : 1 on 10/12/2016 by Isaac Moe MD at OR [facility] N/A: Spine Cervical JOSÉ MIGUEL : SPINE [id number] / / José Miguel Dynaplate 48mm Implanted:Qty : 1 on 10/12/2016 by Isaac Moe MD at OR [facility] N/A: Spine Cervical JOSÉ MIGUEL : SPINE [id number] / / Screw Variable 14mm - [id number] Implanted:Qty : 8 on 10/12/2016 by Isaac Moe MD at OR [facility] N/A: Spine Cervical JOSÉ MIGUEL : SPINE [id number] / / Lens Intraoc 25.0 - [id number] - [id number] Implanted:Qty : 1 on 02/14/2022 by Blayne Whitmore MD at OR [facility] Left: Eye BAUSCH & LOMB 07/01/2026 [id number] / [id number] / [id number] Lens Intraoc 25.5 - [id number] - [id number] Implanted:Qty : 1 on 02/28/2022 by Blayne Whitmore MD at OR [facility] Right: Eye BAUSCH & LOMB 05/01/2026 [id number] / [id number] / [id number] documented as of this encounter Advance Directives [...] Power of Attor andrea? No Care Teams Sfdc Consultant Relationship Specialty Start Date End Date Nataly Kelly DO [address] [place] [address] PCP - General Family Medicine 11/04/15 documented as of this encounter
--- OUTSIDE RECORDS SUMMARY | 2024-05-15 00:29 | External Medical Summary | Summary of Care ---
Author Name Unknown Organization [facility] Address [address] [place] [address] Phone [phone] Care Team Providers Care Iron Melter Name Role Phone JoseLNataly quinn Primary Care Provider [phone] Reason for Visit * Reason Onset Date Comments FYI 01/24/2024 Encounter Details Date Type Department Care Team (Late st Contact Info) Description 01/24/2024 Telephone Neurology [facility] [address] [place] [address] Shital Pearson PA-C [address] [facility] [place] [address] Allergies Active Allergy Reactions Criticality Noted Date Comments Sulfamethoxazole-Tri methoprim Hives 12/11/2018 Was also taking keflex at the time for cellulitis but no previous rxn to cephalosporins Morphine Other (Please comment) 11/09/2015 Per pt caused pain [place] Extract Hives High 11/02/2015 documented as of this encounter (statuses as of 04/24/2024) Medications Medication Sig Dispensed Refills Start Date End Date Status traMADol HCl 50 MG Oral Tablet (Ultram)Indications:R adiculomyelopathy Take 1 Tablet by mouth every 6 hours as needed for Pain, Severe. take 1-2 tablets by mouth every 6 hours if needed for pain 60 Tablet 02/12/2023 Active Atorvastatin Calcium 20 MG Oral Tablet (Lipitor)Indications: Dyslipidemia, goal LDL below 100 Take 1 Tablet by mouth in the morning. In the morning.. 90 Tablet 3 05/30/2023 Active DULoxetine HCl 30 MG Oral Capsule Delayed Release Particles (Cymbalta)Indications :Recurrent major depressive disorder, in full remission (HCC) [...] Sodium 40 MG Oral Tablet Delayed Release (Protonix)Indications :Gastroesophageal reflux disease without esophagitis Take 1 Tablet by mouth in the morning and 1 Tablet before bedtime. 180 Tablet 3 05/30/2023 Active traZODone HCl 100 MG Oral Tablet (Desyrel) TAKE 1 AND 1/2 TABLETS BY MOUTH DAILY AT BEDTIME. 135 Tablet 1 11/05/2023 Active Meclizine HCl 25 MG Oral Tablet (Antivert)Indications :Vertigo Take 1 Tablet by mouth 3 times a day as needed for Dizziness. 30 Tablet 5 12/11/2023 Active Solifenacin Succinate 5 MG Oral Tablet (VESIcare)Indications :Urge incontinence of urine Take 1 Tablet by mouth in the morning. 90 Tablet 3 12/11/2023 Active Fluticasone Propionate 50 MCG/ACT Nasal Suspension (Flonase)Indications: Post-nasal drip Administer 2 Sprays into each nostril in the morning. 48 g 1 12/11/2023 Active Desonide 0.05 % External OintmentIndications:F lexural eczema Apply topically to affected area 2 times a day. 15 g 2 01/04/2024 Active Hospital, Clinic, or Other Facility Administered Medication Ordered Dose Route Frequency Start Date End Date Status albuterol sulfate (PROVENTIL) (2.5 MG/3ML) 0.083% inhalation solution 2.5 mgIndications:COPD, moderate (HCC) 2.5 mg NEBULIZER Q4H PRN 01/13/2019 Active documented as of this encounter (statuses as of 04/24/2024) Active Problems Problem Noted Date Diagnosed Date [...] as of this encounter (statuses as of 04/24/2024) Resolved Problems Problem Noted Date Diagnosed Date Resolved Date COPD, moderate 08/17/2023 09/13/2023 Overview: Per COPD GOLD Classification COPD, group A, by GOLD 2017 classification 02/06/2022 2023 Overview: Per COPD GOLD Classification Encounter for examination fo r normal comparison and control in clinical research program 01/16/2019 02/02/2020 Overview: DO NOT DELETE [facility] DETECT Study: Project # [id number], Hoop Coiler: Lanre Adames, PhD. SUMMARY: Goal: Establish test [...] contact study staff at ; after hours Hoop Coiler via the [facility] milling machine operator . Please contact study team before resolving/deleting from patients problem list. Study phone number: [phone]. Diagnosis changed due to Research Module. Go to Snapshot for study details. Encounter for examination fo r normal comparison and control in clinical research program 01/16/2019 03/02/2022 Overview: DO NOT DELETE - [facility] Study: Project # [id number], Hoop Coiler: Rodo Alvarez, MS, MPH. SUMMARY: Goal: Establish [...] contact study staff at ; after hours Hoop Coiler via the [facility] milling machine operator . - Please contact study team before resolving/deleting from patients problem list. Study phone number: [phone]. Diagnosis changed due to Research Module. Go to Snapshot for study details. COPD, severity to be determined 08/04/2017 02/09/2022 Overview: emphysema on chest CT 09/15 Melena 11/12/2015 11/12/2015 Abdominal abscess 11/09/2015 03/09/2017 Tobacco abuse 11/09/2015 10/23/2017 documented as of this encounter (statuses as of 04/24/2024) Immunizations Name Administration Dates Next Due COVID-19 [...] (15 years old or older) No 09/22/19 Cognitive Status Response Date of Assessm ent Because of a physical, menta l, or emotional condition, do you have serious difficulty concentrating, remembering, or making decisions? (5 years old or older) No 09/21/2016 documented as of this encounter Miscellaneous Notes * Telephone Encounter - Chel Nash, MED ASSIST - 01/24/2024 4:05 PM EDT KK- letter is on your desk. I made Shanna and Sia aware of this as well. * Telephone Encounter - Marie Mcdonald OSA - 01/24/2024 3:06 PM EDT Pt dropped off a letter typed up by tierra sepulveda. Letter is a direct letter for Shital Pearson to inform them about pt's license being revoked. The letter is explaining how Shital Pearson isincorrect for previous visits - referring back to all Dr. Arias. Letter concludes about possible getter operator getting involved. Please review letter. No further action is required. Letter will be locatedin Neuro/Nephro/allergy mailbox. Thank you. documented in this encounter Plan of Treatment Upcoming Encounters Date Type Department Care Team (Late st Contact Info) Description 05/01/2024 7:30 PM EDT PulmDiagnostic Sleep Lab, [facility] [address] [facility] [place] [address] [facility], Sleep Med Night Sleep [address] [facility] [address] 05/12/2024 12:00 PM EST Imaging Radiology [facility] [address] [facility] [address] [place] [address] 07/16/2024 4:20 PM EST Office Visit Family Practice [facility] [address] [place] [address] Nataly Kelly DO [address] [place] [address] 08/26/2024 1:30 PM EST Office Visit [facility] [address] [facility] [place] [phone] Jami Mccormack CRNP [address] [facility] [place] [address] 12/03/2024 4:00 PM EDT Imaging Radiology [address] [facility] [place] [address] Scheduled Procedures Name Priority Associated Diagnoses Date/Ti me COLONOSCOPY FLEXIBLE PROXIMA L DIAGNOSTIC Recall Encounter for screening colonoscopy Health Maintenance Due Date Last Done Comments DISCUSS TOBACCO CESSATION (REFER TO SMARTSET #4015) 1950 Alpha-1 Antitrypsin 01/09/1970 Cologuard 01/09/1997 Fecal [...] this encounter Medical Devices Implanted Type Area Prison Psychiatrist Device Identifier Shelf Expiration Date Model / Serial / Lot Dbx 2.5cc [id number] - [id number] - [id number] Implanted:Qty : 1 on 10/12/2016 by Isaac Moe MD at [place] [facility] N/A: Spine Cervical MUSCULOSKELETAL TRANSPLANT FND 01/21/2018 [id number] / [id number] / Spacer Avs [id number] - [id number] Implanted:Qty : 2 on 10/12/2016 by Isaac Moe MD at OR [facility] N/A: Spine Cervical JOSÉ MIGUEL : SPINE [id number] / / Spacer Avs [id number] - [id number] Implanted:Qty : 1 on 10/12/2016 by Isaac Moe MD at OR [facility] N/A: Spine Cervical JOSÉ MIGUEL : SPINE [id number] / / José Miguel Dynaplate 48mm Implanted:Qty : 1 on 10/12/2016 by Isaac Moe MD at OR [facility] N/A: Spine Cervical JOSÉ MIGUEL : SPINE [id number] / / Screw Variable 14mm - [id number] Implanted:Qty : 8 on 10/12/2016 by Isaac Moe MD at OR [facility] N/A: Spine Cervical JOSÉ MIGUEL : SPINE [id number] / / Lens Intraoc 25.0 - [id number] - [id number] Implanted:Qty : 1 on 02/14/2022 by Blayne Whitmore MD at OR [facility] Left: Eye BAUSCH & LOMB 07/01/2026 [id number] / [id number] / [id number] Lens Intraoc 25.5 - [id number] - [id number] Implanted:Qty : 1 on 02/28/2022 by Blayne Whitmore MD at OR [facility] Right: Eye BAUSCH & LOMB 05/01/2026 [id number] / [id number] / [id number] documented as of this encounter Advance Directives [...] Power of Attor andrea? No Care Teams Iron Melter Relationship Specialty Start Date End Date Nataly Kelly DO [address] [place] [address] PCP - General Family Medicine 11/04/15 documented as of this encounter
[2024-05-15 07:22] LABS: Chol HDL Ratio 2.1 (0-5)
[2024-05-15 07:24] LABS: ANTI-Xa, UFH(UnfractionatedHep 0.29 IU/ml (0.3-0.7)
[2024-05-15 07:54] LABS: Estimated Average Glucose 117 mg/dl; Hemoglobin A1C 5.7 % (4.5-5.6)
[2024-05-15] MEDS: AZITHROMYCIN 250 MG TAB PO SCH (08:48)
--- NOTE | 2024-05-15 10:44 | Cardiology Progress Note ---
Date of Service May 15, 2024 Assessment & Plan (1) COPD exacerbation: (2) Bilateral wheezing: (3) Non-ST elevation IA (NSTEMI): (4) Fall: (5) Laceration of scalp: Plan 74-year-old female presents with worsening wheezing and cough times several weeks in duration. Clinical presentation suggestive of COPD exacerbation with diffuse wheezing on auscultation and shortness of breath. EKG however demonstrates Q waves and ST changes suggestive of septal evolving infarct of uncertain duration. New since April 03, 2024. Echocardiogram with mild hypokinesis of the mid and apical septum with otherwise normal LV function Impression 1. Elevated troponin echocardiographic wall motion abnormality consistent with non-ST segment elevation myocardial infarction possible evolving septal infarct of recent duration. Agree with anticoagulation with IV heparin until better discerned. Serial troponins ordered Discontinue heparin with any acute neurologic complaints or worsening bleeding Continue aspirin Hold beta-miguel ángel given diffuse wheezing and asthmatic exacerbation Further investigation of cardiac disease depending on clinical course. Prior normal coronary angiography 2. Fall of uncertain etiology no distinct syncope. Would maintain telemetry check carotid duplex if not recently performed 3. Diffuse wheezing and COPD/emphysematous exacerbation per primary service Cardiology will continue to follow 05/15/2024 Respiratory status improving. Denies any chest pains or discomfort. No arrhythmias on telemetry. Presentation consistent with COPD/emphysematous exacerbation. Initial troponin elevated with segmental wall motion abnormality on echocardiogram. Recommendations: Check troponin this morning to assess for trending Repeat EKG Continue heparin additional 1 day, keep n.p.o. after midnight for possible cardiac catheterization depending on results of findings. Continue to treat underlying pulmonary issues Admission and Anticipated Discharge Date Admission Date: May 14, 2024 Subjective Patient seen and examined, chart and telemetry reviewed Respiratory status improved still with some wheezes but much less dyspneic than on presentation. Cough diminished. No chest pains no tachypalpitations no dizziness No arrhythmias on telemetry Review of Systems 2 Review of Systems: All systems reviewed & are unremarkable except as noted in Subjective Physical Exam Constitutional: well developed and well nourished; no acute distress Eyes: PERRL, conjunctivae normal, anicteric sclerae ENMT: Ears: + hearing impairment Neck: trachea midline, no thyromegaly Respiratory: normal respiratory effort and + audible wheezes Cardiovascular: Rate/Rhythm: regular rate and regular rhythm Heart Sounds: normal S1 and normal S2 Vessels: normal carotid upstroke, femoral pulses present and radial pulses present; no JVD Extremities: no edema Gastrointestinal (Abdomen): normal bowel sounds, soft, nontender, no hepatosplenomegaly Musculoskeletal: no cyanosis or clubbing, extremities motor strength 5/5 Neurologic: Motor/Sensory: + tremor Results & Data Vital Signs (Past 12 Hours) Vital Signs Temp Pulse Pulse Resp BP Pulse Ox O2 Del Method 05/15/24 09:00 Room Air 05/15/24 07:53 36.4 C L 97 H 18 138/70 95 Room Air 05/15/24 07:22 92 H 05/15/24 07:17 85 15 91 Room Air 05/15/24 03:49 36.3 C L 95 H 16 152/75 H 93 Room Air 05/14/24 23:08 36.8 C 88 16 143/75 H 93 Room Air FiO2 05/15/24 09:00 05/15/24 07:53 05/15/24 07:22 05/15/24 07:17 21 05/15/24 03:49 05/14/24 23:08 Laboratory Results Laboratory Results - last 24 hr 05/14/24 05/14/24 05/14/24 12:23 14:45 22:33 WBC 7.64 RBC 4.39 Hgb 13.0 Hct 40.1 MCV 91.3 MCH 29.6 MCHC 32.4 RDW Std Deviation 47.8 H RDW Coeff of Ira 14.1 Plt Count 332 MPV 8.8 L Immature Gran % (Auto) 0.3 Neut % (Auto) 60.2 Lymph % (Auto) 20.9 [place] % (Auto) 8.1 Eos % (Auto) 9.3 Baso % (Auto) 1.2 Neut # (Auto) 4.60 Lymph # (Auto) 1.60 [place] # (Auto) 0.62 H Eos # (Auto) 0.71 H Baso # (Auto) 0.09 Immature Gran # (Auto) 0.02 PT 10.6 INR 1.0 APTT 27 PTT Ratio 1.0 D-Dimer 310 Heparin Anti-Xa, Unfract 0.24 L Sodium 142 Potassium 4.0 Chloride 107 Carbon Dioxide 31 Anion Gap 4 BUN 13 Creatinine 0.98 Est Cr Clr Drug Dosing 46.7 eGFR 61.33 BUN/Creatinine Ratio 13.3 Glucose 95 Estimat Average Glucose Hemoglobin A1c Calcium 9.3 Total Bilirubin 0.5 AST 13 ALT 11 Alkaline Phosphatase 72 Troponin I High Sens 119.1 H* 102.6 H* B-Natriuretic Peptide 144 H Total Protein 5.9 L Albumin 3.9 Globulin 2.0 L Albumin/Globulin Ratio 2.0 Triglycerides Cholesterol LDL Cholesterol, Calc VLDL Cholesterol, Calc HDL Cholesterol Cholesterol/HDL Ratio Lipase 8 L Adenovirus (PCR) Not Detected B. pertussis DNA (PCR) Not Detected B.parapertussis DNA PCR Not Detected C. pneumoniae DNA (PCR) Not Detected Coronavirus OC43 (PCR) Not Detected Coronavirus HKU1 (PCR) Not Detected Coronavirus 229E (PCR) Not Detected SARS-CoV-2 (PCR) Not Detected Coronavirus NL63 (PCR) Not Detected Human Metapneumovir PCR Not Detected Influenza Type A (PCR) Not Detected Influenza Type B (PCR) Not Detected M. pneumoniae (PCR) Not Detected Parainfluenza 1 (PCR) Not Detected Parainfluenza 2 (PCR) Not Detected Parainfluenza 3 (PCR) Not Detected Parainfluenza 4 (PCR) Not Detected RSV (PCR) Not Detected Entero/Rhino (PCR) Not Detected 05/15/24 06:44 WBC RBC Hgb Hct MCV MCH MCHC RDW Std Deviation RDW Coeff of Ira Plt Count MPV Immature Gran % (Auto) Neut % (Auto) Lymph % (Auto) [place] % (Auto) Eos % (Auto) Baso % (Auto) Neut # (Auto) Lymph # (Auto) [place] # (Auto) Eos # (Auto) Baso # (Auto) Immature Gran # (Auto) PT INR APTT PTT Ratio D-Dimer Heparin Anti-Xa, Unfract 0.29 L Sodium Potassium Chloride Carbon Dioxide Anion Gap BUN Creatinine Est Cr Clr Drug Dosing eGFR BUN/Creatinine Ratio Glucose Estimat Average Glucose 117 Hemoglobin A1c 5.7 H Calcium Total Bilirubin AST ALT Alkaline Phosphatase Troponin I High Sens B-Natriuretic Peptide Total Protein Albumin Globulin Albumin/Globulin Ratio Triglycerides 81 Cholesterol 160 LDL Cholesterol, Calc 66 VLDL Cholesterol, Calc 16 HDL Cholesterol 78 Cholesterol/HDL Ratio 2.1 Lipase Adenovirus (PCR) B. pertussis DNA (PCR) B.parapertussis DNA PCR C. pneumoniae DNA (PCR) Coronavirus OC43 (PCR) Coronavirus HKU1 (PCR) Coronavirus 229E (PCR) SARS-CoV-2 (PCR) Coronavirus NL63 (PCR) Human Metapneumovir PCR Influenza Type A (PCR) Influenza Type B (PCR) M. pneumoniae (PCR) Parainfluenza 1 (PCR) Parainfluenza 2 (PCR) Parainfluenza 3 (PCR) Parainfluenza 4 (PCR) RSV (PCR) Entero/Rhino (PCR) (4) Fall Encounter type: initial encounter Qualified Code(s): W19.XXXA - Unspecified fall, initial encounter (5) Laceration of scalp Encounter type: initial encounter Qualified Code(s): S01.01XA - Laceration without foreign body of scalp, initial encounter
--- NOTE | 2024-05-15 13:13 | Electrocardiogram Report ---
Test Reason : Blood Pressure : */* mmHG Vent. Rate : 90 BPM Atrial Rate : 90 BPM P-R Int : 116 ms QRS Dur : 80 ms QT Int : 352 ms P-R-T Axes : 71 -34 26 degrees QTcB Int : 430 ms Normal sinus rhythm Left atrial enlargement Left axis deviation Recent Septal infarct (cited on or before 14-May-2024) Diffuse Nonspecific ST abnormality Abnormal ECG When compared with ECG of 14-May-2024 12:18, No significant change Confirmed by Mustapha Carrero ([id number]) on 05/15/2024 1:12:44 PM Referred By: REFERRED SELF Confirmed By: Mustapha Carrero
[2024-05-15 14:56] LABS: ANTI-Xa, UFH(UnfractionatedHep 0.32 IU/ml (0.3-0.7)
--- NOTE | 2024-05-15 17:01 | Hospitalist Progress Note ---
Date of Service May 15, 2024 Assessment & Plan (1) Laceration of scalp: (2) Fall: (3) COPD exacerbation: (4) Non-ST elevation [place] (NSTEMI): (5) VIRGIL (obstructive sleep apnea): (6) COPD (chronic obstructive pulmonary disease): (7) Asthma: (8) GERD (gastroesophageal reflux disease): (9) Restless leg syndrome: Plan Assessment and plan: Acute COPD exacerbation: Chest imaging negative for anything acute, normal white count. Discontinue IV Solu-Medrol switch to po, DuoNebs, Zithromax x 3 days Managed at home on Trelegy and albuterol NSTEMI: EKG with Q waves and ST changes suggestive of septal infarct Echocardiogram with mild hypokinesis of the mid and apical septum with otherwise normal LV function Initial troponin elevated at 119, trending down, continue aspirin, Cont heparin drip until tomorrow Mechanical fall Posterior scalp laceration Head CT negative for bleed, scalp sutured by ER physician Monitor mental status, hold hep drip with any changes -DTAP given Hx depression: Continue duloxetine/Wellbutrin Pulmonary nodules: Scattered noted on chest imaging, follow-up CT in 6 months A total of 55 minutes was spent on chart review/reviewing diagnostic data/facilitating plan of care/discussion with consultants Full code DVT prophylaxis: Heparin drip Admission and Anticipated Discharge Date Admission Date: May 14, 2024 Subjective 05/15/24: Patient seen and examined, chart and telemetry reviewed. Pt seen at bedside. She states that her wheezing and cough has improved. She refuses the Mucomyst because she states that tastes awful. She denies chest pain. She denies resting shortness of breath. She has no nausea or vomiting. No diarrhea. She has not had chest pain this admission or recently. She has EKG changes and her troponins are elevated consistent with NSTEMI. Review of Systems Review of Systems: Per HPI and remainder of the review of systems are negative. Physical Exam Physical Exam: General- adult Head- atraumatic Eyes- PERRL, EOMI, anicteric ENT- oropharynx clear Neck- supple, no JVD, no adenopathy, no thyromegaly; carotids +2/2, no bruits appreciated Lungs-scattered wheezing and rhonchi in the bases Heart- regular rhythm; no murmur, no gallop, no rub appreciated Abdomen- normal bowel sounds, soft, nontender, no masses or hepatosplenomegaly Extremities- no pretibial edema, no calf tenderness; peripheral pulses intact Neuro- alert, oriented x 3; PERRL, EOMI; no facial palsy; no dysarthria; motor 5/5 bilaterally; no cogwheel rigidity; patellar DTRs +2/2; toes downgoing bilaterally; finger to nose intact bilaterally Skin- warm & dry Results & Data Results & Data Vital Signs (Past 12 Hours) Vital Signs Temp Pulse Pulse Resp BP Pulse Ox O2 Del Method 05/15/24 14:43 36.8 C 81 17 121/68 96 Room Air 05/15/24 14:34 87 05/15/24 11:43 36.5 C 97 H 20 117/68 97 Room Air 05/15/24 09:00 Room Air 05/15/24 07:53 36.4 C L 97 H 18 138/70 95 Room Air 05/15/24 07:22 92 H 05/15/24 07:17 85 15 91 Room Air FiO2 05/15/24 14:43 05/15/24 14:34 05/15/24 11:43 05/15/24 09:00 05/15/24 07:53 05/15/24 07:22 05/15/24 07:17 21 Diagnostic Findings Laboratory Results WBC 7.64 K/ul (4.8-10.8) 05/14/24 12:23 RBC 4.39 M/uL (4.20-5.40) 05/14/24 12:23 Hgb 13.0 g/dl (12.0-16.0) 05/14/24 12:23 Hct 40.1 % (37.0-47.0) 05/14/24 12:23 MCV 91.3 fL (80.0-100.0) 05/14/24 12:23 MCH 29.6 pg (25.0-34.0) 05/14/24 12:23 MCHC 32.4 g/dL (32.0-36.0) 05/14/24 12:23 RDW Std Deviation 47.8 fL (36.4-46.3) H 05/14/24 12:23 RDW Coeff of Ira 14.1 % (11.5-14.5) 05/14/24 12:23 Plt Count 332 K/uL (130-400) 05/14/24 12:23 MPV 8.8 fL (9.4-12.4) L 05/14/24 12:23 Immature Gran % (Auto) 0.3 % 05/14/24 12:23 Neut % (Auto) 60.2 % 05/14/24 12:23 Lymph % (Auto) 20.9 % 05/14/24 12:23 [place] % (Auto) 8.1 % 05/14/24 12:23 Eos % (Auto) 9.3 % 05/14/24 12:23 Baso % (Auto) 1.2 % 05/14/24 12:23 Neut # (Auto) 4.60 K/uL (1.40-6.50) 05/14/24 12:23 Lymph # (Auto) 1.60 K/uL (1.20-3.40) 05/14/24 12:23 [place] # (Auto) 0.62 K/uL (0.11-0.59) H 05/14/24 12:23 Eos # (Auto) 0.71 K/uL (0.00-0.50) H 05/14/24 12:23 Baso # (Auto) 0.09 K/uL (0.00-0.20) 05/14/24 12: Immature Gran # (Auto) 0.02 K/uL (0.01-0.20) 05/14/24 12:23 PT 10.6 Seconds (9.0-12.0) 05/14/24 12:23 INR 1.0 (0.9-1.1) 05/14/24 12:23 APTT 27 Seconds (21-31) 05/14/24 12:23 PTT Ratio 1.0 05/14/24 12:23 D-Dimer 310 ug/L FEU (0-500) 05/14/24 12:23 Heparin Anti-Xa, Unfract 0.32 IU/ml (0.3-0.7) 05/15/24 14:24 Sodium 142 mmol/L (136-145) 05/14/24 12:23 Potassium 4.0 mmol/L (3.5-5.1) 05/14/24 12:23 Chloride 107 mmol/L (98-107) 05/14/24 12:23 Carbon Dioxide 31 mmol/L (21-32) 05/14/24 12:23 Anion Gap 4 (3-11) 05/14/24 12:23 BUN 13 mg/dl (6-23) 05/14/24 12:23 Creatinine 0.98 mg/dl (0.6-1.2) 05/14/24 12:23 Est Cr Clr Drug Dosing 46.7 ml/min 05/14/24 12:23 eGFR 61.33 05/14/24 12:23 BUN/Creatinine Ratio 13.3 (10-20) 05/14/24 12:23 Glucose 95 mg/dl (70-99(Fasting)) 05/14/24 12:23 Estimat Average Glucose 117 mg/dl 05/15/24 06:44 Hemoglobin A1c 5.7 % (4.5-5.6) H 05/15/24 06:44 Calcium 9.3 mg/dl (8.6-10.3) 05/14/24 12:23 Total Bilirubin 0.5 mg/dl (0.2-1.0) 05/14/24 12:23 AST 13 U/L (13-39) 05/14/24 12:23 ALT 11 U/L (7-52) 05/14/24 12:23 Alkaline Phosphatase 72 U/L (34-104) 05/14/24 12:23 Troponin I High Sens 59.6 pg/ml (0-14) H* D 05/15/24 11:19 B-Natriuretic Peptide 144 pg/ml (0-100) H 05/14/24 14:45 Total Protein 5.9 gm/dl (6.0-8.3) L 05/14/24 12:23 Albumin 3.9 gm/dl (3.4-5.0) 05/14/24 12:23 Globulin 2.0 gm/dl (2.5-4.0) L 05/14/24 12:23 Albumin/Globulin Ratio 2.0 (0.9-2) 05/14/24 12:23 Triglycerides 81 mg/dl (0-150) 05/15/24 06:44 Cholesterol 160 mg/dl (0-200) 05/15/24 06:44 LDL Cholesterol, Calc 66 mg/dl 05/15/24 06:44 VLDL Cholesterol, Calc 16 mg/dl (0-30) 05/15/24 06:44 HDL Cholesterol 78 mg/dl 05/15/24 06:44 Cholesterol/HDL Ratio 2.1 (0-5) 05/15/24 06:44 Lipase 8 U/L (11-82) L 05/14/24 12:23 Adenovirus (PCR) Not Detected (NotDetected) 05/14/24 12:23 B. pertussis DNA (PCR) Not Detected (NotDetected) 05/14/24 12:23 B.parapertussis DNA PCR Not Detected (NotDetected) 05/14/24 12:23 C. pneumoniae DNA (PCR) Not Detected (NotDetected) 05/14/24 12:23 Coronavirus OC43 (PCR) Not Detected (NotDetected) 05/14/24 12:23 Coronavirus HKU1 (PCR) Not Detected (NotDetected) 05/14/24 12:23 Coronavirus 229E (PCR) Not Detected (NotDetected) 05/14/24 12:23 SARS-CoV-2 (PCR) Not Detected (NotDetected) 05/14/24 12:23 Coronavirus NL63 (PCR) Not Detected (NotDetected) 05/14/24 12:23 Human Metapneumovir PCR Not Detected (NotDetected) 05/14/24 12:23 Influenza Type A (PCR) Not Detected (NotDetected) 05/14/24 12:23 Influenza Type B (PCR) Not Detected (NotDetected) 05/14/24 12:23 M. pneumoniae (PCR) Not Detected (NotDetected) 05/14/24 12:23 Parainfluenza 1 (PCR) Not Detected (NotDetected) 05/14/24 12:23 Parainfluenza 2 (PCR) Not Detected (NotDetected) 05/14/24 12:23 Parainfluenza 3 (PCR) Not Detected (NotDetected) 05/14/24 12:23 Parainfluenza 4 (PCR) Not Detected (NotDetected) 05/14/24 12:23 RSV (PCR) Not Detected (NotDetected) 05/14/24 12:23 Entero/Rhino (PCR) Not Detected (NotDetected) 05/14/24 12:23 Impressions Chest X-Ray 05/14/24 12:09 XR chest 1V portable CLINICAL HISTORY: Chest pain, nonspecific COMPARISON STUDY: Chest CT January 02, 2023. Chest radiograph April 03, 2024. FINDINGS: Lung volumes are normal. There is no consolidation. There is an equivocal 8 mm right upper lung nodule. There is no pneumothorax or pleural effusion. Cardiac size is normal. Mediastinal contours are normal. There is no evidence for pulmonary edema. Postoperative findings within the cervical spine are incidentally noted. IMPRESSION: 1. No acute cardiopulmonary findings. 2. Possible 8 mm right upper lung nodule. Nonemergent chest CT is recommended. ACT 112: Positive. There are findings on this exam that require communication between the performing entity and the patient following Patient Test Result Information Act ([place] Act 112) guidelines. Electronically signed by: Terry Holcomb M.D. 05/14/2024 12:45 PM Chest CTA 05/14/24 13:17 CT angio chest PE protocol CT DOSE: 1060.23 mGy.cm HISTORY: 74 years-old Female with PE. Acute chest pain with cough. Trauma status post fall TECHNIQUE: Multiple CTA images of the chest were obtained after the intravenous administration of 93 ml Optiray. Coronal and sagittal MIPS were obtained from the axial data set and were submitted for review. All measurements were obtained according to NASCET criteria. A dose lowering technique was utilized adhering to the principles of ALARA. COMPARISON: Chest radiograph of same day, chest CT 01/02/2023 FINDINGS: CTA: Heart size is normal. No pericardial effusion. Mild coronary artery calcificat ions. No thoracic aortic aneurysm or dissection. No pulmonary emboli identified. CT CHEST: Unremarkable thyroid. No lymphadenopathy. Emphysema with bronchial wall thickening and multifocal mucus plugging. Ill-defined nodular foci within the right lung apex measuring up to 5 mm, new from prior. 4 mm subpleural solid nodule lateral basal segment left lower lobe on image 93, also not definitively seen on prior. Mild distal esophageal wall thickening with tiny hiatal hernia. Unremarkable soft tissues. Partially imaged subcutaneous emphysema posterior to the right acromion. Subcentimeter rotator cuff calcific tendinosis. No acute displaced rib fracture identified. IMPRESSION: 1. No pulmonary emboli identified. 2. Emphysema with bronchitis and multifocal mucus plugging. 3. There are a few scattered new pulmonary nodules measuring up to 4 mm which are likely infectious or inflammatory. A precautionary six-month follow-up chest CT may be considered. 4. Partially imaged subcutaneous emphysema posterior to the right acromion. Correlate with physical exam findings to exclude penetrating trauma. ACT 112: Negative or not required by law. The above report was generated using voice recognition software. It may contain grammatical, syntax or spelling errors. Electronically signed by: Bennie Kahn M.D. 05/14/2024 2:[address] 05/14/24 13:17 CT head/brain wo con CLINICAL HISTORY: 74 years-old Female with fall. Acute head trauma status post fall TECHNIQUE: Multiple axial CT images of the head were obtained without contrast. A dose lowering technique was utilized adhering to the principles of ALARA. COMPARISON: 10/11/2020 FINDINGS: No acute intracranial hemorrhage, midline shift, intracranial mass, hydroc ephalus, territorial ischemia or abnormal extra-axial collection. Involutional changes with white matter hypodensities suggestive of chronic microvascular ischemic disease. The calvarium is intact. Cervical spinal fusion hardware. The paranasal sinuses, mastoid air cells, and middle ear cavities are clear. IMPRESSION: No acute intracranial abnormality or calvarial fracture. ACT 112: Negative or not required by law. The above report was generated using voice recognition software. It may contain grammatical, syntax or spelling errors. Electronically signed by: Bennie Kahn M.D. 05/14/2024 1:59 PM (1) Laceration of scalp Encounter type: initial encounter Qualified Code(s): S01.01XA - Laceration without foreign body of scalp, initial encounter (2) Fall Encounter type: initial encounter Qualified Code(s): W19.XXXA - Unspecified fall, initial encounter
--- NOTE | 2024-05-15 17:09 | Electrocardiogram Report ---
Test Reason : Blood Pressure : */* mmHG Vent. Rate : 78 BPM Atrial Rate : 78 BPM P-R Int : 122 ms QRS Dur : 86 ms QT Int : 364 ms P-R-T Axes : 63 -26 25 degrees QTcB Int : 414 ms Normal sinus rhythm Septal infarct , age undetermined Abnormal ECG When compared with ECG of 03-Apr-2024 19:54, ST elevation now present in Anteroseptal leads QT has shortened Confirmed by Mustapha Carrero ([id number]) on 05/15/2024 5:08:42 PM Referred By: Confirmed By: Mustapha Carrero
--- NOTE | 2024-05-16 00:12 | Ultrasound Report ---
Exam(s): US CAROTID EXAM: US Duplex Bilateral Extracranial Arteries CLINICAL HISTORY: Reason for exam: syncope, vascular diesase. TECHNIQUE: Real-time duplex ultrasound scan of the extracranial arteries integrating B-mode two-dimensional vascular structure, Doppler spectral analysis and color flow Doppler imaging. COMPARISON: No relevant prior studies available. FINDINGS: Right common carotid artery: Unremarkable. No occlusion or significant stenosis on color flow and spectral Doppler imaging. Right internal carotid artery: Unremarkable. No occlusion or significant stenosis on color flow and spectral Doppler imaging. Right external carotid artery: Unremarkable. No occlusion or significant stenosis on color flow and spectral Doppler imaging. Right vertebral artery: Unremarkable. Antegrade flow. Right ICA/CCA ratio: Unremarkable. Within normal limits. Left common carotid artery: Unremarkable. No occlusion or significant stenosis on color flow and spectral Doppler imaging. Left internal carotid artery: Unremarkable. No occlusion or significant stenosis on color flow and spectral Doppler imaging. Left external carotid artery: Unremarkable. No occlusion or significant stenosis on color flow and spectral Doppler imaging. Left vertebral artery: Unremarkable. Antegrade flow. Left ICA/CCA ratio: Unremarkable. Within normal limits. Lymph nodes: Unremarkable. No lymphadenopathy. CAROTID STENOSIS REFERENCE USING SRU CRITERIA: Mild - <50% stenosis. ICA PSV is less than 125 cm/second and plaque or intimal thickening is visible. Moderate - 50-69% stenosis. ICA PSV is 125 to 230 cm/second and plaque is visible. Severe - 70-94% stenosis. ICA PSV is more than 230 cm/second and visible plaque with lumen narrowing is seen. Near occlusion - 95-99% stenosis. ICA PSV is variable and significant plaque with luminal narrowing is seen. Occluded - 100% stenosis. No flow identified. IMPRESSION: Normal duplex ultrasound of the neck. Electronically signed by: Mason Jameson MD 05/16/24 00:11 AM
[2024-05-16] MEDS: COUGH DROP (SUGAR FREE) LOZ 24 LOZ/1 BOX BUCCAL STA (06:22)
[2024-05-16 06:38] LABS: ANTI-Xa, UFH(UnfractionatedHep 0.22 IU/ml (0.3-0.7)
[2024-05-16 09:14] LABS: BUN Creatinine Ratio 11.8 (10-20); Calcium 9.4 mg/dl (8.6-10.3); Creatinine Clr Calc Pharmacy 53.8 ml/min
[2024-05-16 09:17] LABS: Hematocrit (blood only) 42.2 % (37.0-47.0); Hemoglobin 13.6 g/dl (12.0-16.0); Mean Corpuscular Hemoglobin 28.9 pg (25.0-34.0); Mean Corpuscular Hgb Conc 32.2 g/dL (32.0-36.0); Mean Corpuscular Volume 89.8 fL (80.0-100.0); Mean Platelet Volume 9.5 fL (9.4-12.4); Platelet Count 311 K/uL (130-400); RDW Coefficient of Variation 14.2 % (11.5-14.5); RDW Standard Deviation 46.9 fL (36.4-46.3)
[2024-05-16] MEDS: predniSONE 50 MG TAB PO SCH (09:27)
--- NOTE | 2024-05-16 12:19 | Cardiology Progress Note ---
Date of Service May 16, 2024 Assessment & Plan (1) COPD exacerbation: (2) Bilateral wheezing: (3) Non-ST elevation [place] (NSTEMI): (4) Fall: (5) Laceration of scalp: Plan 74-year-old female presents with worsening wheezing and cough times several weeks in duration. Clinical presentation suggestive of COPD exacerbation with diffuse wheezing on auscultation and shortness of breath. EKG however demonstrates Q waves and ST changes suggestive of septal evolving infarct of uncertain duration. New since April 03, 2024. Echocardiogram with mild hypokinesis of the mid and apical septum with otherwise normal LV function Impression 1. Elevated troponin echocardiographic wall motion abnormality consistent with non-ST segment elevation myocardial infarction possible evolving septal infarct of recent duration. Agree with anticoagulation with IV heparin until better discerned. Serial troponins ordered Discontinue heparin with any acute neurologic complaints or worsening bleeding Continue aspirin Hold beta-miguel ángel given diffuse wheezing and asthmatic exacerbation Further investigation of cardiac disease depending on clinical course. Prior normal coronary angiography 2. Fall of uncertain etiology no distinct syncope. Would maintain telemetry check carotid duplex if not recently performed 3. Diffuse wheezing and COPD/emphysematous exacerbation per primary service Cardiology will continue to follow 05/15/2024 Respiratory status improving. Denies any chest pains or discomfort. No arrhythmias on telemetry. Presentation consistent with COPD/emphysematous exacerbation. Initial troponin elevated with segmental wall motion abnormality on echocardiogram. Recommendations: Check troponin this morning to assess for trending Repeat EKG Continue heparin additional 1 day, keep n.p.o. after midnight for possible cardiac catheterization depending on results of findings. Continue to treat underlying pulmonary issues 05/16/2024 No further cardiac complaints. Discussed options of management with patient and . Will plan on proceeding with coronary angiography later today. Findings and presentation consistent with stress mediated non-ST segment elevation myocardial infarction question secondary to coronary obstruction. Procedure and risk explained informed consent obtained Admission and Anticipated Discharge Date Admission Date: May 14, 2024 Subjective Patient seen and examined, chart, medications, telemetry reviewed. Pulmonary status appears improved per patient less respiratory distress and wheezing. No further chest pain or discomfort. No tachypalpitations or dizziness no arrhythmias. No bleeding issues on anticoagulation with heparin Review of Systems Review of Systems: All systems reviewed & are unremarkable except as noted in Subjective Physical Exam Constitutional: well developed and well nourished; no acute distress Eyes: PERRL, conjunctivae normal, anicteric sclerae ENMT: Ears: + hearing impairment Neck: trachea midline, no thyromegaly Respiratory: normal respiratory effort, + cough and + audible wheezes Cardiovascular: Rate/Rhythm: regular rate and regular rhythm Heart Sounds: normal S1 and normal S2 Vessels: normal carotid upstroke, femoral pulses present and radial pulses present; no JVD Extremities: no edema Gastrointestinal (Abdomen): normal bowel sounds, soft, nontender, no hepatosplenomegaly Musculoskeletal: no cyanosis or clubbing, extremities motor strength 5/5 Neurologic: Motor/Sensory: + tremor Results & Data Vital Signs (Past 12 Hours) Vital Signs Temp Pulse Pulse Resp BP Pulse Ox O2 Del Method 05/16/24 09:00 Room Air 05/16/24 07:44 82 05/16/24 07:21 36.8 C 79 18 111/69 91 Room Air 05/16/24 07:01 91 H 17 92 Room Air 05/16/24 02:30 36.8 C 92 H 18 101/54 L 92 Room Air Laboratory Results Laboratory Results - last 24 hr 05/15/24 05/16/24 05/16/24 14:24 05:37 05:41 WBC 8.40 RBC 4.70 Hgb 13.6 Hct 42.2 MCV 89.8 MCH 28.9 MCHC 32.2 RDW Std Deviation 46.9 H RDW Coeff of Ira 14.2 Plt Count 311 MPV 9.5 Heparin Anti-Xa, Unfract 0.32 0.22 L Sodium 140 Potassium 4.0 Chloride 106 Carbon Dioxide 27 Anion Gap 7 BUN 10 Creatinine 0.85 Est Cr Clr Drug Dosing 53.8 eGFR 72.75 BUN/Creatinine Ratio 11.8 Glucose 103 H Calcium 9.4 (4) Fall Encounter type: initial encounter Qualified Code(s): W19.XXXA - Unspecified fall, initial encounter (5) Laceration of scalp Encounter type: initial encounter Qualified Code(s): S01.01XA - Laceration without foreign body of scalp, initial encounter
--- NOTE | 2024-05-16 12:50 | Pre Anesthesia Assessment ---
Date of Service May 16, 2024 Pre Sedation Assessment Vital Signs Temp Pulse Pulse Resp BP Pulse Ox O2 Del Method 05/16/24 12:29 36.4 C 86 16 125/54 L 95 Room Air 05/16/24 09:00 Room Air 05/16/24 07:44 82 05/16/24 07:21 36.8 C 79 18 111/69 91 Room Air 05/16/24 07:01 91 H 17 92 Room Air 05/16/24 02:30 36.8 C 92 H 18 101/54 L 92 Room Air 05/15/24 23:05 36.8 C 98 H 18 125/76 94 Room Air 05/15/24 22:42 99 H 05/15/24 19:50 Room Air 05/15/24 19:46 36.6 C 87 18 152/69 H 97 Room Air 05/15/24 19:36 81 18 94 Room Air 05/15/24 14:43 36.8 C 81 17 121/68 96 Room Air 05/15/24 14:34 87 Cardiovascular + regular rate and + regular rhythm + S1 normal and + S2 normal + femoral pulses present and + radial pulses present; no JVD no edema Respiratory + diminished lung sounds Pre-Sedation Airway Assessment Smoking Status: Former smoker Hx Sleep Apnea: No Short, Thick Neck: No Thyromental Distance: > or= 3.5 Finger Breadths Oral Cavity: + WNL Mallampati Class: II ASA: ASA3 NPO Status Date of Last Intake of Fluids: 05/16/24 Time of Last Intake of Fluids: 06:00 Date of Last Intake of Solid Food: 05/16/24 Time of Last Intake of Solid Foods: 06:00 Procedure Planning Contraindications for Sedation: none Current Medications Reviewed: Yes Notes The planned sedation has been discussed with the patient. Informed Consent was obtained. I have identified the patient, determined the appropriateness of sedation and have assessed the patient immediately prior to the procedure. All medicine(s) and interventions are by my order.
[2024-05-16] MEDS: HEPARIN (PORCINE) 1000 UNIT/ML 10 ML (CATH LAB USE ONLY) ONE (13:29)
[2024-05-16] MEDS: fentaNYL citrate PF 100 MCG/2 ML VIAL ONE (13:29)
[2024-05-16] MEDS: MIDAZOLAM HCL 1 MG/ML 2ML VIAL ONE (13:30)
[2024-05-16] MEDS: niCARdipine 2,000 MCG/20 ML SYR ONE (13:30)
[2024-05-16] MEDS: NITROGLYCERIN/D5W 100MCG/ML 20ML SYR ONE (13:31)
[2024-05-16] MEDS: OPTIRAY 350 ONE (13:36)
--- NOTE | 2024-05-16 13:46 | Cardiac Catheterization ---
Cardiac Cath Procedure Brief Procedure Date May 16, 2024 Pre-Procedure Diagnosis Pre-Procedure Diagnosis: Cardiomyopathy AUC Score AUC Score: 7 Post-Procedure Diagnosis Post-Procedure Diagnosis: Normal Coronary Arteries Procedure(s) Performed Procedure(s) Performed: Coronary Angiography, Left Heart Cath and LV Angiography Ultrasonic Hand Solderer Adilson Montana MD Cello Teacher(s) Nohelia Verdin Estimated Blood Loss Estimated Blood Loss: <15cc Medication(s) Medication(s): Lidocaine 1% (Local infiltration access site) and Versed (1 mg IV) Preliminary Findings Impression: Right dominant normal coronary anatomy Normal to hyperdynamic LV systolic function Recommendations Recommendations: Medical Therapy and/or Counseling Anesthesia Start time: 1303, stop time: 1333 Procedural Complication(s) None Disposition PCU
--- NOTE | 2024-05-16 13:49 | Cardiac Catheterization ---
Cardiac Cath Procedure Full Procedure Date May 16, 2024 Pre-Procedure Diagnosis Pre-Procedure Diagnosis: Non STEMI and Cardiomyopathy AUC Score AUC Score: 7 Post-Procedure Diagnosis Post-Procedure Diagnosis: Normal Coronary Arteries, Normal LV Systolic Function and Normal Intracardiac Pressures Procedure(s) Performed Procedure(s) Performed: Coronary Angiography, Left Heart Cath and LV Angiography Nephrology Nurse Adilson Montana MD Dye Range Tender(s) Nohelia Verdin Estimated Blood Loss Estimated Blood Loss: <15cc Medication(s) Medication(s): Fentanyl (5 mcg IV), Heparin (5000 units IV), Lidocaine 1% (Local infiltration access site), Nicardipine (250 mcg intra-arterial after arterial sheath insertion) and Versed (1 mg IV) Summary of Findings Impression: Right dominant normal coronary anatomy Normal to hyperdynamic LV systolic function, EF greater than 65% with no wall motion abnormalities Procedure: Left heart catheterization coronary, LV angiography via right femoral artery access. Catheters: 5 Iranian arterial sheath, 5 Iranian JL 4, 5 Iranian 3 DRC, 5 Iranian straight pigtail Procedural note: Radial artery access attempted. Arterial access gained with ultrasonic guidance however wire unable to be advanced due to narrow caliber vessel Coronary angiography: Right dominant anatomy Left main: Long normal caliber vessel free of disease Left anterior descending: Type III in distribution tortuous in coursing. It gives rise to a large multi branching diagonal branch in its proximal third,a large septal branch at the end of its proximal third and courses to terminate beyond the apex. There is no disease in the left anterior descending Left circumflex: Moderate caliber giving rise to a first marginal branch and a large multi branching second marginal branch. There is no disease in the left circumflex Right coronary artery moderate caliber vessel. Gives rise to 2 small right ventricular branches and at the AV groove a small accessory and main posterior sending artery. A single terminal posterior ventricular branch is present. There is no disease in the right coronary artery LV angiography: Hyperdynamic LV function EF 65 to 70% without wall motion abnormality. Normal left end-diastolic pressure Hemodynamics Rest Ao:: 136/68/97 Final Ao: 130/56/88 LV: 129/0/8 Recommendations Recommendations: Medical Therapy and/or Counseling Radiation Exposure (mGy) 171 Contrast (mls) 85 Anesthesia Start time: 1303, stop time: 1333 Procedural Complication(s) None Disposition PCU I attest to the content of the Intraoperative Record and any orders documented therein. Any exceptions are noted below. 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 Cardiac enzymes elevated. Echocardiogram with LAD distribution wall motion abnormality. Patient referred for further definition CAD Presenation: Sx unlikely to be ischemic Anginal Classification: No Symptoms Heart Failure: No Cardiogenic Shock within 24 Hours: No Cardiac Arrest within 24 Hours: No Imaging Studies Past 6 Months: Yes Stress Studies Past 6 Months: No Standard Exercise Test: No Stress Echocardiogram: No Stress Testing w/SPECT MPI: No Cardiac CTA: No Coronary Anatomy Dominant: Right Left Main (% Stenosis): Normal LAD (% Stenosis): Normal D1 (% Stenosis): Normal Circumflex (% Stenosis): Normal OM1 (% Stenosis): Normal OM2 (% Stenosis): Normal RCA (% Stenosis): Normal R PDA (% Stenosis): Normal R PL1 (% Stenosis): Normal R PL2 (% Stenosis): Normal Left Ventricular Angiography EF (%): EF greater than 65% Mitral Regurgitation: None Diagnostic Physicians Name: Adilson Montana MD Status: Urgent Closure Device Percutaneous Entry Location: Femoral Closure Device: None-Manual Hold Recommendations: Medical Therapy and/or Counseling
--- NOTE | 2024-05-16 13:51 | Post Anesthesia Assessment ---
Date of Service May 16, 2024 Post Sedation Assessment Vital Signs Temp Pulse Pulse Resp BP Pulse Ox O2 Del Method 05/16/24 12:29 36.4 C 86 16 125/54 L 95 Room Air 05/16/24 09:00 Room Air 05/16/24 07:44 82 05/16/24 07:21 36.8 C 79 18 111/69 91 Room Air 05/16/24 07:01 91 H 17 92 Room Air 05/16/24 02:30 36.8 C 92 H 18 101/54 L 92 Room Air 05/15/24 23:05 36.8 C 98 H 18 125/76 94 Room Air 05/15/24 22:42 99 H 05/15/24 19:50 Room Air 05/15/24 19:46 36.6 C 87 18 152/69 H 97 Room Air 05/15/24 19:36 81 18 94 Room Air 05/15/24 14:43 36.8 C 81 17 121/68 96 Room Air 05/15/24 14:34 87 Recovery Score Activity: Moves 4 extremities Respiration: Deep Breath/Cough Circulation: +/-20% PreAnes Value Consciousness: Fully Awake Oxygen Saturation: > 92% On Room Air Discharge Sedation Level of Care: Phase I Post Sedation Plan On clinical assessment, the patient appears to have tolerated the sedation without complications. Patient is recovering as anticipated. Patient will continue to be monitored by nursing and may be discharged when sedation discharge criteria are met per below protocol. Upon Completions of procedure up to 15 minutes continue every 5 minute vital signs and the P.A.R. score; then discharge to a Phase I or Fast Track to Phase II per the following guidelines: * Discharge Patient to appropriate Phase II area if PAR is 8 or greater or return to pre- procedure baseline. The post - procedure orders will be as directed. * If PAR score is less than 8 or not return to pre-procedure baseline then patient will follow Phase I monitoring till PAR is reached for Phase II. The Phase I may be done in procedure room or may call to secure a Phase I area. * If naloxone or flumazenil are used for reversal, hold in Phase I for continued monitoring from when last reversal dose was given for a minimum of 60 minutes or longer pending the nurse and/or physician discretion of patient condition before discharge to Phase II. Please call the Sedation Physician to re-evaluate and complete post-note for discharge to Phase II area. Do NOT discharge from procedure sedation or Phase 1 until post- sedation evaluation note is complete by procedure /sedation MD Sedation Discharge Instructions to be given to the patient at discharge to home.
--- NOTE | 2024-05-16 16:28 | Electrocardiogram Report ---
Test Reason : Blood Pressure : */* mmHG Vent. Rate : 82 BPM Atrial Rate : 82 BPM P-R Int : 116 ms QRS Dur : 84 ms QT Int : 384 ms P-R-T Axes : 73 -42 -15 degrees QTcB Int : 448 ms Normal sinus rhythm Left axis deviation Septal infarct , age undetermined Diffuse Nonspecific ST abnormality Abnormal ECG When compared with ECG of 15-May-2024 09:58, No significant change Confirmed by Mustapha Carrero ([id number]) on 05/16/2024 4:28:22 PM Referred By: REFERRED SELF Confirmed By: Mustapha Carrero
--- NOTE | 2024-05-16 17:07 | Hospitalist Progress Note ---
Date of Service May 16, 2024 Assessment & Plan (1) Laceration of scalp: (2) Fall: (3) COPD exacerbation: (4) Non-ST elevation [place] (NSTEMI): (5) VIRGIL (obstructive sleep apnea): (6) COPD (chronic obstructive pulmonary disease): (7) Asthma: (8) GERD (gastroesophageal reflux disease): (9) Restless leg syndrome: Plan Assessment and plan: Acute COPD exacerbation: Chest imaging negative for anything acute, normal white count. Discontinue IV Solu-Medrol switch to po, DuoNebs, Zithromax x 3 days Managed at home on Trelegy and albuterol -Consult pulmonary medicine. Patient still with tremendous cough. And now has to lay supine postcardiac cath. Radial attempt for cath was unsuccessful and had to go through the groin. NSTEMI: EKG with Q waves and ST changes suggestive of septal infarct Echocardiogram with mild hypokinesis of the mid and apical septum with otherwise normal LV function Initial troponin elevated at 119, trending down, continue aspirin, heparin drip off --Cardiac cath completed today. No obstructive disease noted. Mechanical fall Posterior scalp laceration Head CT negative for bleed, scalp sutured by ER physician Monitor mental status, hold hep drip with any changes -DTAP given Hx depression: Continue duloxetine/Wellbutrin Pulmonary nodules: Scattered noted on chest imaging, follow-up CT in 6 months -Consult pulmonology A total of 50 minutes was spent on chart review/reviewing diagnostic data/facilitating plan of care/discussion with consultants Full code DVT prophylaxis: Heparin drip Admission and Anticipated Discharge Date Admission Date: May 14, 2024 Subjective Patient seen and examined, chart, medications, telemetry reviewed. Pulmonary status appears improved per patient less respiratory distress and wheezing. Still with a cough with some sputum. No further chest pain or discomfort. No tachy or palpitations or dizziness no arrhythmias. No bleeding issues on anticoagulation with heparin Review of Systems Review of Systems: Per HPI and remainder of the review of systems are negative. Physical Exam Physical Exam: General- adult Head- atraumatic Eyes- PERRL, EOMI, anicteric ENT- oropharynx clear Neck- supple, no JVD, no adenopathy, no thyromegaly; carotids +2/2, no bruits appreciated Lungs-scattered wheezing and rhonchi in the bases Heart- regular rhythm; no murmur, no gallop, no rub appreciated Abdomen- normal bowel sounds, soft, nontender, no masses or hepatosplenomegaly Extremities- no pretibial edema, no calf tenderness; peripheral pulses intact Neuro- alert, oriented x 3; PERRL, EOMI; Skin- warm & dry Results & Data Results & Data Vital Signs (Past 12 Hours) Vital Signs Temp Pulse Pulse Resp BP BP Pulse Ox 05/16/24 16:04 83 20 114/70 05/16/24 15:30 85 05/16/24 15:04 85 20 118/63 05/16/24 14:55 86 18 112/70 05/16/24 14:34 88 20 121/56 L 91 05/16/24 14:10 84 16 106/63 95 05/16/24 13:55 92 H 16 142/59 H 95 05/16/24 12:29 36.4 C 86 16 125/54 L 95 05/16/24 09:00 05/16/24 07:44 82 05/16/24 07:21 36.8 C 79 18 111/69 91 05/16/24 07:01 91 H 17 92 O2 Del Method 05/16/24 16:04 05/16/24 15:30 05/16/24 15:04 05/16/24 14:55 05/16/24 14:34 Room Air 05/16/24 14:10 Room Air 05/16/24 13:55 Room Air 05/16/24 12:29 Room Air 05/16/24 09:00 Room Air 05/16/24 07:44 05/16/24 07:21 Room Air 05/16/24 07:01 Room Air Diagnostic Findings Laboratory Results WBC 8.40 K/ul (4.8-10.8) 05/16/24 05:41 RBC 4.70 M/uL (4.20-5.40) 05/16/24 05:41 Hgb 13.6 g/dl (12.0-16.0) 05/16/24 05:41 Hct 42.2 % (37.0-47.0) 05/16/24 05:41 MCV 89.8 fL (80.0-100.0) 05/16/24 05:41 MCH 28.9 pg (25.0-34.0) 05/16/24 05:41 MCHC 32.2 g/dL (32.0-36.0) 05/16/24 05:41 RDW Std Deviation 46.9 fL (36.4-46.3) H 05/16/24 05:41 RDW Coeff of Ira 14.2 % (11.5-14.5) 05/16/24 05:41 Plt Count 311 K/uL (130-400) 05/16/24 05:41 MPV 9.5 fL (9.4-12.4) 05/16/24 05:41 Immature Gran % (Auto) 0.3 % 05/14/24 12:23 Neut % (Auto) 60.2 % 05/14/24 12:23 Lymph % (Auto) 20.9 % 05/14/24 12:23 Luna % (Auto) 8.1 % 05/14/24 12:23 Eos % (Auto) 9.3 % 05/14/24 12:23 Baso % (Auto) 1.2 % 05/14/24 12:23 Neut # (Auto) 4.60 K/uL (1.40-6.50) 05/14/24 12:23 Lymph # (Auto) 1.60 K/uL (1.20-3.40) 05/14/24 12:23 Luna # (Auto) 0.62 K/uL (0.11-0.59) H 05/14/24 12:23 Eos # (Auto) 0.71 K/uL (0.00-0.50) H 05/14/24 12:23 Baso # (Auto) 0.09 K/uL (0.00-0.20) 05/14/24 12:23 Immature Gran # (Auto) 0.02 K/uL (0.01-0.20) 05/14/24 12:23 PT 10.6 Seconds (9.0-12.0) 05/14/24 12:23 INR 1.0 (0.9-1.1) 05/14/24 12:23 APTT 27 Seconds (21-31) 05/14/24 12:23 PTT Ratio 1.0 05/14/24 12:23 D-Dimer 310 ug/L FEU (0-500) 05/14/24 12:23 Heparin Anti-Xa, Unfract 0.22 IU/ml (0.3-0.7) L 05/16/24 05:37 Sodium 140 mmol/L (136-145) 05/16/24 05:41 Potassium 4.0 mmol/L (3.5-5.1) 05/16/24 05:41 Chloride 106 mmol/L (98-107) 05/16/24 05:41 Carbon Dioxide 27 mmol/L (21-32) 05/16/24 05:41 Anion Gap 7 (3-11) 05/16/24 05:41 BUN 10 mg/dl (6-23) 05/16/24 05:41 Creatinine 0.85 mg/dl (0.6-1.2) 05/16/24 05:41 Est Cr Clr Drug Dosing 53.8 ml/min 05/16/24 05:41 eGFR 72.75 05/16/24 05:41 BUN/Creatinine Ratio 11.8 (10-20) 05/16/24 05:41 Glucose 103 mg/dl (70-99(Fasting)) H 05/16/24 05:41 Estimat Average Glucose 117 mg/dl 05/15/24 06:44 Hemoglobin A1c 5.7 % (4.5-5.6) H 05/15/24 06:44 Calcium 9.4 mg/dl (8.6-10.3) 05/16/24 05:41 Total Bilirubin 0.5 mg/dl (0.2-1.0) 05/14/24 12:23 AST 13 U/L (13-39) 05/14/24 12:23 ALT 11 U/L (7-52) 05/14/24 12:23 Alkaline Phosphatase 72 U/L (34-104) 05/14/24 12:23 Troponin I High Sens 59.6 pg/ml (0-14) H* D 05/15/24 11:19 B-Natriuretic Peptide 144 pg/ml (0-100) H 05/14/24 14:45 Total Protein 5.9 gm/dl (6.0-8.3) L 05/14/24 12:23 Albumin 3.9 gm/dl (3.4-5.0) 05/14/24 12:23 Globulin 2.0 gm/dl (2.5-4.0) L 05/14/24 12:23 Albumin/Globulin Ratio 2.0 (0.9-2) 05/14/24 12:23 Triglycerides 81 mg/dl (0-150) 05/15/24 06:44 Cholesterol 160 mg/dl (0-200) 05/15/24 06:44 LDL Cholesterol, Calc 66 mg/dl 05/15/24 06:44 VLDL Cholesterol, Calc 16 mg/dl (0-30) 05/15/24 06:44 HDL Cholesterol 78 mg/dl 05/15/24 06:44 Cholesterol/HDL Ratio 2.1 (0-5) 05/15/24 06:44 Lipase 8 U/L (11-82) L 05/14/24 12:23 Adenovirus (PCR) Not Detected (NotDetected) 05/14/24 12:23 B. pertussis DNA (PCR) Not Detected (NotDetected) 05/14/24 12:23 B.parapertussis DNA PCR Not Detected (NotDetected) 05/14/24 12:23 C. pneumoniae DNA (PCR) Not Detected (NotDetected) 05/14/24 12:23 Coronavirus OC43 (PCR) Not Detected (NotDetected) 05/14/24 12:23 Coronavirus HKU1 (PCR) Not Detected (NotDetected) 05/14/24 12:23 Coronavirus 229E (PCR) Not Detected (NotDetected) 05/14/24 12:23 SARS-CoV-2 (PCR) Not Detected (NotDetected) 05/14/24 12:23 Coronavirus NL63 (PCR) Not Detected (NotDetected) 05/14/24 12:23 Human Metapneumovir PCR Not Detected (NotDetected) 05/14/24 12:23 Influenza Type A (PCR) Not Detected (NotDetected) 05/14/24 12:23 Influenza Type B (PCR) Not Detected (NotDetected) 05/14/24 12:23 M. pneumoniae (PCR) Not Detected (NotDetected) 05/14/24 12:23 Parainfluenza 1 (PCR) Not Detected (NotDetected) 05/14/24 12:23 Parainfluenza 2 (PCR) Not Detected (NotDetected) 05/14/24 12:23 Parainfluenza 3 (PCR) Not Detected (NotDetected) 05/14/24 12:23 Parainfluenza 4 (PCR) Not Detected (NotDetected) 05/14/24 12:23 RSV (PCR) Not Detected (NotDetected) 05/14/24 12:23 Entero/Rhino (PCR) Not Detected (NotDetected) 05/14/24 12:23 Impressions Chest X-Ray 05/14/24 12:09 XR chest 1V portable CLINICAL HISTORY: Chest pain, nonspecific COMPARISON STUDY: Chest CT January 02, 2023. Chest radiograph April 03, 2024. FINDINGS: Lung volumes are normal. There is no consolidation. There is an equivocal 8 mm right upper lung nodule. There is no pneumothorax or pleural effusion. Cardiac size is normal. Mediastinal contours are normal. There is no evidence for pulmonary edema. Postoperative findings within the cervical spine are incidentally noted. IMPRESSION: 1. No acute cardiopulmonary findings. 2. Possible 8 mm right upper lung nodule. Nonemergent chest CT is recommended. ACT 112: Positive. There are findings on this exam that require communication between the performing entity and the patient following Patient Test Result Information Act ([place] Act 112) guidelines. Electronically signed by: Terry Holcomb M.D. 05/14/2024 12:45 PM Chest CTA 05/14/24 13:17 CT angio chest PE protocol CT DOSE: 1060.23 mGy.cm HISTORY: 74 years-old Female with PE. Acute chest pain with cough. Trauma status post fall TECHNIQUE: Multiple CTA images of the chest were obtained after the intravenous administration of 93 ml Optiray. Coronal and sagittal MIPS were obtained from the axial data set and were submitted for review. All measurements were obtained according to NASCET criteria. A dose lowering technique was utilized adhering to the principles of ALARA. COMPARISON: Chest radiograph of same day, chest CT 01/02/2023 FINDINGS: CTA: Heart size is normal. No pericardial effusion. Mild coronary artery calcifications. No thoracic aortic aneurysm or dissection. No pulmonary emboli identified. CT CHEST: Unremarkable thyroid. No lymphadenopathy. Emphysema with bronchial wall thickening and multifocal mucus plugging. Ill-defined nodular foci within the right lung apex measuring up to 5 mm, new from prior. 4 mm subpleural solid nodule lateral basal segment left lower lobe on image 93, also not definitively seen on prior. Mild distal esophageal wall thickening with tiny hiatal hernia. Unremarkable soft tissues. Partially imaged subcutaneous emphysema posterior to the right acromion. Subcentimeter rotator cuff calcific tendinosis. No acute displaced rib fracture identified. IMPRESSION: 1. No pulmonary emboli identified. 2. Emphysema with bronchitis and multifocal mucus plugging. 3. There are a few scattered new pulmonary nodules measuring up to 4 mm which are likely infectious or inflammatory. A precautionary six-month follow-up chest CT may be considered. 4. Partially imaged subcutaneous emphysema posterior to the right acromion. Correlate with physical exam findings to exclude penetrating trauma. ACT 112: Negative or not required by law. The above report was generated using voice recognition software. It may contain grammatical, syntax or spelling errors. Electronically signed by: Bennie Kahn M.D. 05/14/2024 2:[address] 05/14/24 13:17 CT head/brain wo con CLINICAL HISTORY: 74 years-old Female with fall. Acute head trauma status post fall TECHNIQUE: Multiple axial CT images of the head were obtained without contrast. A dose lowering technique was utilized adhering to the principles of ALARA. COMPARISON: 10/11/2020 FINDINGS: No acute intracranial hemorrhage, midline shift, intracranial mass, hydrocephalus, territorial ischemia or abnormal extra-axial collection. Involutional changes with white matter hypodensities suggestive of chronic microvascular ischemic disease. The calvarium is intact. Cervical spinal fusion hardware. The paranasal sinuses, mastoid air cells, and middle ear cavities are clear. IMPRESSION: No acute intracranial abnormality or calvarial fracture. ACT 112: Negative or not required by law. The above report was generated using voice recognition software. It may contain grammatical, syntax or spelling errors. Electronically signed by: Bennie Kahn M.D. 05/14/2024 1:59 PM Carotid Doppler Study 05/15/24 16:57 Exam(s): US CAROTID EXAM: US Duplex Bilateral Extracranial Arteries CLINICAL HISTORY: Reason for exam: syncope, vascular diesase. TECHNIQUE: Real-time duplex ultrasound scan of the extracranial arteries integrating B-mode two-dimensional vascular structure, Doppler spectral analysis and color flow Doppler imaging. COMPARISON: No relevant prior studies available. FINDINGS: Right common carotid artery: Unremarkable. No occlusion or significant stenosis on color flow and spectral Doppler imaging. Right internal carotid artery: Unremarkable. No occlusion or significant stenosis on color flow and spectral Doppler imaging. Right external carotid artery: Unremarkable. No occlusion or significant stenosis on color flow and spectral Doppler imaging. Right vertebral artery: Unremarkable. Antegrade flow. Right ICA/CCA ratio: Unremarkable. Within normal limits. Left common carotid artery: Unremarkable. No occlusion or significant stenosis on color flow and spectral Doppler imaging. Left internal carotid artery: Unremarkable. No occlusion or significant stenosis on color flow and spectral Doppler imaging. Left external carotid artery: Unremarkable. No occlusion or significant stenosis on color flow and spectral Doppler imaging. Left vertebral artery: Unremarkable. Antegrade flow. Left ICA/CCA ratio: Unremarkable. Within normal limits. Lymph nodes: Unremarkable. No lymphadenopathy. CAROTID STENOSIS REFERENCE USING SRU CRITERIA: Mild - <50% stenosis. ICA PSV is less than 125 cm/second and plaque or intimal thickening is visible. Moderate - 50-69% stenosis. ICA PSV is 125 to 230 cm/second and plaque is visible. Severe - 70-94% stenosis. ICA PSV is more than 230 cm/second and visible plaque with lumen narrowing is seen. Near occlusion - 95-99% stenosis. ICA PSV is variable and significant plaque with luminal narrowing is seen. Occluded - 100% stenosis. No flow identified. IMPRESSION: Normal duplex ultrasound of the neck. Electronically signed by: Mason Jameson MD 05/16/24 00:11 AM Medications Administered Current Inpatient Medications Azithromycin (Azithromycin 250 Mg Tab) 500 mg PO DAILY [facility] Stop: 05/18/24 08:59 Last Admin: 05/16/24 09:27 Dose: 500 mg Benzonatate (Benzonatate 100 Mg Capsule) 100 mg PO TID [facility] Stop: 06/15/24 20:59 Budesonide (Budesonide 0.5 Mg/2 Ml Vial (Pulmicort)) 0.5 mg NEB BIDR [facility] Stop: 06/13/24 18:59 Last Admin: 05/16/24 07:00 Dose: 0.5 mg Formoterol Fumarate (Formoterol 20 Mcg/2 Ml Vial) 20 mcg NEB BIDR [facility] Stop: 06/13/24 18:59 Last Admin: 05/16/24 07:00 Dose: 20 mcg Guaifenesin/Dextromethorphan (Guaifenesin/Dextrom Syrup 100mg/10mg 5ml Udc) 5 ml PO Q6H PRN PRN Reason: Cough Stop: 06/15/24 17:02 Prednisone (Prednisone 50 Mg Tab) 50 mg PO DAILY [facility] Stop: 06/15/24 08:59 Last Admin: 05/16/24 09:27 Dose: 50 mg Sodium Chloride (Sodium Chlor 7% 4 Ml Neb) 4 ml NEB BIDR [facility] Stop: 06/13/24 18:59 Last Admin: 05/16/24 07:00 Dose: 4 ml (1) Laceration of scalp Encounter type: initial encounter Qualified Code(s): S01.01XA - Laceration without foreign body of scalp, initial encounter (2) Fall Encounter type: initial encounter Qualified Code(s): W19.XXXA - Unspecified fall, initial encounter
[2024-05-16] MEDS: guaiFENesin/DEXTROM SYRUP 100MG/10MG 5ML UDC PO PRN (18:13)
[2024-05-16] MEDS: BENZONATATE 100 MG CAPSULE PO SCH (20:13)
[2024-05-17 06:52] LABS: Hematocrit (blood only) 40.1 % (37.0-47.0); Mean Corpuscular Hemoglobin 29.3 pg (25.0-34.0); Mean Corpuscular Hgb Conc 32.4 g/dL (32.0-36.0); Mean Corpuscular Volume 90.5 fL (80.0-100.0); Mean Platelet Volume 9.2 fL (9.4-12.4); Platelet Count 342 K/uL (130-400); RDW Coefficient of Variation 14.4 % (11.5-14.5); RDW Standard Deviation 48.1 fL (36.4-46.3); Red Blood Count 4.43 M/uL (4.20-5.40); White Blood Count 11.66 K/ul (4.8-10.8)
[2024-05-17 07:17] LABS: BUN Creatinine Ratio 16.2 (10-20); Calcium 9.6 mg/dl (8.6-10.3); Creatinine Clr Calc Pharmacy 43.6 ml/min
[2024-05-17] MEDS: FLUTICASONE PROPIONATE NA SPR 16 GM BTL SCH (08:37)
[2024-05-17] MEDS: OXYBUTYNIN CHLORIDE XL 5 MG TABCR PO SCH (08:38)
[2024-05-17] MEDS: PREGABALIN 75 MG CAP PO SCH (08:44)
[2024-05-17] MEDS: ASPIRIN 81 MG ECTAB PO SCH (08:46)
[2024-05-17] MEDS: ATORVASTATIN 20 MG TAB PO SCH (09:03)
[2024-05-17] MEDS: PANTOprazole 40 MG TAB PO SCH (09:03)
--- NOTE | 2024-05-17 12:21 | Cardiology Progress Note ---
Date of Service May 17, 2024 Assessment & Plan (1) COPD exacerbation: (2) Bilateral wheezing: (3) Non-ST elevation VT (NSTEMI): (4) Fall: (5) Laceration of scalp: Plan 74-year-old female admitted with a COPD exacerbation. * Troponin elevated * EKG with Q waves and ST changes suggestive of septal evolving infarct of uncertain duration, new since April 03, 2024. * Echocardiogram with mild hypokinesis of the mid and apical septum with otherwise normal LV function * Findings and presentation consistent with stress mediated non-ST segment elevation myocardial infarction * Cardiac Catheterization on May 16, 2024 with right dominant normal coronary anatomy, normal to hyperdynamic LV systolic function * No issues with right radial artery or right femoral artery access sites. Will sign off. Please contact with any questions or concerns. Admission and Anticipated Discharge Date Admission Date: May 14, 2024 Supervising Physician Co-Signing Physician Notes I spent a total of 30 minutes on the date of service in preparation, delivery, and documentation of the care provided to this patient, excluding any time spent in the performance of separately billed services. I have personally performed a history and physical examination on the patient. I have reviewed the advance practitioner's documentation, and I agree with, and take responsibility for the plan of care. Subjective Patient seen and examined. Chart, medications, and telemetry reviewed. at bedside. Still short of breath. No chest pain. No palpitations. No issues with attempted right radial access or right femoral access sites Telemetry: Sinus/sinus tachycardia. Physical Exam Physical Exam: General: A&Ox3. NAD. Hard of hearing HENT: Healing ecchymosis. Eyes: PER. Conjunctiva pink, sclera clear. Neck: No JVD. No HJR. Heart: RRR, 84 bpm Lungs: Diminished. Decreased. Poor air exchange. No wheeze. Abdomen: +BS. Soft. Nontender. No masses or organomegaly. Extremities: Right femoral artery access site looks good. Healing ecchymosis right radial artery access site. No edema. Limited neurological examination is without focal deficits. Pulses: radial=2/4, posterior tibial=2/4. Results & Data Vital Signs (Past 12 Hours) Vital Signs Temp Pulse Pulse Resp BP BP Pulse Ox 05/17/24 11:20 36.9 C 82 18 118/56 L 94 05/17/24 09:22 81 11/16/24 09:12 05/17/24 07:22 36.7 C 92 H 18 140/51 L 94 05/17/24 07:13 83 18 93 05/17/24 02:46 36.9 C 80 16 122/57 L 95 O2 Del Method 05/17/24 11:20 Room Air 05/17/24 09:22 05/17/24 09:12 Room Air 05/17/24 07:22 Room Air 05/17/24 07:13 Room Air 05/17/24 02:46 Room Air Laboratory Results CBC 05/17/24 Range/Units 05:39 WBC 11.66 H (4.8-10.8) K/ul RBC 4.43 (4.20-5.40) M/uL Hgb 13.0 (12.0-16.0) g/dl Hct 40.1 (37.0-47.0) % Plt Count 342 (130-400) K/uL Comprehensive Metabolic Panel 05/17/24 Range/Units 05:39 Sodium 142 (136-145) mmol/L Potassium 4.0 (3.5-5.1) mmol/L Chloride 104 (98-107) mmol/L Carbon Dioxide 29 (21-32) mmol/L BUN 17 (6-23) mg/dl Creatinine 1.05 (0.6-1.2) mg/dl Glucose 98 (70-99(Fasting)) mg/dl Calcium 9.6 (8.6-10.3) mg/dl Intake and Output 05/16/24 05/17/24 05/17/24 22:59 06:59 14:59 Intake Total 200 / 409.817 120 / 409.817 Output Total Balance 199 / 408.817 120 / 408.817 Intake: Oral 200 / 320 120 / 320 Output: # Bowel Movements Other: # Unmeasured Voids 1 1 # Urine Diapers 2 Weight 57.3 kg Weight Measurement Method Built in [facility] (4) Fall Encounter type: initial encounter Qualified Code(s): W19.XXXA - Unspecified fall, initial encounter (5) Laceration of scalp Encounter type: initial encounter Qualified Code(s): S01.01XA - Laceration without foreign body of scalp, initial encounter
--- NOTE | 2024-05-17 12:52 | Pulmonary Consultation ---
Date of Consultation May 17, 2024 Assessment & Plan (1) COPD exacerbation: She very likely has COPD given the emphysema noted on her CT chest and symptoms. She notes she quit smoking about 6 months ago. I would recommend a 7-day course of prednisone at 40 to 50 mg daily for her COPD exacerbation. Resp iratory viral panel was negative. Triggering event may have been cold weather or allergies. No signs of infectious etiology at this time. Will discontinue azithromycin. She should also be discharged with a maintenance inhaler and I would recommend increasing her maintenance inhaler dose of Trelegy to 200 mcg daily given her possible asthma and COPD overlap syndrome. Continue albuterol every 6 hours as needed. She would benefit from a RAST panel and IgE level as an outpatient. She would also benefit from PFTs and an exhaled nitric oxide level. Depending on her PFT values, she may benefit from outpatient pulmonary rehab. She notes that she canceled her pulmonary appointment through [facility] as she was unsure what the reason for the appointment was. I encouraged her to call the office back and reschedule that appointment. Her was present during the discussion and agreed that she should be seen by pulmonary as an outpatient. (2) Tobacco abuse: Patient notes she quit smoking about 6 months ago. She has roughly a [id number] smoking history. She had several small pulmonary nodules noted on CT chest imaging. Recommended low-dose CT chest for follow-up in 6 months and then starting her on annual low-dose lung cancer screening given her extensive smoking history. Complete smoking cessation advised. (3) Peripheral eosinophilia: She has peripheral eosinophilia noted on her previous CBCs which may be secondary to Th2 mediated asthma/COPD overlap syndrome. Should she have refractory asthma and COPD symptoms to a high-dose maintenance steroid inhaler, she may be a candidate for biologic therapy such as Dupixent. This would need to be considered on an outpatient basis. (4) Multiple pulmonary nodules determined by computed tomography of lung: Multiple subcentimeter lung nodules seen on CT chest imaging likely benign at this time, given her smoking history, warrant further follow-up with low-dose CT chest in 6 months. No role for biopsy at this time. Plan At this point in time, I think she is stable to be dismissed from the hospital. No further recommendations from pulmonary. Please call with questions. History of Present Illness Reason for Consultation: Acute exacerbation of COPD Attending Physician: Edmond España MD History of Present Illness 74-year-old female who has roughly a [id number] smoking history who presented to the hospital due to cough and shortness of breath. He also had a mechanical fall prior to her hospitalization scalp was sutured by the ER. She had a cardiac catheterization yesterday which revealed a right dominant normal coronary artery anatomy and normal to hyperdynamic LV systolic function. CT of her chest on admission 05/14/2024 revealed emphysema with bronchitis and areas of mild mucous plugging. Few scattered pulmonary nodules measuring up to 4 mm were noted. Radiology is recommending a precautionary 6-month CT. Her CBC 05/14/2024 revealed the significant peripheral eosinophilia with 710 eosinophils. CBC 04/03/2024 also revealed a significant eosinophilia of 640. Respiratory viral panel on admission was negative. Patient is overall a poor historian and is often very tangential. She does have a seat with hearing. Her is able to give some collateral history. She notes that she is not on any maintenance COPD medications despite Trelegy being listed on her home medications. She notes she uses albuterol very frequently during the day, but cannot comment on exactly how often. She notes a cough that has been ongoing for several months and has worsened over the last few days with shortness of breath accompanying her cough. She also notes rib pain. She denies any recent fevers, chills or night sweats. She does have shortness of breath when carrying heavy objects about 20 pounds. She also has shortness of breath going up hills and stairs. In the hospital she is currently on budesonide formoterol. She was also started on prednisone 50 mg. She has been on azithromycin 500 mg since 15 May. Sputum cultures from December 2022 were negative. No sputum cultures available from this admission. CH saturating 94% on room air. Allergies Allergy/AdvReac Type Severity Reaction Status Date / Time morphine Allergy Intermediate rash Verified 05/16/24 12:34 strawberry Allergy Intermediate Hives Verified 05/16/24 12:34 Home Medications Medication Instructions Recorded Confirmed Type albuterol sulfate 90 mcg/actuation 2 puff inhalation Q4H PRN 10/11/20 05/14/24 History aerosol inhaler Shortness Of Breath aspirin 81 mg tablet,delayed 81 mg PO DAILY 10/11/20 05/14/24 History release atorvastatin 20 mg tablet 20 mg PO DAILY 10/11/20 05/14/24 History bupropion HCl 150 mg 24 hr tablet, 150 mg PO DAILY 10/11/20 05/14/24 History extended release duloxetine 60 mg capsule,delayed 60 mg PO DAILY 10/11/20 05/14/24 History release meclizine 25 mg tablet 25 mg PO TID PRN Dizziness 10/11/20 05/14/24 History pantoprazole 40 mg tablet,delayed 40 mg PO DAILY 10/11/20 05/14/24 History release pregabalin 150 mg capsule 150 mg PO HS 10/11/20 05/14/24 History pregabalin 75 mg capsule 75 mg PO BID 10/11/20 05/14/24 History solifenacin 5 mg tablet 5 mg PO DAILY 10/11/20 05/14/24 History fluticasone fur. 100 mcg-umeclid 1 inh inhalation DAILY #60 ea 01/03/23 05/14/24 Rx 62.5 mcg-vilant 25 mcg inhalat.powder (Trelegy Ellipta) ropinirole 0.25 mg tablet 0.25 mg PO HS #30 tabs 01/03/23 05/14/24 Rx Patient History Medical History Current smoker History of left heart catheterization Surgical History History of cervical spinal arthrodesis History of carpal tunnel surgery of right wrist Family History Sister Breast cancer Father Diabetes Brother Prostate cancer Mother Kidney disease Social History Smoking Status: Former smoker Tobacco Type: Cigarettes Cigarettes Per Day: 2 cigarettes/ a day; Second Hand Exposure: No; Do You Dip or Chew Tobacco: No; Hx Alcohol Use: No Hx Substance Use: No Preferred Language: Malawian Communication Ability: Effective Communication Ability Comment: hears And readsd lips Vehicle Glass Technician Required: No Beliefs That Will Affect Care: None Current Living Situation: Spouse Other Information That Helps Us Care for You: No Feels Safe at Home: Yes Safety Concerns: Feels Safe At This Time Assistive Devices: Stair Lift Review of Systems Review of Systems: All systems reviewed & are unremarkable except as noted in HPI & below Physical Exam Physical Exam: Constitutional: Patient appears to be of their stated age. Patient is in no apparent distress. Patient is well-developed. Eyes: Pupils are equal round and reactive to light. Conjunctivae are normal. Anicteric sclera. Ears nose, mouth and throat: No perioral cyanosis. Neck: Trachea is midline. Visual inspection is normal. Respiratory: Prolonged phase of exhalation. No wheezes. Diminished lung sounds bilaterally. Cardiovascular: Regular rate and rhythm. No murmurs. No edema. Gastrointestinal: Normal bowel sounds, soft, nontender and nondistended. No hepatosplenomegaly noted. Musculoskeletal: No cyanosis. Patient is able to move all extremities. Strength is 5 out of 5 in the upper and lower extremities. Skin: No rashes, warm dry and intact. Neurologic: No obvious focal neurological deficits seen. Psychiatric: Alert and oriented x3 with an anxious mood. Results & Data Results & Data Vital Signs (Past 12 Hours) Vital Signs Temp Pulse Pulse Resp BP BP Pulse Ox 05/17/24 11:20 36.9 C 82 18 118/56 L 94 05/17/24 09:22 81 05/17/24 09:12 05/17/24 07:22 36.7 C 92 H 18 140/51 L 94 05/17/24 07:13 83 18 93 05/17/24 02:46 36.9 C 80 16 122/57 L 95 O2 Del Method 05/17/24 11:20 Room Air 05/17/24 09:22 05/17/24 09:12 Room Air 05/17/24 07:22 Room Air 05/17/24 07:13 Room Air 05/17/24 02:46 Room Air PG Care Time/CCT Total # of Minutes Spent Total Time Spent with Patient: Total time spent is greater than 50% in coordination of care (as documented) at patient's floor/unit and/or counseling patient: Coding Level of Care Code 72559 INT INP/OBS CARE 3/75MIN Diagnoses COPD exacerbation J44.1 Tobacco abuse Z72.0 Peripheral eosinophilia D72.19 Multiple pulmonary nodules determined by computed tomography of lung R91.8
[2024-05-17] MEDS: buPROPion XL 150 MG TABCR PO SCH (13:33)
[2024-05-17] MEDS: DULoxetine HCL 60 MG CAP PO SCH (13:33)
--- NOTE | 2024-05-17 15:56 | Hospitalist Progress Note ---
Date of Service May 17, 2024 Assessment & Plan (1) Laceration of scalp: (2) Fall: (3) COPD exacerbation: (4) Non-ST elevation DE (NSTEMI): (5) VIRGIL (obstructive sleep apnea): (6) COPD (chronic obstructive pulmonary disease): (7) Asthma: (8) GERD (gastroesophageal reflux disease): (9) Restless leg syndrome: Plan Assessment and plan: Acute COPD exacerbation: Chest imaging negative for anything acute, normal white count. Managed at home on Trelegy and albuterol. Patient was admitted with IV Solu-Medrol, transitioned to p.o. prednisone 05/16. Status post azithromycin 3 days. She quit smoking about 6 months ago, encouraged to adhere with abstinence. She voiced understanding. She has roughly 54 pack year smoking history. Today patient reports improving cough and shortness of breath, feels somewhat better. Pulmonology evaluated: Recommend 7 day course of prednisone, recommends discontinue azithromycin, recommend increasing maintenance inhaler dose of Trelegy to 200 mcg daily given her possible asthma and COPD overlap syndrome. RAST panel and IgE level as an outpatient. PFT and exhaled nitric oxide level as an outpatient. Possible pulmonary rehab based on PFT values. Follow-up with pulmonology upon discharge. Possible consideration of biologic therapy if no control with high-dose maintenance steroid inhalers. Follow-up with pulm as an outpatient, pulmonary function test in about 6 weeks time upon discharge, repeat CT scan of the chest in 6 months given smoking history and multiple subcentimeter lung nodules seen on CT scan. Patient has been made aware of the CT scan nodules and need for repeat CT scan in 6 months time and has been educated to coordinate with PCP office to set up the test. NSTEMI: EKG with Q waves and ST changes suggestive of septal infarct Echocardiogram with mild hypokinesis of the mid and apical septum with otherwise normal LV function Initial troponin elevated at 119, trended down, continue aspirin, heparin drip off --Cardiac cath completed 05/16. No obstructive disease noted. Mechanical fall Posterior scalp laceration Head CT negative for bleed, scalp sutured by ER physician - Ambulating around ok/better denies need for pt/ot and help at home. Hx depression: Continue duloxetine/Wellbutrin Pulmonary nodules: Scattered noted on chest imaging, follow-up CT in 6 months A total of 55 minutes was spent on chart review/reviewing diagnostic data/facilitating plan of care/discussion with consultants Full code DVT prophylaxis: Heparin sc Admission and Anticipated Discharge Date Admission Date: May 14, 2024 Subjective Patient seen and examined. Chart, medications reviewed. Patient reports cough and shortness of breath getting better but he still feels some short of breath and tired, would like to go home tomorrow. Patient denies chest pain or palpitation, is ambulating around better. Is eating okay and moving bowels okay. Physical Exam Physical Exam: General- adult Head- atraumatic Eyes- PERRL, EOMI, anicteric ENT- oropharynx clear Neck- supple, no JVD, no adenopathy, no thyromegaly; carotids +2/2, no bruits appreciated Lungs-scattered wheezing and rhonchi in the bases has improved, some decreased b/l breath sounds. Heart- regular rhythm; no murmur, no gallop, no rub appreciated Abdomen- normal bowel sounds, soft, nontender, no masses or hepatosplenomegaly Extremities- no pretibial edema, no calf tenderness; peripheral pulses intact Neuro- alert, oriented x 3; PERRL, EOMI; Skin- warm & dry Results & Data Results & Data Vital Signs (Past 12 Hours) Vital Signs Temp Pulse Pulse Resp BP Pulse Ox O2 Del Method 05/17/24 15:20 36.6 C 89 18 106/52 L 97 Room Air 05/17/24 13:43 96 H 05/17/24 11:20 36.9 C 82 18 118/56 L 94 Room Air 05/17/24 09:22 81 05/17/24 09:12 Room Air 05/17/24 07:22 36.7 C 92 H 18 140/51 L 94 Room Air 05/17/24 07:13 83 18 93 Room Air (1) Laceration of scalp Encounter type: initial encounter Qualified Code(s): S01.01XA - Laceration without foreign body of scalp, initial encounter (2) Fall Encounter type: initial encounter Qualified Code(s): W19.XXXA - Unspecified fall, initial encounter
[2024-05-17 19:36] VITALS: RESP 18
[2024-05-17] MEDS: PREGABALIN 150 MG CAP PO SCH (20:13)
[2024-05-17] MEDS: HEPARIN SOD 5,000 UNIT/0.5 ML VIAL SQ SCH (20:34)
[2024-05-18 03:20] VITALS: TEMP 97.7
[2024-05-18 06:23] LABS: Hematocrit (blood only) 38.8 % (37.0-47.0); Hemoglobin 12.7 g/dl (12.0-16.0); Mean Corpuscular Hemoglobin 29.3 pg (25.0-34.0); Mean Corpuscular Hgb Conc 32.7 g/dL (32.0-36.0); Mean Corpuscular Volume 89.6 fL (80.0-100.0); Platelet Count 354 K/uL (130-400); RDW Coefficient of Variation 14.2 % (11.5-14.5); RDW Standard Deviation 46.6 fL (36.4-46.3); Red Blood Count 4.33 M/uL (4.20-5.40); White Blood Count 9.04 K/ul (4.8-10.8)
[2024-05-18 07:05] LABS: BUN Creatinine Ratio 21.1 (10-20); Calcium 9.8 mg/dl (8.6-10.3); Creatinine Clr Calc Pharmacy 50.8 ml/min; Magnesium 2.2 mg/dl (1.7-2.4); Potassium 3.7 mmol/L (3.5-5.1)
[2024-05-18 07:27] VITALS: PULSE 88
--- NOTE | 2024-05-18 10:44 | Discharge Summary ---
Date of Service May 18, 2024 Admission HPI Per Admitting Provider The patient is a 74-year-old female with a past medical history of COPD, obstructive sleep apnea, depression, HLD, GERD who presents to the ED on 05/14/2024 with complaints of worsening shortness of breath. The patient also reports some associated wheezing that has been worsening over the past 2 months. She also reports some occasional sputum that is sometimes yellow. Patient reports feeling warm sometimes at night. She is unsure if she has a fever. She denies any chest pain. Reports some intermittent palpitations with exertion. Denies any nausea/vomiting/diarrhea/abdominal pain. Denies any personal heart history but does report a family heart history. The patient was seen in April for similar complaints and had no diagnosis of anything acute at that time. The patient also admits to falling today prior to coming in and hitting the back of her head. She had a small laceration that was sutured in the ER by the ER physician. She was also given a tetanus shot. Denies any pain at this time. On arrival to the ED, labs are remarkable for troponin [id number] BNP 144, respiratory panel was negative EKG showed ST elevation in anterior leads suspicious for septal infarct Echo showed grade 1 diastolic dysfunction with an EF of 60-65% Chest x-ray negative for acute findings but did show 8 mm right upper lung nodule Head CT was negative Chest CTA was negative for PE but did show scattered new pulmonary nodules measuring up to 4 mm The patient will be admitted for further workup for ACS and COPD exacerbation Admission Exam Per Admitting Provider Constitutional: WD/WN, vitals as above Eyes: PERRL, conjunctivae normal, anicteric sclerae ENMT: external ear and nose normal, oropharynx normal Neck: trachea midline, no thyromegaly Respiratory: normal respiratory effort, lungs clear to auscultation (Chest tightness/wheezing/bilateral lobes) Cardiovascular: RRR, no murmur, no edema Gastrointestinal (Abdomen): normal bowel sounds, soft, nontender, no hepatosplenomegaly Musculoskeletal: no cyanosis or clubbing, extremities motor strength 5/5 Skin: no rashes, warm and dry Neurologic: PERRL, EOMI, accommodation nl, no face palsy, no dysarthria Lymphatic: no cervical or axillary lymphadenopathy Principal Diagnosis Acute exacerbation of COPD Chest pain ruled out ACS Mechanical fall Posterior scalp laceration Discharge Exam General- adult Head- atraumatic Eyes- PERRL, EOMI, anicteric ENT- oropharynx clear Neck- supple, no JVD, no adenopathy, no thyromegaly; carotids +2/2, no bruits appreciated Lungs-scattered wheezing and rhonchi in the bases has improved, some decreased b/l breath sounds noted yesterday also improving better today. Heart- regular rhythm; no murmur, no gallop, no rub appreciated Abdomen- normal bowel sounds, soft, nontender, no masses or hepatosplenomegaly Extremities- no pretibial edema, no calf tenderness; peripheral pulses intact Neuro- alert, oriented x 3; PERRL, EOMI; Skin- warm & dry Discharge Data Allergies Allergy/AdvReac Type Severity Reaction Status Date / Time morphine Allergy Intermediate rash Verified 05/16/24 12:34 strawberry Allergy Intermediate Hives Verified 05/16/24 12:34 Consultations 05/14/24 13:38 ED Decision to Admit Stat 05/16/24 11:51 Consult Cardiology Routine 05/16/24 17:00 Consult Pulmonology Routine Procedures Performed Operation Date: 05/16/24 12:30 Actual Procedures p Cineradiography w/Routine Exam - Adilson Montana MD s Cath, Left with Cors and Vent - Adilson Montana MD Ordered Studies 05/14/24 13:17 CT angio chest PE protocol Stat CT head/brain wo con Stat 05/15/24 16:57 Carotid duplex [US carotid doppler BI] Routine 05/16/24 06:41 CL Cath Imgs for PACS use only Routine Hospital Course (1) Laceration of scalp: (2) Fall: (3) COPD exacerbation: (4) Non-ST elevation VA (NSTEMI): (5) VIRGIL (obstructive sleep apnea): (6) COPD (chronic obstructive pulmonary disease): (7) Asthma: (8) GERD (gastroesophageal reflux disease): (9) Restless leg syndrome: Plan Patient was being managed for the following: Acute COPD exacerbation: Chest imaging negative for anything acute, normal white count. Managed at home on Trelegy and albuterol. Patient was admitted with IV Solu-Medrol, transitioned to p.o. prednisone 05/16. Status post azithromycin 3 days. She quit smoking about 6 months ago, encouraged to adhere with abstinence. She voiced understanding. She has roughly 54 pack year smoking history. Pt w/ improving cough and shortness of breath, feels improved significantly. Patient is hemodynamically stable and would like to go home. Pulmonology evaluated 05/17: Recommend 7 day course of prednisone, recommends discontinue azithromycin, recommend increasing maintenance inhaler dose of Trelegy to 200 mcg daily given her possible asthma and COPD overlap syndrome. RAST panel and IgE level as an outpatient. PFT and exhaled nitric oxide level as an outpatient. Possible pulmonary rehab based on PFT values. Follow-up with pulmonology upon discharge. Possible consideration of biologic therapy if no control with high-dose maintenance steroid inhalers. Follow-up with pulm as an outpatient, pulmonary function test in about 6 weeks time upon discharge, repeat CT scan of the chest in 6 months given smoking history and multiple subcentimeter lung nodules seen on CT scan. Patient has been made aware of the CT scan nodules and need for repeat CT scan in 6 months time and has been educated to coordinate with PCP office to set up the test. NSTEMI: EKG with Q waves and ST changes suggestive of septal infarct Echocardiogram with mild hypokinesis of the mid and apical septum with otherw ise normal LV function Initial troponin elevated at 119, trended down, continue aspirin, heparin drip off --Cardiac cath completed 05/16. No obstructive disease noted. Mechanical fall Posterior scalp laceration Head CT negative for bleed, scalp sutured by ER physician - Ambulating around ok/better denies need for pt/ot and help at home. Hx depression: Continue duloxetine/Wellbutrin Pulmonary nodules: Scattered noted on chest imaging, follow-up CT in 6 months A total of 55 minutes was spent on chart review/reviewing diagnostic data/facilitating plan of care/discussion with consultants Full code DVT prophylaxis: Heparin sc Patient is being discharged to home with following instruction at the point of discharge: Follow-up with your primary care physician within a week time and likely you will need labs CBC/CMP/magnesium/phosphorus.. For your COPD exacerbation, you will be discharged on tapering dose of prednisone, your home inhaler Trelegy dose will be increased. You will need various tests upon discharge [RAST panel, IgE level, PFT, exertional nitric oxide level]. Coordinate with your PCP office or lung doctor's office to set up the test. You will need lung doctor's evaluation in 2 to 4 weeks time upon discharge, coordinate with your PCP office to set up the referral. As has been explained to you at bedside, you have lung nodules noted in CT scan this admission, you will need repeat CT scan of the chest in 6 months time, coordinate with your PCP office to set up the test. You had suture placed over posterior scalp laceration, when you visit your PCP office within a week time, have them evaluate for possible suture removal. Continue wound care. Take your medications as prescribed. Please make sure that you are able to get your medications today by calling your pharmacy before you leave the hospital so that your treatment continuity is not broken. Home Health Attestation I certify that this patient is under my care and that I, or a physicians printer assistant working with me, had a face to-face encounter that meets the home health [id number] encounter requirements with this patient. The encounter with the patient was in whole, or in part, for the following medical condition, which is the primary reason for home health care (list medical condition): I certify that, based on my findings, the following services are medically necessary home health services: My clinical findings support the need for the above services because: Further, I certify that my clinical findings support that this patient is homebound (i.e. absences from home require considerable and taxing effort and are for medical reasons or voodoo services or infrequently or of short duration when for other reasons) because: Certification for Home Health Services: Based on the above findings, I certify that this patient is confined to the home and needs intermittent halfway care, physical therapy and/or speech therapy or continues to need occupational therapy. The patient is under my care, and I have initiated the establishment of the plan of care. This patient will be followed by a physician who will periodically review the plan of care. Total Time Total Time Spent Total Time Spent (In Minutes): 45 Discharge Plan Discharge Items Patient Disposition: Home - Self-Care Reason For Visit: SOB Discharge Diagnosis: Acute exacerbation of COPD Chest pain rule out ACS Mechanical fall Posterior scalp laceration Activity: Resume your previous activity Non-emergency contact: Primary Care Provider Call non-emergency contact if: you have any medication questions, your symptoms worsen and your temperature is above 101 Follow-up/Referrals: Nataly eKlly DO [Primary Care Provider] - (Date & Time 05/21/2024 1:40 PM Provider Nataly Kelly, DO Department [facility] ) Diet: Heart Healthy Addtl Attending Provider Instructions: Follow-up with your primary care physician within a week time and likely you will need labs CBC/CMP/magnesium/phosphorus.. For your COPD exacerbation, you will be discharged on tapering dose of prednisone, your home inhaler Trelegy dose will be increased. You will need various tests upon discharge [RAST panel, IgE level, PFT, exertional nitric oxide level]. Coordinate with your PCP office or lung doctor's office to set up the test. You will need lung doctor's evaluation in 2 to 4 weeks time upon discharge, coordinate with your PCP office to set up the referral. As has been explained to you at bedside, you have lung nodules noted in CT scan this admission, you will need repeat CT scan of the chest in 6 months time, coordinate with your PCP office to set up the test. You had suture placed over posterior scalp laceration, when you visit your PCP office within a week time, have them evaluate for possible suture removal. Continue wound care. Take your medications as prescribed. Please make sure that you are able to get your medications today by calling your pharmacy before you leave the hospital so that your treatment continuity is not broken. Pending Studies at Discharge: No Stand-Alone Forms: My [facility], Smoking Cessation Medications and DC Order Prescriptions: New fluticasone propionate 50 mcg/actuation [place],Suspension 2 spray NA DAILY Qty: 16 0RF benzonatate 100 mg Capsule 100 mg PO TID 7 Days Qty: 21 0RF prednisone 20 mg tablet 20 mg PO UD Qty: 11 0RF Rx Instructions: 40 mg daily x 4 days, 20 mg daily x 3 days, then stop. Trelegy Ellipta 200-62.5-25 mcg blister with device 1 inh inhalation DAILY Qty: 60 0RF Continued ropinirole 0.25 mg tablet 0.25 mg PO HS Qty: 30 0RF Rx Instructions: administer 1-3 hours before bedtime atorvastatin 20 mg tablet 20 mg PO DAILY meclizine 25 mg tablet 25 mg PO TID PRN (Reason: Dizziness) pantoprazole 40 mg tablet,delayed release (DR/EC) 40 mg PO DAILY albuterol sulfate 90 mcg/actuation HFA aerosol inhaler 2 puff INHALATION Q4H PRN (Reason: Shortness Of Breath) bupropion HCl 150 mg tablet extended release 24 hr 150 mg PO DAILY duloxetine 60 mg capsule,delayed release(DR/EC) 60 mg PO DAILY solifenacin 5 mg tablet 5 mg PO DAILY pregabalin 75 mg capsule 75 mg PO BID Rx Instructions: TAKES QAM & AFTERNOON. pregabalin 150 mg capsule 150 mg PO HS aspirin 81 mg Tablet,Delayed Release (Dr/Ec) 81 mg PO DAILY Discontinued Trelegy Ellipta 100-62.5-25 mcg blister with device 1 inh inhalation DAILY Qty: 60 0RF Discharge Orders: Discharge Order (Routine); Ordered 05/18/24 Ordered By: Edmond España Admission Data Admit Date/Time: 05/14/24 17:19 Attending Provider: Edmond España Admit Provider: Edmond España Primary Care Provider: Nataly Kelly Other Providers: Edmond España; Janet Alcala; Jaron Smith; Adilson Montana; Jose Luis Collins; Leland Wan; Lauri Chester; Tanisha Morales; Shital Campbell; Marybeth Duncan Ashley M.; Juanjo Velasquez; Larry Vizcaino; Dang James; Anais Mckeon; Marcela Alexis; Gale Winchester; Sean Koch; Victoria Adorno; Nalini Xavier; Nikunj Muhammad; Mikhail Stanton; Evens Benoit; Hazel Ortiz; Ana Maria Brothers; Nory Asencio; Lanre Poole; Go Wayne; Darya Pena Other Interventions: Discharge Summary Assessment (RN) Last Done: 05/18/24 10:30
[2024-05-18 11:12] VITALS: BP 96/60; O2SAT 93
--- NOTE | 2024-05-20 08:12 | Coding Query ---
CODING QUERY To promote full compliance with coding requirements relating to patient care, provider participation is requested in all cases of medical billing coder uncertainty. 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 Labs: * Troponin I High Sensitivity * 05/14/24 12:23 - 119.1 * 05/14/24 14:45 - 102.6 * 05/15/24 11:19 - 59.6 Cardiac Catheterization 05/16/24: * Pre-Procedure Diagnosis: Non STEMI and Cardiomyopathy * Post-Procedure Diagnosis: Normal Coronary Arteries, Normal LV Systolic Function and Normal Intracardiac Pressures * Procedure(s) Performed: Coronary Angiography, Left Heart Cath and LV Angiography Discharge Summary: * Cardiac cath completed 05/16. No obstructive disease noted. Coding Question(s): Based on the above clinical indicators, are you able to further clarify if the NSTEMI was: ( x) Ruled in ( ) Ruled out ( ) Other (please specify) ( ) Unable to determine. Thank you Ines Cloud Principal Diagnosis: "that condition established after study, to be chiefly responsible for occasioning the admission of the patient to the hospital for care." Co-Existing Principal Diagnosis: "when two or more diagnoses equally meet the criteria for principal diagnosis as determined by the circumstances of admission, diagnostic work up, and/or therapy provided, and the Alphabetic Index, Tabular List, or another coding guideline does not provide sequencing direction, any one of the diagnoses may be sequenced first." "When the physician has documented what appears to be a current diagnosis in the body of the record, but has not included the diagnosis in the final diagnostic statement, the physician should be asked whether the diagnosis should be added." (Source Coding [facility] 2 QTR90. p3-4) SONIA
== END 2024-05-18 13:11 | disposition home or self-care (01) | DRG 190 ==
LOC: ED 11:46 → 2S 17:19 → SUATTDRO 17:19 → 2S 20:16

== ENCOUNTER 2025-04-16 16:17 | Observation (INO) ==
[2025-04-16 17:06] LABS: Hematocrit (blood only) 38.6 % (37.0-47.0); Hemoglobin 13.0 g/dl (12.0-16.0); Immature Granulocytes # (auto) 0.02 K/uL (0.01-0.20); Immature Granulocytes % (auto) 0.2 %; Mean Corpuscular Hemoglobin 28.9 pg (25.0-34.0); Mean Corpuscular Volume 85.8 fL (80.0-100.0); Platelet Count 367 K/uL (130-400); RDW Standard Deviation 46.5 fL (36.4-46.3); Red Blood Count 4.50 M/uL (4.20-5.40); White Blood Count 9.70 K/ul (4.8-10.8)
[2025-04-16 17:25] LABS: Alanine Aminotransferase 9.0 U/L (7-52); Albumin Globulin Ratio 1.3 (0.9-2); Albumin Level 3.9 gm/dl (3.4-5.0); Alkaline Phosphatase 86.0 U/L (34-104); Anion Gap 7.0 (3-11); Bilirubin,Total 0.6 mg/dl (0.2-1.0); Blood Urea Nitrogen 13.0 mg/dl (6-23); Calcium 9.3 mg/dl (8.6-10.3); Carbon Dioxide 28.0 mmol/L (21-32); Chloride 106.0 mmol/L (98-107); Creatinine Clr Calc Pharmacy 44.4 ml/min; Globulin 2.9 gm/dl (2.5-4.0); Glucose 95.0 mg/dl (70-99(Fasting)); Potassium 4.2 mmol/L (3.5-5.1); Sodium 141.0 mmol/L (136-145); Total Protein 6.8 gm/dl (6.0-8.3)
[2025-04-16 17:52] LABS: Chlamydia pneumoniae PCR Not Detected (NotDetected); Coronavirus 229E PCR Not Detected (NotDetected); Coronavirus CoV-2 (COVID19)PCR Not Detected (NotDetected); Coronavirus HKU1 PCR Not Detected (NotDetected); Coronavirus NL63 PCR Not Detected (NotDetected); Coronavirus OC43PCR Not Detected (NotDetected); Human Metapneumovirus PCR Not Detected (NotDetected); Parainfluenza Virus 1 PCR Not Detected (NotDetected); Parainfluenza Virus 2 PCR Not Detected (NotDetected); Parainfluenza Virus 3 PCR Not Detected (NotDetected); Parainfluenza Virus 4 PCR Not Detected (NotDetected); Respiratory Syncytial VirusPCR Not Detected (NotDetected); Rhinovirus/Enterovirus PCR Not Detected (NotDetected)
--- NOTE | 2025-04-16 17:53 | Emergency Department Note ---
History of Present Illness General Chief complaint: Respiratory Problems Stated complaint: RESPIRATORY PROBLEMS, PAST COUPLE WKS, WORSE TODAY Time Seen by Provider: 04/16/25 17:21 History of Present Illness Patient is a 75-year-old female with past medical history significant for COPD, IBS, VIRGIL, GERD, restless leg syndrome, depression, history of tobacco abuse (quit 2 years ago), among other chronic medical problems who presents to the emergency department for evaluation of a cough. She states she has been coughing "since January" (2 months). She reports a frequent, dry, tight, spasmodic cough, it is worse at night. She is occasionally able to bring up some scant mucus. She does report wheezing and feeling short of breath. She has pain in her ribs with coughing. She has not been seen by her primary care provider, but did see [facility] pulmonology, and some medication adjustments were made. Patient unfortunately is not able to relate what she is taking, she says she has at least 3 inhalers and a nebulizer. Since becoming more acutely ill, she has not been on any steroids or antibiotics. Home Medications Medication Instructions Recorded Confirmed Type albuterol sulfate 90 mcg/actuation 2 puff inhalation Q4H PRN 10/11/20 05/14/24 History aerosol inhaler Shortness Of Breath aspirin 81 mg tablet,delayed 81 mg PO DAILY 10/11/20 05/14/24 History release atorvastatin 20 mg tablet 20 mg PO DAILY 10/11/20 05/14/24 History bupropion HCl 150 mg 24 hr tablet, 150 mg PO DAILY 10/11/20 05/14/24 History extended release duloxetine 60 mg capsule,delayed 60 mg PO DAILY 10/11/20 05/14/24 History release meclizine 25 mg tablet 25 mg PO TID PRN Dizziness 10/11/20 05/14/24 History pantoprazole 40 mg tablet,delayed 40 mg PO DAILY 10/11/20 05/14/24 History release pregabalin 150 mg capsule 150 mg PO HS 10/11/20 05/14/24 History pregabalin 75 mg capsule 75 mg PO BID 10/11/20 05/14/24 History solifenacin 5 mg tablet 5 mg PO DAILY 10/11/20 05/14/24 History ropinirole 0.25 mg tablet 0.25 mg PO HS #30 tabs 01/03/23 05/14/24 Rx fluticasone fur. 200 mcg-umeclid 1 inh inhalation DAILY #60 ea 05/18/24 Rx 62.5 mcg-vilant 25 mcg inhalat.powder (Trelegy Ellipta) fluticasone propionate 50 2 spray NA DAILY #16 grams 05/18/24 Rx mcg/actuation nasal spray,suspension prednisone 20 mg tablet 20 mg PO UD #11 tabs 05/18/24 Rx Allergies Allergy/AdvReac Type Severity Reaction Status Date / Time morphine Allergy Intermediate rash Verified 05/16/24 12:34 strawberry Allergy Intermediate Hives Verified 05/16/24 12:34 Past Med/Surg History Problem List (Updated 04/16/25 @ 23:33 by Derek Price) Acute exacerbation of chronic obstructive pulmonary disease (Acute) Multiple pulmonary nodules determined by computed tomography of lung Peripheral eosinophilia Laceration of scalp (Acute) Fall (Acute) Head injury (Acute) SOB (shortness of breath) (Acute) Non-ST elevation NM (NSTEMI) (Acute) COPD exacerbation (Acute) Hypoxia (Acute) SOB (shortness of breath) (Acute) Bilateral wheezing (Acute) Greater trochanteric bursitis IBS (irritable bowel syndrome) VIRGIL (obstructive sleep apnea) COPD (chronic obstructive pulmonary disease) Asthma (Chronic) GERD (gastroesophageal reflux disease) (Chronic) Restless leg syndrome (Chronic) Depression (Chronic) Tobacco abuse (Chronic) Anxiety (Chronic) Acute diverticulitis (Acute) PNA (pneumonia) Medical History Current smoker History of left heart catheterization Surgical History History of cervical spinal arthrodesis History of carpal tunnel surgery of right wrist Family History Sister Breast cancer Father Diabetes Brother Prostate cancer Mother Kidney disease Social History Smoking Status: Never smoker Tobacco Type: Cigarettes Cigarettes Per Day: 2 cigarettes/ a day; Second Hand Exposure: No; Do You Dip or Chew Tobacco: No; Hx Alcohol Use: No Hx Substance Use: No Preferred Language: Frisian Communication Ability: Effective Communication Ability Comment: hears And readsd lips Revenue Manager Required: No Beliefs That Will Affect Care: None Current Living Situation: Spouse Feels Safe at Home: Yes Assistive Devices: Stair Lift Review of Systems A total of 10 systems reviewed and were otherwise negative Physical Exam Vital Signs Vital Signs - 24 hr 04/16/25 16:23 04/16/25 17:20 04/16/25 17:30 Temperature 36.4 C L Temperature Source Temporal Artery Scan Pulse Rate 99 H Pulse Rate [Apical] 95 H Pulse Rhythm [Apical] Pulse Strength [Apical] Respiratory Rate 18 25 H Respiratory Effort / Characteristics Non-Labored Spontaneous Non-Labored Spontaneous Short of Breath Respiratory Depth Normal Normal Respiratory Pattern Regular Tachypnea Blood Pressure 132/69 Blood Pressure [Left Arm] 158/80 H Blood Pressure Mean 90 Blood Pressure Mean [Left Arm] 106 Blood Pressure Position [Left Arm] Sitting Pulse Oximetry 93 96 Oxygen Delivery Method Room Air Room Air Room Air Sepsis Recent Fever Within 48 Hours No Sepsis New/Unexplained Change in Mental Status No Sepsis Action Taken by Nursing No Action Required 04/16/25 17:30 04/16/25 17:37 04/16/25 19:00 Temperature Temperature Source Pulse Rate 97 H Pulse Rate [Apical] Pulse Rhythm [Apical] Pulse Strength [Apical] Respiratory Rate Respiratory Effort / Characteristics Respiratory Depth Respiratory Pattern Blood Pressure Blood Pressure [Left Arm] Blood Pressure Mean Blood Pressure Mean [Left Arm] Blood Pressure Position [Left Arm] Pulse Oximetry 95 93 Oxygen Delivery Method Room Air Room Air Sepsis Recent Fever Within 48 Hours Sepsis New/Unexplained Change in Mental Status Sepsis Action Taken by Nursing 04/16/25 19:00 04/16/25 21:00 04/16/25 22:24 Temperature Temperature Source Pulse Rate 108 H Pulse Rate [Apical] 107 H 107 H Pulse Rhythm [Apical] Regular Regular Pulse Strength [Apical] Normal Normal Respiratory Rate 18 18 Respiratory Effort / Characteristics Non-Labored Non-Labored Respiratory Depth Normal Normal Respiratory Pattern Regular Regular Blood Pressure Blood Pressure [Left Arm] 115/76 129/63 Blood Pressure Mean Blood Pressure Mean [Left Arm] 89 85 Blood Pressure Position [Left Arm] Sitting Sitting Pulse Oximetry 93 95 Oxygen Delivery Method Room Air Room Air Sepsis Recent Fever Within 48 Hours Sepsis New/Unexplained Change in Mental Status Sepsis Action Taken by Nursing CONSTITUTIONAL: Pleasant, hard of hearing 75-year-old female who is awake and alert and sitting upright on the gurney in no acute distress. Vital signs are stable. EYES: Pupils equal, round, reactive to light and accommodation. EOMs intact without nystagmus. Sclera are anicteric. ENT: Tympanic membranes intact, with normal landmarks. External canals are clear. Oral and nasopharynx are clear. Mucous membranes are moist, no lesions, tongue and gums appear normal. CARDIOVASCULAR: Regular rate and rhythm. Peripheral pulses easy to palpable. RESPIRATORY: Breath sounds diminished with inspiratory and expiratory wheezes throughout. GI: Bowel sounds are present. Abdomen is soft, nontender, nondistended. No organomegaly. No pulsatile masses. No guarding or rebound. MUSCULOSKELETAL: Full range of motion of extremities x 4 with good strength. No cyanosis, edema, joint tenderness or swelling. No deformity. INTEGUMENTARY: No lesions or rash, normal skin turgor. Course Course The patient was seen and assessed as above. External medical records were reviewed. ED mattress spring encaser were able to obtain the [facility] pulmonology note from 02/17/2025, noting patient was placed on Symbicort, Spiriva, Tessalon, and albuterol nebulizers. She has a frequent, dry cough, and wheezes throughout. IV lock was initiated. Chest x-ray was obtained. EKG was performed. She was treated with IV Solu-Medrol, and a total of 3 DuoNeb treatments while in the ED. Given her history and persistent symptoms, chest CT was performed. Diagnostics, as interpreted by me: Laboratory studies: Normal white count 9700, H&H 13 and 38, no electrolyte imbalance, no KRISHNA, no transaminitis. Troponin is not elevated. Urine microscopy is clear. Upper respiratory BioFire negative. ECG: Normal sinus rhythm 97 bpm, no acute ischemic changes Cardiac monitoring: An order was placed for continuous cardiac monitoring. The monitor shows a NSR at a rate of 85 per my interpretation. Imaging studies: Chest x-ray: No infiltrate, no failure, no pneumothorax. Chest CT no obvious PE. Emphysematous changes noted. The patient was reassessed frequently. She had mild improvement in her wheezing with the nebulizer treatments. Treatment options discussed with the patient. Offered course of steroids and antibiotics, in addition to her continued inhalers/nebulizer, versus admission/observation. After discussion, provide patient prefers to come into the hospital for definitive care. She is concerned that she will not improve at home. I do feel that this is reasonable. Patient discussed with Dr. Long. ED mattress spring encaser consulted and the [facility] Hospitalist was consulted for admission. Patient reviewed with Dr. Poole. Chronic conditions affecting care: COPD, VIRGIL, IBS, GERD Differential diagnosis: Reactive airway disease, pneumonia, pneumothorax, COPD, CHF, infections, cardiac ischemia, pulmonary embolism, musculoskeletal, gastrointestinal, as well as other pathologies. Administered Medications Discontinued Medications Albuterol (Albut/Ipratrop 3mg/0.5mg Neb 3 Ml Vial) 3 ml NEB NOW STA; Protocol Stop: 04/16/25 17:49 Last Admin: 04/16/25 18:05 Dose: 3 ml Documented By: FILIBERTO Albuterol (Albut/Ipratrop 3mg/0.5mg Neb 3 Ml Vial) 3 ml NEB NOW STA; Protocol Stop: 04/16/25 20:28 Last Admin: 04/16/25 20:43 Dose: 3 ml Documented By: BRIANA Albuterol (Albut/Ipratrop 3mg/0.5mg Neb 3 Ml Vial) 3 ml NEB NOW STA; Protocol Stop: 04/16/25 21:02 Last Admin: 04/16/25 21:39 Dose: 3 ml Documented By: BRIANA Ioversol (Optiray 320 125ml) 115 ml IV ONCE ONE Stop: 04/16/25 19:02 Last Admin: 04/16/25 19:02 Dose: 115 ml Documented By: BERNARDO Methylprednisolone (Methylprednisolone 125 Mg/2 Ml Vial) 125 mg IV NOW STA Stop: 04/16/25 17:49 Last Admin: 04/16/25 18:05 Dose: 125 mg Documented By: FILIBERTO Medical Decision Making Differential Diagnosis See ED Course. Medical Records Attestation: I reviewed the patient's medical records. Home Medications Current Medication List: was personally reviewed by me Laboratory Data Attestation: I reviewed the patient's lab results. 04/16/25 16:51 04/16/25 16:51 Lab Results 04/16/25 04/16/25 Range/Units 16:51 20:39 WBC 9.70 (4.8-10.8) K/ul RBC 4.50 (4.20-5.40) M/uL Hgb 13.0 (12.0-16.0) g/dl Hct 38.6 (37.0-47.0) % MCV 85.8 (80.0-100.0) fL MCH 28.9 (25.0-34.0) pg MCHC 33.7 (32.0-36.0) g/dL RDW Std Deviation 46.5 H (36.4-46.3) fL RDW Coeff of Ira 14.6 H (11.5-14.5) % Plt Count 367 (130-400) K/uL MPV 8.9 L (9.4-12.4) fL Immature Gran % (Auto) 0.2 % Neut % (Auto) 73.4 % Lymph % (Auto) 15.5 % [place] % (Auto) 5.4 % Eos % (Auto) 4.8 % Baso % (Auto) 0.7 % Neut # (Auto) 7.12 H (1.40-6.50) K/uL Lymph # (Auto) 1.50 (1.20-3.40) K/uL [place] # (Auto) 0.52 (0.11-0.59) K/uL Eos # (Auto) 0.47 (0.00-0.50) K/uL Baso # (Auto) 0.07 (0.00-0.20) K/uL Immature Gran # (Auto) 0.02 (0.01-0.20) K/uL Sodium 141 (136-145) mmol/L Potassium 4.2 (3.5-5.1) mmol/L Chloride 106 (98-107) mmol/L Carbon Dioxide 28 (21-32) mmol/L Anion Gap 7 (3-11) BUN 13 (6-23) mg/dl Creatinine 0.95 (0.6-1.2) mg/dl Est Cr Clr Drug Dosing 44.4 ml/min eGFR 63.26 BUN/Creatinine Ratio 13.7 (10-20) Glucose 95 (70-99(Fasting)) mg/dl Calcium 9.3 (8.6-10.3) mg/dl Total Bilirubin 0.6 (0.2-1.0) mg/dl AST 12 L (13-39) U/L ALT 9 (7-52) U/L Alkaline Phosphatase 86 (34-104) U/L Troponin I High Sens 4.0 (0-14) pg/ml Total Protein 6.8 (6.0-8.3) gm/dl Albumin 3.9 (3.4-5.0) gm/dl Globulin 2.9 (2.5-4.0) gm/dl Albumin/Globulin Ratio 1.3 (0.9-2) Urine Color Yellow Urine Appearance Clear (Clear) Urine pH 7.5 (4.5-7.5) Ur Specific [place] > 1.045 H (1.000-1.030) Urine Protein Negative (Negative) Urine Glucose (UA) Negative (Negative) Urine Ketones Negative (Negative) Urine Blood Negative (Negative) Urine Nitrite Negative (Negative) Urine Bilirubin Negative (Negative) Urine Urobilinogen Negative (Negative) Ur Leukocyte Esterase Negative (Negative) Urine Comment Adenovirus (PCR) Not Detected (NotDetected) B. pertussis DNA (PCR) Not Detected (NotDetected) B.parapertussis DNA PCR Not Detected (NotDetected) C. pneumoniae DNA (PCR) Not Detected (NotDetected) Coronavirus OC43 (PCR) Not Detected (NotDetected) Coronavirus HKU1 (PCR) Not Detected (NotDetected) Coronavirus 229E (PCR) Not Detected (NotDetected) SARS-CoV-2 (PCR) Not Detected (NotDetected) Coronavirus NL63 (PCR) Not Detected (NotDetected) Human Metapneumovir PCR Not Detected (NotDetected) Influenza Type A (PCR) Not Detected (NotDetected) Influenza Type B (PCR) Not Detected (NotDetected) M. pneumoniae (PCR) Not Detected (NotDetected) Parainfluenza 1 (PCR) Not Detected (NotDetected) Parainfluenza 2 (PCR) Not Detected (NotDetected) Parainfluenza 3 (PCR) Not Detected (NotDetected) Parainfluenza 4 (PCR) Not Detected (NotDetected) RSV (PCR) Not Detected (NotDetected) Entero/Rhino (PCR) Not Detected (NotDetected) Imaging Data Attestation: I personally reviewed and interpreted this imaging study as follows: Radiologist's Impression: Chest X-Ray 04/16/25 16:29 Exam: Chest one view portable. Reason for exam: Shortness of breath. Previous studies: 04/03/2024. FINDINGS: Cardiac size remains normal. No active lung infiltrate, collapse or edema is seen. Previous right apical nodule is no longer clearly apparent. No pneumothorax or pleural effusion seen. IMPRESSION: No acute cardiopulmonary disease seen at this time. Electronically signed by Lanre Christy 04-16-2025 6:58 PM Chest CTA 04/16/25 17:48 EXAMINATION: CT angio chest PE protocol CLINICAL HISTORY: Short of breath, cough x 2 months PRIORS: 05/14/2024 CT TECHNIQUE: Contiguous CTA axial images were obtained through the chest with the use of intravenous contrast. Sagittal and coronal reformations are supplied. FINDINGS: The pulmonary arteries are well opacified. No central or peripheral pulmonary embolism. Moderate centrilobular pulmonary emphysema, most pronounced in the upper lobes. No dominant mass, airspace consolidation or pleural effusion. No mucous plugging or bronchiectasis. Heart size within normal limits. No pericardial effusion. Trachea and mainstem bronchi patent. Small hiatal hernia noted. No acute osseous abnormality. Mild to moderate osseous demineralization noted. Limited visualization of the upper abdomen is unremarkable. IMPRESSION: 1. No CTA evidence of a central or peripheral pulmonary embolism. 2. Moderate centrilobular pulmonary emphysema, most pronounced in the upper lobes. 3. Small hiatal hernia Electronically signed by Naila Jackson 04-16-2025 7:58 PM MDM Narrative See ED Course. Impression & Plan Acute exacerbation of chronic obstructive pulmonary disease Discharge Plan Visit Data Chief Complaint: Respiratory Problems Stated Complaint: RESPIRATORY PROBLEMS, PAST COUPLE WKS, WORSE TODAY ED Provider: Ebony Long ED Midlevel Provider: Derek Price Discharge Problem: Acute exacerbation of chronic obstructive pulmonary disease Patient Disposition: Admitted As Inpatient Condition: Fair Prescriptions Prescriptions: No Action ropinirole 0.25 mg tablet 0.25 mg PO HS Qty: 30 0RF Rx Instructions: administer 1-3 hours before bedtime atorvastatin 20 mg tablet 20 mg PO DAILY meclizine 25 mg tablet 25 mg PO TID PRN (Reason: Dizziness) pantoprazole 40 mg tablet,delayed release (DR/EC) 40 mg PO DAILY albuterol sulfate 90 mcg/actuation HFA aerosol inhaler 2 puff INHALATION Q4H PRN (Reason: Shortness Of Breath) bupropion HCl 150 mg tablet extended release 24 hr 150 mg PO DAILY duloxetine 60 mg capsule,delayed release(DR/EC) 60 mg PO DAILY solifenacin 5 mg tablet 5 mg PO DAILY pregabalin 75 mg capsule 75 mg PO BID Rx Instructions: TAKES QAM & AFTERNOON. pregabalin 150 mg capsule 150 mg PO HS aspirin 81 mg Tablet,Delayed Release (Dr/Ec) 81 mg PO DAILY fluticasone propionate 50 mcg/actuation [place],Suspension 2 spray NA DAILY Qty: 16 0RF prednisone 20 mg tablet 20 mg PO UD Qty: 11 0RF Rx Instructions: 40 mg daily x 4 days, 20 mg daily x 3 days, then stop. Trelegy Ellipta 200-62.5-25 mcg blister with device 1 inh inhalation DAILY Qty: 60 0RF Referrals Referrals: Nataly Kelly DO [Primary Care Provider] -
[2025-04-16] MEDS: ALBUT/IPRATROP 3MG/0.5MG NEB 3 ML VIAL NEB STA ×3 (18:05→21:39)
--- NOTE | 2025-04-16 18:58 | XRay Report ---
Exam: Chest one view portable. Reason for exam: Shortness of breath. Previous studies: 04/03/2024. FINDINGS: Cardiac size remains normal. No active lung infiltrate, collapse or edema is seen. Previous right apical nodule is no longer clearly apparent. No pneumothorax or pleural effusion seen. IMPRESSION: No acute cardiopulmonary disease seen at this time. Electronically signed by Lanre Christy 04-16-2025 6:58 PM
[2025-04-16] MEDS: OPTIRAY 320 125ml IV ONE (19:02)
--- NOTE | 2025-04-16 19:59 | CT Scan Report ---
EXAMINATION: CT angio chest PE protocol CLINICAL HISTORY: Short of breath, cough x 2 months PRIORS: 05/14/2024 CT TECHNIQUE: Contiguous CTA axial images were obtained through the chest with the use of intravenous contrast. Sagittal and coronal reformations are supplied. FINDINGS: The pulmonary arteries are well opacified. No central or peripheral pulmonary embolism. Moderate centrilobular pulmonary emphysema, most pronounced in the upper lobes. No dominant mass, airspace consolidation or pleural effusion. No mucous plugging or bronchiectasis. Heart size within normal limits. No pericardial effusion. Trachea and mainstem bronchi patent. Small hiatal hernia noted. No acute osseous abnormality. Mild to moderate osseous demineralization noted. Limited visualization of the upper abdomen is unremarkable. IMPRESSION: 1. No CTA evidence of a central or peripheral pulmonary embolism. 2. Moderate centrilobular pulmonary emphysema, most pronounced in the upper lobes. 3. Small hiatal hernia Electronically signed by Naila Jackson 04-16-2025 7:58 PM
[2025-04-16 20:52] LABS: Appearance Urine Clear (Clear); Glucose Urine UA Negative (Negative)
--- NOTE | 2025-04-16 21:05 | Emergency Department Note ---
ED Visit Note I was consulted by the Advanced Practice Provider, LEIGHTON Bryan. I performed a substantive portion of the visit. This includes aspects of: History: Patient is a 75-year-old female presenting with cough. She has reportedly had a cough for the last 2 months. She has been seen by pulmonology and has had adjustments to her medications without any relief of symptoms. She reports has been using at least 3 inhalers and a nebulizer without any relief in symptoms. MDM: Workup in the emergency department grossly unremarkable. CT PE negative for PE. Patient was given IV Solu-Medrol and 3 total DuoNeb treatments with minimal relief in her symptoms. Will admit patient to hospital service for further evaluation and management. .
--- NOTE | 2025-04-16 22:20 | History & Physical Report ---
Date of Service April 16, 2025 Assessment & Plan (1) Acute exacerbation of chronic obstructive pulmonary disease: (2) GERD (gastroesophageal reflux disease): Plan 75yo female with history of COPD (presumed based on imaging findings - no formal PFTs) presenting with 2-3 weeks of cough, SOB and BOOGIE. Notable wheezing on arrival - has resolved following multiple Albuterol nebs given in the ER. No report of fever, chills, chest pain or palpitations. No hypoxia. #Acute exacerbation of COPD -admit to medical -Continue Trelegy or formulary equivalent -DuoNeb q 4 hours scheduled -Albuterol q 4 hours PRN -Solumedrol 40mg IV BID -Flutter valve and incentive spirometry #Restless legs/chronic pain -Continue Requip 0.25mg po daily -Continue Lyrica 150mg po qHS and 75mg po BID -Continue Duloxetine 60mg po daily #Anxiety/Depression -Continue Cymbalta 60mg po daily -Continue Bupropion #GERD -Continue Protonix 40mg po daily DVT prophylaxis - Lovenox History of Present Illness Chief Complaint: shortness of breath Primary Care Provider: DO Nahomi Quezadatiarra Ryan is a 75yo female with history of GERD, likely COPD presenting with shortness of breath. Patient reports over the last 2-3 weeks she has been experiencing worsening shortness of breath and ongoing cough - typically dry but occasionally productive for thick sputum. Also with dyspnea on minimal exertion. She has been taking Albuterol at home with some improvement. Denies fever, chills, chest pain, palpitations, abdominal pain, nausea, vomiting, diarrhea. No additional complaints at this time. In the ER patient is afebrile, tachycardic, adequate oxygenation on room air. ER Course: Albuterol 3mL nebs x 4 Solumedrol 125mg IV Allergies Allergy/AdvReac Type Severity Reaction Status Date / Time morphine Allergy Intermediate rash Verified 05/16/24 12:34 strawberry Allergy Intermediate Hives Verified 05/16/24 12:34 Home Medications Medication Instructions Recorded Confirmed Type albuterol sulfate 90 mcg/actuation 2 puff inhalation Q4H PRN 10/11/20 05/14/24 History aerosol inhaler Shortness Of Breath aspirin 81 mg tablet,delayed 81 mg PO DAILY 10/11/20 05/14/24 History release atorvastatin 20 mg tablet 20 mg PO DAILY 10/11/20 05/14/24 History bupropion HCl 150 mg 24 hr tablet, 150 mg PO DAILY 10/11/20 05/14/24 History extended release duloxetine 60 mg capsule,delayed 60 mg PO DAILY 10/11/20 05/14/24 History release meclizine 25 mg tablet 25 mg PO TID PRN Dizziness 10/11/20 05/14/24 History pantoprazole 40 mg tablet,delayed 40 mg PO DAILY 10/11/20 05/14/24 History release pregabalin 150 mg capsule 150 mg PO HS 10/11/20 05/14/24 History pregabalin 75 mg capsule 75 mg PO BID 10/11/20 05/14/24 History solifenacin 5 mg tablet 5 mg PO DAILY 10/11/20 05/14/24 History ropinirole 0.25 mg tablet 0.25 mg PO HS #30 tabs 01/03/23 05/14/24 Rx fluticasone fur. 200 mcg-umeclid 1 inh inhalation DAILY #60 ea 05/18/24 Rx 62.5 mcg-vilant 25 mcg inhalat.powder (Trelegy Ellipta) fluticasone propionate 50 2 spray NA DAILY #16 grams 05/18/24 Rx mcg/actuation nasal spray,suspension prednisone 20 mg tablet 20 mg PO UD #11 tabs 05/18/24 Rx Past Med/Surg History Problem List Acute exacerbation of chronic obstructive pulmonary disease (Acute) Multiple pulmonary nodules determined by computed tomography of lung Peripheral eosinophilia Laceration of scalp (Acute) Fall (Acute) Head injury (Acute) SOB (shortness of breath) (Acute) Non-ST elevation [place] (NSTEMI) (Acute) COPD exacerbation (Acute) Hypoxia (Acute) SOB (shortness of breath) (Acute) Bilateral wheezing (Acute) Greater trochanteric bursitis IBS (irritable bowel syndrome) VIRGIL (obstructive sleep apnea) COPD (chronic obstructive pulmonary disease) Asthma (Chronic) GERD (gastroesophageal reflux disease) (Chronic) Restless leg syndrome (Chronic) Depression (Chronic) Tobacco abuse (Chronic) Anxiety (Chronic) Acute diverticulitis (Acute) PNA (pneumonia) Medical History Current smoker History of left heart catheterization Surgical History History of cervical spinal arthrodesis History of carpal tunnel surgery of right wrist Family History Sister Breast cancer Father Diabetes Brother Prostate cancer Mother Kidney disease Social History Smoking Status: Former smoker Tobacco Type: Cigarettes Cigarettes Per Day: 2 cigarettes/ a day; Second Hand Exposure: No; Do You Dip or Chew Tobacco: No; Tobacco Cessation Education Requested by Patient: No Hx Alcohol Use: No Hx Substance Use: No Preferred Language: Ukrainian Communication Ability: Effective Communication Ability Comment: hears And readsd lips Wrister Required: No Beliefs That Will Affect Care: None Current Living Situation: Spouse Other Information That Helps Us Care for You: No Feels Safe at Home: Yes Safety Concerns: Feels Safe At This Time Assistive Devices: Denture - Upper, Denture - Lower, Glasses and Hearing Aid - Bilateral Review of Systems Review of Systems: All systems reviewed & are unremarkable except as noted in HPI & below Physical Exam Physical Exam: General: patient resting comfortably, NAD, non-toxic in appearance, AA&O x 4 Skin: warm, dry, intact, no rashes or lesions HEENT: NC/AT, PERRL, EOMI, anicteric sclera, conjunctiva without injection, external ear normal to inspection and nontender, nares patent, moist mucus membranes, dentition intact, no oropharyngeal lesions, neck supple, trachea midline, no LAD, no thyromegaly, no JVD Heart: +S1/S2, regular, no m/r/g Lungs: equal air entry bilaterally, no rales/rhonchi/wheezes Abd: +BS, soft, NT/ND, no masses/organomegaly/ascites Ext: warm, 2+ pulses in UE/LE bilaterally, no clubbing/cyanosis or edema Neuro: nonfocal, patient AA&O x 4, speech intact, no facial droop, moving all extremities on command with equal strength 5/5 Results & Data Results & Data Vital Signs (Past 12 Hours) Vital Signs Temp Pulse Pulse Resp BP BP Pulse Ox 04/16/25 19:00 107 H 18 115/76 93 04/16/25 19:00 93 04/16/25 17:37 97 H 04/16/25 17:30 95 04/16/25 17:30 04/16/25 17:20 95 H 25 H 158/80 H 96 04/16/25 16:23 36.4 C L 99 H 18 132/69 93 O2 Del Method 04/16/25 19:00 Room Air 04/16/25 19:00 Room Air 04/16/25 17:37 04/16/25 17:30 Room Air 04/16/25 17:30 Room Air 04/16/25 17:20 Room Air 04/16/25 16:23 Room Air Laboratory Results Laboratory Results WBC 9.70 K/ul (4.8-10.8) 04/16/25 16:51 RBC 4.50 M/uL (4.20-5.40) 04/16/25 16:51 Hgb 13.0 g/dl (12.0-16.0) 04/16/25 16:51 Hct 38.6 % (37.0-47.0) 04/16/25 16:51 MCV 85.8 fL (80.0-100.0) 04/16/25 16:51 MCH 28.9 pg (25.0-34.0) 04/16/25 16:51 MCHC 33.7 g/dL (32.0-36.0) 04/16/25 16:51 RDW Std Deviation 46.5 fL (36.4-46.3) H 04/16/25 16:51 RDW Coeff of Ira 14.6 % (11.5-14.5) H 04/16/25 16:51 Plt Count 367 K/uL (130-400) 04/16/25 16:51 MPV 8.9 fL (9.4-12.4) L 04/16/25 16:51 Immature Gran % (Auto) 0.2 % 04/16/25 16:51 Neut % (Auto) 73.4 % 04/16/25 16:51 Lymph % (Auto) 15.5 % 04/16/25 16:51 Haines % (Auto) 5.4 % 04/16/25 16:51 Eos % (Auto) 4.8 % 04/16/25 16:51 Baso % (Auto) 0.7 % 04/16/25 16:51 Neut # (Auto) 7.12 K/uL (1.40-6.50) H 04/16/25 16:51 Lymph # (Auto) 1.50 K/uL (1.20-3.40) 04/16/25 16:51 Haines # (Auto) 0.52 K/uL (0.11-0.59) 04/16/25 16:51 Eos # (Auto) 0.47 K/uL (0.00-0.50) 04/16/25 16:51 Baso # (Auto) 0.07 K/uL (0.00-0.20) 04/16/25 16:51 Immature Gran # (Auto) 0.02 K/uL (0.01-0.20) 04/16/25 16:51 Sodium 141 mmol/L (136-145) 04/16/25 16:51 Potassium 4.2 mmol/L (3.5-5.1) 04/16/25 16:51 Chloride 106 mmol/L (98-107) 04/16/25 16:51 Carbon Dioxide 28 mmol/L (21-32) 04/16/25 16:51 Anion Gap 7 (3-11) 04/16/25 16:51 BUN 13 mg/dl (6-23) 04/16/25 16:51 Creatinine 0.95 mg/dl (0.6-1.2) 04/16/25 16:51 Est Cr Clr Drug Dosing 44.4 ml/min 04/16/25 16:51 eGFR 63.26 04/16/25 16:51 BUN/Creatinine Ratio 13.7 (10-20) 04/16/25 16:51 Glucose 95 mg/dl (70-99(Fasting)) 04/16/25 16:51 Calcium 9.3 mg/dl (8.6-10.3) 04/16/25 16:51 Total Bilirubin 0.6 mg/dl (0.2-1.0) 04/16/25 16:51 AST 12 U/L (13-39) L 04/16/25 16:51 ALT 9 U/L (7-52) 04/16/25 16:51 Alkaline Phosphatase 86 U/L (34-104) 04/16/25 16:51 Troponin I High Sens 4.0 pg/ml (0-14) 04/16/25 16:51 Total Protein 6.8 gm/dl (6.0-8.3) 04/16/25 16:51 Albumin 3.9 gm/dl (3.4-5.0) 04/16/25 16: Globulin 2.9 gm/dl (2.5-4.0) 04/16/25 16: Albumin/Globulin Ratio 1.3 (0.9-2) 04/16/25 16:51 Urine Color Yellow 04/16/25 20:39 Urine Appearance Clear (Clear) 04/16/25 20:39 Urine pH 7.5 (4.5-7.5) 04/16/25 20:39 Ur Specific [place] > 1.045 (1.000-1.030) H 04/16/25 20:39 Urine Protein Negative (Negative) 04/16/25 20:39 Urine Glucose (UA) Negative (Negative) 04/16/25 20:39 Urine Ketones Negative (Negative) 04/16/25 20:39 Urine Blood Negative (Negative) 04/16/25 20:39 Urine Nitrite Negative (Negative) 04/16/25 20:39 Urine Bilirubin Negative (Negative) 04/16/25 20:39 Urine Urobilinogen Negative (Negative) 04/16/25 20:39 Ur Leukocyte Esterase Negative (Negative) 04/16/25 20:39 Urine Comment 04/16/25 20:39 Adenovirus (PCR) Not Detected (NotDetected) 04/16/25 16:51 B. pertussis DNA (PCR) Not Detected (NotDetected) 04/16/25 16:51 B.parapertussis DNA PCR Not Detected (NotDetected) 04/16/25 16:51 C. pneumoniae DNA (PCR) Not Detected (NotDetected) 04/16/25 16:51 Coronavirus OC43 (PCR) Not Detected (NotDetected) 04/16/25 16:51 Coronavirus HKU1 (PCR) Not Detected (NotDetected) 04/16/25 16:51 Coronavirus 229E (PCR) Not Detected (NotDetected) 04/16/25 16:51 SARS-CoV-2 (PCR) Not Detected (NotDetected) 04/16/25 16:51 Coronavirus NL63 (PCR) Not Detected (NotDetected) 04/16/25 16:51 Human Metapneumovir PCR Not Detected (NotDetected) 04/16/25 16:51 Influenza Type A (PCR) Not Detected (NotDetected) 04/16/25 16:51 Influenza Type B (PCR) Not Detected (NotDetected) 04/16/25 16:51 M. pneumoniae (PCR) Not Detected (NotDetected) 04/16/25 16:51 Parainfluenza 1 (PCR) Not Detected (NotDetected) 04/16/25 16:51 Parainfluenza 2 (PCR) Not Detected (NotDetected) 04/16/25 16:51 Parainfluenza 3 (PCR) Not Detected (NotDetected) 04/16/25 16:51 Parainfluenza 4 (PCR) Not Detected (NotDetected) 04/16/25 16:51 RSV (PCR) Not Detected (NotDetected) 04/16/25 16:51 Entero/Rhino (PCR) Not Detected (NotDetected) 04/16/25 16:51 Impressions Chest X-Ray 04/16/25 16:29 Exam: Chest one view portable. Reason for exam: Shortness of breath. Previous studies: 04/03/2024. FINDINGS: Cardiac size remains normal. No active lung infiltrate, collapse or edema is seen. Previous right apical nodule is no longer clearly apparent. No pneumothorax or pleural effusion seen. IMPRESSION: No acute cardiopulmonary disease seen at this time. Electronically signed by Lanre Christy 04-16-2025 6:58 PM Chest CTA 04/16/25 17:48 EXAMINATION: CT angio chest PE protocol CLINICAL HISTORY: Short of breath, cough x 2 months PRIORS: 05/14/2024 CT TECHNIQUE: Contiguous CTA axial images were obtained through the chest with the use of intravenous contrast. Sagittal and coronal reformations are supplied. FINDINGS: The pulmonary arteries are well opacified. No central or peripheral pulmonary embolism. Moderate centrilobular pulmonary emphysema, most pronounced in the upper lobes. No dominant mass, airspace consolidation or pleural effusion. No mucous plugging or bronchiectasis. Heart size within normal limits. No pericardial effusion. Trachea and mainstem bronchi patent. Small hiatal hernia noted. No acute osseous abnormality. Mild to moderate osseous demineralization noted. Limited visualization of the upper abdomen is unremarkable. IMPRESSION: 1. No CTA evidence of a central or peripheral pulmonary embolism. 2. Moderate centrilobular pulmonary emphysema, most pronounced in the upper lobes. 3. Small hiatal hernia Electronically signed by Naila Jackson 04-16-2025 7:58 PM ECG Additional Comments: EKG with NSR at 97bpm, some non-specific ST changes Code Status & VTE Plan VTE Prophylaxis Plan VTE Prophylaxis will be ordered: Yes PG Care Time/CCT Total # of Minutes Spent Total Time Spent with Patient: Total time spent is greater than 50% in coordination of care (as documented) at patient's floor/unit and/or counseling patient: Coding Level of Care Code 70981 INT INP/OBS CARE 3/75MIN Diagnoses Acute exacerbation of chronic obstructive pulmonary disease J44.1 GERD (gastroesophageal reflux disease) K21.9
[2025-04-17] MEDS ORDERED: MELATONIN 3 MG TAB PO PRN (01:42)
[2025-04-17] MEDS ORDERED: DOCUSATE SODIUM 100 MG CAP PO PRN (01:42)
[2025-04-17] MEDS ORDERED: ONDANSETRON INJ 2 MG/ML 2 ML VIAL IV PRN (01:42)
[2025-04-17] MEDS ORDERED: ALBUTEROL 0.083% NEBU SOLN 3 ML VIAL NEB PRN (01:42)
[2025-04-17] MEDS: ALBUT/IPRATROP 3MG/0.5MG NEB 3 ML VIAL NEB SCH (02:23)
[2025-04-17] MEDS: COUGH DROP (SUGAR FREE) LOZ 24 LOZ/1 BOX BUCCAL STA (04:40)
[2025-04-17 08:44] LABS: Hematocrit (blood only) 38.5 % (37.0-47.0); Hemoglobin 13.0 g/dl (12.0-16.0); Mean Corpuscular Hemoglobin 28.4 pg (25.0-34.0); Mean Corpuscular Volume 84.2 fL (80.0-100.0); Platelet Count 450 K/uL (130-400); RDW Standard Deviation 45.4 fL (36.4-46.3); Red Blood Count 4.57 M/uL (4.20-5.40); White Blood Count 12.66 K/ul (4.8-10.8)
[2025-04-17] MEDS ORDERED: NON-FORMULARY MEDICATION (Fluticasone-Umeclidin-Vilanter [Trelegy Ellipta] 200-62.5-25 mcg INH SCH (09:00)
[2025-04-17 09:06] LABS: Anion Gap 14.0 (3-11); Blood Urea Nitrogen 16.0 mg/dl (6-23); Calcium 10.1 mg/dl (8.6-10.3); Carbon Dioxide 21.0 mmol/L (21-32); Chloride 104.0 mmol/L (98-107); Creatinine Clr Calc Pharmacy 37.7 ml/min; Glucose 154.0 mg/dl (70-99(Fasting)); Potassium 4.4 mmol/L (3.5-5.1); Sodium 139.0 mmol/L (136-145)
[2025-04-17] MEDS: FLUTICASONE FUROATE 200MCG 14 PUFFS/INHALER INH SCH (09:33)
[2025-04-17] MEDS: UMECLIDINIUM/VILANTEROL 62.5/25MCG 7 PUFFS/INHALER INH SCH (09:33)
[2025-04-17] MEDS: ASPIRIN 81 MG ECTAB PO SCH (09:34)
[2025-04-17] MEDS: ATORVASTATIN 20 MG TAB PO SCH (09:34)
[2025-04-17] MEDS: FLUTICASONE PROPIONATE NA SPR 16 GM BTL SCH (09:36)
[2025-04-17] MEDS: PREGABALIN 75 MG CAP PO SCH (09:50)
[2025-04-17] MEDS: ENOXAPARIN INJ 40 MG/0.4 ML SYR SQ SCH (13:38)
[2025-04-17] MEDS: ACETAMINOPHEN 325 MG TAB PO PRN (13:59)
--- NOTE | 2025-04-17 15:53 | Hospitalist Progress Note ---
Date of Service April 17, 2025 Assessment & Plan (1) Acute exacerbation of chronic obstructive pulmonary disease: (2) GERD (gastroesophageal reflux disease): Plan 75yo female with history of COPD (presumed based on imaging findings - no formal PFTs) presenting with 2-3 weeks of cough, SOB and BOOGIE. Notable wheezing on arrival - has resolved following multiple Albuterol nebs given in the ER. No report of fever, chills, chest pain or palpitations. No hypoxia. #Acute exacerbation of COPD -Anoro Ellipta, Arnuity Ellipta -DuoNeb q 4 hours scheduled -Albuterol neb q 4 hours PRN -Solumedrol 40mg IV BID -Flutter valve and incentive spirometry #Restless legs/chronic pain -Continue Requip 0.25mg po daily -Continue Lyrica 150mg po qHS and 75mg po BID -Continue Duloxetine 60mg po hs #Anxiety/Depression -Continue Cymbalta 60mg po hs -Continue Bupropion #GERD -Continue Protonix 40mg po daily Dispo: probable d/c tomorrow DVT prophylaxis - Lovenox Admission and Anticipated Discharge Date Admission Date: April 16, 2025 Subjective Walking around room this am. Slightly winded without conversation-no pursed lip breathing or tachypnea in corresponding with patient. She has been maintaining oxygenation on room air. Reports her breathing still feels slightly restricted. Reports slight shaking in right hand, however she had a conversation with her this am that caused her stress and she states when she gets emotional she has an essential tremor that develops. Still with dry, harsh, nonproductive cough. Review of Systems Review of Systems: All systems reviewed & are unremarkable except as noted in Subjective Physical Exam Physical Exam: GENERAL APPEARANCE: A&O. Walking around room. NAD. SKIN: Normal color without rashes or lesions. Normal turgor. HEENT: Head AT/NC. Buccal mucosa is moist and pink. NECK: No jugular venous distention. No thyroid enlargement. There is no lymphadenopathy. HEART: RRR without m/g/r LUNGS: Normal inspiratory effort. CTA in anterior upper rutherford. Posterior rutherford with scattered rhonchi that clear with cough. Diminished in bases. No intercostal retractions noted. ABDOMEN: No guarding or rigidity. Normoactive BS in all four quadrants. Abdomen soft and NT. MSK: No bony gross/deformities throughout. ROM intact. EXTREMITIES: No edema, No peripheral cyanosis. Neuro: CN 2-12 grossly intact. No focal neuro deficits PSYCHIATRIC: Normal affect. Eye contact is good. Speech is normal rate and content. Responses are appropriate. Results & Data Results & Data Vital Signs (Past 12 Hours) Vital Signs Temp Pulse Resp BP Pulse Ox O2 Del Method 04/17/25 14:42 36.8 C 109 H 17 129/64 92 Room Air 04/17/25 14:12 107 H 18 93 Room Air 04/17/25 11:05 108 H 18 92 Room Air 04/17/25 08:36 36.6 C 108 H 18 118/61 92 Room Air 04/17/25 07:13 97 H 16 93 Room Air Laboratory Results Labs reviewed: CBC, BMP PG Care Time/CCT Total # of Minutes Spent Total Time Spent with Patient: Total time spent is greater than 50% in coordination of care (as documented) at patient's floor/unit and/or counseling patient: Coding Level of Care Code 94552 SUB INP/OBS CARE 2/35MIN Diagnoses Acute exacerbation of chronic obstructive pulmonary disease J44.1 GERD (gastroesophageal reflux disease) K21.9
[2025-04-17] MEDS: PREGABALIN 150 MG CAP PO SCH (20:37)
[2025-04-18 07:52] VITALS: BP 113/63; TEMP 97.8
[2025-04-18 10:55] VITALS: PULSE 85; RESP 18; O2SAT 94
--- NOTE | 2025-04-18 13:41 | Discharge Summary ---
Discharge Summary Date of Service April 18, 2025 Principal Dx & Hospital Course #1 = Principal Diagnosis (1) Acute exacerbation of chronic obstructive pulmonary disease: (2) GERD (gastroesophageal reflux disease): Plan 75yo female with history of COPD (presumed based on imaging findings - no formal PFTs) presenting with 2-3 weeks of cough, SOB and BOOGIE. Notable wheezing on arrival - has resolved following multiple Albuterol nebs given in the ER. No report of fever, chills, chest pain or palpitations. No hypoxia. With hospitalization she received IV Methylprednisolone, scheduled DuoNeb, and her routine home inhaler therapy. She required no supplemented oxygen at any time during the course of her hospitalization. She came in to hospital on no oxygen therapy. She required no rescue Albuterol nebulization. On day of her d/c, she self reports her cough subsiding, with less shortness or breath and BOOGIE. She is not dyspneic with conversation and is not tachypneic. She has remained without fever or emergence of deteriorating symptoms. She will be discharged with prescriptions for oral Prednisone and DuoNeb to use as needed at home as she only has Albuterol nebulization to use when she is discharged. She confirmed she has a nebulizer machine at home. She was provided instruction to start Prednisone dosing tomorrow as she received IV Methylprednisolone prior to discharge this am. She has Luz Maria Fry at home to use PRN for cough. #Acute exacerbation of COPD -Anoro Ellipta, Arnuity Ellipta -DuoNeb q 4 hours scheduled -Albuterol neb q 4 hours PRN -Solumedrol 40mg IV BID -Flutter valve and incentive spirometry #Restless legs/chronic pain -Continue Requip 0.25mg po daily -Continue Lyrica 150mg po qHS and 75mg po BID -Continue Duloxetine 60mg po hs #Anxiety/Depression -Continue Cymbalta 60mg po hs -Continue Bupropion #GERD -Continue Protonix 40mg po daily Dispo: D/C home with PCP and Pulm follow up Admission HPI Per Admitting Provider Yadira Ryan is a 75yo female with history of GERD, likely COPD presenting with shortness of breath. Patient reports over the last 2-3 weeks she has been experiencing worsening shortness of breath and ongoing cough - typically dry but occasionally productive for thick sputum. Also with dyspnea on minimal exertion. She has been taking Albuterol at home with some improvement. Denies fever, chills, chest pain, palpitations, abdominal pain, nausea, vomiting, diarrhea. No additional complaints at this time. In the ER patient is afebrile, tachycardic, adequate oxygenation on room air. ER Course: Albuterol 3mL nebs x 4 Solumedrol 125mg IV Discharge Exam GENERAL APPEARANCE: A&O. Resting in bed. NAD. SKIN: Normal color without rashes or lesions. Normal turgor. HEENT: Head AT/NC. Buccal mucosa is moist and pink. NECK: No jugular venous distention. No thyroid enlargement. There is no lymphadenopathy. HEART: RRR without m/g/r LUNGS: Normal inspiratory effort. CTA in all ruther[place]. No tachypnea or use of accessory muscles. ABDOMEN: No guarding or rigidity. Normoactive BS in all four quadrants. Abdomen soft and NT. MSK: No bony gross/deformities throughout. ROM intact. EXTREMITIES: No edema, No peripheral cyanosis. Neuro: CN 2-12 grossly intact. No focal neuro deficits PSYCHIATRIC: Normal affect. Eye contact is good. Speech is normal rate and content. Responses are appropriate. Discharge Plan Discharge Items Patient Disposition: Home - Self-Care Reason For Visit: sob Discharge Diagnosis: COPD exacerbation Condition on Discharge: Good Activity: Resume your previous activity Bathing: No limitations Driving/Machine Use: No limitations Weightbearing: Full weightbearing Non-emergency contact: Primary Care Provider Call non-emergency contact if: you have any medication questions and you have a fever Follow-up/Referrals: Mikhail Stanton MD [Physician] - (within 1-2 weeks) Nataly Kelly DO [Primary Care Provider] - (Follow up within one week) Diet: Regular Addtl Attending Provider Instructions: Yadira You were admitted to the hospital for a COPD exacerbation. During your hospitalization we gave you medication to help decrease the inflammation in your lungs through and IV called Methylprednisolone. You received a dose of this medication this morning prior to leaving the hospital. You will be placed on oral steroids to keep the inflammation in you lungs controlled and to help diminish your cough. Continue your inhalers you use at home and use your DuoNeb nebulizer treatments as needed during this time to help your breathing. Please follow up with your family doctor within one week of discharge to ensure you are regrouping appropriately. You should also schedule follow up with pulmonology. Medications: Your medication list has been reviewed and reconciled upon discharge to ensure accuracy and continuity of care. An updated list of all your medications is included with your hospital discharge paperwork. Please review this list closely, and make note of any changes. We sent a new medication called Prednisone to your pharmacy. Take Prednisone 40mg once a day for the next five days. Start this medication on the morning of 04/19/25. You were also prescribed DUONEB medication you can use in your nebulizer machine every 4 hours at home as needed for shortness of breath of wheezing. You already have Albuterol nebulizers at home you can use as well in between if you feel more short of breath. Use the Tessalon Perles you have at home as needed for your cough. Take your medications as instructed; do not skip a dose of your medicines. Make sure all of your doctors know every medicine you are taking (including opzz-gtv-vpwtvdo medicines, vitamins, and supplements). Call your primary care provider before taking any new medicines (including over- the-counter medicines, vitamins, and supplements), because some of these may interact with your current medications, or may make your symptoms worse. Tell your primary care provider if you cannot afford your medications. Activity: You can do normal everyday activities as your body allows. Take rest breaks if you feel tired. Do not overexert. Stop activity if you have pain, shortness of breath or feel dizzy. Follow-up appointments: Make an appointment with your primary care physician within one week of discharge. A copy of this summary will be sent to them. Every time you see your primary care physician, or any other doctor, bring your medication list, and a list of questions. CONTACT YOUR PRIMARY CARE PROVIDER if you experience any of the following: Shortness of breath or difficulty breathing Fevers or chills Feeling tired with normal activity or experiencing dizziness or fainting Difficulty following your treatment plan, or difficulty taking medications CALL 911 OR GO TO THE EMERGENCY DEPARTMENT if you experience any of the following: Severe abdominal pain or nausea/vomiting Severe chest pain, or chest pain that radiates (moves) to your jaw or arm Sudden, severe shortness of breath or difficulty breathing Thank you for allowing us to participate in your care. Pending Studies at Discharge: No Stand-Alone Forms: My [facility], Smoking Cessation Medications and DC Order Prescriptions: New ipratropium-albuterol 0.5 mg-3 mg(2.5 mg base)/3 mL Solution For Nebulization 3 ml NEB Q4R PRN (Reason: shortness of breath or wheezing) Qty: 90 0RF prednisone 20 mg tablet 40 mg PO DAILY 5 Days Qty: 10 0RF Continued ropinirole 0.25 mg tablet 0.25 mg PO HS Qty: 30 0RF Rx Instructions: administer 1-3 hours before bedtime atorvastatin 20 mg tablet 20 mg PO DAILY meclizine 25 mg tablet 25 mg PO TID PRN (Reason: Dizziness) pantoprazole 40 mg tablet,delayed release (DR/EC) 40 mg PO DAILY albuterol sulfate 90 mcg/actuation HFA aerosol inhaler 2 puff INHALATION Q4H PRN (Reason: Shortness Of Breath) bupropion HCl 150 mg tablet extended release 24 hr 150 mg PO DAILY duloxetine 60 mg capsule,delayed release(DR/EC) 60 mg PO DAILY solifenacin 5 mg tablet 5 mg PO DAILY pregabalin 75 mg capsule 75 mg PO BID Rx Instructions: TAKES QAM & AFTERNOON. pregabalin 150 mg capsule 150 mg PO HS aspirin 81 mg Tablet,Delayed Release (Dr/Ec) 81 mg PO DAILY fluticasone propionate 50 mcg/actuation Outlook,Suspension 2 spray NA DAILY Qty: 16 0RF Trelegy Ellipta 200-62.5-25 mcg blister with device 1 inh inhalation DAILY Qty: 60 0RF Discontinued prednisone 20 mg tablet 20 mg PO UD Qty: 11 0RF Rx Instructions: 40 mg daily x 4 days, 20 mg daily x 3 days, then stop. Discharge Orders: Discharge Order (Routine); Ordered 04/18/25 Ordered By: Alannah Brown Admission Data Admit Date/Time: 04/16/25 22:20 Attending Provider: Sommer Poole Admit Provider: Sommer Poole Primary Care Provider: Nataly Kelly. Other Providers: Sommer Poole Hospital Stay Data Consultations 04/16/25 21:44 ED Decision to Admit Stat Diagnostic Imagining Performed 04/16/25 17:48 CT angio chest PE protocol Stat Pending Results Patient Have Any Pending Studies at Discharge: No Discharge Instructions Given to Patient (Per Discharging Provider) Juan Manuel May were admitted to the hospital for a COPD exacerbation. During your hospitalization we gave you medication to help decrease the inflammation in your lungs through and IV called Methylprednisolone. You received a dose of this medication this morning prior to leaving the hospital. You will be placed on oral steroids to keep the inflammation in you lungs controlled and to help diminish your cough. Continue your inhalers you use at home and use your DuoNeb nebulizer treatments as needed during this time to help your breathing. Please follow up with your family doctor within one week of discharge to ensure you are regrouping appropriately. You should also schedule follow up with pulmonology. Medications: Your medication list has been reviewed and reconciled upon discharge to ensure accuracy and continuity of care. An updated list of all your medications is included with your hospital discharge paperwork. Please review this list closely, and make note of any changes. We sent a new medication called Prednisone to your pharmacy. Take Prednisone 40mg once a day for the next five days. Start this medication on the morning of 04/19/25. You were also prescribed DUONEB medication you can use in your nebulizer machine every 4 hours at home as needed for shortness of breath of wheezing. You already have Albuterol nebulizers at home you can use as well in between if you feel more short of breath. Use the Tessalon Perles you have at home as needed for your cough. Take your medications as instructed; do not skip a dose of your medicines. Make sure all of your doctors know every medicine you are taking (including zqxo-kbr-rresnme medicines, vitamins, and supplements). Call your primary care provider before taking any new medicines (including over- the-counter medicines, vitamins, and supplements), because some of these may interact with your current medications, or may make your symptoms worse. Tell your primary care provider if you cannot afford your medications. Activity: You can do normal everyday activities as your body allows. Take rest breaks if y ou feel tired. Do not overexert. Stop activity if you have pain, shortness of breath or feel dizzy. Follow-up appointments: Make an appointment with your primary care physician within one week of dis charge. A copy of this summary will be sent to them. Every time you see your primary care physician, or any other doctor, bring your medication list, and a list of questions. CONTACT YOUR PRIMARY CARE PROVIDER if you experience any of the following: Shortness of breath or difficulty breathing Fevers or chills Feeling tired with normal activity or experiencing dizziness or fainting Difficulty following your treatment plan, or difficulty taking medications CALL 911 OR GO TO THE EMERGENCY DEPARTMENT if you experience any of the following: Severe abdominal pain or nausea/vomiting Severe chest pain, or chest pain that radiates (moves) to your jaw or arm Sudden, severe shortness of breath or difficulty breathing Thank you for allowing us to participate in your care. Total Time Total Time Spent Total Time Spent (In Minutes): I spent a total of 40 minutes on the date of service in review of patient's record, and previously obtained information in person and appropriate medical visit, discussion and education of plan, with patient and/or caregiver, placing orders for tests/referral/procedures as medically necessary and documentation of pertinent clinical information in patient's medical records for their visit today. Coding Level of Care Code 08372 INP/OBS DISCH >30 MIN Diagnoses Acute exacerbation of chronic obstructive pulmonary disease J44.1 GERD (gastroesophageal reflux disease) K21.9
--- NOTE | 2025-04-20 00:21 | Electrocardiogram Report ---
Test Reason : Blood Pressure : */* mmHG Vent. Rate : 97 BPM Atrial Rate : 97 BPM P-R Int : 122 ms QRS Dur : 78 ms QT Int : 332 ms P-R-T Axes : 76 5 67 degrees QTcB Int : 421 ms Normal sinus rhythm Nonspecific ST and T wave abnormality Abnormal ECG When compared with ECG of 16-May-2024 14:16, QRS axis Shifted right T wave inversion no longer evident in Inferior leads Nonspecific T wave abnormality now evident in Lateral leads Confirmed by Kenneth Plunkett ([id number]) on 04/20/2025 12:21:38 AM Referred By: REFERRED SELF Confirmed By: Kenneth Plunkett
== END 2025-04-18 14:59 | disposition home or self-care (01) | DRG 192 ==
LOC: ED 16:17 → 3N 22:20 → INTOOBSV 22:20 → 3N 04-17 01:05